=== PATIENT | female | born 1955 | race Caucasian/White ===

== ENCOUNTER → 2018-10-27 22:06 | Outpatient (CLI) | payer OTHER, SELFPAY ==
[2018-10-27 16:08] VITALS: BMI 35.1
[2018-10-27 22:20] LABS: Absolute Lymphocyte Count 1.95 X10^3/ul (0.83-4.51); Absolute Neutrophil Count 3.7 X10^3/uL (2.0-7.7); Basophil# 0.02 X10^3/uL; Basophil% 0.3 % (0-1); Eosinophil# 0.08 X10^3/uL; Eosinophils% 1.3 % (0-5); Hematocrit 46.7 % (37-47); Hemoglobin 15.5 g/dl (12.0-15.0); Lymphocyte # 1.95 X10^3/ul (4.0); Lymphocyte % 30.8 % (19-41); Mean Corp Hgb Conc 33.2 g/gl (32-36); Mean Corpuscular Volume 90.5 fL (81-99); Mean Platelet Vol. 10.3 fl (6.2-12.0); Monocyte# 0.59 X10^3/uL; Monocyte% 9.3 % (0-10); Neutrophil # 3.68 X10^3/uL (2.7-7.7); Neutrophil % 58.1 % (47-70); POSITIVE COUNT NO; POSITIVE DIFFERENTIAL NO; POSITIVE MORPHOLOGY NO; Platelet Count 235 K/mm3 (150-450); RBC Distribution Width SD 42.4 fl (35.1-43.9); Red Blood Count 5.16 M/mm3 (4.2-5.4); White Blood Count 6.3 K/mm3 (4.4-11.0)
[2018-10-27 22:55] LABS: ALB/GLOB Ratio 1.2 RATIO (0.9-2.4); AST(SGOT) 24 U/L (15-37); Alanine Aminotransfer ALT/SGPT 43 U/L (13-56); Albumin, Serum 3.9 g/dL (3.2-5.0); Alkaline Phosphatase 84 U/L (45-117); Anion Gap 8 (5-15); BUN 17 mg/dL (7-18); BUN/Creat Ratio 24.1 RATIO (10-20); Calcium,Total 8.6 mg/dL (8.5-10.1); Chloride 104 mmol/L (98-107); Cholesterol 179 mg/dL (200); EST Glomerular Filtration Rate 89 mL/min (>60); Est Glom Filt Rate - Afr Amer 108 mL/min (>60); Globulin 3.2 g/dL (2.2-4.2); Glucose 121 mg/dL (74-106); High Density Lipoprotein 39 mg/dL; Potassium 3.2 mmol/L (3.5-5.1); Protein, Total 7.1 g/dL (6.4-8.2); Sodium Level 139 mmol/L (136-145); Triglycerides 443 mg/dL
== END ==
PROVIDERS: Referring Provider Nurse Practitioner; Visit Provider Nurse Practitioner
DX: I10 Essential (primary) hypertension (principal); E78.5 Hyperlipidemia, unspecified; K21.9 Gastro-esophageal reflux disease without esophagitis
CPT/HCPCS: 80053; 80061; 85025

== ENCOUNTER → 2020-02-01 | Outpatient (CLI) | payer OTHER, SELFPAY ==
[2020-02-01 16:25] VITALS: BMI 35.9
[2020-02-01 22:11] LABS: Absolute Lymphocyte Count 2.23 X10^3/uL (0.83-4.51); Absolute Neutrophil Count 3.9 X10^3/uL (2.0-7.7); Basophil# 0.03 X10^3/uL; Basophil% 0.4 % (0-1); Eosinophil# 0.14 X10^3/uL; Hematocrit 44.8 % (37-47); Hemoglobin 14.7 g/dL (12.0-15.0); Lymphocyte # 2.23 X10^3/ul (4.0); Lymphocyte % 31.6 % (19-41); Mean Corp Hgb Conc 32.8 g/dL (32-36); Mean Corpuscular Hgb 29.8 pg (27.0-32.0); Mean Corpuscular Volume 90.7 fL (81-99); Mean Platelet Vol. 10.1 fl (6.2-12.0); Monocyte# 0.71 X10^3/uL; Monocyte% 10.1 % (0-10); NRBC Flagged by Analyzer 0 % (0-5); Neutrophil # 3.93 X10^3/uL (2.7-7.7); Neutrophil % 55.8 % (47-70); Platelet Count 270 K/mm3 (150-450); RBC Distribution Width CV 12.6 % (11.6-14.6); RBC Distribution Width SD 41.4 fl (35.1-43.9); Red Blood Count 4.94 M/mm3 (4.2-5.4); White Blood Count 7.1 K/mm3 (4.4-11.0)
[2020-02-01 22:26] LABS: ALB/GLOB Ratio 1.3 RATIO (0.9-2.4); AST(SGOT) 23 U/L (15-37); Alanine Aminotransfer ALT/SGPT 41 U/L (13-56); Albumin, Serum 4.1 g/dL (3.2-5.0); Alkaline Phosphatase 79 U/L (45-117); Anion Gap 7 (5-15); BUN 17 mg/dL (7-18); BUN/Creat Ratio 26.8 RATIO (10-20); Calcium,Total 9.1 mg/dL (8.5-10.1); Chloride 103 mmol/L (98-107); Cholesterol 186 mg/dL (200); Creatinine, Serum 0.64 mg/dL (0.55-1.02); EST Glomerular Filtration Rate 100 mL/min (>60); Est Glom Filt Rate - Afr Amer 121 mL/min (>60); Globulin 3.2 g/dL (2.2-4.2); Glucose 94 mg/dL (74-106); High Density Lipoprotein 37 mg/dL; Potassium 3.8 mmol/L (3.5-5.1); Protein, Total 7.3 g/dL (6.4-8.2); Sodium Level 139 mmol/L (136-145); Triglycerides 319 mg/dL; Very Low Density Lipoprotein 64 mg/dL (5-40)
== END | disposition home or self-care (01) ==
PROVIDERS: Referring Provider Nurse Practitioner; Visit Provider Nurse Practitioner
DX: I10 Essential (primary) hypertension (principal); E78.5 Hyperlipidemia, unspecified
CPT/HCPCS: 80053; 80061; 85025

== ENCOUNTER → 2020-12-19 | Outpatient (CLI) | payer OTHER, SELFPAY ==
[2020-12-19 18:33] VITALS: BMI 37.0
== END | disposition home or self-care (01) ==
PROVIDERS: Referring Provider Nurse Practitioner; Visit Provider Nurse Practitioner
DX: N30.90 Cystitis, unspecified without hematuria (principal)
CPT/HCPCS: 87077; 87086; 87088; 87186

== ENCOUNTER → 2021-01-29 | Outpatient (CLI) | payer OTHER, SELFPAY ==
[2021-01-29 18:01] VITALS: BMI 35.9
[2021-01-29 21:37] LABS: Absolute Lymphocyte Count 1.99 X10^3/uL (0.83-4.51); Absolute Neutrophil Count 4.5 X10^3/uL (2.0-7.7); Basophil# 0.03 X10^3/uL; Basophil% 0.4 % (0-1); Eosinophil# 0.15 X10^3/uL; Eosinophils% 2.1 % (0-5); Hematocrit 42.9 % (37-47); Hemoglobin 14.2 g/dL (12.0-15.0); Lymphocyte # 1.99 X10^3/ul (0.83-4.51); Lymphocyte % 27.3 % (19-41); Mean Corp Hgb Conc 33.1 g/dL (32-36); Mean Corpuscular Hgb 30.1 pg (27.0-32.0); Mean Corpuscular Volume 91.1 fL (81-99); Mean Platelet Vol. 10.6 fl (6.2-12.0); Monocyte# 0.65 X10^3/uL; Monocyte% 8.9 % (0-10); NRBC Flagged by Analyzer 0 % (0-5); Neutrophil # 4.46 X10^3/uL (2.7-7.7); Platelet Count 249 K/mm3 (150-450); RBC Distribution Width CV 12.5 % (11.6-14.6); RBC Distribution Width SD 41.4 fl (35.1-43.9); Red Blood Count 4.71 M/mm3 (4.2-5.4); White Blood Count 7.3 K/mm3 (4.4-11.0)
[2021-01-29 21:49] LABS: ALB/GLOB Ratio 1.2 RATIO (0.9-2.4); AST(SGOT) 19 U/L (15-37); Alanine Aminotransfer ALT/SGPT 41 U/L (13-56); Albumin, Serum 3.6 g/dL (3.2-5.0); Alkaline Phosphatase 86 U/L (45-117); Anion Gap 9 (5-15); BUN 17 mg/dL (7-18); BUN/Creat Ratio 27.1 RATIO (10-20); Calcium,Total 8.8 mg/dL (8.5-10.1); Chloride 103 mmol/L (98-107); Cholesterol 184 mg/dL (200); Creatinine, Serum 0.63 mg/dL (0.55-1.02); EST Glomerular Filtration Rate 101 mL/min (>60); Est Glom Filt Rate - Afr Amer 122 mL/min (>60); Globulin 3.1 g/dL (2.2-4.2); Glucose 139 mg/dL (74-106); High Density Lipoprotein 36 mg/dL; Potassium 3.3 mmol/L (3.5-5.1); Protein, Total 6.7 g/dL (6.4-8.2); Sodium Level 141 mmol/L (136-145); Triglycerides 410 mg/dL
== END | disposition home or self-care (01) ==
PROVIDERS: Visit Provider Nurse Practitioner
DX: I10 Essential (primary) hypertension (principal); E78.5 Hyperlipidemia, unspecified
CPT/HCPCS: 80053; 80061; 85025

== ENCOUNTER 2021-09-10 22:08 | Outpatient (CLI) | payer OTHER, SELFPAY ==
[2021-09-10 22:28] LABS: Absolute Lymphocyte Count 2.08 X10^3/uL (0.83-4.51); Absolute Neutrophil Count 4.4 X10^3/uL (2.0-7.7); Basophil# 0.03 X10^3/uL; Basophil% 0.4 % (0-1); Eosinophil# 0.17 X10^3/uL; Eosinophils% 2.3 % (0-5); Hematocrit 45.9 % (37-47); Hemoglobin 15.5 g/dL (12.0-15.0); Lymphocyte # 2.08 X10^3/ul (0.83-4.51); Lymphocyte % 28.3 % (19-41); Mean Corp Hgb Conc 33.8 g/dL (32-36); Mean Corpuscular Volume 88.8 fL (81-99); Mean Platelet Vol. 10.4 fl (6.2-12.0); Monocyte# 0.62 X10^3/uL; Monocyte% 8.4 % (0-10); NRBC Flagged by Analyzer 0 % (0-5); Neutrophil # 4.42 X10^3/uL (2.7-7.7); Neutrophil % 60.3 % (47-70); Platelet Count 274 K/mm3 (150-450); RBC Distribution Width CV 12.7 % (11.6-14.6); RBC Distribution Width SD 41.5 fl (35.1-43.9); Red Blood Count 5.17 M/mm3 (4.2-5.4); White Blood Count 7.3 K/mm3 (4.4-11.0)
[2021-09-10 22:42] LABS: ALB/GLOB Ratio 1.2 RATIO (0.9-2.4); AST(SGOT) 20 U/L (15-37); Alanine Aminotransfer ALT/SGPT 37 U/L (13-56); Albumin, Serum 3.8 g/dL (3.2-5.0); Alkaline Phosphatase 86 U/L (45-117); Anion Gap 7 (5-15); BUN 15 mg/dL (7-18); BUN/Creat Ratio 23.9 RATIO (10-20); Calcium,Total 8.9 mg/dL (8.5-10.1); Chloride 103 mmol/L (98-107); Cholesterol 172 mg/dL (200); Creatinine, Serum 0.63 mg/dL (0.55-1.02); EST Glomerular Filtration Rate 101 mL/min (>60); Est Glom Filt Rate - Afr Amer 122 mL/min (>60); Globulin 3.3 g/dL (2.2-4.2); Glucose 174 mg/dL (74-106); High Density Lipoprotein 38 mg/dL; Potassium 3.4 mmol/L (3.5-5.1); Protein, Total 7.1 g/dL (6.4-8.2); Sodium Level 138 mmol/L (136-145); Triglycerides 331 mg/dL; Very Low Density Lipoprotein 66 mg/dL (5-40)
== END 2021-09-10 23:59 | disposition short-term general hospital (02) ==
PROVIDERS: Visit Provider Nurse Practitioner
DX: M25.462 Effusion, left knee (principal); E78.1 Pure hyperglyceridemia
CPT/HCPCS: 80053; 80061; 85025

== ENCOUNTER 2021-10-25 22:24 | Outpatient (CLI) | payer OTHER, SELFPAY | END 2021-10-25 23:59 | disposition home or self-care (01) | PROVIDERS: Visit Provider Nurse Practitioner | DX: R30.0 Dysuria (principal) | CPT/HCPCS: 87077; 87086; 87088; 87186 ==

== ENCOUNTER → 2022-02-05 | Outpatient (CLI) | payer OTHER, SELFPAY ==
--- NOTE | 2022-02-05 08:12 | VDLE_ITS ---
Reason For Study: edema RIGHT LEFT CFV is compressible, spontaneous, phasic, CFV is compressible, spontaneous, phasic, competent and demonstrates normal competent, and demonstrates normal augmentation. augmentation. FV is compressible, spontaneous, phasic, FV is compressible, spontaneous, phasic, competent and demonstrates normal competent and demonstrates normal augmentation. augmentation. POP V is compressible, spontaneous, phasic, POP V is compressible, spontaneous, phasic, competent and demonstrates normal competent and demonstrates normal augmentation. augmentation. T/P Trunk is compressible. T/P Trunk is compressible. PTV is compressible. PTV is compressible. RT PerV is compressible. LT PerV is compressible. SFJ is competent and measures .56 cm. SFJ is competent and measures .67 cm. GSV proximal thigh measures .29 x .3 cm. GSV proximal thigh measures .84 x .9 cm. GSV at knee measures .17 x .21 cm. GSV at knee measures .52 x .52 cm. GSV is competent throughout. GSV INCOMPETENT throughout for greater than SSV proximal calf is competent and 0.5 seconds. measures .22 x .23 cm. SSV proximal calf is INCOMPETENT for greater ASV at knee is INCOMPETENT for greater than than 0.5 seconds and measures .45 x .54 cm. 0.5 seconds and measures .19 x .19 cm. 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 flow and spectral Doppler. Exam performed in department. The exam was diagnostic. A preliminary report was called and/or faxed to Cynthia Garcia. VL/Venous Duplex US - Harman Extrem Interpretation Summary Deep veins of the lower extremities are bilaterally patent and compressible seg mentally. There is no evidence of deep vein thrombosis on either side. Valvular competence appears in tact within the proximal deep venous systems bilaterally. The great saphenous veins appear bila terally patent and compressible segmentally. Sapheno-femoral junctions are bilaterally competent . The right great saphenous vein appears segmentally competent. The left great saphenous vein queenie ears segmentally incompetent. The right small saphenous vein is patent and competent. The left s mall saphenous vein is patent and incompetent. The accesory sphenous vein at the right knee is inco mpetent. An incompetent preboarder vein is noted in the left distal thigh. Ordering Physician: Cynthia Garcia Performed By: Oskar Coppola RVT
== END | disposition home or self-care (01) ==
PROVIDERS: PCP Nurse Practitioner; Referring Provider Nurse Practitioner; Visit Provider Nurse Practitioner
DX: R60.0 Localized edema (principal)
CPT/HCPCS: 93970

== ENCOUNTER → 2023-02-03 | Outpatient (CLI) | payer MEDICARE, OTHER, SELFPAY | END | disposition home or self-care (01) | PROVIDERS: PCP Nurse Practitioner; Visit Provider Nurse Practitioner | DX: R10.32 Left lower quadrant pain (principal); K57.92 Diverticulitis of intestine, part unspecified, without perforation or abscess without bleeding | CPT/HCPCS: 87077; 87086; 87088; 87186 ==

== ENCOUNTER → 2023-03-04 | Outpatient (CLI) | payer MEDICARE, OTHER, SELFPAY | END | disposition home or self-care (01) | PROVIDERS: PCP Nurse Practitioner; Visit Provider Nurse Practitioner | DX: N30.90 Cystitis, unspecified without hematuria (principal) | CPT/HCPCS: 87077; 87086; 87088; 87186 ==

== ENCOUNTER → 2023-04-30 | Outpatient (CLI) | payer MEDICARE, OTHER, SELFPAY ==
[2023-04-30 21:56] LABS: Absolute Lymphocyte Count 1.73 X10^3/uL (0.83-4.51); Absolute Neutrophil Count 5.2 X10^3/uL (2.0-7.7); Basophil# 0.03 X10^3/uL; Basophil% 0.4 % (0-1); Eosinophil# 0.14 X10^3/uL; Eosinophils% 1.8 % (0-5); Hematocrit 46.7 % (37-47); Hemoglobin 14.8 g/dL (12.0-15.0); Lymphocyte # 1.73 X10^3/ul (0.83-4.51); Lymphocyte % 22.2 % (19-41); Mean Corp Hgb Conc 31.7 g/dL (32-36); Mean Corpuscular Hgb 29.2 pg (27.0-32.0); Mean Corpuscular Volume 92.3 fL (81-99); Mean Platelet Vol. 10.6 fl (6.2-12.0); Monocyte# 0.67 X10^3/uL; Monocyte% 8.6 % (0-10); NRBC Flagged by Analyzer 0 % (0-5); Neutrophil # 5.23 X10^3/uL (2.7-7.7); Neutrophil % 66.9 % (47-70); Platelet Count 262 K/mm3 (150-450); RBC Distribution Width CV 12.8 % (11.6-14.6); Red Blood Count 5.06 M/mm3 (4.2-5.4); White Blood Count 7.8 K/mm3 (4.4-11.0)
[2023-04-30 22:09] LABS: ALB/GLOB Ratio 1.4 RATIO (0.9-2.4); AST(SGOT) 22 U/L (15-37); Alanine Aminotransfer ALT/SGPT 37 U/L (13-56); Alkaline Phosphatase 96 U/L (45-117); Anion Gap 4 (5-15); BUN 14 mg/dL (7-18); BUN/Creat Ratio 21.1 RATIO (10-20); Chloride 105 mmol/L (98-107); Cholesterol 188 mg/dL (200); Creatinine, Serum 0.66 mg/dL (0.55-1.02); EST Glomerular Filtration Rate 94 mL/min (>60); Est Glom Filt Rate - Afr Amer 114 mL/min (>60); Globulin 2.9 g/dL (2.2-4.2); Glucose 127 mg/dL (74-106); High Density Lipoprotein 42 mg/dL; Protein, Total 6.9 g/dL (6.4-8.2); Sodium Level 139 mmol/L (136-145); Triglycerides 265 mg/dL; Very Low Density Lipoprotein 53 mg/dL (5-40)
== END | disposition home or self-care (01) ==
PROVIDERS: PCP Nurse Practitioner; Visit Provider Nurse Practitioner
DX: I10 Essential (primary) hypertension (principal); K21.9 Gastro-esophageal reflux disease without esophagitis; E78.5 Hyperlipidemia, unspecified
CPT/HCPCS: 80053; 80061; 85025

== ENCOUNTER → 2023-06-11 | Outpatient (CLI) | payer MEDICARE, OTHER, SELFPAY | END | disposition home or self-care (01) | PROVIDERS: PCP Nurse Practitioner; Visit Provider Nurse Practitioner | DX: N30.90 Cystitis, unspecified without hematuria (principal) | CPT/HCPCS: 87077; 87086; 87088; 87186 ==

== ENCOUNTER → 2023-08-27 | Outpatient (CLI) | payer MEDICARE, OTHER, SELFPAY ==
--- OUTSIDE RECORDS SUMMARY | 2023-08-27 22:16 | XMS RPT_ITS | CCD ---
Author Name Unknown Address [address] [place] [address] Organization [facility] Care Team Providers Care Superintendent Of Generation Name Role Phone Kameron Eli Unavailable Unavailable Family Physician Unavailable Unavailable Nelsy vailable Family Physician Unavailable Unavailable Nelsy vailable Orasanu, Scout Unavailable Unavailable PROVIDER, UNKNOWN Unavailable Unavailable No, PCP Unavailable Unavailable Orasanu, Scout Unavailable Unavailable PROVIDER, UNKNOWN Unavailable Unavailable No, PCP Unavailable Unavailable No, PCP Unavailable Unavailable Orasanu, Scout Unavailable Unavailable PROVIDER, UNKNOWN Unavailable Unavailable No, PCP Unavailable Unavailable Orasanu, Scout Unavailable Unavailable PROVIDER, UNKNOWN Unavailable Unavailable Unknown, Referring Provider Unavailable Unav ailable Etta Trevino Unavailable Unavailable Nabil LIGHTING DIRECTOR-Ginger ROBBINS Unavailable Jose LIGHTING DIRECTOR.WASTE REMOVALIST, Brooklynn L Primary Care Provide r OLIVE ROCHA MD Attending Unavail able KLINE, BROOKLYNN Primary Care Unavailable OLIVE ROCHA MD Attending Unavail able KLINE, BROOKLYNN Primary Care Unavailable OLIVE ROCHA MD Attending Unavail able KLINE, BROOKLYNN Primary Care Unavailable Jose LIGHTING DIRECTOR.WASTE REMOVALIST, Brooklynn L Primary Care Provide r Phani Klinea L Unavailable [phone] Un[address] Kameron Eli Attending Harshad Kline, Ms. Brooklynn L Primary Care Unavailab sylvia Kline, Ms. Brooklynn L Primary Care Unavailab Dr. Kameron Jones Attending Dr. Kameron Hogan Attending Harshad Kline, Ms. Brooklynn L Referring Unavailab le UNKNOWN, PCP Primary Care Unavailable Sreedhar, Dr. Kameron Echevarria Attending Nelsyoliver warnersylvia Kline, Ms. Brooklynn L Referring Unavailab le Kline, Ms. Brooklynn L Primary Care Unavailab le Sreedhar, Dr. Kameron Echevarria Referring Harshad Eli, Dr. Kameron Echevarria Attending Harshad Delgadoson, Ms. Brooklynn L Primary Care Unavailab le KLINE, BROOKLYNN L Primary Care Unavailable MADDI, LAURA M Referring Unavailable KLINE, BROOKLYNN L Primary Care Unavailable MADDI, LAURA M Referring Unavailable KLINE, BROOKLYNN L Primary Care Unavailable MADDI, LAURA M Referring Unavailable KLINE, BROOKLYNN L Primary Care Unavailable MADDI, LAURA M Referring Unavailable KLINE, BROOKLYNN L Primary Care Unavailable MADDI, LAURA M Referring Unavailable KLINE, RBOOKLYNN L Primary Care Unavailable MADDI, LAURA M Referring Unavailable KLINE, BROOKLYNN L Primary Care Unavailable MADDI, LAURA M Referring Unavailable KLINE, BROOKLYNN L Primary Care Unavailable MADDI, LAURA Quispe Referring Unavailable Allergies Allergy Classification Reported Allergen(s) Allergy Type Date of Onset Reaction(s) Facility (10 sources) Povidone-Iodine; Translations: [Iodine Solution SOLN] Drug Allergy [facility] [id number] Work Phone: (10 sources) Adhesive Tape TAPE; Translations: [Adhesive Tape TAPE] Allergy to drug (finding) [facility] [id number] Work Phone: (17 sources) Iodine; Translations: [IODINE] Drug Allergy 02-04-[address] [facility] Work Phone: (1 source) BAND AIDS drug allergy 02-05-2013 [facility] Work Phone: (16 sources) Latex; Translations: [LATEX] Drug Allergy 02-04-2013 [facility] Medications Completed/Discontinued Medications Medication Drug Class(es) Dates Sig (Normalized) Sig (Original) aspirin 81 mg delayed release oral tablet (8 sources) Platelet Aggregation Inhibitor, Nonsteroidal Anti-inflammatory Drug Start: 09-19-2022 take 1 tablet by mouth once daily aspirin, enteric coated (ADULT LOW DOSE ASPIRIN) 81 mg EC tablet Take 1 tablet by mouth once daily. 30 tablet 0 09/19/2022 Active Problems Active Problems Problem Classification Problem Date Documented Da te Episodic/Chronic Abdominal hernia (1 source) Diaphragmatic hernia without obstruction or gangrene; Translations: [Diaphragmatic hernia without obstruction or gangrene] Onset: 03-13-2023 Episodic Calculus of urinary tract (1 source) Calculus of kidney; Translations: [Calculus of kidney] Onset: 03-10-2023 Episodic Esophageal disorders (2 sources) Gastro-esophageal reflux disease without esophagitis; Translations: [Gastro-esophageal reflux disease without esophagitis] Onset: 03-27-2017 Chronic Essential hypertension (20 sources) Essential (primary) hypertension; Translations: [Benign essential hypertension] Onset: 03-27-2017 09-19-2022 Chronic Genitourinary symptoms and ill-defined conditions (10 sources) Female stress incontinence; Translations: [Stress incontinence, female] Chronic Genitourinary symptoms and ill-defined conditions (4 sources) Retention of urine, unspecified; Translations: [Scalding pain on urination ] Onset: 03-20-2017 Episodic Osteoarthritis (17 sources) Osteoarthritis of right knee joint; Translations: [Unilateral primary osteoarthritis, right knee] Onset: 11-06-2021 Chronic Other aftercare (20 sources) Patient encounter status; Translations: [Aftercare following joint replacement surgery] Onset: 11-06-2021 Chronic Other congenital anomalies (10 sources) Herniated urinary bladder; Translations: [Bladder prolapse] Chronic Other connective tissue disease (16 sources) History of total knee arthroplasty; Translations: [Presence of left artificial knee joint] Onset: 01-30-2023 Chronic Other connective tissue disease (1 source) Presence of left artificial knee joint; Translations: [S/P total knee arthroplasty, left] Onset: 01-30-2023 Chronic Other diseases of kidney and ureters (7 sources) Renal mass; Translations: [Unspecified disorder of kidney and ureter] Chronic Other diseases of kidney and ureters (3 sources) Other specified disorders of kidney and ureter; Translations: [Other specified disorders of kidney and ureter] Onset: 03-13-2023 Chronic Other diseases of kidney and ureters (1 source) Cyst of kidney, acquired; Translations: [Cyst of kidney, acquired] Onset: 03-13-2023 Episodic Other diseases of kidney and ureters (2 sources) Simple renal cyst; Translations: [Cyst of kidney, acquired] Episodic Other female genital disorders (10 sources) Cyst of vagina; Translations: [Other specified noninflammatory disorders of vagina] Episodic Other female genital disorders (4 sources) Other specified noninflammatory disorders of vagina; Translations: [Other specified noninflammatory disorders of vagina] Onset: 03-10-2023 Episodic Other gastrointestinal disorders (9 sources) Irritable bowel syndrome; Translations: [Irritable bowel syndrome] Chronic Other nervous system disorders (20 sources) Difficulty walking; Translations: [Difficulty in walking, not elsewhere classified] Onset: 11-06-2021 Chronic Other nervous system disorders (1 source) Difficulty in walking, not elsewhere classified; Translations: [Difficulty walking] Onset: 11-06-2021 Chronic Other nervous system disorders (5 sources) Abnormal gait; Translations: [Unspecified abnormalities of gait and mobility] Episodic Other non-traumatic joint disorders (16 sources) Stiffness of left knee; Translations: [Stiffness of left knee, not elsewhere classified] Onset: 01-30-2023 Episodic Other nutritional; endocrine; and metabolic disorders (15 sources) Obese class I; Translations: [Obesity, unspecified] Onset: 06-25-2018 06-25-2018 Chronic Prolapse of female genital organs (2 sources) Uterovaginal prolapse, unspecified; Translations: [Uterovaginal prolapse, unspecified] Onset: 03-27-2017 Chronic Unclassified (1 source) Unknown / UNK(Unknown) Onset: 08-01-2017 Unclassified (2 sources) History of uterine scar from previous surgery; Translations: [History of uterine scar from previous surgery] Onset: 03-27-2017 Unclassified (2 sources) Pure hypercholesterolemia, unspecified; Translations: [Pure hypercholesterolemia, unspecified] Onset: 03-27-2017 Unclassified (1 source) PT Eval Onset: 01-30-2023 Urinary tract infections (20 sources) Urinary tract infectious disease; Translations: [Recurrent urinary tract infection] Onset: 03-10-2023 Episodic Past or Other Problems Problem Classification Problem Date Documented Date Episodic/Chronic Abdominal pain (2 sources) Epigastric pain; Translations: [Epigastric pain] Onset: 03-20-2017 Episodic Allergic reactions (4 sources) Latex allergy status; Translations: [Allergy status to other drugs, medicaments and biological substances status] Onset: 03-27-2017 Episodic Heart valve disorders (2 sources) Cardiac murmur, unspecified; Translations: [Cardiac murmur, unspecified] Onset: 03-27-2017 Episodic Joint disorders and dislocations; trauma-related (1 source) Other tear of medial meniscus, current injury, left knee, initial encounter; Translations: [Other tear of medial meniscus, current injury, left knee, initial encounter] Onset: 12-22-2018 12-22-2018 Episodic Medical examination/evaluatio n (2 sources) Encounter for other preprocedural examination; Translations: [Encounter for other preprocedural examination] Onset: 03-20-2017 Episodic Nausea and vomiting (15 sources) Nausea, vomiting and diarrhea; Translations: [Nausea with vomiting, unspecified] Onset: 06-25-2018 06-25-2018 Episodic Nonspecific chest pain (8 sources) Chest pain; Translations: [Chest pain, unspecified] Onset: 09-19-2022 09-19-2022 Episodic Other nervous system disorders (1 source) Unspecified abnormalities of gait and mobility; Translations: [Abnormality of gait] Onset: 03-07-2023 Episodic Other non-traumatic joint disorders (20 sources) Stiffness of right knee; Translations: [Stiffness of right knee, not elsewhere classified] Onset: 11-06-2021 Episodic Other non-traumatic joint disorders (1 source) Stiffness of left knee, not elsewhere classified; Translations: [Knee stiffness, left] Onset: 01-30-2023 Episodic Residual codes; unclassified (1 source) History of operative procedure on knee; Translations: [Other specified postprocedural states] Onset: 01-08-2019 01-08-2019 Episodic Unclassified (4 sources) Family history of ischemic heart disease and other diseases of the circulatory system; Translations: [Family history of malignant neoplasm of breast] Onset: 03-27-2017 Episodic Unclassified (1 source) N39.0 Onset: 08-01-2017 Unclassified (1 source) Problem NEGATED: Highlighted row has not occurred!Residual codes; unclassified (2 sources) Disease Episodic Results Test Name Value Interpretation Reference Range Facil ity Vital Signs Date Time Vital Sign Value Performing Clinician Facility 03-13-2023 10:58-0400 Body height 154.94 cm Brooklynn Kline Work Phone: YG-Rinyetk-Ixzmlli e [facility] [address] Work Phone: 03-13-2023 10:58-0400 Body mass index (BMI) [Ratio] 37.03 kg/m2 Brooklynn Kline Work Phone: JW-Yfyyrtk-Dutofke e [facility] [address] Work Phone: 03-13-2023 10:58-0400 Body surface area Derived from formula 1.87 m2 Brooklynn Kline Work Phone: BT-Qcniohv-Espkyey e [facility] [address] Work Phone: 03-13-2023 10:58-0400 Body temperature 98.6 [degF] Brooklynn Kline Work Phone: EL-Amzamqx-Cbmzzuo e [facility] [address] Work Phone: 03-13-2023 10:58-0400 Body weight 88.91 kg Brooklynn Kline Work Phone: WF-Akjepef-Uimufvp e [facility] [address] Work Phone: 03-13-2023 10:58-0400 Diastolic blood pressure 72 mm[Hg] Brooklynn Kline Work Phone: CK-Rvjzfzs-Qazvfcj e [facility] [address] Work Phone: 03-13-2023 10:58-0400 Heart rate 80 /min Brooklynn Kline Work Phone: PZ-Etemxgo-Mibbcet e [facility] [address] Work Phone: 03-13-2023 10:58-0400 Systolic blood pressure 154 mm[Hg] Brooklynnstephanie Kline Work Phone: FS-Mpxnhum-Eucqgxv e [facility] [address] Work Phone: 03-06-2023 11:53-0400 Body height 154.94 cm Brooklynn Kline Work Phone: IL-Gshsazs-Lorpnng e [facility] [address] Work Phone: 03-06-2023 11:53-0400 Body mass index (BMI) [Ratio] 37.08 kg/m2 Brooklynn Kline Work Phone: OJ-Sjgysat-Mwttwjw e [facility] [address] Work Phone: 03-06-2023 11:53-0400 Body surface area Derived from formula 1.87 m2 Brooklynn Kline Work Phone: FZ-Qknshxq-Ioccndb e [facility] [address] Work Phone: 03-06-2023 11:53-0400 Body temperature 98.1 [degF] Brooklynn Kline Work Phone: FT-Zcdfvnq-Vjklycz e [facility] [address] Work Phone: 03-06-2023 11:53-0400 Body weight 89.02 kg Brooklynn Kline Work Phone: ZF-Mzutxit-Etxsdmo e [facility] [address] Work Phone: 03-06-2023 11:53-0400 Diastolic blood pressure 79 mm[Hg] Brooklynn Kline Work Phone: LP-Lcizuhv-Qqjajgt e [facility] [address] Work Phone: 03-06-2023 11:53-0400 Heart rate 101 /min Brooklynn Kline Work Phone: NV-Qvgaaoz-Qibgwxh e [facility] [address] Work Phone: 03-06-2023 11:53-0400 Systolic blood pressure 182 mm[Hg] Brooklynnstephanie Kline Work Phone: AY-Hjsqyir-Insaksh e [facility] [address] Work Phone: NEGATED: Highlighted [id number] 14:45-0400 BMI (Body Mass Index) 35.08 kg/m2 Renetta Grant At [facility] Work Phone: NEGATED: Highlighted [id number] 14:45-0400 Body weight 83.92 kg Renetta Grant At [facility] Work Phone: NEGATED: Highlighted [id number] 14:45-0400 Body weight 84 kg Renetta Grant At [facility] Work Phone: NEGATED: Highlighted [id number] 14:45-0400 BP Diastolic 74 mm[Hg] Renetta Grant At [facility] Work Phone: NEGATED: Highlighted [id number] 14:45-0400 BP Systolic 118 mm[Hg] Renetta Grant At [facility] Work Phone: NEGATED: Highlighted [id number] 14:45-0400 Heart rate 2+ Renetta Grant At [facility] Work Phone: NEGATED: Highlighted [id number] 14:45-0400 Height 154.94 cm Renetta Grant At [facility] Work Phone: NEGATED: Highlighted [id number] 14:45-0400 Height 155 cm Renetta Grant At [facility] Work Phone: NEGATED: Highlighted [id number] 14:45-0400 Pulse (Heart Rate) 76 /min Renetta Grant At [facility] Work Phone: Encounters Encounter Date Encounter Type Care Provider Facility Start: 04-10-2023 Office outpatient vi sit 15 minutes Brooklynn Kline Work Phone: UD-Giyzjzv-Vnlzkdzl [facility] [address] Work Phone: Start: 04-10-2023 Patient encounter procedure Brooklynn Kline Work Phone: TC[facility]Wxeauhb-Funrtfvk [facility] [address] Work Phone: Start: 04-10-[address] Kameron Eli Facility:[id number] Start: 03-23-2023 Chart Update Brooklynn bacon Work Phone: XV-Uvkqicc-Cgyzsrmp [facility] [address] Work Phone: Start: 03-13-2023 ambulatory Ms. Brooklynn Kline F acility:[id number] Start: 03-13-2023 Patient encounter procedure Brooklynn Kline Work Phone: AH-Urempvw-Xpkebwqh [facility] [address] Work Phone: Start: 03-13-[address] Kameron Eli Facility:[id number] Start: 03-10-[address] Kameron Eli Facility:[id number] Start: 03-07-2023 End: 03-07-2023 ambulatory BROOKLYNN L KLINE Facility:[facility] Start: 03-06-2023 End: 03-06-2023 ambulatory Yara Cazares PT Work Phone: [facility] Procedures Date Procedure Procedure Detail Performing Clinician Start: 03-13-2022 JUSTIN SCREENING W LAURA Sterling MD Work Phone: Start: 03-13-2022 Mammography Screen[facility] Work Phone: Start: 01-08-2019 End: 01-08-2019 Blood pressure within normal parameters - no follow-up required Ginger Ferrer LIGHTING DIRECTOR-WASTE REMOVALIST Work Phone: Start: 01-08-2019 End: 01-08-2019 BMI documented as above normal parameters - follow-up documented Ginger Ferrer LIGHTING DIRECTOR-WASTE REMOVALIST Work Phone: Start: 01-08-2019 End: 01-08-2019 Documentation of current medications Ginger Ferrer LIGHTING DIRECTOR-WASTE REMOVALIST Work Phone: Start: 01-08-2019 End: 01-08-2019 Pain assessment documented as positive - follow-up documented Ginger Ferrer LIGHTING DIRECTOR-WASTE REMOVALIST Work Phone: Start: 01-08-2019 End: 01-08-2019 Tobacco non-user Ginger Ferrer LIGHTING DIRECTOR-WASTE REMOVALIST Work Phone: Start: 09-14-2018 Mammography Natalie Александр donis PT Work Phone: section Etta lim History of Biopsy Br east Open Etta Trevino History of Knee Surgery Arely Trevino History of Mid-Ureth ral Sling Operation Etta Trevino NEGATED: Highlighted rowStart: 01-08-2019 End: 01-08-2019 Documentation of current medications Renetta Grant At Plan of Treatment Date Care Activity Detail Author Start: 09-19-2027 LIPID SCREEN LIPID SCREEN [facility] Start: 09-18-2025 DIABETES SCREEN DIABETES SCREEN [facility] Start: 09-26-2024 DIABETES SCREEN DIABETES SCREEN [facility] Start: 04-11-2023 Influenza vaccination [facility] Start: 04-10-2023 VIRZACKARY, Provider: Kameron Eli, Status: Pen, Time: 3:00 PM LIZETT, Provider: Kameron Eli, Status: Pen, Time: 3:00 PM BH-Qymusye-Hatepfnu [facility] [address] Work Phone: Start: 03-13-2023 Mammography MAMMOGRAM [facility] Start: 03-13-2023 CYSTOSCOPY, Provider: Kameron Eli, Status: Pen, Time: 11:00 AM CYSTOSCOPY, Provider: Kameron Eli, Status: Pen, Time: 11:00 AM WY-Lwjlllb-Idqlknrf [facility] [address] Work Phone: Start: 08-11-2022 ADVANCE DIRECTIVE DISCUSSION ADVANCE DIRECTIVE DISCUSSION [facility] Start: 08-11-2022 DEPRESSION ASSESSMENT DEPRESSION ASSESSMENT [facility] Start: 04-11-2022 Influenza vaccination [facility] Start: 08-11-2021 ADVANCE DIRECTIVE DISCUSSION ADVANCE DIRECTIVE DISCUSSION [facility] Start: 04-11-2021 Influenza vaccination INFLUENZA (#1) [facility] Start: 11-01-2020 LIPID SCREEN LIPID SCREEN [facility] Start: 2020 BONE DENSITY BONE DENSITY [facility] Start: 2020 PNEUMOCOCCAL: 65+ (1 - PCV) PNEUMOCOCCAL: 65+ (1 - PCV) [facility] Start: 2020 PNEUMOVAX AGE 65 AND OVER WITH 5YR LOOKBACK (#1) PNEUMOVAX AGE 65 AND OVER WITH 5YR LOOKBACK (#1) [facility] Start: 09-14-2019 Mammography MAMMOGRAM [facility] Start: 01-08-2019 End: 01-08-2019 Appointment Appointment [facility] Work Phone: Start: 2005 SHINGRIX VACCINE (1 of 2) SHINGRIX VACCINE (1 of 2) [facility] Start: 2000 COLOGUARD (FIT-DNA) COLOGUARD (FIT-DNA) [facility] Start: 2000 Colonoscopy COLONOSCOPY [facility] Start: 2000 COLORECTAL CANCER SCREENING COLORECTAL CANCER SCREENING [facility] Start: [address] COLONOGRAPHY [facility] Start: 2000 FECAL OCCULT BLOOD FECAL OCCULT BLOOD [facility] Start: 2000 SIGMOIDOSCOPY SIGMOIDOSCOPY [facility] Start: 1974 Urine microalbumin profile DTAP,TDAP,TD (1 - Tdap) [facility] Start: 1973 ANNUAL PCP TEAM CHRONIC DISEASE VISIT ANNUAL PCP TEAM CHRONIC DISEASE VISIT [facility] Start: 1973 BP CONTROLLED (<130/80) BP CONTROLLED (<130/80) [facility] Start: 1973 HEPATITIS C SCREENING HEPATITIS C SCREENING [facility] Start: 1967 Adult depression screening assessment DEPRESSION SCREENING [facility] Start: 1960 COVID-19 VACCINE (1) COVID-19 VACCINE (1) [facility] Start: 02-24-1956 COVID-19 VACCINE (#1) COVID-19 VACCINE (#1) [facility] Immunizations Immunization Date Immunization Notes Care Provider Blair gonzalez 01-06-2001 TD(adult) unspecifie d formulation Brooklynn Kline Work Phone: KG-Zkjathn-Zrendmf e [facility] [address] Work Phone: Payers Date Payer Category Payer Unknown [id number] 2020 Medicare [id number] 2019 Unknown 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 MMO [employer] [id number] 2019-Present [phone] [address] [place] [address] PPO [id number] 2008 Medicare 2008 Private Health Insurance 2008 Unknown 1955 Unknown [id number] 59 1955 Unknown [id number] 59 1955 Unknown [id number] 59 1955 Unknown [id number] 1955 Unknown [id number] 1955 Unknown [id number] 56 1955 Unknown [id number] 56 1955 Unknown [id number] 56 Unknown [id number] Social History Date Type Detail Facility Assertion Tobacco smoking consumption unknown (finding) EV-Pmxzktd-Oumfxhaz [facility] [address] Work Phone: Start: 01-08-2019 End: 01-08-2019 Assertion Unknown if ever smoked 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 consultant of alcohol (finding) [facility] Start: 1955 Sex Assigned At Not on file [facility] Start: 10-27-2021 End: 03-13-2022 Exposure to SARS-CoV-2 (event) Not sure [facility] Start: 10-20-2021 End: 01-30-2023 History of Social function [facility] Start: 10-20-2021 End: 01-30-2023 Tobacco use panel [facility] National Score (1-100), lower number is lower risk 52 [facility] Functional Status Date Assessment Result Facility NEGATED: Highlighted row Functional performance Functional status health issues are not documented Disease VX-Ayygzkg-Ctqjjsvg [facility] [address] Work Phone: Mental Status Date Assessment Result Facility NEGATED: Highlighted row Cognitive function [Interpretation] Cognitive status health issues are not documented Disease IG-Rzkhpbv-Oedrneuo [facility] [address] Work Phone: Clinical Notes 12-17-2017 to 07-14-2023 Yara Cazares, PT - 03/06/2023 5:47 PM Yara Larkin, PT - 02/27/2023 12:04 PM Yara Larkin PT - 02/20/2023 11:52 AM Yara Larkin PT - 02/18/2023 11:59 AM EDT Note Date & Type Note Facility 07-14-2023 Note HNO ID: [id number] Author: Yara Cazares PT Service: ? Author Type: Physical Therapist Type: Progress Notes Filed: 07/14/2023 2:02 PM Note Text: 07/14/2023 [facility] PHYSICAL THERAPY DISCONTINUANCE OF CARE Plan of Care Period: Start of Care Date: 01/30/23 Last Visit Date: 03/06/2023 Therapy Program: The following is a summary of the interventions provided for this episode of care; Therapeutic exercise, Manual therapy, Gait training, and Patient/Family/Caregiver Education Assessment: The following is the goal status: Goals for Episode of Care: created on 01/30/23 through 03/31/23 [place] in home exercise program. Patient will increase active ROM of L knee to 0-120 degrees to allow pt to to improve postural alignment, to improve performance of ADLs, and to improve gait mechanics / gait pattern . Patient will demonstrate increase in L LE strength to 5/5 during manual muscle testing in order to improve function for home management tasks, leisure / recreation skills, prior functional tasks, and work tasks. Patient will Improve Timed Up and Go to 8 seconds to demonstrate decreased risk of falling. Patient will improve 5 time sit to stand to demonstrate improvement in functional lower extremity strength. Normal gait. Reciprocal stair negotiation. Patient Goals: get better AND go back to work Based on the most recent progress report, patient was progressing as expected toward functional goals based on home exercise program compliance, documented subjective information on progress, and documented objective information regarding ADL's, balance, gait, joint mobility, overall function, range of motion, and strength. Although pt was limited by a setback with increased knee pain at the last few sessions. Thus she was returning to ortho for f/u. Reason for Discontinuation of Care: Patient has not returned to therapy or scheduled additional follow-up appointments. Yara Cazares, PT [facility] 03-06-2023 Note HNO ID: [id number] Author: Yara Cazares PT Service: ? Author Type: Physical Therapist Type: Progress Notes Filed: 03/06/2023 6:00 PM Note Text: Episode Visit Count: 8 Therapist That Will Accept/Oversee The Plan Of Care: Italo Cazares Start of Care Date: 01/30/23 Onset Date: 11/09/22 Plan of Care Certification Date: 01/30/23 Next Certification Due Date: 03/31/23 REHABILITATION AND SPORTS THERAPY PHYSICAL THERAPY TREATMENT NOTE ASSESSMENT: Mckenna Bush tolerated the session with decreased activity tolerance due to L knee pain continues to present with increased symptoms. She demonstrated difficulty with increased L knee pain of unknown etiology which is contributing to impaired gait, mobility and activity tolerance. The patient will continue to benefit from ongoing skilled physical therapy to progress toward set goals. PLAN FOR NEXT VISIT: continue to progress L knee ROM, gait AND mobility as tolerated. pt to f/u with surgeon SUBJECTIVE: Patient Reason for Visit: reports continued increased knee pain since ~ 2 weeks ago. says the sharp poking pain on outside of knee is better but now she's having more pain in the front of the knee. Pt reports issues with recurrent UTIs. She was on Cipro for a UTI at the end of January (shortly after surgery), recently saw PCP and tested positive for another UTI. PCP prescribed oral steroid for knee pain AND swelling (which she started 2 days ago) and referred her to urology whom pt saw today and was prescribed Bactrim. She's scheduled for additional testing on Friday (bladder scans etc). Pt currently has next f/u with surgeon scheduled for 03/28 and is supposed to RTW 03/31 (concerned that she won't be able to d/t recent increased knee pain). Pain: Pain Pain Level: 3 Pain Location: Knee - Left Description: Aching, Stiffness, Sharp Frequency: Intermittent Worst Pain Level: 8 OBJECTIVE MEASURES WITH LEVEL OF FUNCTION: Knee Observations L Incision: closed AND healed L Knee Presents with Comments: small light pink area at lateral knee but no s/s of infection L Knee Palpation Tenderness: Patellar inferior pole, Patellar tendon, Lateral joint line LE AROM L Knee Extension: 0 Degrees L Knee Flexion: 110 Degrees (115AA) LE Strength L Hip ABduction: 3+/5 (limited by knee pain) L Knee Extension (L3): 4+/5 Gait Gait Device: None Gait Deviations Left Lower Extremity: Stance time decreased, Step length decreased (decreased knee flexion in swing) General Deviations/Observations: Antalgic gait, Mary Ellen decreased, Non-functional gait speed Gait Observation: moderate antalgia d/t L knee pain AND stiffness TREATMENT: Therapeutic Exercise: 1: Nu-step L4x15' seat 4- 2: supine heel slides AROM 5x (limited by knee pain, worse with initiation from ext to flexion) 3: supine heel slides AAROM with sheet 10x (much less pain than AROM. initially minimal to no pain but then increased pain at end-range with more reps) 4: s/l hip Abd 10xL (limited by increased knee pain) 5: QS 10x 6: seated knee flexion 5x (minimal to no pain) 7: advised pt to call surgeon's office to notify them about UTI, AB AND steroid as well as recent increased knee pain 8: recommended ice massage to ant/inf knee AND patellar tendon Skilled Intervention: Patient was educated in proper exercise technique and purpose for exercises. Skilled judgment was provided in selection of appropriate interventions. Correct performance of therapeutic exercises was facilitated with verbal and visual cuing. Education in use of ice and parameters for each. Educated patient on rationale for performing exercises in regards to increase ease of ADL and ROM and function . Patient education as noted. PT in constant attendance during use of Nu-step to review current status, monitor effort throughout activity and adjust set up as needed for maximum therapeutic benefit. Gait Trainin: gait activities without AD with VCs 2: gait with SPC on R: no change in knee pain but improved gait noted with less limp/antalgia, advised use of SPC for improved gait (pt seems resistant to using cane) Skilled Intervention: Patient was provided supervision, independence during pre-gait/gait training to prevent falls and insure safety. Facilitated proper gait cycle with the use of verbal and visual cues for correction of gait deviations identified in the objective section above. Skilled judgment used to assess selection, proper sizing, and proper use of assistive device. Billing Therapeutic Exercise Treatment Minutes: 30 Gait Training Treatment Minutes: 10 Total Treatment Time Minutes (timed/untimed): 40 Session Start Time : 1630 Session Stop Time : 1720 Yara Cazares, PT [facility] 03-06-2023 History of Present illness Narrative Episode Visit Count: 8 Therapist That Will Accept/Oversee The Plan Of Care: Italo Cazares Start of Care Date: 01/30/23 Onset Date: 11/09/22 Plan of Care Certification Date: 01/30/23 Next Certification Due Date: 03/31/23 REHABILITATION AND SPORTS THERAPY PHYSICAL THERAPY TREATMENT NOTE ASSESSMENT: Mckenna Bush tolerated the session with decreased activity tolerance due to L knee pain continues to present with increased symptoms. She demonstrated difficulty with increased L knee pain of unknown etiology which is contributing to impaired gait, mobility and activity tolerance. The patient will continue to benefit from ongoing skilled physical therapy to progress toward set goals. PLAN FOR NEXT VISIT: continue to progress L knee ROM, gait & mobility as tolerated. pt to f/u with surgeon SUBJECTIVE: Patient Reason for Visit: reports continued increased knee pain since ~ 2 weeks ago. says the sharp poking pain on outside of knee is better but now she's having more pain in the front of the knee. Pt reports issues with recurrent UTIs. She was on Cipro for a UTI at the end of January (shortly after surgery), recently saw PCP and tested positive for another UTI. PCP prescribed oral steroid for knee pain & swelling (which she started 2 days ago) and referred her to urology whom pt saw today and was prescribed Bactrim. She's scheduled for additional testing on Friday (bladder scans etc). Pt currently has next f/u with surgeon scheduled for 03/28 and is supposed to RTW 03/31 (concerned that she won't be able to d/t recent increased knee pain). Pain: Pain Pain Level: 3 Pain Location: Knee - Left Description: Aching, Stiffness, Sharp Frequency: Intermittent Worst Pain Level: 8 OBJECTIVE MEASURES WITH LEVEL OF FUNCTION: Knee Observations L Incision: closed & healed L Knee Presents with Comments: small light pink area at lateral knee but no s/s of infection L Knee Palpation Tenderness: Patellar inferior pole, Patellar tendon, Lateral joint line LE AROM L Knee Extension: 0 Degrees L Knee Flexion: 110 Degrees (115AA) LE Strength L Hip ABduction: 3+/5 (limited by knee pain) L Knee Extension (L3): 4+/5 Gait Gait Device: None Gait Deviations Left Lower Extremity: Stance time decreased, Step length decreased (decreased knee flexion in swing) General Deviations/Observations: Antalgic gait, Mary Ellen decreased, Non-functional gait speed Gait Observation: moderate antalgia d/t L knee pain & stiffness TREATMENT: Therapeutic Exercise: 1: Nu-step L4x15' seat 4- 2: supine heel slides AROM 5x (limited by knee pain, worse with initiation from ext to flexion) 3: supine heel slides AAROM with sheet 10x (much less pain than AROM. initially minimal to no pain but then increased pain at end-range with more reps) 4: s/l hip Abd 10xL (limited by increased knee pain) 5: QS 10x 6: seated knee flexion 5x (minimal to no pain) 7: advised pt to call surgeon's office to notify them about UTI, AB & steroid as well as recent increased knee pain 8: recommended ice massage to ant/inf knee & patellar tendon Skilled Intervention: Patient was educated in proper exercise technique and purpose for exercises. Skilled judgment was provided in selection of appropriate interventions. Correct performance of therapeutic exercises was facilitated with verbal and visual cuing. Education in use of ice and parameters for each. Educated patient on rationale for performing exercises in regards to increase ease of ADL and ROM and function . Patient education as noted. PT in constant attendance during use of Nu-step to review current status, monitor effort throughout activity and adjust set up as needed for maximum therapeutic benefit. Gait Trainin: gait activities without AD with VCs 2: gait with SPC on R: no change in knee pain but improved gait noted with less limp/antalgia, advised use of SPC for improved gait (pt seems resistant to using cane) Skilled Intervention: Patient was provided supervision, independence during pre-gait/gait training to prevent falls and insure safety. Facilitated proper gait cycle with the use of verbal and visual cues for correction of gait deviations identified in the objective section above. Skilled judgment used to assess selection, proper sizing, and proper use of assistive device. Billing Therapeutic Exercise Treatment Minutes: 30 Gait Training Treatment Minutes: 10 Total Treatment Time Minutes (timed/untimed): 40 Session Start Time : 1630 Session Stop Time : 1720 Yara Cazares PT documented in this encounter [facility] 02-27-2023 Note HNO ID: [id number] Author: Yara Cazares PT Service: ? Author Type: Physical Therapist Type: Progress Notes Filed: 02/27/2023 12:47 PM Note Text: Episode Visit Count: 7 Therapist That Will Accept/Oversee The Plan Of Care: Italo Cazares Start of Care Date: 01/30/23 Onset Date: 11/09/22 Plan of Care Certification Date: 01/30/23 Next Certification Due Date: 03/31/23 Rehab Precautions: TKR Current Surgical Procedure : L TKA Current Surgical Procedure Date: 01/27/23 Mechanism of Injury: Disease Process REHABILITATION AND SPORTS THERAPY PHYSICAL THERAPY PROGRESS REPORT PLAN OF CARE UPDATE: Assessment: Mckenna Bush demonstrates improvements in walking, stair negotiation, physical activities, and driving. She has progressed toward goals. Patient continues to present with impairments in edema management, gait, independence in exercise, joint mobility, overall function, range of motion, strength, and symptom management that interfere with rising from a chair, walking, stair negotiation, lifting, physical activities, recreational activities, kneeling, running, squatting, working, sleeping . Current prognosis is Good due to: current objective clinical presentation, positive past response to therapy, good support system/ coping skills . Pt presents 4 weeks s/p L TKA doing rather well; she had been doing very well up until this week when she started to experience increased pain of unknown etiology which appears to be from a possible quad strain. She will benefit from continued skilled therapy services to meet the updated goals for this plan of care as noted below. Goals for Episode of Care: created on 01/30/23 through 03/31/23 [place] in home exercise program. Patient will increase active ROM of L knee to 0-120 degrees to allow pt to to improve postural alignment, to improve performance of ADLs, and to improve gait mechanics / gait pattern . Patient will demonstrate increase in L LE strength to 5/5 during manual muscle testing in order to improve function for home management tasks, leisure / recreation skills, prior functional tasks, and work tasks. Patient will Improve Timed Up and Go to 8 seconds to demonstrate decreased risk of falling. Patient will improve 5 time sit to stand to demonstrate improvement in functional lower extremity strength. Normal gait. Reciprocal stair negotiation. Patient Goals: get better AND go back to work Planned Interventions, Frequency, and Duration: 2x/week (1-2x/wk), Patient to be seen for Therapeutic exercise (58746), Neuromuscular re-education (91464), Manual therapy (01300), Therapeutic activities (59888), Gait Training (61211), Functional training, Body Mechanics Training, Patient/Family/Caregiver Education PLAN FOR NEXT VISIT: monitor recent increase in knee pain, progress L knee ROM, strength AND gait as tolerated SUBJECTIVE: Patient Reason for Visit: reports increased knee pain since last session with knee AND lower leg pain. pt had called 's office and they sent her for US which was negative. says pain is mostly when trying to bend the knee but it's also affecting her walking. she denies any buckling, instability or shifting but does c/o some clicking/clunking sometimes (which was felt/heard when pt did sit to stand AND LAQ). Next f/u with surgeon is 03/28. Functional Limitations: rising from a chair, walking, stair negotiation, lifting, physical activities, recreational activities, kneeling, running, squatting, working, sleeping Pain: Pain Pain Level: 3 Pain Location: Knee - Left Description: Stiffness Frequency: Intermittent Detailed Pain Score: Yes Worst Pain Level: 8 PROMIS Scales Higher is Better 02/27/2023 01/30/2023 Phys Func - Score 52 (within normal limits) 40 (mild dysfunction) Phys Func - Percentile 58 % 16 % Self-Eff Symptom - Score 69 (High) 61 (High) Self-Eff Symptom - Percentile 97 % 86 % T-scores: mean of general population = 50. 5 points is clinically meaningfully difference Percentiles provide an indication of how the patient's score ranks in relation to the general population. Higher percentile rankings indicate better function/quality of life. 50th percentile is the average of the general population and indicates half of respondents had a worse score. OBJECTIVE MEASURES WITH LEVEL OF FUNCTION: Knee Observations L Knee Presents with: Swelling, Comments L Swelling: L lower leg to foot L Incision: closed AND healed, no s/s of infection L Knee Presents with Comments: prominent/varicose veins evident L vs R LE L Knee Palpation Tenderness: Quadriceps, Quadriceps tendon, Patellar tendon LE AROM L Knee Flexion: 112 Degrees LE Strength L Hip ABduction: 4/5 L Knee Extension (L3): 4+/5 Gait Gait Device: None Gait Observation: increased antalgia today d/t L knee pain AND stiffness Functional Performance Test Results Assistive Device: None 5 Times Sit to Stand Test (more content not included)... [facility] 02-27-2023 History of Present illness Narrative Episode Visit Count: 7 Therapist That Will Accept/Oversee The Plan Of Care: Italo Cazares Start of Care Date: 01/30/23 Onset Date: 11/09/22 Plan of Care Certification Date: 01/30/23 Next Certification Due Date: 03/31/23 Rehab Precautions: TKR Current Surgical Procedure : L TKA Current Surgical Procedure Date: 01/27/23 Mechanism of Injury: Disease Process REHABILITATION AND SPORTS THERAPY PHYSICAL THERAPY PROGRESS REPORT PLAN OF CARE UPDATE: Assessment: Mckenna Bush demonstrates improvements in walking, stair negotiation, physical activities, and driving. She has progressed toward goals. Patient continues to present with impairments in edema management, gait, independence in exercise, joint mobility, overall function, range of motion, strength, and symptom management that interfere with rising from a chair, walking, stair negotiation, lifting, physical activities, recreational activities, kneeling, running, squatting, working, sleeping . Current prognosis is Good due to: current objective clinical presentation, positive past response to therapy, good support system/ coping skills . Pt presents 4 weeks s/p L TKA doing rather well; she had been doing very well up until this week when she started to experience increased pain of unknown etiology which appears to be from a possible quad strain. She will benefit from continued skilled therapy services to meet the updated goals for this plan of care as noted below. Goals for Episode of Care: created on 01/30/23 through 03/31/23 [place] in home exercise program. Patient will increase active ROM of L knee to 0-120 degrees to allow pt to to improve postural alignment, to improve performance of ADLs, and to improve gait mechanics / gait pattern . Patient will demonstrate increase in L LE strength to 5/5 during manual muscle testing in order to improve function for home management tasks, leisure / recreation skills, prior functional tasks, and work tasks. Patient will Improve Timed Up and Go to 8 seconds to demonstrate decreased risk of falling. Patient will improve 5 time sit to stand to demonstrate improvement in functional lower extremity strength. Normal gait. Reciprocal stair negotiation. Patient Goals: get better & go back to work Planned Interventions, Frequency, and Duration: 2x/week (1-2x/wk), Patient to be seen for Therapeutic exercise (56490), Neuromuscular re-education (18418), Manual therapy (69624), Therapeutic activities (11643), Gait Training (17546), Functional training, Body Mechanics Training, Patient/Family/Caregiver Education PLAN FOR NEXT VISIT: monitor recent increase in knee pain, progress L knee ROM, strength & gait as tolerated SUBJECTIVE: Patient Reason for Visit: reports increased knee pain since last session with knee & lower leg pain. pt had called 's office and they sent her for US which was negative. says pain is mostly when trying to bend the knee but it's also affecting her walking. she denies any buckling, instability or shifting but does c/o some clicking/clunking sometimes (which was felt/heard when pt did sit to stand & LAQ). Next f/u with surgeon is 03/28. Functional Limitations: rising from a chair, walking, stair negotiation, lifting, physical activities, recreational activities, kneeling, running, squatting, working, sleeping Pain: Pain Pain Level: 3 Pain Location: Knee - Left Description: Stiffness Frequency: Intermittent Detailed Pain Score: Yes Worst Pain Level: 8 PROMIS Scales Higher is Better 02/27/2023 01/30/2023 Phys Func - Score 52 (within normal limits) 40 (mild dysfunction) Phys Func - Percentile 58 % 16 % Self-Eff Symptom - Score 69 (High) 61 (High) Self-Eff Symptom - Percentile 97 % 86 % T-scores: mean of general population = 50. 5 points is clinically meaningfully difference Percentiles provide an indication of how the patient's score ranks in relation to the general population. Higher percentile rankings indicate better function/quality of life. 50th percentile is the average of the general population and indicates half of respondents had a worse score. OBJECTIVE MEASURES WITH LEVEL OF FUNCTION: Knee Observations L Knee Presents with: Swelling, Comments L Swelling: L lower leg to foot L Incision: closed & healed, no s/s of infection L Knee Presents with Comments: prominent/varicose veins evident L vs R LE L Knee Palpation Tenderness: Quadriceps, Quadriceps tendon, Patellar tendon LE AROM L Knee Flexion: 112 Degrees LE Strength L Hip ABduction: 4/5 L Knee Extension (L3): 4+/5 Gait Gait Device: None Gait Observation: increased antalgia today d/t L knee pain & stiffness Functional Performance Test Results Assistive Device: None 5 Times Sit to Stand Test : 16 sec (from 17 chair without UE spt, with increased L knee pain) Timed Up and Go (sec): 10 sec TREATMENT: Therapeutic Exercise: 1: Nu-step L3x10' seat 5-4 2: standing HS curl 10xL 3: standing heel raises 5x2B, SL 5xL/R 4: B calf stretch on slant board x1' 5: supine heel slides AROM (with end-range pain) 6: QS 5x (with increased knee/distal quad pain) 7: *standing quad stretch as tolerated 8: recheck - see objective section for details, discussed progress & deficits, plans for PT 9: advised pt to hold off on exercises for a few days, other than ROM exercises to prevent stiffness Skilled Intervention: Patient was educated in proper exercise technique and purpose for exercises. Reviewed and educated patient on additions/changes for home exercise program as above (*). Skilled judgment was provided in selection of appropriate interventions. Correct performance of therapeutic exercises was facilitated with verbal and visual cuing. Education in use of heat and ice and parameters for each. Educated patient on rationale for performing exercises in regards to increase ease of ADL and ROM and function. Patient education as noted. PT in constant attendance during use of Nu-step to review current status, monitor effort throughout activity and adjust set up as needed for maximum therapeutic benefit. Manual Therapy: 1: patella mobilization 2: STM to L quad Skilled Intervention: Manual skills to improve joint mobility, ROM, and decrease pain. Utilized anatomy knowledge of the therapist, and assessment of patient's response to intervention. Billing Therapeutic Exercise Treatment Minutes: 45 Manual TherapyTreatment Minutes: 10 Total Treatment Time Minutes (timed/untimed): 55 Session Start Time : 744 Session Stop Time : 839 Yara Cazares PT documented in this encounter [facility] 02-20-2023 Note HNO ID: [id number] Author: Yara Cazares PT Service: ? Author Type: Physical Therapist Type: Progress Notes Filed: 02/20/2023 11:54 AM Note Text: Episode Visit Count: 6 Therapist That Will Accept/Oversee The Plan Of Care: Italo Cazares Start of Care Date: 01/30/23 Onset Date: 11/09/22 Plan of Care Certification Date: 01/30/23 Next Certification Due Date: 03/31/23 REHABILITATION AND SPORTS THERAPY PHYSICAL THERAPY TREATMENT NOTE ASSESSMENT: Mckenna Bush tolerated the session with no issues. She demonstrated improvements in knee ROM, gait pattern and activity tolerance. The patient will continue to benefit from ongoing skilled physical therapy to progress toward set goals. PLAN FOR NEXT VISIT: continue to progress L knee ROM AND strength, L glut strength, normalize gait. try kneeling when scar is healed. recheck AND likely decrease to 1x/wk SUBJECTIVE: Patient Reason for Visit: doing pretty good today. reports minimal to no knee pain, more just stiffness. takes tylenol ES prn. walking without AD, trying to concentrate on picking her foot up. she c/o intermittent L hip pain which she also had prior to knee surgery Pain: Pain Pain Level: 0 Pain Location: Knee - Left Description: Stiffness Frequency: Intermittent OBJECTIVE MEASURES WITH LEVEL OF FUNCTION: LE AROM L Knee Extension: 0 Degrees L Knee Flexion: 123 Degrees LE Strength L Hip ABduction: 4-/5 (vs 4+ to 5/5R) Gait Gait Device: None Gait Observation: intermittent/minimal antalgia - pt appears to be overcompensating for L heel strike TREATMENT: Therapeutic Exercise: 1: Nu- L4x10' seat 6- 2: shuttle leg press [id number]', SL [id number], 3bandsL 10x 3: shuttle heel raises [id number] 4: B calf stretch on slant board x1' 5: standing hip ABd AND ext with orange TB [id number]/R with light UE spt 6: *s/l hip Abd 2.5# 20xeaR/L (increased difficulty L vs R) 7: *s/l hip ABd with orange TB 10xL 8: standing 6 step-taps 5xR/L 9: 6 step-ups 5xR/L with/without UE spt 10: supine HS stretch L Skilled Intervention: Patient was educated in proper exercise technique and purpose for exercises. Skilled judgment was provided in selection of appropriate interventions. Correct performance of therapeutic exercises was facilitated with verbal, visual, and tactile cuing. Educated patient on rationale for performing exercises in regards to including balance, increase ease of ADL, and ROM and function . Patient education as noted. Manual Therapy: 1: patella mobilization Skilled Intervention: Manual skills to improve joint mobility, ROM, and decrease pain. Utilized anatomy knowledge of the therapist, and assessment of patient's response to intervention. Gait Trainin: gait activities with VCs for increased step length vs heel strike (to prevent overcompensation) Skilled Intervention: Patient was provided supervision, independence during pre-gait/gait training to prevent falls and insure safety. Facilitated proper gait cycle with the use of verbal and visual cues for correction of gait deviations identified in the objective section above. Billing Therapeutic Exercise Treatment Minutes: 50 Gait Training Treatment Minutes: 5 Total Treatment Time Minutes (timed/untimed): 55 Yara Cazares PT [facility] 02-20-2023 History of Present illness Narrative Episode Visit Count: 6 Therapist That Will Accept/Oversee The Plan Of Care: Italo Cazares Start of Care Date: 01/30/23 Onset Date: 11/09/22 Plan of Care Certification Date: 01/30/23 Next Certification Due Date: 03/31/23 REHABILITATION AND SPORTS THERAPY PHYSICAL THERAPY TREATMENT NOTE ASSESSMENT: Mckenna Bush tolerated the session with no issues. She demonstrated improvements in knee ROM, gait pattern and activity tolerance. The patient will continue to benefit from ongoing skilled physical therapy to progress toward set goals. PLAN FOR NEXT VISIT: continue to progress L knee ROM & strength, L glut strength, normalize gait. try kneeling when scar is healed. recheck & likely decrease to 1x/wk SUBJECTIVE: Patient Reason for Visit: doing pretty good today. reports minimal to no knee pain, more just stiffness. takes tylenol ES prn. walking without AD, trying to concentrate on picking her foot up. she c/o intermittent L hip pain which she also had prior to knee surgery Pain: Pain Pain Level: 0 Pain Location: Knee - Left Description: Stiffness Frequency: Intermittent OBJECTIVE MEASURES WITH LEVEL OF FUNCTION: LE AROM L Knee Extension: 0 Degrees L Knee Flexion: 123 Degrees LE Strength L Hip ABduction: 4-/5 (vs 4+ to 5/5R) Gait Gait Device: None Gait Observation: intermittent/minimal antalgia - pt appears to be overcompensating for L heel strike TREATMENT: Therapeutic Exercise: 1: Nu- L4x10' seat 6- 2: shuttle leg press [id number]', SL [id number], 3bandsL 10x 3: shuttle heel raises [id number] 4: B calf stretch on slant board x1' 5: standing hip ABd & ext with orange TB 10-15xeaL/R with light UE spt 6: *s/l hip Abd 2.5# 20xeaR/L (increased difficulty L vs R) 7: *s/l hip ABd with orange TB 10xL 8: standing 6 step-taps 5xR/L 9: 6 step-ups 5xR/L with/without UE spt 10: supine HS stretch L Skilled Intervention: Patient was educated in proper exercise technique and purpose for exercises. Skilled judgment was provided in selection of appropriate interventions. Correct performance of therapeutic exercises was facilitated with verbal, visual, and tactile cuing. Educated patient on rationale for performing exercises in regards to including balance, increase ease of ADL, and ROM and function . Patient education as noted. Manual Therapy: 1: patella mobilization Skilled Intervention: Manual skills to improve joint mobility, ROM, and decrease pain. Utilized anatomy knowledge of the therapist, and assessment of patient's response to intervention. Gait Trainin: gait activities with VCs for increased step length vs heel strike (to prevent overcompensation) Skilled Intervention: Patient was provided supervision, independence during pre-gait/gait training to prevent falls and insure safety. Facilitated proper gait cycle with the use of verbal and visual cues for correction of gait deviations identified in the objective section above. Billing Therapeutic Exercise Treatment Minutes: 50 Gait Training Treatment Minutes: 5 Total Treatment Time Minutes (timed/untimed): 55 Yara Cazares PT documented in this encounter [facility] 02-18-2023 Note HNO ID: [id number] Author: Yara Cazares PT Service: ? Author Type: Physical Therapist Type: Progress Notes Filed: 02/20/2023 12:00 PM Note Text: Episode Visit Count: 5 Therapist That Will Accept/Oversee The Plan Of Care: Italo Cazares Start of Care Date: 01/30/23 Onset Date: 11/09/22 Plan of Care Certification Date: 01/30/23 Next Certification Due Date: 03/31/23 REHABILITATION AND SPORTS THERAPY PHYSICAL THERAPY TREATMENT NOTE ASSESSMENT: Mckenna Bush tolerated the session with increased knee stiffness which improved during/after PT. She demonstrated difficulty with post-op knee stiffness and gait antalgia but slight improvements in ROM. The patient will continue to benefit from ongoing skilled physical therapy to progress toward set goals. PLAN FOR NEXT VISIT: continue to progress L knee ROM, gait AND stair mobility SUBJECTIVE: Patient Reason for Visit: reports more knee stiffness today. had f/u with ortho [facility] yesterday, she was pleased with her progress. will f/u in 6 weeks Pain: Pain Pain Level: 2 Pain Location: Knee - Left Description: Stiffness Frequency: Intermittent OBJECTIVE MEASURES WITH LEVEL OF FUNCTION: Knee Observations L Knee Presents with: Swelling, Warmth LE AROM R Knee Extension: 0 Degrees R Knee Flexion: 125 Degrees L Knee Extension: 0 Degrees L Knee Flexion: 115 Degrees (120AA) LE Strength L Hip Flexion (L2): 4+/5 L Knee Extension (L3): 4+/5 (good QS, no ext lag with SLR) L Ankle Dorsiflexion (L4): 5/5 Gait Gait: Independent Gait Device: None Gait Deviations Left Lower Extremity: Heel strike during initial stance decreased, Step length decreased (decreased knee flexion in swing) Gait Observation: antalgic gait d/t L knee stiffness TREATMENT: Therapeutic Exercise: 1: Nu-step L4x12' seat 7-4 (bike attempted but not tolerated well d/t pt height/comfort) 2: shuttle leg press [id number]', [id number]', SL 6bandsR, 3bandsL/Rx1' 3: seated/supine ankle DF 4: B calf stretch on slant board x1' 5: 6 step-taps 5xL 6: supine heel slides AROM AND AAROM 7: SLR 10xL Skilled Intervention: Patient was educated in proper exercise technique and purpose for exercises. Skilled judgment was provided in selection of appropriate interventions. Correct performance of therapeutic exercises was facilitated with verbal and visual cuing. Educated patient on rationale for performing exercises in regards to increase ease of ADL and ROM and function . Patient education as noted. PT in constant attendance during use of Nu-step to review current status, monitor effort throughout activity and adjust set up as needed for maximum therapeutic benefit. Manual Therapy: 1: patella mobilization 2: retrograde massage L LE with elevation Skilled Intervention: Manual skills to improve joint mobility, ROM, and decrease pain. Utilized anatomy knowledge of the therapist, and assessment of patient's response to intervention. Gait Trainin: gait activities with VCs for step length AND heel strike 2: stepping over 4 balls 4xR, 4x3L 3: advised use of cane prn to imrove gait AND reduce knee stiffness - pt doesn't think cane makes a difference Skilled Intervention: Patient was provided supervision during pre-gait/gait training to prevent falls and insure safety. Facilitated proper gait cycle with the use of verbal and visual cues for correction of gait deviations identified in the objective section above. Skilled judgment used to assess selection and proper use of assistive device. Billing Therapeutic Exercise Treatment Minutes: 25 Manual TherapyTreatment Minutes: 5 Gait Training Treatment Minutes: 10 Total Treatment Time Minutes (timed/untimed): 40 Yara Cazares, PT [facility] 02-18-2023 History of Present illness Narrative Episode Visit Count: 5 Therapist That Will Accept/Oversee The Plan Of Care: [place], C Start of Care Date: 01/30/23 Onset Date: 11/09/22 Plan of Care Certification Date: 01/30/23 Next Certification Due Date: 03/31/23 REHABILITATION AND SPORTS THERAPY PHYSICAL THERAPY TREATMENT NOTE ASSESSMENT: Mckenna Bush tolerated the session with increased knee stiffness which improved during/after PT. She demonstrated difficulty with post-op knee stiffness and gait antalgia but slight improvements in ROM. The patient will continue to benefit from ongoing skilled physical therapy to progress toward set goals. PLAN FOR NEXT VISIT: continue to progress L knee ROM, gait & stair mobility SUBJECTIVE: Patient Reason for Visit: reports more knee stiffness today. had f/u with ortho [facility] yesterday, she was pleased with her progress. will f/u in 6 weeks Pain: Pain Pain Level: 2 Pain Location: Knee - Left Description: Stiffness Frequency: Intermittent OBJECTIVE MEASURES WITH LEVEL OF FUNCTION: Knee Observations L Knee Presents with: Swelling, Warmth LE AROM R Knee Extension: 0 Degrees R Knee Flexion: 125 Degrees L Hip External Rotation: 0 Degrees L Knee Extension: 115 Degrees (120AA) LE Strength L Hip Flexion (L2): 4+/5 L Knee Extension (L3): 4+/5 (good QS, no ext lag with SLR) L Ankle Dorsiflexion (L4): 5/5 Gait Gait: Independent Gait Device: None Gait Deviations Left Lower Extremity: Heel strike during initial stance decreased, Step length decreased (decreased knee flexion in swing) Gait Observation: antalgic gait d/t L knee stiffness TREATMENT: Therapeutic Exercise: 1: Nu-step L4x12' seat 7-4 (bike attempted but not tolerated well d/t pt height/comfort) 2: shuttle leg press [id number]', [id number]', SL 6bandsR, 3bandsL/Rx1' 3: seated/supine ankle DF 4: B calf stretch on slant board x1' 5: 6 step-taps 5xL 6: supine heel slides AROM & AAROM 7: SLR 10xL Skilled Intervention: Patient was educated in proper exercise technique and purpose for exercises. Skilled judgment was provided in selection of appropriate interventions. Correct performance of therapeutic exercises was facilitated with verbal and visual cuing. Educated patient on rationale for performing exercises in regards to increase ease of ADL and ROM and function . Patient education as noted. PT in constant attendance during use of Nu-step to review current status, monitor effort throughout activity and adjust set up as needed for maximum therapeutic benefit. Manual Therapy: 1: patella mobilization 2: retrograde massage L LE with elevation Skilled Intervention: Manual skills to improve joint mobility, ROM, and decrease pain. Utilized anatomy knowledge of the therapist, and assessment of patient's response to intervention. Gait Trainin: gait activities with VCs for step length & heel strike 2: stepping over 4 balls 4xR, 4x3L 3: advised use of cane prn to imrove gait & reduce knee stiffness - pt doesn't think cane makes a difference Skilled Intervention: Patient was provided supervision during pre-gait/gait training to prevent falls and insure safety. Facilitated proper gait cycle with the use of verbal and visual cues for correction of gait deviations identified in the objective section above. Skilled judgment used to assess selection and proper use of assistive device. Billing Therapeutic Exercise Treatment Minutes: 25 Manual TherapyTreatment Minutes: 5 Gait Training Treatment Minutes: 10 Total Treatment Time Minutes (timed/untimed): 40 Yara Cazares PT documented in this encounter [facility] 02-13-2023 Note HNO ID: [id number] Author: Yara Cazares PT Service: ? Author Type: Physical Therapist Type: Progress Notes Filed: 02/20/2023 11:58 AM Note Text: Episode Visit Count: 4 Therapist That Will Accept/Oversee The Plan Of Care: Italo Cazares Start of Care Date: 01/30/23 Onset Date: 11/09/22 Plan of Care Certification Date: 01/30/23 Next Certification Due Date: 03/31/23 REHABILITATION AND SPORTS THERAPY PHYSICAL THERAPY TREATMENT NOTE ASSESSMENT: Mckenna Bush tolerated the session with increased symptoms. She demonstrated difficulty with post-op swelling (likely related to increased/excess activity) and improvements in stair mobility. The patient will continue to benefit from ongoing skilled physical therapy to progress toward set goals. PLAN FOR NEXT VISIT: continue to progress L knee ROM AND strength, improve gait. monitor swelling SUBJECTIVE: Patient Reason for Visit: reports a little more numbness AND stiffness today, says she had a very busy weekend. doesn't have much pain other than occasional quick jabbing pains. uses cane sometimes at night otherwise walking without AD. takes tylenol prn AND taking baby Aspirin since surgery for a few more weeks. has f/u with surgeon on Friday Pain: Pain Pain Level: 1 Pain Location: Knee - Left Description: Stiffness, Numbness (numbness on medial knee joing) Detailed Pain Score: Yes Worst Pain Level: 5 OBJECTIVE MEASURES WITH LEVEL OF FUNCTION: Knee Observations L Swelling: significant/moderate bruising knee AND lower leg L Ecchymosis : slowly resolving L Incision: closed AND healing well LE AROM L Knee Flexion: 113 Degrees (115AA) LE Joint Mobility L Patellar Mobility: Hypomobile LE Strength L Knee Extension (L3): 4+/5 L Ankle Dorsiflexion (L4): 5/5 Gait Gait: Independent Gait Device: None Gait Observation: intermittent antalgia d/t L knee stiffness Stairs: 10 steps with 1-2HR: reciprocal ascent, non-reciprocal descent TREATMENT: Therapeutic Exercise: 1: Nu-step L3x12' seat 7-4 2: shuttle leg press [id number]', [id number]', SL 6bandsR, [id number] 3: shuttle heel raises [id number] 4: B calf stretch on slant board x1' 5: 6 step-taps 5xL 6: lunge stretch on 2nd step 5xL 7: supine heel slides AROM/AAROM 8: QS 5xB 9: SLR 10xL 10: sit to stands without UE spt 5x 11: advised pt to rest, elevate AND ice over the next few days for edema control. discussed post-op swelling vs s/s of blood clot Skilled Intervention: Patient was educated in proper exercise technique and purpose for exercises. Skilled judgment was provided in selection of appropriate interventions. Correct performance of therapeutic exercises was facilitated with verbal, visual, and tactile cuing. Education in use of ice and parameters for each. Educated patient on rationale for performing exercises in regards to increase ease of ADL, increase lymphatic fluid dynamics, and ROM and function . Patient education as noted. PT in constant attendance during use of Nu-step to review current status, monitor effort throughout activity and adjust set up as needed for maximum therapeutic benefit. Manual Therapy: 1: patella mobilization 2: retrograde massage L LE with elevation Skilled Intervention: Manual skills to improve joint mobility, ROM, and decrease pain. Utilized anatomy knowledge of the therapist, and assessment of patient's response to intervention. Gait Training: Stair Trainin steps with 2HR, VCs for reciprocal stair mobility as able 1: gait activities with VCs for step length AND heel strike Skilled Intervention: Facilitated proper gait cycle with the use of verbal and visual cues for correction of gait deviations identified in the objective section above. Skilled judgment used to assess selection of assistive device. Education provided to patient regarding the proper sequence for stair negotiation. Billing Therapeutic Exercise Treatment Minutes: 45 Manual TherapyTreatment Minutes: 5 Gait Training Treatment Minutes: 5 Total Treatment Time Minutes (timed/untimed): 55 Yara Cazares, PT [facility] 02-13-2023 History of Present illness Narrative Episode Visit Count: 4 Therapist That Will Accept/Oversee The Plan Of Care: Italo Cazares Start of Care Date: 01/30/23 Onset Date: 11/09/22 Plan of Care Certification Date: 01/30/23 Next Certification Due Date: 03/31/23 REHABILITATION AND SPORTS THERAPY PHYSICAL THERAPY TREATMENT NOTE ASSESSMENT: Mckenna Bush tolerated the session with increased symptoms. She demonstrated difficulty with post-op swelling (likely related to increased/excess activity) and improvements in stair mobility. The patient will continue to benefit from ongoing skilled physical therapy to progress toward set goals. PLAN FOR NEXT VISIT: continue to progress L knee ROM & strength, improve gait. monitor swelling SUBJECTIVE: Patient Reason for Visit: reports a little more numbness & stiffness today, says she had a very busy weekend. doesn't have much pain other than occasional quick jabbing pains. uses cane sometimes at night otherwise walking without AD. takes tylenol prn & taking baby Aspirin since surgery for a few more weeks. has f/u with surgeon on Friday Pain: Pain Pain Level: 1 Pain Location: Knee - Left Description: Stiffness, Numbness (numbness on medial knee joing) Detailed Pain Score: Yes Worst Pain Level: 5 OBJECTIVE MEASURES WITH LEVEL OF FUNCTION: Knee Observations L Swelling: significant/moderate bruising knee & lower leg L Ecchymosis : slowly resolving L Incision: closed & healing well LE AROM L Knee Extension: 113 Degrees (115AA) LE Joint Mobility L Patellar Mobility: Hypomobile LE Strength L Knee Extension (L3): 4+/5 L Ankle Dorsiflexion (L4): 5/5 Gait Gait: Independent Gait Device: None Gait Observation: intermittent antalgia d/t L knee stiffness Stairs: 10 steps with 1-2HR: reciprocal ascent, non-reciprocal descent TREATMENT: Therapeutic Exercise: 1: Nu-step L3x12' seat 7-4 2: shuttle leg press [id number]', [id number]', SL 6bandsR, [id number] 3: shuttle heel raises [id number] 4: B calf stretch on slant board x1' 5: 6 step-taps 5xL 6: lunge stretch on 2nd step 5xL 7: supine heel slides AROM/AAROM 8: QS 5xB 9: SLR 10xL 10: sit to stands without UE spt 5x 11: advised pt to rest, elevate & ice over the next few days for edema control. discussed post-op swelling vs s/s of blood clot Skilled Intervention: Patient was educated in proper exercise technique and purpose for exercises. Skilled judgment was provided in selection of appropriate interventions. Correct performance of therapeutic exercises was facilitated with verbal, visual, and tactile cuing. Education in use of ice and parameters for each. Educated patient on rationale for performing exercises in regards to increase ease of ADL, increase lymphatic fluid dynamics, and ROM and function . Patient education as noted. PT in constant attendance during use of Nu-step to review current status, monitor effort throughout activity and adjust set up as needed for maximum therapeutic benefit. Manual Therapy: 1: patella mobilization 2: retrograde massage L LE with elevation Skilled Intervention: Manual skills to improve joint mobility, ROM, and decrease pain. Utilized anatomy knowledge of the therapist, and assessment of patient's response to intervention. Gait Training: Stair Trainin steps with 2HR, VCs for reciprocal stair mobility as able 1: gait activities with VCs for step length & heel strike Skilled Intervention: Facilitated proper gait cycle with the use of verbal and visual cues for correction of gait deviations identified in the objective section above. Skilled judgment used to assess selection of assistive device. Education provided to patient regarding the proper sequence for stair negotiation. Billing Therapeutic Exercise Treatment Minutes: 45 Manual TherapyTreatment Minutes: 5 Gait Training Treatment Minutes: 5 Total Treatment Time Minutes (timed/untimed): 55 Yara Cazares PT documented in this encounter [facility] 02-06-2023 Note HNO ID: [id number] Author: Yara Cazares, PT Service: ? Author Type: Physical Therapist Type: Progress Notes Filed: 02/20/2023 11:57 AM Note Text: Episode Visit Count: 3 Therapist That Will Accept/Oversee The Plan Of Care: Italo Cazares Start of Care Date: 01/30/23 Onset Date: 11/09/22 Plan of Care Certification Date: 01/30/23 Next Certification Due Date: 03/31/23 REHABILITATION AND SPORTS THERAPY PHYSICAL THERAPY TREATMENT NOTE ASSESSMENT: Mckenna Bush tolerated the session with expected muscle soreness. She demonstrated improvements in ROM, gait and activity tolerance. She is doing very well 10 days s/p L TKA. The patient will continue to benefit from ongoing skilled physical therapy to progress toward set goals. PLAN FOR NEXT VISIT: progress L knee ROM AND strength, improve gait AND stairs. promote rest AND edema control prn SUBJECTIVE: Patient Reason for Visit: doing ok but a little sore from increased activity today. says she's been busy doing stuff at home and also doing exercises. Pt admits to probably overdoing it because she has a lot to do and doesn't like to sit around. She's been walking mostly without any AD but keeps her cane around. Pain: Pain Pain Level: 0 Pain Location: Knee - Left Description: Aching, Sore Detailed Pain Score: Yes Worst Pain Level: 5 OBJECTIVE MEASURES WITH LEVEL OF FUNCTION: Knee Observations L Swelling: knee AND lower leg with signifiant swelling L Ecchymosis : upper medial AND posterior thigh L Incision: [employer] AND healing well LE AROM L Knee Extension: -1 Degrees L Knee Flexion: 115 Degrees Gait Gait Device: None, Cane Gait Observation: intermittent antalgia d/t L knee stiffness Stairs: 4 steps with 1 HR mostly non-reciprocal TREATMENT: Therapeutic Exercise: 1: Nu-step L4x10' seat 6-4 2: standing HS curl 20xL 3: standing heel raises wt-shifted to L 10x 4: B calf stretch on slant board x2' 5: reviewed standing calf stretch 6: shuttle leg press [id number], SL 3bandsL 10x 7: supine heel slides AROM 8: supine HS stretch, with APs 10x 9: 6 step-tap 5xL 10: 6 step-up 4xL Skilled Intervention: Patient was educated in proper exercise technique and purpose for exercises. Skilled judgment was provided in selection of appropriate interventions. Correct performance of therapeutic exercises was facilitated with verbal and visual cuing. Education in use of ice and parameters for each. Educated patient on rationale for performing exercises in regards to increase ease of ADL and ROM and function . Patient education as noted. PT in constant attendance during use of Nu-step to review current status, monitor effort throughout activity and adjust set up as needed for maximum therapeutic benefit. Gait Training: Stair Trainin steps with 1 HR non-reciprocal (able to ascend with R or L LE) 1: gait activities with AND without SPC. encouraged use of SPC prn if limping to prevent antalgia Skilled Intervention: Patient was provided supervision, independence during pre-gait/gait training to prevent falls and insure safety. Facilitated proper gait cycle with the use of verbal and visual cues for correction of gait deviations identified in the objective section above. Skilled judgment used to assess proper use of assistive device. Education provided to patient regarding the proper sequence for stair negotiation. Billing Therapeutic Exercise Treatment Minutes: 40 Gait Training Treatment Minutes: 5 Total Treatment Time Minutes (timed/untimed): 45 Yara Cazares, PT [facility] 02-06-2023 History of Present illness Narrative Episode Visit Count: 3 Therapist That Will Accept/Oversee The Plan Of Care: Italo Cazares Start of Care Date: 01/30/23 Onset Date: 11/09/22 Plan of Care Certification Date: 01/30/23 Next Certification Due Date: 03/31/23 REHABILITATION AND SPORTS THERAPY PHYSICAL THERAPY TREATMENT NOTE ASSESSMENT: Mckenna Bush tolerated the session with expected muscle soreness. She demonstrated improvements in ROM, gait and activity tolerance. She is doing very well 10 days s/p L TKA. The patient will continue to benefit from ongoing skilled physical therapy to progress toward set goals. PLAN FOR NEXT VISIT: progress L knee ROM & strength, improve gait & stairs. promote rest & edema control prn SUBJECTIVE: Patient Reason for Visit: doing ok but a little sore from increased activity today. says she's been busy doing stuff at home and also doing exercises. Pt admits to probably overdoing it because she has a lot to do and doesn't like to sit around. She's been walking mostly without any AD but keeps her cane around. Pain: Pain Pain Level: 0 Pain Location: Knee - Left Description: Aching, Sore Detailed Pain Score: Yes Worst Pain Level: 5 OBJECTIVE MEASURES WITH LEVEL OF FUNCTION: Knee Observations L Swelling: knee & lower leg with signifiant swelling L Ecchymosis : upper medial & posterior thigh L Incision: NICOLETTE & healing well LE AROM L Hip External Rotation: -1 Degrees L Knee Extension: 115 Degrees Gait Gait Device: None, Cane Gait Observation: intermittent antalgia d/t L knee stiffness Stairs: 4 steps with 1 HR mostly non-reciprocal TREATMENT: Therapeutic Exercise: 1: Nu-step L4x10' seat 6-4 2: standing HS curl 20xL 3: standing heel raises wt-shifted to L 10x 4: B calf stretch on slant board x2' 5: reviewed standing calf stretch 6: shuttle leg press [id number], SL 3bandsL 10x 7: supine heel slides AROM 8: supine HS stretch, with APs 10x 9: 6 step-tap 5xL 10: 6 step-up 4xL Skilled Intervention: Patient was educated in proper exercise technique and purpose for exercises. Skilled judgment was provided in selection of appropriate interventions. Correct performance of therapeutic exercises was facilitated with verbal and visual cuing. Education in use of ice and parameters for each. Educated patient on rationale for performing exercises in regards to increase ease of ADL and ROM and function . Patient education as noted. PT in constant attendance during use of Nu-step to review current status, monitor effort throughout activity and adjust set up as needed for maximum therapeutic benefit. Gait Training: Stair Trainin steps with 1 HR non-reciprocal (able to ascend with R or L LE) 1: gait activities with & without SPC. encouraged use of SPC prn if limping to prevent antalgia Skilled Intervention: Patient was provided supervision, independence during pre-gait/gait training to prevent falls and insure safety. Facilitated proper gait cycle with the use of verbal and visual cues for correction of gait deviations identified in the objective section above. Skilled judgment used to assess proper use of assistive device. Education provided to patient regarding the proper sequence for stair negotiation. Billing Therapeutic Exercise Treatment Minutes: 40 Gait Training Treatment Minutes: 5 Total Treatment Time Minutes (timed/untimed): 45 Yara Cazares PT documented in this encounter [facility] 02-03-2023 Note HNO ID: [id number] Author: Yara Cazares PT Service: ? Author Type: Physical Therapist Type: Progress Notes Filed: 02/20/2023 11:56 AM Note Text: Episode Visit Count: 2 Therapist That Will Accept/Oversee The Plan Of Care: Italo Cazares Start of Care Date: 01/30/23 Onset Date: 11/09/22 Plan of Care Certification Date: 01/30/23 Next Certification Due Date: 03/31/23 REHABILITATION AND SPORTS THERAPY PHYSICAL THERAPY TREATMENT NOTE ASSESSMENT: Mckenna Bush tolerated the session with no issues. She demonstrated improvements in knee ROM and gait progression. The patient will continue to benefit from ongoing skilled physical therapy to progress toward set goals. PLAN FOR NEXT VISIT: progress L knee ROM, gait AND stair mobility - try stairs with 2 HRs SUBJECTIVE: Patient Reason for Visit: reports minimal to no knee pain. taking tylenol prn. using ice ~ 3x/day Has f/u with surgeon on 02/17 Pain: Pain Pain Level: 0 Pain Location: Knee - Left Description: Aching, Sore OBJECTIVE MEASURES WITH LEVEL OF FUNCTION: Knee Observations L Ecchymosis : post knee, increased from last session LE AROM L Knee Flexion: 110 Degrees (115AA) Gait Gait Device: Cane, None Gait Deviations Left Lower Extremity: Heel strike during initial stance decreased, Stance time decreased (decreased knee flexion in swing) Gait Observation: steady gait without AD but increased antalgia d/t increased L knee stiffness TREATMENT: Therapeutic Exercise: 1: Nu-step L4x10' seat 7-5 2: shuttle leg press [id number]', SL [id number], [id number]/[id number] 3: supine heel slides AROM 5x, AAROM with sheet 5x 4: SLR 10xL 5: supine HS stretch L/R 6: s/l hip Abd 10xL 7: *HS stretch long-sit R/L (advised R HS stretch d/t R HS cramping with active HS contractions) 8: prone HS curl 10xL 9: removed surgical dsg at pt request (per Dr orders to remove today), advised to keep clean AND dry Skilled Intervention: Patient was educated in proper exercise technique and purpose for exercises. Skilled judgment was provided in selection of appropriate interventions. Correct performance of therapeutic exercises was facilitated with verbal, visual, and tactile cuing. Education in use of ice and parameters for each. Educated patient on rationale for performing exercises in regards to increase lymphatic fluid dynamics and ROM and function. Patient education as noted. PT in constant attendance during use of Nu-step to review current status, monitor effort throughout activity and adjust set up as needed for maximum therapeutic benefit. Gait Trainin: gait activities with SPC AND no AD Skilled Intervention: Patient was provided supervision during pre-gait/gait training to prevent falls and insure safety. Facilitated proper gait cycle with the use of verbal and visual cues for correction of gait deviations identified in the objective section above. Skilled judgment used to assess selection and proper use of assistive device. Billing Therapeutic Exercise Treatment Minutes: 40 Gait Training Treatment Minutes: 5 Total Treatment Time Minutes (timed/untimed): 45 Yara Cazares, PT [facility] 02-03-2023 History of Present illness Narrative Episode Visit Count: 2 Therapist That Will Accept/Oversee The Plan Of Care: Italo Cazares Start of Care Date: 01/30/23 Onset Date: 11/09/22 Plan of Care Certification Date: 01/30/23 Next Certification Due Date: 03/31/23 REHABILITATION AND SPORTS THERAPY PHYSICAL THERAPY TREATMENT NOTE ASSESSMENT: Mckenna Bush tolerated the session with no issues. She demonstrated improvements in knee ROM and gait progression. The patient will continue to benefit from ongoing skilled physical therapy to progress toward set goals. PLAN FOR NEXT VISIT: progress L knee ROM, gait & stair mobility - try stairs with 2 HRs SUBJECTIVE: Patient Reason for Visit: reports minimal to no knee pain. taking tylenol prn. using ice ~ 3x/day Has f/u with surgeon on 02/17 Pain: Pain Pain Level: 0 Pain Location: Knee - Left Description: Aching, Sore OBJECTIVE MEASURES WITH LEVEL OF FUNCTION: Knee Observations L Ecchymosis : post knee, increased from last session LE AROM L Knee Extension: 110 Degrees (115AA) Gait Gait Device: Cane, None Gait Deviations Left Lower Extremity: Heel strike during initial stance decreased, Stance time decreased (decreased knee flexion in swing) Gait Observation: steady gait without AD but increased antalgia d/t increased L knee stiffness TREATMENT: Therapeutic Exercise: 1: Nu-step L4x10' seat 7-5 2: shuttle leg press [id number]', SL [id number], [id number]/[id number] 3: supine heel slides AROM 5x, AAROM with sheet 5x 4: SLR 10xL 5: supine HS stretch L/R 6: s/l hip Abd 10xL 7: *HS stretch long-sit R/L (advised R HS stretch d/t R HS cramping with active HS contractions) 8: prone HS curl 10xL 9: removed surgical dsg at pt request (per Dr orders to remove today), advised to keep clean & dry Skilled Intervention: Patient was educated in proper exercise technique and purpose for exercises. Skilled judgment was provided in selection of appropriate interventions. Correct performance of therapeutic exercises was facilitated with verbal, visual, and tactile cuing. Education in use of ice and parameters for each. Educated patient on rationale for performing exercises in regards to increase lymphatic fluid dynamics and ROM and function. Patient education as noted. PT in constant attendance during use of Nu-step to review current status, monitor effort throughout activity and adjust set up as needed for maximum therapeutic benefit. Gait Trainin: gait activities with SPC & no AD Skilled Intervention: Patient was provided supervision during pre-gait/gait training to prevent falls and insure safety. Facilitated proper gait cycle with the use of verbal and visual cues for correction of gait deviations identified in the objective section above. Skilled judgment used to assess selection and proper use of assistive device. Billing Therapeutic Exercise Treatment Minutes: 40 Gait Training Treatment Minutes: 5 Total Treatment Time Minutes (timed/untimed): 45 Yara Cazares PT documented in this encounter [facility] 01-30-2023 Note HNO ID: [id number] Author: Yara Cazares PT Service: ? Author Type: Physical Therapist Type: Progress Notes Filed: 02/20/2023 11:55 AM Note Text: Episode Visit Count: 1 Therapist That Will Accept/Oversee The Plan Of Care: Italo Cazares Start of Care Date: 01/30/23 Onset Date: 11/09/22 Plan of Care Certification Date: 01/30/23 Next Certification Due Date: 03/31/23 Patient Identified by Name and Date of : Yes Rehab Precautions: TKR Current Surgical Procedure : L TKA Current Surgical Procedure Date: 01/27/23 Mechanism of Injury: Disease Process REHABILITATION AND SPORTS THERAPY PHYSICAL THERAPY EVALUATION PLAN OF CARE: Assessment: Mckenna Bush presents with diagnosis of L TKA with post-op deficits of pain AND stiffness that interferes with rising from a chair, walking, stair negotiation, lifting, physical activities, recreational activities, kneeling, running, squatting, working, sleeping, driving . She presents with impairments in ADL's, edema management, flexibility, gait, independence in exercise, joint mobility, overall function, range of motion, soft tissue healing, and strength. PROMIS? (Patient-Reported Outcomes Measurement Information System) scores were reviewed and physical function domain identified as a rehabilitation concern. Prognosis for therapy is Excellent due to: current objective clinical presentation, good overall health status, acuteness of condition, positive past response to therapy, good support system/ coping skills . Pt presents 3 days s/p LTKA doing very well with minimal pain, good ROM and overall mobility as well as good motivation. She will benefit from skilled therapy services to meet the goals established for this plan of care as noted below. Goals for Episode of Care: created on 01/30/23 through 03/31/23 [place] in home exercise program. Patient will increase active ROM of L knee to 0-120 degrees to allow pt to to improve postural alignment, to improve performance of ADLs, and to improve gait mechanics / gait pattern . Patient will demonstrate increase in L LE strength to 5/5 during manual muscle testing in order to improve function for home management tasks, leisure / recreation skills, prior functional tasks, and work tasks. Patient will Improve Timed Up and Go to 8 seconds to demonstrate decreased risk of falling. Patient will improve 5 time sit to stand to demonstrate improvement in functional lower extremity strength. Normal gait. Reciprocal stair negotiation. Patient Goals: get better AND go back to work Planned Interventions, Frequency, and Duration: Current Frequency: 2x/week (1-2x/wk) Duration: 8 weeks Total Number of Visits Planned: 12 Planned Treatment Interventions: Therapeutic exercise (16942), Neuromuscular re-education (56247), Manual therapy (88096), Therapeutic activities (72134), Gait Training (28581), Functional training, Body Mechanics Training, Patient/Family/Caregiver Education PLAN FOR NEXT VISIT: progress L knee ROM, gait AND stair mobility - try stairs with 2 HRs (remove dsg at pt request per Dr) Patient demonstrates good understanding of plan of care and treatment. The above goals and plan of care were discussed and agreed upon by patient/family. SUBJECTIVE: Mckenna Bush is a 67 year old female seen today for PT eval for post-op rehab following TKA. pt reports minimal pain. taking tylenol AND Ibuprofen prn. had previous CSI prior to surgery with no relief. 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 Pt says they told her to remove the dressing on Friday, pt asks if we can remove it in PT as she doesn't want to. 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 5 points is clinically meaningfully difference Percentiles provide an indication of how the patient's score ranks in relation to the general population. Higher percentile rankings indicate better fu (more content not included)... [facility] 01-30-2023 History of Present illness Narrative Episode Visit Count: 1 Therapist That Will Accept/Oversee The Plan Of Care: Italo Cazares Start of Care Date: 01/30/23 Onset Date: 11/09/22 Plan of Care Certification Date: 01/30/23 Next Certification Due Date: 03/31/23 Patient Identified by Name and Date of : Yes Rehab Precautions: TKR Current Surgical Procedure : L TKA Current Surgical Procedure Date: 01/27/23 Mechanism of Injury: Disease Process REHABILITATION AND SPORTS THERAPY PHYSICAL THERAPY EVALUATION PLAN OF CARE: Assessment: Mckenna Bush presents with diagnosis of L TKA with post-op deficits of pain & stiffness that interferes with rising from a chair, walking, stair negotiation, lifting, physical activities, recreational activities, kneeling, running, squatting, working, sleeping, driving . She presents with impairments in ADL's, edema management, flexibility, gait, independence in exercise, joint mobility, overall function, range of motion, soft tissue healing, and strength. PROMIS (Patient-Reported Outcomes Measurement Information System) scores were reviewed and physical function domain identified as a rehabilitation concern. Prognosis for therapy is Excellent due to: current objective clinical presentation, good overall health status, acuteness of condition, positive past response to therapy, good support system/ coping skills . Pt presents 3 days s/p LTKA doing very well with minimal pain, good ROM and overall mobility as well as good motivation. She will benefit from skilled therapy services to meet the goals established for this plan of care as noted below. Goals for Episode of Care: created on 01/30/23 through 03/31/23 [place] in home exercise program. Patient will increase active ROM of L knee to 0-120 degrees to allow pt to to improve postural alignment, to improve performance of ADLs, and to improve gait mechanics / gait pattern . Patient will demonstrate increase in L LE strength to 5/5 during manual muscle testing in order to improve function for home management tasks, leisure / recreation skills, prior functional tasks, and work tasks. Patient will Improve Timed Up and Go to 8 seconds to demonstrate decreased risk of falling. Patient will improve 5 time sit to stand to demonstrate improvement in functional lower extremity strength. Normal gait. Reciprocal stair negotiation. Patient Goals: get better & go back to work Planned Interventions, Frequency, and Duration: Current Frequency: 2x/week (1-2x/wk) Duration: 8 weeks Total Number of Visits Planned: 12 Planned Treatment Interventions: Therapeutic exercise (66036), Neuromuscular re-education (65328), Manual therapy (71093), Therapeutic activities (84433), Gait Training (53093), Functional training, Body Mechanics Training, Patient/Family/Caregiver Education PLAN FOR NEXT VISIT: progress L knee ROM, gait & stair mobility - try stairs with 2 HRs (remove dsg at pt request per ) Patient demonstrates good understanding of plan of care and treatment. The above goals and plan of care were discussed and agreed upon by patient/family. SUBJECTIVE: Mckenna Bush is a 67 year old female seen today for PT eval for post-op rehab following TKA. pt reports minimal pain. taking tylenol & Ibuprofen prn. had previous CSI prior to surgery with no relief. 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 Pt says they told her to remove the dressing on Friday, pt asks if we can remove it in PT as she doesn't want to. 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 5 points is clinically meaningfully difference Percentiles provide an indication of how the patient's score ranks in relation to the general population. Higher percentile rankings indicate better function/quality of life. 50th percentile is the average of the general population and indicates half of respondents had a worse score. OBJECTIVE MEASURES WITH LEVEL OF FUNCTION: Knee Observations L Knee Presents with: Swelling, Ecchymosis, Incision L Incision: silver dressing in place Sensation - Lower Extremity LE Light Touch Sensation: Grossly Intact LE AROM R Knee Extension: 0 Degrees R Knee Flexion: 125 Degrees L Hip External Rotation: -1 Degrees L Knee Extension: 90 Degrees (105AA) LE Strength R LE Strength: grossly 5/5 L LE Strength: grossly 4+ to 5/5 Gait Gait: Modified Independent Gait Device: Standard Walker, Wheeled Walker, Cane Gait Deviations: Left Lower Extremity, General Deviations Gait Deviations Left Lower Extremity: Heel strike during initial stance decreased, Stance time decreased (decreased knee flexion in swing) General Deviations/Observations: Antalgic gait, [place] decreased Gait Observation: improved gait with WW vs SW, steady gait with SPC but had difficulty with coordination/technique, able to walk some without AD but increased L knee stiffness noted Stairs: Supervision Stairs: 4 steps with HR non-reciprocal or tendency to go sideways (ascends with R, descends with L) Functional Performance Test Results Assistive Device: Wheeled Walker 5 Times Sit to Stand Test : 13 sec (from 17 chair without UE assist) Timed Up and Go (sec): 16 sec Education: Education Learning/educational needs: Procedure / Surgery, Home exercise program, Plan of Care, Gait Training, Body Mechanics Education Provided: Yes, see treatment interventions for education provided Education Provided To: Patient Education Mode/Type: Demonstration, Explanation/Discussion, Performance Response to Education/Teach Back: States/Identifies, Return Demonstration, Requires Review/Additional Education TREATMENT: PT Treatment Interventions: Therapeutic Exercise, Gait Training Evaluation Therapeutic Exercise: 1: reviewed current HEP 2: *supine heel slides with sheet 10x 3: QS 10x 4: standing heel raises 5xB, SL 10xR/L 5: B calf stretch on slant board x1', standing L calf stretch 6: *standing step-taps L LE Skilled Intervention: Patient was educated in proper exercise technique and purpose for exercises. Reviewed and educated patient on additions/changes for home exercise program as above (*). Skilled judgment was provided in selection of appropriate interventions. Correct performance of therapeutic exercises was facilitated with verbal and visual cuing. Educated patient on rationale for performing exercises in regards to increase ease of ADL and ROM and function . Patient education as noted. Gait Training: Stair Trainin steps with 1 HR, mostly non-reciprocal. pt was able to ascend 2 steps with L LE with difficulty 1: gait with WW vs SW, applied pt's wheels & recommended WW 2: gait training with SPC on R, also tried gait without AD Skilled Intervention: Patient was provided supervision, independence during pre-gait/gait training to prevent falls and insure safety. Facilitated proper gait cycle with the use of verbal and visual cues for correction of gait deviations identified in the objective section above. Skilled judgment used to assess selection, proper sizing, and proper use of assistive device. Education provided to patient regarding the proper sequence for stair negotiation. Billing * Evaluation Low Complexity: 1 Unit Therapeutic Exercise Treatment Minutes: 15 Gait Training Treatment Minutes: 15 Total Treatment Time Minutes (timed/untimed): 50 Yara Cazares PT documented in this encounter [facility] 03-13-2022 Note HNO ID: [id number] Author: JOE Gutierrez Service: Radiology Author Type: Technologist Type: Progress Notes Filed: 03/13/2022 8:51 AM Note Text: Radiology Service Progress Note PATIENT NAME: Mckenna Bush DATE OF SERVICE: March 13, 2022 TIME: 8:50 AM PATIENT IDENTITY VERIFICATION COMPLETED USING TWO (2) IDENTIFIERS: Name and Date of confirmed by patient verbally. FALL SCREENING: Has the patient had 2 falls in the last year or 1 fall with injury or currently using an Ambulatory Assistive Device (Walker, Cane, Wheelchair, Crutches, etc.)? No PATIENT GENDER DATA: Female. status: : No status: NO. PATIENT RELEVANT IMPLANT DATA REVIEWED: Not Applicable RADIOLOGY DEPARTMENT: Mammography PERIPHERAL IV DATA: Not applicable SIGNED BY: Cathy BORJA March 13, 2022 8:50 AM [facility] 03-13-2022 History of Present illness Narrative Radiology Service Progress Note PATIENT NAME: Mckenna Bush DATE OF SERVICE: March 13, 2022 TIME: 8:50 AM PATIENT IDENTITY VERIFICATION COMPLETED USING TWO (2) IDENTIFIERS: Name and Date of confirmed by patient verbally. FALL SCREENING: Has the patient had 2 falls in the last year or 1 fall with injury or currently using an Ambulatory Assistive Device (Walker, Cane, Wheelchair, Crutches, etc.)? No PATIENT GENDER DATA: Female. status: : No status: NO. PATIENT RELEVANT IMPLANT DATA REVIEWED: Not Applicable RADIOLOGY DEPARTMENT: Mammography PERIPHERAL IV DATA: Not applicable SIGNED BY: Cathy BORJA March 13, 2022 8:50 AM documented in this encounter [facility] 01-28-2022 Note HNO ID: [id number] Author: Yara Cazares PT Service: ? Author Type: Physical Therapist Type: Progress Notes Filed: 01/28/2022 12:29 PM Note Text: 01/28/2022 [facility] REHABILITATION AND SPORTS THERAPY PHYSICAL THERAPY DISCONTINUANCE OF CARE Plan of Care Period: Start of Care Date: 11/06/21 Last Visit Date: 11/22/2021 Therapy Program: The following is a summary of the interventions provided for this episode of care; Therapeutic exercise, Manual therapy, Gait training and Patient/Family/Caregiver Education Assessment: Based on most recent visit, patient was progressing as expected toward functional goals based on home exercise program compliance, pain levels, documented subjective information on progress and documented objective information regarding ADL's, balance, gait, independence in exercise, joint mobility, overall function, range of motion, soft tissue healing and strength. Unable to formally assess goal achievement, as patient has not returned to therapy or scheduled additional follow-up appointments. Reason for Discontinuation of Care: Patient has not returned to therapy or scheduled additional follow-up appointments. Yara Cazares, PT [facility] 11-22-2021 Note HNO ID: [id number] Author: Yara Cazares PT Service: ? Author Type: Physical Therapist Type: Progress Notes Filed: 11/22/2021 4:50 PM Note Text: Episode Visit Count: 6 Therapist That Will Oversee The Plan Of Care: Italo Agarwal Start of Care Date: 11/06/21 Onset Date: 06/12/21 REHABILITATION AND SPORTS THERAPY PHYSICAL THERAPY TREATMENT NOTE ASSESSMENT: Mckenna Bush tolerated the session with no issues. She demonstrated improvements in ROM, strength, stair mobility and activity tolerance. She presents 6 weeks s/p R TKA doing well. The patient will continue to benefit from ongoing skilled physical therapy to progress toward set goals. PLAN FOR NEXT VISIT: continue 1x/wk x 1-2weeks to progress mobility AND ensure pt doing ok with RTW SUBJECTIVE: Patient Reason for Visit: doing well. denies R knee pain other than some thigh soreness. does have some L knee pain (had previous surgery for torn meniscus a few years ago) Pain: Pain Pain Level: 0 Pain Location: Knee - Right;Thigh - Right Description: Sore Additional Pain Information : Location 2 Pain Level 2: 5 Pain Location 2: Knee - Left OBJECTIVE MEASURES WITH LEVEL OF FUNCTION: LE AROM R Knee Extension: -1 Degrees R Knee Flexion: 120 Degrees L Knee Extension: 0 Degrees L Knee Flexion: 125 Degrees LE Strength R LE Strength: grossly 4+ to 5/5 L LE Strength: grossly 5/5 Gait General Deviations/Observations: Step length decreased Gait Observation: normal gait other than tendency for decreased step length B LE (which pt says she's always done) Stairs Device: Rail Number of Stairs: 10 Stairs: reciprocal (slight difficulty with descent) TREATMENT: Therapeutic Exercise: 1: Nu-step L3x10' seat 5-4 (with towel behind low back) 2: standing calf raises 10xB, SL 10xL/R 3: standing calf stretch L/R 4: lunge stretch on 2nd step 5xL/R 5: standing HS stretch with foot on 2nd step L/R 6: prone quad stretch L/R Skilled Intervention: Patient was educated in proper exercise technique and purpose for exercises. Skilled judgment was provided in selection of appropriate interventions. Correct performance of therapeutic exercises was facilitated with verbal and visual cuing. Educated patient on rationale for performing exercises in regards to increase ease of ADL and ROM and function . Patient education as noted. Manual Therapy: 1: patella mobilization attempted 2: scar tissue massage Skilled Intervention: Manual skills to improve joint mobility, ROM, and decrease pain. Utilized anatomy knowledge of the therapist, and assessment of patient's response to intervention. Gait Training: Stair Trainin steps with HR reciprocal (minimal difficulty with reciprocal descent) 1: gait activities with VCs for increased heel strike AND step length Skilled Intervention: Facilitated proper gait cycle with the use of verbal and visual cues for correction of gait deviations identified in the objective section above. Education provided to patient regarding the proper sequence for stair negotiation. Billing Therapeutic Exercise Treatment Minutes: 30 Manual TherapyTreatment Minutes: 5 Gait Training Treatment Minutes: 10 Total Treatment Time Minutes (timed/untimed): 45 Yara Cazares, PT [facility] 11-22-2021 History of Present illness Narrative Episode Visit Count: 6 Therapist That Will Oversee The Plan Of Care: Italo Agarwal Start of Care Date: 11/06/21 Onset Date: 06/12/21 REHABILITATION AND SPORTS THERAPY PHYSICAL THERAPY TREATMENT NOTE ASSESSMENT: Mckenna Bush tolerated the session with no issues. She demonstrated improvements in ROM, strength, stair mobility and activity tolerance. She presents 6 weeks s/p R TKA doing well. The patient will continue to benefit from ongoing skilled physical therapy to progress toward set goals. PLAN FOR NEXT VISIT: continue 1x/wk x 1-2weeks to progress mobility & ensure pt doing ok with RTW SUBJECTIVE: Patient Reason for Visit: doing well. denies R knee pain other than some thigh soreness. does have some L knee pain (had previous surgery for torn meniscus a few years ago) Pain: Pain Pain Level: 0 Pain Location: Knee - Right;Thigh - Right Description: Sore Additional Pain Information : Location 2 Pain Level 2: 5 Pain Location 2: Knee - Left OBJECTIVE MEASURES WITH LEVEL OF FUNCTION: LE AROM R Knee Extension: -1 Degrees R Knee Flexion: 120 Degrees L Knee Extension: 0 Degrees L Knee Flexion: 125 Degrees LE Strength R LE Strength: grossly 4+ to 5/5 L LE Strength: grossly 5/5 Gait General Deviations/Observations: Step length decreased Gait Observation: normal gait other than tendency for decreased step length B LE (which pt says she's always done) Stairs Device: Rail Number of Stairs: 10 Stairs: reciprocal (slight difficulty with descent) TREATMENT: Therapeutic Exercise: 1: Nu-step L3x10' seat 5-4 (with towel behind low back) 2: standing calf raises 10xB, SL 10xL/R 3: standing calf stretch L/R 4: lunge stretch on 2nd step 5xL/R 5: standing HS stretch with foot on 2nd step L/R 6: prone quad stretch L/R Skilled Intervention: Patient was educated in proper exercise technique and purpose for exercises. Skilled judgment was provided in selection of appropriate interventions. Correct performance of therapeutic exercises was facilitated with verbal and visual cuing. Educated patient on rationale for performing exercises in regards to increase ease of ADL and ROM and function . Patient education as noted. Manual Therapy: 1: patella mobilization attempted 2: scar tissue massage Skilled Intervention: Manual skills to improve joint mobility, ROM, and decrease pain. Utilized anatomy knowledge of the therapist, and assessment of patient's response to intervention. Gait Training: Stair Trainin steps with HR reciprocal (minimal difficulty with reciprocal descent) 1: gait activities with VCs for increased heel strike & step length Skilled Intervention: Facilitated proper gait cycle with the use of verbal and visual cues for correction of gait deviations identified in the objective section above. Education provided to patient regarding the proper sequence for stair negotiation. Billing Therapeutic Exercise Treatment Minutes: 30 Manual TherapyTreatment Minutes: 5 Gait Training Treatment Minutes: 10 Total Treatment Time Minutes (timed/untimed): 45 Yara Cazares PT documented in this encounter [facility] 11-20-2021 Note HNO ID: [id number] Author: Yara Cazares PT Service: ? Author Type: Physical Therapist Type: Progress Notes Filed: 11/20/2021 4:36 PM Note Text: Episode Visit Count: 5 Therapist That Will Oversee The Plan Of Care: Italo Agarwal Start of Care Date: 11/06/21 Onset Date: 06/12/21 REHABILITATION AND SPORTS THERAPY PHYSICAL THERAPY TREATMENT NOTE ASSESSMENT: Mckenna Bush tolerated the session with no issues. She demonstrated improvements in stair mobility AND activity tolerance including ability to RTW this week without significant pain or difficulty. The patient will continue to benefit from ongoing skilled physical therapy to progress toward set goals. PLAN FOR NEXT VISIT: continue 1-2x/wk to progress strength, gait AND stair mobility SUBJECTIVE: Patient Reason for Visit: doing well, reports minimal to no knee pain. went back to work yesterday AND doing well. thinks she maybe should've gone back to work sooner. Pt doesn't think she needs much more PT. Pain: Pain Pain Level: 0 Pain Location: Knee - Right OBJECTIVE MEASURES WITH LEVEL OF FUNCTION: LE AROM R Knee Extension: -1 Degrees R Knee Flexion: 120 Degrees LE Joint Mobility R Patellar Mobility: Hypomobile (hypersensitive AND guarding) Gait General Deviations/Observations: Step length decreased Gait Observation: minimal to no gait deviation Stairs Device: Rail Number of Stairs: 10 Stairs: reciprocal (minimal difficulty with descent) TREATMENT: Therapeutic Exercise: 1: Nu-step L3x10' seat 5-4 3: slant board x1' 4: supine heel prop on bolster x 2' 5: heel slides 5x Skilled Intervention: Patient was educated in proper exercise technique and purpose for exercises. Skilled judgment was provided in selection of appropriate interventions. Correct performance of therapeutic exercises was facilitated with verbal and visual cuing. Education in use of ice and parameters for each. Educated patient on rationale for performing exercises in regards to increase ease of ADL, increase lymphatic fluid dynamics and ROM and function . Patient education as noted. Manual Therapy: 1: patella mobilization attempted (pt is sensitive AND resistant to this as she does not like it on either knee) 2: scar tissue massage 3: STM to distal quad, retrograde massage to knee Skilled Intervention: Manual skills to improve joint mobility, ROM, and decrease pain. Utilized anatomy knowledge of the therapist, and assessment of patient's response to intervention. Gait Training: Stair Trainin steps with HR reciprocal 1: gait activities with VCs for increased heel strike AND step length Skilled Intervention: Facilitated proper gait cycle with the use of verbal and visual cues for correction of gait deviations identified in the objective section above. Education provided to patient regarding the proper sequence for stair negotiation. Billing Therapeutic Exercise Treatment Minutes: 20 Manual TherapyTreatment Minutes: 10 Gait Training Treatment Minutes: 10 Total Treatment Time Minutes (timed/untimed): 40 Yara Cazares, PT [facility] 11-20-2021 History of Present illness Narrative Episode Visit Count: 5 Therapist That Will Oversee The Plan Of Care: Italo Agarwal Start of Care Date: 11/06/21 Onset Date: 06/12/21 REHABILITATION AND SPORTS THERAPY PHYSICAL THERAPY TREATMENT NOTE ASSESSMENT: Mckenna Bush tolerated the session with no issues. She demonstrated improvements in stair mobility & activity tolerance including ability to RTW this week without significant pain or difficulty. The patient will continue to benefit from ongoing skilled physical therapy to progress toward set goals. PLAN FOR NEXT VISIT: continue 1-2x/wk to progress strength, gait & stair mobility SUBJECTIVE: Patient Reason for Visit: doing well, reports minimal to no knee pain. went back to work yesterday & doing well. thinks she maybe should've gone back to work sooner. Pt doesn't think she needs much more PT. Pain: Pain Pain Level: 0 Pain Location: Knee - Right OBJECTIVE MEASURES WITH LEVEL OF FUNCTION: LE AROM R Knee Extension: -1 Degrees R Knee Flexion: 120 Degrees LE Joint Mobility R Patellar Mobility: Hypomobile (hypersensitive & guarding) Gait General Deviations/Observations: Step length decreased Gait Observation: minimal to no gait deviation Stairs Device: Rail Number of Stairs: 10 Stairs: reciprocal (minimal difficulty with descent) TREATMENT: Therapeutic Exercise: 1: Nu-step L3x10' seat 5-4 3: slant board x1' 4: supine heel prop on bolster x 2' 5: heel slides 5x Skilled Intervention: Patient was educated in proper exercise technique and purpose for exercises. Skilled judgment was provided in selection of appropriate interventions. Correct performance of therapeutic exercises was facilitated with verbal and visual cuing. Education in use of ice and parameters for each. Educated patient on rationale for performing exercises in regards to increase ease of ADL, increase lymphatic fluid dynamics and ROM and function . Patient education as noted. Manual Therapy: 1: patella mobilization attempted (pt is sensitive & resistant to this as she does not like it on either knee) 2: scar tissue massage 3: STM to distal quad, retrograde massage to knee Skilled Intervention: Manual skills to improve joint mobility, ROM, and decrease pain. Utilized anatomy knowledge of the therapist, and assessment of patient's response to intervention. Gait Training: Stair Trainin steps with HR reciprocal 1: gait activities with VCs for increased heel strike & step length Skilled Intervention: Facilitated proper gait cycle with the use of verbal and visual cues for correction of gait deviations identified in the objective section above. Education provided to patient regarding the proper sequence for stair negotiation. Billing Therapeutic Exercise Treatment Minutes: 20 Manual TherapyTreatment Minutes: 10 Gait Training Treatment Minutes: 10 Total Treatment Time Minutes (timed/untimed): 40 Yara Cazares PT documented in this encounter [facility] 11-15-2021 Note HNO ID: [id number] Author: Yara Cazares PT Service: ? Author Type: Physical Therapist Type: Progress Notes Filed: 11/15/2021 4:59 PM Note Text: Episode Visit Count: 4 Therapist That Will Oversee The Plan Of Care: Italo Agarwal Start of Care Date: 11/06/21 Onset Date: 06/12/21 REHABILITATION AND SPORTS THERAPY PHYSICAL THERAPY TREATMENT NOTE ASSESSMENT: Mckenna Bush tolerated the session with increased pain. She demonstrated difficulty with reciprocal stair descent and increased knee pain AND stiffness but otherwise is doing well. The patient will continue to benefit from ongoing skilled physical therapy to progress toward set goals. PLAN FOR NEXT VISIT: continue to progress R knee ROM AND strength, gait AND stair mobility SUBJECTIVE: Patient Reason for Visit: reports increased knee pain AND soreness since last session which concerns her AND she's worried something is wrong. Pt was advised that post-op pain AND stiffness is normal and expected for several months after surgery. Pain: Pain Pain Level: 2 Pain Location: Knee - Right OBJECTIVE MEASURES WITH LEVEL OF FUNCTION: Knee Observations R Incision: closed AND healing well, no s/s of infection R Knee Palpation Tenderness: Lateral joint line;Iliotibial band;Lateral gastroc head Gait Gait Device: None Gait Deviations: Right Lower Extremity;Left Lower Extremity Gait Deviations Right Lower Extremity: Heel strike during initial stance decreased Gait Deviations Left Lower Extremity: Heel strike during initial stance decreased General Deviations/Observations: Step length decreased Stairs Device: Rail Number of Stairs: 10 Stairs: reciprocal (pain AND difficulty with reciprocal descent) TREATMENT: Therapeutic Exercise: 1: Nu-step L3x10' seat 6-4 2: standing calf raises 10xB, SL 10xL/R 3: slant board x1' 6: standing lunge stretch on 1st step AND 2nd step 3xea 7: step-taps on 6 step 5xL/R Skilled Intervention: Patient was educated in proper exercise technique and purpose for exercises. Skilled judgment was provided in selection of appropriate interventions. Correct performance of therapeutic exercises was facilitated with verbal and visual cuing. Education in use of ice and parameters for each. Educated patient on rationale for performing exercises in regards to increase ease of ADL, increase lymphatic fluid dynamics and ROM and function . Patient education as noted. Manual Therapy: 1: STM/retrograde massage with R LE elevation 2: STM/DTM to HS AND calf in prone Skilled Intervention: Manual skills to improve joint mobility, ROM, and decrease pain. Utilized anatomy knowledge of the therapist, and assessment of patient's response to intervention. Gait Training: Stair Trainin steps x2 with HR reciprocal (minimal difficulty with reciprocal ascent) 1: gait activities with VCs for heel strike Skilled Intervention: Patient was provided supervision, independence during pre-gait/gait training to prevent falls and insure safety. Facilitated proper gait cycle with the use of verbal and visual cues for correction of gait deviations identified in the objective section above. Education provided to patient regarding the proper sequence for stair negotiation. Billing Therapeutic Exercise Treatment Minutes: 20 Manual TherapyTreatment Minutes: 10 Gait Training Treatment Minutes: 10 Total Treatment Time Minutes (timed and untimed codes) : 40 Yara Cazares, PT [facility] 11-15-2021 History of Present illness Narrative Episode Visit Count: 4 Therapist That Will Oversee The Plan Of Care: Italo Agarwal Start of Care Date: 11/06/21 Onset Date: 06/12/21 REHABILITATION AND SPORTS THERAPY PHYSICAL THERAPY TREATMENT NOTE ASSESSMENT: Mckenna Bush tolerated the session with increased pain. She demonstrated difficulty with reciprocal stair descent and increased knee pain & stiffness but otherwise is doing well. The patient will continue to benefit from ongoing skilled physical therapy to progress toward set goals. PLAN FOR NEXT VISIT: continue to progress R knee ROM & strength, gait & stair mobility SUBJECTIVE: Patient Reason for Visit: reports increased knee pain & soreness since last session which concerns her & she's worried something is wrong. Pt was advised that post-op pain & stiffness is normal and expected for several months after surgery. Pain: Pain Pain Level: 2 Pain Location: Knee - Right OBJECTIVE MEASURES WITH LEVEL OF FUNCTION: Knee Observations R Incision: closed & healing well, no s/s of infection R Knee Palpation Tenderness: Lateral joint line;Iliotibial band;Lateral gastroc head Gait Gait Device: None Gait Deviations: Right Lower Extremity;Left Lower Extremity Gait Deviations Right Lower Extremity: Heel strike during initial stance decreased Gait Deviations Left Lower Extremity: Heel strike during initial stance decreased General Deviations/Observations: Step length decreased Stairs Device: Rail Number of Stairs: 10 Stairs: reciprocal (pain & difficulty with reciprocal descent) TREATMENT: Therapeutic Exercise: 1: Nu-step L3x10' seat 6-4 2: standing calf raises 10xB, SL 10xL/R 3: slant board x1' 6: standing lunge stretch on 1st step & 2nd step 3xea 7: step-taps on 6 step 5xL/R Skilled Intervention: Patient was educated in proper exercise technique and purpose for exercises. Skilled judgment was provided in selection of appropriate interventions. Correct performance of therapeutic exercises was facilitated with verbal and visual cuing. Education in use of ice and parameters for each. Educated patient on rationale for performing exercises in regards to increase ease of ADL, increase lymphatic fluid dynamics and ROM and function . Patient education as noted. Manual Therapy: 1: STM/retrograde massage with R LE elevation 2: STM/DTM to HS & calf in prone Skilled Intervention: Manual skills to improve joint mobility, ROM, and decrease pain. Utilized anatomy knowledge of the therapist, and assessment of patient's response to intervention. Gait Training: Stair Trainin steps x2 with HR reciprocal (minimal difficulty with reciprocal ascent) 1: gait activities with VCs for heel strike Skilled Intervention: Patient was provided supervision, independence during pre-gait/gait training to prevent falls and insure safety. Facilitated proper gait cycle with the use of verbal and visual cues for correction of gait deviations identified in the objective section above. Education provided to patient regarding the proper sequence for stair negotiation. Billing Therapeutic Exercise Treatment Minutes: 20 Manual TherapyTreatment Minutes: 10 Gait Training Treatment Minutes: 10 Total Treatment Time Minutes (timed and untimed codes) : 40 Yara Cazares PT documented in this encounter [facility] 11-13-2021 Note HNO ID: [id number] Author: Yara Cazares PT Service: ? Author Type: Physical Therapist Type: Progress Notes Filed: 11/13/2021 3:41 PM Note Text: Episode Visit Count: 3 Therapist That Will Oversee The Plan Of Care: Italo Agarwal Start of Care Date: 11/06/21 Onset Date: 06/12/21 Patient Identified by Name and Date of : Yes REHABILITATION AND SPORTS THERAPY PHYSICAL THERAPY TREATMENT NOTE ASSESSMENT: Mckenna Bush tolerated the session with no issues. She demonstrated improvements in gait AND stair mobility and is doing well 5 weeks s/p R TKA. The patient will continue to benefit from ongoing skilled physical therapy to progress toward set goals. PLAN FOR NEXT VISIT: continue to progress R knee ROM AND strength, gait AND stair mobility SUBJECTIVE: Patient Reason for Visit: reports increased stiffness this morning. c/o stiffness more so than pain. reports knee was locking prior to surgery. Pt has also noticed some L knee pain since having her R knee done (reports previous meniscus injuries to B knees). Currently not taking any pain medication. She plans to RTW next week which will be 4 days/wk for 3 hours then will be off the next week for spring (works in [employer] at [employer]). Pain: Pain Pain Level: 0 Pain Location: Knee - Right Description: Stiffness OBJECTIVE MEASURES WITH LEVEL OF FUNCTION: Knee Observations R Knee Presents with: Swelling;Warmth;Incision R Incision: closed AND healing well. suture end at superior incision, small scab at inferior incision LE AROM R Knee Extension: -3 Degrees R Knee Flexion: 121 Degrees LE Strength R Knee Extension (L3): 4+/5 R Ankle Plantar Flexion: 4/5 Gait Gait Deviations Right Lower Extremity: Lacks full knee extension during terminal swing (decreased knee flexion in swing) Gait Observation: minimal antalgia with tendency for stiff R knee Stairs Device: Rail Number of Stairs: 10 Stairs: reciprocal (minimal difficulty) TREATMENT: Therapeutic Exercise: 1: Nu-step L3x10' seat 6- 2: standing calf raises 10xB, SL 10xL/R 3: slant board x1' 4: standing TKE with blue TB 20xR 5: shuttle leg press [id number]', SL 6bandsL/R 10ea (slight difficulty R vs L) 6: standing lunge stretch on 1st step AND 2nd step 3xea 7: step-taps on 6 step 5xL/R Skilled Intervention: Patient was educated in proper exercise technique and purpose for exercises. Skilled judgment was provided in selection of appropriate interventions. Correct performance of therapeutic exercises was facilitated with verbal, visual and tactile cuing. Educated patient on rationale for performing exercises in regards to increase ease of ADL and ROM and function . Patient education as noted. Manual Therapy: 1: patella mobilization, scar tissue massage 2: STM/DTM to HS AND calf in prone Skilled Intervention: Manual skills to improve joint mobility, ROM, and decrease pain. Utilized anatomy knowledge of the therapist, and assessment of patient's response to intervention. Gait Training: Stair Trainin steps x2 with HR: reciprocal with minimal difficulty 1: gait activities with VCs Skilled Intervention: Patient was provided supervision, independence during pre-gait/gait training to prevent falls and insure safety. Facilitated proper gait cycle with the use of verbal and visual cues for correction of gait deviations identified in the objective section above. Education provided to patient regarding the proper sequence for stair negotiation. Billing Therapeutic Exercise Treatment Minutes: 35 Manual TherapyTreatment Minutes: 10 Gait Training Treatment Minutes: 10 Total Treatment Time Minutes (timed and untimed codes) : 55 Yara Cazares, PT [facility] 11-13-2021 History of Present illness Narrative Episode Visit Count: 3 Therapist That Will Oversee The Plan Of Care: Italo Agarwal Start of Care Date: 11/06/21 Onset Date: 06/12/21 Patient Identified by Name and Date of : Yes REHABILITATION AND SPORTS THERAPY PHYSICAL THERAPY TREATMENT NOTE ASSESSMENT: Mckenna Bush tolerated the session with no issues. She demonstrated improvements in gait & stair mobility and is doing well 5 weeks s/p R TKA. The patient will continue to benefit from ongoing skilled physical therapy to progress toward set goals. PLAN FOR NEXT VISIT: continue to progress R knee ROM & strength, gait & stair mobility SUBJECTIVE: Patient Reason for Visit: reports increased stiffness this morning. c/o stiffness more so than pain. reports knee was locking prior to surgery. Pt has also noticed some L knee pain since having her R knee done (reports previous meniscus injuries to B knees). Currently not taking any pain medication. She plans to RTW next week which will be 4 days/wk for 3 hours then will be off the next week for spring break (works in [employer] at [employer]). Pain: Pain Pain Level: 0 Pain Location: Knee - Right Description: Stiffness OBJECTIVE MEASURES WITH LEVEL OF FUNCTION: Knee Observations R Knee Presents with: Swelling;Warmth;Incision R Incision: closed & healing well. suture end at superior incision, small scab at inferior incision LE AROM R Knee Extension: -3 Degrees R Knee Flexion: 121 Degrees LE Strength R Knee Extension (L3): 4+/5 R Ankle Plantar Flexion: 4/5 Gait Gait Deviations Right Lower Extremity: Lacks full knee extension during terminal swing (decreased knee flexion in swing) Gait Observation: minimal antalgia with tendency for stiff R knee Stairs Device: Rail Number of Stairs: 10 Stairs: reciprocal (minimal difficulty) TREATMENT: Therapeutic Exercise: 1: Nu-step L3x10' seat 6- 2: standing calf raises 10xB, SL 10xL/R 3: slant board x1' 4: standing TKE with blue TB 20xR 5: shuttle leg press [id number]', SL 6bandsL/R 10ea (slight difficulty R vs L) 6: standing lunge stretch on 1st step & 2nd step 3xea 7: step-taps on 6 step 5xL/R Skilled Intervention: Patient was educated in proper exercise technique and purpose for exercises. Skilled judgment was provided in selection of appropriate interventions. Correct performance of therapeutic exercises was facilitated with verbal, visual and tactile cuing. Educated patient on rationale for performing exercises in regards to increase ease of ADL and ROM and function . Patient education as noted. Manual Therapy: 1: patella mobilization, scar tissue massage 2: STM/DTM to HS & calf in prone Skilled Intervention: Manual skills to improve joint mobility, ROM, and decrease pain. Utilized anatomy knowledge of the therapist, and assessment of patient's response to intervention. Gait Training: Stair Trainin steps x2 with HR: reciprocal with minimal difficulty 1: gait activities with VCs Skilled Intervention: Patient was provided supervision, independence during pre-gait/gait training to prevent falls and insure safety. Facilitated proper gait cycle with the use of verbal and visual cues for correction of gait deviations identified in the objective section above. Education provided to patient regarding the proper sequence for stair negotiation. Billing Therapeutic Exercise Treatment Minutes: 35 Manual TherapyTreatment Minutes: 10 Gait Training Treatment Minutes: 10 Total Treatment Time Minutes (timed and untimed codes) : 55 Yara Cazares PT documented in this encounter [facility] 11-08-2021 Note HNO ID: [id number] Author: Natalie Agarwal PT Service: ? Author Type: Physical Therapist Type: Progress Notes Filed: 11/08/2021 9:25 AM Note Text: Episode Visit Count: 2 Therapist That Will Oversee The Plan Of Care: Italo Agarwal Start of Care Date: 11/06/21 Onset Date: 06/12/21 Patient Identified by Name and Date of : Yes REHABILITATION AND SPORTS THERAPY PHYSICAL THERAPY TREATMENT NOTE ASSESSMENT: Mckenna Bush tolerated the session with no issues. She demonstrated difficulty with tenderness to medial right knee joint. The patient will continue to benefit from ongoing skilled physical therapy to progress toward set goals. PLAN FOR NEXT VISIT: progress eccentric quad strengthening, address gait deviations SUBJECTIVE: Patient Reason for Visit: reports no significant pain today. Had a long day yesterday with medical appointments etc with spouse yesterday. Leg got very tired. Overall doing well. No issues with home exercise program. Pain: Pain Pain Level: 0 Post Treatment Pain Post Treatment Pain Level: No Change OBJECTIVE MEASURES WITH LEVEL OF FUNCTION: Knee Observations R Knee Palpation Tenderness: Medial joint line;Medial Hamstring LE AROM R Knee Extension: -4 Degrees LE Flexibility R Gastrocnemius Flexibility: tight LE Joint Mobility R Patellar Mobility: Hypomobile Gait Ramp: Modified Independent with slight hestitancy with descent TREATMENT: Therapeutic Exercise: 1: standing mini squats 10x 2: seated R SLR 10x 4: standing side and fwd lady bug taps 10x ea 2 sets 5: NuStep L5 seat 4 UE/LE 7 min 6: slant board 1 min 7: step up 4 step 10x 2 8: *step down 4 10x 2 with rail and BETTING AGENCY COUNTER CLERK Skilled Intervention: Patient was educated in proper exercise technique and purpose for exercises. Reviewed and educated patient on additions/changes for home exercise program as above (*). Skilled judgment was provided in selection of appropriate interventions. Correct performance of therapeutic exercises was facilitated with verbal, visual and tactile cuing. Gait Trainin: bkw walking VC to increase step length 2: fwd bwd walking on ramp with BETTING AGENCY COUNTER CLERK, VC for knee flexion 3: fwd gait, VC for increased knee flex in swing phase Skilled Intervention: Facilitated proper gait cycle with the use of verbal cues for correction of gait deviations identified in the objective section above. Natalie Agarwal, PT [facility] 11-08-2021 History of Present illness Narrative Episode Visit Count: 2 Therapist That Will Oversee The Plan Of Care: Italo Agarwal Start of Care Date: 11/06/21 Onset Date: 06/12/21 Patient Identified by Name and Date of : Yes REHABILITATION AND SPORTS THERAPY PHYSICAL THERAPY TREATMENT NOTE ASSESSMENT: Mckenna Bush tolerated the session with no issues. She demonstrated difficulty with tenderness to medial right knee joint. The patient will continue to benefit from ongoing skilled physical therapy to progress toward set goals. PLAN FOR NEXT VISIT: progress eccentric quad strengthening, address gait deviations SUBJECTIVE: Patient Reason for Visit: reports no significant pain today. Had a long day yesterday with medical appointments etc with spouse yesterday. Leg got very tired. Overall doing well. No issues with home exercise program. Pain: Pain Pain Level: 0 Post Treatment Pain Post Treatment Pain Level: No Change OBJECTIVE MEASURES WITH LEVEL OF FUNCTION: Knee Observations R Knee Palpation Tenderness: Medial joint line;Medial Hamstring LE AROM R Knee Extension: -4 Degrees LE Flexibility R Gastrocnemius Flexibility: tight LE Joint Mobility R Patellar Mobility: Hypomobile Gait Ramp: Modified Independent with slight hestitancy with descent TREATMENT: Therapeutic Exercise: 1: standing mini squats 10x 2: seated R SLR 10x 4: standing side and fwd lady bug taps 10x ea 2 sets 5: NuStep L5 seat 4 UE/LE 7 min 6: slant board 1 min 7: step up 4 step 10x 2 8: *step down 4 10x 2 with rail and BETTING AGENCY COUNTER CLERK Skilled Intervention: Patient was educated in proper exercise technique and purpose for exercises. Reviewed and educated patient on additions/changes for home exercise program as above (*). Skilled judgment was provided in selection of appropriate interventions. Correct performance of therapeutic exercises was facilitated with verbal, visual and tactile cuing. Gait Trainin: bkw walking VC to increase step length 2: fwd bwd walking on ramp with BETTING AGENCY COUNTER CLERK, VC for knee flexion 3: fwd gait, VC for increased knee flex in swing phase Skilled Intervention: Facilitated proper gait cycle with the use of verbal cues for correction of gait deviations identified in the objective section above. Natalie Agarwal PT documented in this encounter [facility] 11-06-2021 Note HNO ID: [id number] Author: Natalie Agarwal PT Service: ? Author Type: Physical Therapist Type: Progress Notes Filed: 11/06/2021 11:47 AM Note Text: Summary: PT jenny Episode Visit Count: 1 Therapist That Will Oversee The Plan Of Care: Italo Agarwal Start of Care Date: 11/06/21 Onset Date: 06/12/21 Patient Identified by Name and Date of : Yes Rehab Precautions: TKR Current Surgical Procedure : R TKR Current Surgical Procedure Date: 10/08/21 Mechanism of Injury: Insidious Onset REHABILITATION AND SPORTS THERAPY PHYSICAL THERAPY EVALUATION PLAN OF CARE: Assessment: Mckenna Bush presents with diagnosis of s/p right TKR that interferes with stair negotiation (descent) . She presents with impairments in flexibility, gait, independence in exercise, joint mobility, overall function, range of motion and strength . . Prognosis for therapy is Good due to: current objective clinical presentation . Patient demonstrates good strength for 4 weeks post op. Is limited with extension ROM and difficulty with stair negotiation. She will benefit from skilled therapy services to meet the goals established for this plan of care as noted below. Goals for Episode of Care: created on 11/06/21 through 01/05/22 [place] in home exercise program. Patient will increase active ROM of right knee to 0-125 to allow pt to to improve gait mechanics / gait pattern . Patient will demonstrate increase in right lower extremity strength to 5/5 during manual muscle testing in order to improve function for prior functional tasks, work tasks including static standing for 3-4 hours. Patient will increase flexibility of hamstring and gastroc on right to equal unaffected extremity/side to improve ability to maintain proper posture and improve mechanics. Patient will Improve Timed Up and Go to < 8 seconds to demonstrate decreased risk of falling. Patient will improve 10MWT to 1.2m/s with no assistive device to demonstrate improvement in functional community ambulation. Patient will improve 5 time sit to stand to demonstrate improvement in functional lower extremity strength. Normal gait. Reciprocal stair negotiation. Patient Goals: Get back to work. (RTW 11/19/21) Planned Interventions, Frequency, and Duration: Current Frequency: 2x/week Duration: 4 weeks (1x/wk x4 weeks) Total Number of Visits Planned: 12 Planned Treatment Interventions: Therapeutic exercise (96563);Neuromuscular re-education (41867);Manual therapy (20456);Therapeutic activities (99859);Self-long term management (43158);Gait Training (08247);Patient/Family/Caregiver Education;Body Mechanics Training PLAN FOR NEXT VISIT: eccentric quad strengthening, address gait deviations Patient demonstrates good understanding of plan of care and treatment. The above goals and plan of care were discussed and agreed upon by patient/family. SUBJECTIVE: Mckenna Bush is a 66 year old female seen today for post R TKR rehab. Had 6 visits for [facility], last appointment 10/30/21 Patient Goals: Get back to work. 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 Falls Interview: No positive findings with falls interview Pain: Pain Pain Level: 0 Post Treatment Pain Post Treatment Pain Level: No Change PROMIS Scales T-scores: mean of general population = 50. 5 points is clinically meaningfully difference Percentiles provide an indication of how the patient's score ranks in relation to the general population. Higher percentile rankings indicate better function/quality of life. 50th percentile is the average of the general population and indicates half of respondents had a worse score. T-scores: mean of general population = 50. 5 points is clinically meaningfully difference Percentiles provide an indication of how the patient's score ranks in relation to the general population. Higher percentile rankings indicate better function/quality of life. 50th percentile is the average of the general population and indicates half of respondents had a worse score. OBJECTIVE MEASURES WITH LEVEL OF FUNCTION: Posture / Alignment Posture: Good Knee Observations R Knee Palpation Tenderness: Medial joint line Sensation - Lower Extremity LE Light Touch Sensation: Grossly Intact LE AROM R Knee Extension: -5 Degrees R Knee Flexion: 107 Degree (more content not included)... [facility] 11-06-2021 History of Present illness Narrative Summary: PT eval Episode Visit Count: 1 Therapist That Will Oversee The Plan Of Care: Italo Agarwal Start of Care Date: 11/06/21 Onset Date: 06/12/21 Patient Identified by Name and Date of : Yes Rehab Precautions: TKR Current Surgical Procedure : R TKR Current Surgical Procedure Date: 10/08/21 Mechanism of Injury: Insidious Onset REHABILITATION AND SPORTS THERAPY PHYSICAL THERAPY EVALUATION PLAN OF CARE: Assessment: Mckenna Bush presents with diagnosis of s/p right TKR that interferes with stair negotiation (descent) . She presents with impairments in flexibility, gait, independence in exercise, joint mobility, overall function, range of motion and strength . . Prognosis for therapy is Good due to: current objective clinical presentation . Patient demonstrates good strength for 4 weeks post op. Is limited with extension ROM and difficulty with stair negotiation. She will benefit from skilled therapy services to meet the goals established for this plan of care as noted below. Goals for Episode of Care: created on 11/06/21 through 01/05/22 [place] in home exercise program. Patient will increase active ROM of right knee to 0-125 to allow pt to to improve gait mechanics / gait pattern . Patient will demonstrate increase in right lower extremity strength to 5/5 during manual muscle testing in order to improve function for prior functional tasks, work tasks including static standing for 3-4 hours. Patient will increase flexibility of hamstring and gastroc on right to equal unaffected extremity/side to improve ability to maintain proper posture and improve mechanics. Patient will Improve Timed Up and Go to < 8 seconds to demonstrate decreased risk of falling. Patient will improve 10MWT to 1.2m/s with no assistive device to demonstrate improvement in functional community ambulation. Patient will improve 5 time sit to stand to demonstrate improvement in functional lower extremity strength. Normal gait. Reciprocal stair negotiation. Patient Goals: Get back to work. (RTW 11/19/21) Planned Interventions, Frequency, and Duration: Current Frequency: 2x/week Duration: 4 weeks (1x/wk x4 weeks) Total Number of Visits Planned: 12 Planned Treatment Interventions: Therapeutic exercise (49864);Neuromuscular re-education (98280);Manual therapy (18189);Therapeutic activities (52101);Self-long term management (24329);Gait Training (95791);Patient/Family/Caregiver Education;Body Mechanics Training PLAN FOR NEXT VISIT: eccentric quad strengthening, address gait deviations Patient demonstrates good understanding of plan of care and treatment. The above goals and plan of care were discussed and agreed upon by patient/family. SUBJECTIVE: Mckenna Bush is a 66 year old female seen today for post R TKR rehab. Had 6 visits for [facility], last appointment 10/30/21 Patient Goals: Get back to work. 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 5 points is clinically meaningfully difference Percentiles provide an indication of how the patient's score ranks in relation to the general population. Higher percentile rankings indicate better function/quality of life. 50th percentile is the average of the general population and indicates half of respondents had a worse score. T-scores: mean of general population = 50. 5 points is clinically meaningfully difference Percentiles provide an indication of how the patient's score ranks in relation to the general population. Higher percentile rankings indicate better function/quality of life. 50th percentile is the average of the general population and indicates half of respondents had a worse score. OBJECTIVE MEASURES WITH LEVEL OF FUNCTION: Posture / Alignment Posture: Good Knee Observations R Knee Palpation Tenderness: Medial joint line Sensation - Lower Extremity LE Light Touch Sensation: Grossly Intact LE AROM R Knee Extension: -5 Degrees R Knee Flexion: 107 Degrees (supine) L Knee Extension: -2 Degrees LE PROM R Knee Flexion: 118 Degrees (seated) L Knee Flexion: 122 Degrees (seated) LE Flexibility Flexibility: Gastrocnemius Flexibility;Hamstring Flexibility R Hamstring Flexibility: tight R Gastrocnemius Flexibility: tight LE Joint Mobility R Patellar Mobility: Hypomobile LE Strength L LE Strength: 5/5 R Hip Extension: 4+/5 R Hip Flexion (L2): 4+/5 R Hip ABduction: 4+/5 R Knee Extension (L3): 4+/5 R Knee Flexion: 4+/5 R Ankle Dorsiflexion (L4): 5/5 R Ankle Plantarflexion Functional Strength (S1): 3/5 Functional Strength R Single Leg Heel Raise: 2x with moderate UE support L Single Leg Heel Raise: 2x with moderate UE support Gait Gait: Independent Gait Device: None Gait Deviations: Right Lower Extremity;General Deviations Gait Deviations Right Lower Extremity: Knee flexion during stance increased;Lacks full knee extension during terminal swing;Push off during terminal stance decreased;Stance time decreased ( stiff knee ) General Deviations/Observations: Lateral sway increased Stairs: Modified Independent Stairs Device: Rail Number of Stairs: 10 Stairs: minimal difficulty with recopircal ascent, major difficulty with reciprocal descent Curb Step: Modified Independent Device: (turns sideways, poor eccentric control/confidence in R knee) Balance Static Standing Balance: Single Leg Stance Single Leg Stance: 2 sec R/L Functional Performance Test Results 10 Meter Walk Test Trial 1 (seconds): 6.48 10 Meter Walk Test Trial 2 (seconds): 6.52 10 Meter Walk Test Average (m/sec): 0.92 5 Times Sit to Stand Test : 5.58 sec Timed Up and Go (sec): 11.05 sec Education: Education Learning Preferences: Performance;Demonstration;Printed Materials Barriers: None Learning/educational needs: Home exercise program Education Provided: Yes, see treatment interventions for education provided Education Provided To: Patient Education Mode/Type: Demonstration;Explanation/Discuss ion;Literature/Printed Materials;Performance Response to Education/Teach Back: Requires Review/Additional Education TREATMENT: PT Treatment Interventions: Therapeutic Exercise Evaluation Therapeutic Exercise: 1: standing mini squats 10x 2: *seated R SLR 10x 3: *seated R knee ext stretch 2 min 3x 4: *standing lady bug taps 10x Skilled Intervention: Patient was educated in proper exercise technique and purpose for exercises. Reviewed and educated patient on additions/changes for home exercise program as above (*). Skilled judgment was provided in selection of appropriate interventions. Provided written instruction for home exercise program to facilitate proper performance and compliance. Correct performance of therapeutic exercises was facilitated with verbal, visual and tactile cuing. Billing * Evaluation Low Complexity: 1 Unit Therapeutic Exercise Treatment Minutes: 15 Total Treatment Time Minutes (timed and untimed codes) : 50 Natalie Agarwal PT documented in this encounter [facility] 10-20-2021 Note HNO ID: [id number] Author: Gypsy Hairston RDMS, RVT Service: ? Author Type: [employer] Administrator Type: Progress Notes Filed: 10/20/2021 5:58 PM Note Text: Radiology Service Progress Note PATIENT NAME: Mckenna Bush DATE OF SERVICE: October 20, 2021 TIME: 5:58 PM PATIENT IDENTITY VERIFICATION COMPLETED USING TWO (2) IDENTIFIERS: Name and Date of confirmed by patient verbally. FALL SCREENING: Has the patient had 2 falls in the last year or 1 fall with injury or currently using an Ambulatory Assistive Device (Walker, Cane, Wheelchair, Crutches, etc.)? No PATIENT GENDER DATA: Female. status: : No status: N/A PATIENT RELEVANT IMPLANT DATA REVIEWED: Not Applicable RADIOLOGY DEPARTMENT: Ultrasound PERIPHERAL IV DATA: Not applicable SIGNED BY: Gypsy Hairston RDMS, RVT October 20, 2021 5:58 PM [facility] 12-17-2017 History of Present illness Narrative 1. Nella. s/p robotic-assisted abdominal uteropexy with upsylon mesh, anterior repair, lynx sling, perineoplasty, and cystoscopy on 12/17/17.2. Bartholin gland cysta. cyst has been drained by outside NETWORK OPERATIONS MANAGER in the past3. Hx UTI4. HTN- on s Visit:Last seen by myself 05/01/18. 67 y/o female presents for evaluation of frequent UTIs.Last UTI was 03/04 (Klebsiella pnemoniae, ampicillin R). Also had UTIs 02/03 (encterobacter cloacae). 10/25/21 (citrobacter). 12/2020 (citrobacter). Symptoms include back ache, pressure. Denies dysuria, hematuria. Does not have any incontinence, prolapse, bowel symptoms. [id number] [id number] Work Phone: 12-17-2017 History of Present illness Narrative Testing results: PVR 30, PVR results available and reviewed and UA results available and reviewed.1. Nella. s/p robotic-assisted abdominal uteropexy with upsylon mesh, anterior repair, lynx sling, perineoplasty, and cystoscopy on 12/17/17.2. Bartholin gland cysta. cyst has been drained by outside NETWORK OPERATIONS MANAGER in the past3. Hx UTI4. HTN- on To s Visit:Last seen by myself 05/01/18. 67 y/o female presents for evaluation of frequent UTIs.Last UTI was 03/04 (Klebsiella pnemoniae, ampicillin R). Also had UTIs 02/03 (encterobacter cloacae). 10/25/21 (citrobacter). 12/2020 (citrobacter). Symptoms include back ache, pressure. Denies dysuria, hematuria. Does not have any incontinence, prolapse, bowel symptoms. [facility] [id number] Work Phone: 12-17-2017 History of Present illness Narrative Testing results: UA results available and reviewed, but PVR results not available.1. Nella. s/p robotic-assisted abdominal uteropexy with upsylon mesh, anterior repair, lynx sling, perineoplasty, and cystoscopy on 12/17/17.b. POP-Q 03/06/23: patient was sitting. Aa: 0. Ba: 0 C: -6 Gh: 3.5. Pb: 3.5 TVL: 7 Ap: -2. Bp: -2.2. Bartholin gland cysta. cyst has been drained by outside NETWORK OPERATIONS MANAGER in the past3. frequent UTIs4. HTN- on To s Visit:Last seen by myself 03/06/23. 67 y/o female presents for cystoscopy for frequent UTIs. She has not started estrogen cream, cost-prohibitive and she is concerned with CA risk. Patient has an allergy or adverse reaction to adhesive tape TAPE and iodine solution SOLN. Patient is a non-smoker. [facility] [id number] Work Phone: 12-17-2017 History of Present illness Narrative Testing results: UA results available and reviewed, but PVR results not available.1. Nella. s/p robotic-assisted abdominal uteropexy with upsylon mesh, anterior repair, lynx sling, perineoplasty, and cystoscopy on 12/17/17.b. POP-Q 03/06/23: patient was sitting. Aa: 0. Ba: 0 C: -6 Gh: 3.5. Pb: 3.5 TVL: 7 Ap: -2. Bp: -2.2. Bartholin gland cysta. cyst has been drained by outside NETWORK OPERATIONS MANAGER in the past3. frequent UTIs3a. declines estrogen thmvr2p. prophylactic D Mannose prescribed . HTN- on Visit:Last seen by myself 03/06/23. 67 y/o female presents for cystoscopy for frequent UTIs. She has not started estrogen cream, cost-prohibitive and she is concerned with CA risk. Patient has an allergy or adverse reaction to adhesive tape TAPE and iodine solution SOLN. Patient is a non-smoker. [facility] [id number] Work Phone: 12-17-2017 History of Present illness Narrative 1. Nella. s/p robotic-assisted abdominal uteropexy with upsylon mesh, anterior repair, lynx sling, perineoplasty, and cystoscopy on 12/17/17.b. POP-Q 03/06/23: patient was sitting. Aa: 0. Ba: 0 C: -6 Gh: 3.5. Pb: 3.5 TVL: 7 Ap: -2. Bp: -2.2. Bartholin gland cysta. cyst has been drained by outside NETWORK OPERATIONS MANAGER in the past3. recurrent UTIs3a. declines estrogen gtfxm2e. prophylactic D Mannose prescribed . HTN- on losartan Visit:She has burning on urination today. she is planning to see PCP Lucia discussed that MRI revealed no evidence of tumor in kidney. results consistent with simple cyst.we discussed that we could put a urine order in for her but she is comfortable doing this with Jose [facility] [id number] Work Phone: 12-17-2017 History of Present illness Narrative Testing results: PVR results not available and UA results not available.1. Nella. s/p robotic-assisted abdominal uteropexy with upsylon mesh, anterior repair, lynx sling, perineoplasty, and cystoscopy on 12/17/17.b. POP-Q 03/06/23: patient was sitting. Aa: 0. Ba: 0 C: -6 Gh: 3.5. Pb: 3.5 TVL: 7 Ap: -2. Bp: -2.2. Bartholin gland cysta. cyst has been drained by outside NETWORK OPERATIONS MANAGER in the past3. recurrent UTIs3a. declines estrogen fdcvz2f. prophylactic D Mannose prescribed . HTN- on losartanTo s Visit:Last seen by myself 03/13/23. 67 y/o female presents for review of MRI kidney w/wo contrast 03/13/23 and burning with urination. She plans to see PCP Brooklynn Kline CNP about this issue. Patient has an allergy or adverse reaction to adhesive tape and iodine solution. Patient is a non-smoker. [facility] [id number] Work Phone: 12-17-2017 History of Present illness Narrative Testing results: PVR results not available and UA results not available.1. Nella. s/p robotic-assisted abdominal uteropexy with upsylon mesh, anterior repair, lynx sling, perineoplasty, and cystoscopy on 12/17/17.b. POP-Q 03/06/23: patient was sitting. Aa: 0. Ba: 0 C: -6 Gh: 3.5. Pb: 3.5 TVL: 7 Ap: -2. Bp: -2.2. Bartholin gland cysta. cyst has been drained by outside NETWORK OPERATIONS MANAGER in the past3. recurrent UTIs3a. declines estrogen pyhfx3a. prophylactic D Mannose prescribed . HTN- on losartanTo s Visit:Last seen by myself 03/13/23. 67 y/o female presents for review of MRI kidney w/wo contrast 03/13/23 and burning with urination. She plans to see PCP Brooklynn Kline CNP about this issue. Patient has an allergy or adverse reaction to adhesive tape and iodine solution. Patient is a non-smoker. [facility] [id number] Work Phone: [facility] Diagnosis Primary osteoarthritis of right knee Primary localized osteoarthrosis, lower leg Aftercare following right knee joint replacement surgery Difficulty walking Difficulty in walking Joint stiffness of knee, right [facility] Aftercare following right knee joint replacement surgery- Primary Joint stiffness of knee, right Difficulty walking Difficulty in walking [facility] Diagnosis Aftercare following right knee joint replacement surgery- Primary Joint stiffness of knee, right Difficulty walking Difficulty in walking [facility] Diagnosis Aftercare following right knee joint replacement surgery- Primary Joint stiffness of knee, right [facility] Diagnosis Aftercare following right knee joint replacement surgery- Primary Joint stiffness of knee, right [facility] Diagnosis S/P total knee arthroplasty, left- Primary Difficulty walking Difficulty in walking Knee stiffness, left Knee stiffness, right [facility] Diagnosis S/P total knee arthroplasty, left- Primary Knee stiffness, left [facility] Diagnosis S/P total knee arthroplasty, left- Primary Knee stiffness, left Difficulty walking Difficulty in walking Abnormality of gait [facility] Diagnosis S/P total knee arthroplasty, left- Primary Knee stiffness, left Abnormality of gait [facility] Diagnosis S/P total knee arthroplasty, left- Primary Knee stiffness, left Abnormality of gait [facility] Diagnosis S/P total knee arthroplasty, left- Primary Knee stiffness, left Difficulty walking Difficulty in walking documented in this encounter [facility] Summary Purpose Family History No Family History Records Found Father Name Dates Details Family history of cardiac di sorder(V17.49, Z82.49) Status:Active Unknown Family Member Name Dates Details Family history of cardiac di sorder: Father(V17.49, Z82.49) Status:Active Unknown Family Member Name Dates Details Family history of cardiac di sorder: Father(V17.49, Z82.49) Status:Active Unknown Family Member Name Dates Details Family history of cardiac di sorder: Father(V17.49, Z82.49) Status:Active Unknown Family Member Name Dates Details Family history of cardiac di sorder: Father(V17.49, Z82.49) Status:Active Unknown Family Member Name Dates Details Family history of cardiac di sorder: Father(V17.49, Z82.49) Status:Active Unknown Family Member Name Dates Details Family history of cardiac di sorder: Father(V17.49, Z82.49) Status:Active Unknown Family Member Name Dates Details Family history of cardiac di sorder: Father(V17.49, Z82.49) Status:Active Unknown Family Member Name Dates Details Family history of cardiac di sorder: Father(V17.49, Z82.49) Status:Active Advance Directives No Advanced Directives Records FoundDocuments on File Type Date 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 on 01/01/2019 Preliminary chief co mplaint data, not yet signed by the author as of Instructions Instruction Description Start Date Patient advised to follow-up with Primary Care Physician for BMI management. Assessments There may be information available, but it has not been provided by the sender. Review of System There may be information available, but it has not been provided by the sender. History of Present Illness There may be information available, but it has not been provided by the sender. Additional Source Comments INFORMATION SOURCE (unrecogn ized section and content) DATE CREATED AUTHOR AUTHOR'S ORGANIZ ATION 02/03/2018 [facility] DATE CREATED AUTHOR AUTHOR'S ORGANIZ ATION 03/14/2022 [facility] DATE CREATED AUTHOR AUTHOR'S ORGANIZ ATION 03/16/2022 [facility] DATE CREATED AUTHOR AUTHOR'S ORGANIZ ATION 09/26/2022 [facility] DATE CREATED AUTHOR AUTHOR'S ORGANIZ ATION 03/16/2023 [facility] DATE CREATED AUTHOR AUTHOR'S ORGANIZ ATION 04/11/2023 [facility] DATE CREATED AUTHOR AUTHOR'S ORGANIZ ATION 04/13/2023 [facility] DATE CREATED AUTHOR AUTHOR'S ORGANIZ ATION 07/16/2023 [facility] Reason for Visit (unrecogniz ed section and content) Specialty Diagnoses / Procedures Referred By Justin t Referred To Contact Physical Therapy / PHYSICAL THERAPY Diagnoses Knee replacement Procedures NEW RS PT ORTH Laura Canela MD [address] [place] [address] Yara Cazares, PT [address] [place] [address] Referral ID Status Reason Start Date Expiration Date V isits Requested Visits Authorized [id number] Authorized 01/30/2023 08/10/2023 1 99 Reason Comments Physical Therapy Specialty Diagnoses / Procedures Referred By Contac t Referred To Contact Physical Therapy / PHYSICAL THERAPY Diagnoses rt knee [id number] Procedures NEW RS PT ORTH Laura Canela MD [address] [place] [address] Natalie Agarwal, PT [address] [place] [address] Referral ID Status Reason Start Date Expiration Date V isits Requested Visits Authorized [id number] Authorized 11/06/2021 08/10/2022 39 39 Reason For Visit Description Start Date Postop - 1st visit Preliminary reason f or visit data, not yet signed by the author as of left knee post Arthroscopic partial medial meniscectomy partial lateral meniscectomy chondroplasty of patellofemoral joint left knee. on 01/01/2019 Reason Comments PT Eval Source Comments (unrecognize d section and content) In the event this informatio n is protected by the Federal Confidentiality of Alcohol and Drug Abuse Patient Records regulations: The Federal rules restrict any use of the information to criminally investigate or prosecute any alcohol or drug abuse patient.[facility] the event this information is protected by the Federal Confidentiality of Alcohol and Drug Abuse Patient Records regulations: The Federal rules restrict any use of the information to criminally investigate or prosecute any alcohol or drug abuse patient.[facility] the event this information is protected by the Federal Confidentiality of Alcohol and Drug Abuse Patient Records regulations: The Federal rules restrict any use of the information to criminally investigate or prosecute any alcohol or drug abuse patient.[facility] the event this information is protected by the Federal Confidentiality of Alcohol and Drug Abuse Patient Records regulations: The Federal rules restrict any use of the information to criminally investigate or prosecute any alcohol or drug abuse patient.[facility] the event this information is protected by the Federal Confidentiality of Alcohol and Drug Abuse Patient Records regulations: The Federal rules restrict any use of the information to criminally investigate or prosecute any alcohol or drug abuse patient.[facility] the event this information is protected by the Federal Confidentiality of Alcohol and Drug Abuse Patient Records regulations: The Federal rules restrict any use of the information to criminally investigate or prosecute any alcohol or drug abuse patient.[facility] the event this information is protected by the Federal Confidentiality of Alcohol and Drug Abuse Patient Records regulations: The Federal rules restrict any use of the information to criminally investigate or prosecute any alcohol or drug abuse patient.[facility] the event this information is protected by the Federal Confidentiality of Alcohol and Drug Abuse Patient Records regulations: The Federal rules restrict any use of the information to criminally investigate or prosecute any alcohol or drug abuse patient.[facility] the event this information is protected by the Federal Confidentiality of Alcohol and Drug Abuse Patient Records regulations: The Federal rules restrict any use of the information to criminally investigate or prosecute any alcohol or drug abuse patient.[facility] the event this information is protected by the Federal Confidentiality of Alcohol and Drug Abuse Patient Records regulations: The Federal rules restrict any use of the information to criminally investigate or prosecute any alcohol or drug abuse patient.[facility] the event this information is protected by the Federal Confidentiality of Alcohol and Drug Abuse Patient Records regulations: The Federal rules restrict any use of the information to criminally investigate or prosecute any alcohol or drug abuse patient.[facility] the event this information is protected by the Federal Confidentiality of Alcohol and Drug Abuse Patient Records regulations: The Federal rules restrict any use of the information to criminally investigate or prosecute any alcohol or drug abuse patient.[facility] the event this information is protected by the Federal Confidentiality of Alcohol and Drug Abuse Patient Records regulations: The Federal rules restrict any use of the information to criminally investigate or prosecute any alcohol or drug abuse patient.[facility] the event this information is protected by the Federal Confidentiality of Alcohol and Drug Abuse Patient Records regulations: The Federal rules restrict any use of the information to criminally investigate or prosecute any alcohol or drug abuse patient.[facility] the event this information is protected by the Federal Confidentiality of Alcohol and Drug Abuse Patient Records regulations: The Federal rules restrict any use of the information to criminally investigate or prosecute any alcohol or drug abuse patient.[facility] Care Teams (unrecognized sec tion and content) Superintendent Of Generation Relationship Specialty Start Date End Date Brooklynn Kline, LIGHTING DIRECTOR.WASTE REMOVALIST [address] [place], [place] [phone] PCP - General Family Practice 09/26/21 Superintendent Of Generation Relationship Specialty Start Date End Date Brooklynn Kline APRN.WASTE REMOVALIST [address] [place], [place] [phone] PCP - General Family Practice 09/26/21 Superintendent Of Generation Relationship Specialty Start Date End Date Brooklynn Kline, LIGHTING DIRECTOR.WASTE REMOVALIST [address] [place] [address] PCP - General Family Practice 09/26/21 Superintendent Of Generation Relationship Specialty Start Date End Date Brooklynn Kline, LIGHTING DIRECTOR.WASTE REMOVALIST [address] [place] [address] PCP - General Family Practice 09/26/21 Superintendent Of Generation Relationship Specialty Start Date End Date Brooklynn Kline, LIGHTING DIRECTOR.WASTE REMOVALIST [address] [facility] [place] [phone] PCP - General Family Practice 09/26/21 Superintendent Of Generation Relationship Specialty Start Date End Date Brooklynn Kline, LIGHTING DIRECTOR.WASTE REMOVALIST [address] [place], [place] [phone] PCP - General Family Practice 09/26/21 Superintendent Of Generation Relationship Specialty Start Date End Date Brooklynn Kline, LIGHTING DIRECTOR.WASTE REMOVALIST [address] [place], [place] [phone] PCP - General Family Medicine 09/26/21 Superintendent Of Generation Relationship Specialty Start Date End Date Brooklynn Kline, LIGHTING DIRECTOR.WASTE REMOVALIST [address] [place], [place] [phone] PCP - General Family Medicine 09/26/21 Superintendent Of Generation Relationship Specialty Start Date End Date Brooklynn Kline, LIGHTING DIRECTOR.WASTE REMOVALIST [address] [place], [place] [phone] PCP - General Family Medicine 09/26/21 Superintendent Of Generation Relationship Specialty Start Date End Date Brooklynn Kline, LIGHTING DIRECTOR.WASTE REMOVALIST [address] [facility] [place] [phone] PCP - General Family Medicine 09/26/21 Superintendent Of Generation Relationship Specialty Start Date End Date Brooklynn Kline, LIGHTING DIRECTOR.WASTE REMOVALIST [address] [place], [place] [phone] PCP - General Family Medicine 09/26/21 FOR RECORDS PERTAINING TO PATIENTS WHO ARE OR HAVE BEEN ENROLLED IN A CHEMICAL DEPENDENCY/SUBSTANCEABUSE PROGRAM, SOME INFORMATION MAY BE OMITTED. This clinical summary was aggregated from multiple sources. Caution should be exercised in using it in the provision of clinical care. This summary normalizes information from multiple sources, and as a consequence, information in this document may materially change the coding, format and clinical context of patient data. In addition, data may be omitted in some cases. CLINICAL DECISIONS SHOULD BE BASED ON THE PRIMARY CLINICAL RECORDS. [facility]. provides no warranty or guarantee of the accuracy or completeness of information in this document.
== END | disposition home or self-care (01) ==
PROVIDERS: PCP Nurse Practitioner; Visit Provider Nurse Practitioner
DX: N30.90 Cystitis, unspecified without hematuria (principal)
CPT/HCPCS: 87077; 87086; 87088; 87186

== ENCOUNTER → 2024-07-27 | Outpatient (CLI) | payer MEDICARE, OTHER, SELFPAY ==
[2024-07-27 21:21] LABS: Absolute Lymphocyte Count 2.16 X10^3/uL (0.83-4.51); Absolute Neutrophil Count 5.1 X10^3/uL (2.0-7.7); Basophil# 0.02 X10^3/uL; Basophil% 0.2 % (0-1); Eosinophil# 0.17 X10^3/uL; Hematocrit 45.4 % (37-47); Hemoglobin 15.1 g/dL (12.0-15.0); Lymphocyte # 2.16 X10^3/ul (0.83-4.51); Mean Corp Hgb Conc 33.3 g/dL (32-36); Mean Corpuscular Hgb 29.9 pg (27.0-32.0); Mean Corpuscular Volume 89.9 fL (81-99); Mean Platelet Vol. 10.4 fl (6.2-12.0); Monocyte# 0.86 X10^3/uL; Monocyte% 10.3 % (0-10); NRBC Flagged by Analyzer 0 % (0-5); Neutrophil # 5.09 X10^3/uL (2.7-7.7); Neutrophil % 61.4 % (47-70); Platelet Count 278 K/mm3 (150-450); RBC Distribution Width CV 12.6 % (11.6-14.6); RBC Distribution Width SD 41.4 fl (35.1-43.9); Red Blood Count 5.05 M/mm3 (4.2-5.4); White Blood Count 8.3 K/mm3 (4.4-11.0)
[2024-07-27 21:41] LABS: ALB/GLOB Ratio 1.2 RATIO (0.9-2.4); AST(SGOT) 22 U/L (15-37); Alanine Aminotransfer ALT/SGPT 38 U/L (13-56); Albumin, Serum 3.7 g/dL (3.2-5.0); Alkaline Phosphatase 94 U/L (45-117); Anion Gap 5 (5-15); BUN 20 mg/dL (7-18); BUN/Creat Ratio 29.4 RATIO (10-20); Calcium,Total 8.8 mg/dL (8.5-10.1); Chloride 105 mmol/L (98-107); Cholesterol 191 mg/dL (200); Creatinine, Serum 0.68 mg/dL (0.55-1.02); EST Glomerular Filtration Rate 91 mL/min (>60); Est Glom Filt Rate - Afr Amer 110 mL/min (>60); Glucose 125 mg/dL (74-106); High Density Lipoprotein 38 mg/dL; Potassium 3.2 mmol/L (3.5-5.1); Protein, Total 6.7 g/dL (6.4-8.2); Sodium Level 139 mmol/L (136-145); Triglycerides 489 mg/dL
== END | disposition home or self-care (01) ==
PROVIDERS: PCP Nurse Practitioner; Referring Provider Nurse Practitioner; Visit Provider Nurse Practitioner
DX: I10 Essential (primary) hypertension (principal); E78.5 Hyperlipidemia, unspecified; K21.00 Gastro-esophageal reflux disease with esophagitis, without bleeding
CPT/HCPCS: 80053; 80061; 85025

== ENCOUNTER → 2024-10-20 | Outpatient (CLI) | payer MEDICARE, OTHER, SELFPAY | END | disposition home or self-care (01) | PROVIDERS: PCP Nurse Practitioner; Referring Provider Nurse Practitioner; Visit Provider Nurse Practitioner | DX: N30.90 Cystitis, unspecified without hematuria (principal) | CPT/HCPCS: 87077; 87086; 87088; 87186 ==

== ENCOUNTER → 2025-02-07 | Outpatient (CLI) | payer MEDICARE, OTHER, SELFPAY | END | disposition home or self-care (01) | PROVIDERS: PCP Nurse Practitioner; Referring Provider Nurse Practitioner; Visit Provider Nurse Practitioner | DX: N30.90 Cystitis, unspecified without hematuria (principal); M54.50 Low back pain, unspecified | CPT/HCPCS: 87086; 87088; 87186 ==

== ENCOUNTER → 2025-05-06 | Outpatient (CLI) | payer MEDICARE, OTHER, SELFPAY ==
--- OUTSIDE RECORDS SUMMARY | 2025-02-28 09:58 | XMS RPT_ITS ---
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 Name Role Phone BROOKLYNN KLINE Primary Care Unavailable BROOKLYNN KLINE Primary Care Unavailable BROOKLYNN KLINE Primary Care Unavailable BROOKLYNN KLINE Primary Care Unavailable BROOKLYNN KLINE Primary Care Unavailable PROBLEMS DATE TYPE CONDITION / CODE ATTENDING STATUS [facility] 06/22/2024 Active Calculus of kidney / N20.0(ICD-10) NA [facility] 06/22/2024 Active Unspecified abdo noel pain / R10.9(ICD-10) [facility] PROCEDURES No Procedure Records Found RESULTS PROVIDER LETTER - AMBULATORY Observed: 02/28/2025 3:09 PM Status: F Source: [facility] BROOKLYNN KLINE, [address] [place] [address] RE: MCKENNA BUSH - 1955 Dear BROOKLYNN KLINE This document is confidential and intended solely for the use of the individual or entity to which they are addressed. If you are not the named addressee, please disregard and do not disseminate, distribute or copy this information. If you are not the intended recipient you are notified that any disclosure of this information and its contents are strictly prohibited. If you have any questions about this document, please contact the office. Sincerely, DALLAS DOCKERY CNP [facility] The following document(s) were included in the letter: February 28, 2025 15:07:09 EDT - (02/28/2025) Cardiology Follow Up Note AMB CARD PHYSICIAN PROGRESS NOTE Observed: 02/28/2025 3:09 PM Status: F Source: [facility] MCKENNA BUSH :1955 Registration Date:02/28/2025 Assessment/Plan Patient is a 69-year-old female with a history of hypertension and hyperlipidemia presenting for follow-up of supraventricular tachycardia. This Visit Diagnosis 1. HTN (hypertension) I10 - BP well controlled on current regimen as below. Ordered: AMB Office/Outpt Est Pt Mod MDM / 30 min [id number], 02/28/2025 14:47:00 EDT, HTN (hypertension) / HLD (hyperlipidemia) / SVT (supraventricular tachycardia) 2. HLD (hyperlipidemia) E78.5 - TOlerating atorvastatin 20 mg. Lipids per PCP. Ordered: AMB Office/Outpt Est Pt Mod MDM / 30 min [id number], 02/28/2025 14:47:00 EDT, HTN (hypertension) / HLD (hyperlipidemia) / SVT (supraventricular tachycardia) 3. SVT (supraventricular tachycardia) I47.10 - Intermittent, brief episodes of SVT documented on Zio patch; patient minimally symptomatic and not experiencing frequent or prolonged episodes. - No current indication for antiarrhythmic medication; advised monitoring symptoms and to notify clinic if episodes become more frequent, prolonged, or associated with presyncope/syncope. - Echocardiogram shows mild aortic valve narrowing (1.8 cm); no intervention indicated at this time; plan to repeat echocardiogram in 2-3 years to monitor progression. Continue current meds. FUV in 6 months. Copy to PCP. Ordered: AMB Office/Outpt Est Pt Mod MDM / 30 min [id number], 02/28/2025 14:47:00 EDT, HTN (hypertension) / HLD (hyperlipidemia) / SVT (supraventricular tachycardia) Chief Complaint HTN, HLD History of Present Illness Disclaimer: The content of this note was generated by an artificial intelligence (AI) language model version 25.Q3.0.0 The patient is a 69-year-old female with HTN, HLD, palpitations here for FUV for review results of a Zio patch monitor. Palpitations and Supraventricular Tachycardia (SVT) The patient reports experiencing palpitations or 'funny heartbeats' on one or two days during the week she wore the Zio patch monitor. She was unable to complete the full monitoring period due to skin irritation from the device. She does not experience symptoms daily, noting episodes only once every couple of weeks, and denies any episodes of syncope or feeling as though she might pass out. Zio patch monitor shows 14 episodes of SVT. Reviewed with pt and she reports only 2 episodes of symptoms. Denies any chest pain, jaw pain, shoulder pain, dizziness, lightheadedness. No shortness of breath. No swelling in ankles. The patient is not currently taking any medications for SVT and has not reported any significant impact on daily activities. HTN well controlled on HCTZ/Losartan 12.5/50 mg. BP today 138/82. Advised to watch salt intake but suspect slight increase in BP related to anxiety with OV. Medication Reconciliation What How Much When Instructions Unchanged aspirin Contact prescribing physician if questions or concerns Unchanged atorvastatin (atorvastatin 20 mg oral tablet) 1 Tabs Oral DAILY Contact prescribing physician if questions or concerns Unchanged esomeprazole (NexIUM 20 mg oral delayed release capsule) 1 Capsules Oral DAILY Contact prescribing physician if questions or concerns Unchanged hydrochlorothiazide-losartan (hydrochlorothiazide-losartan 12.5 mg-50 mg oral tablet) 1 Tabs Oral DAILY Contact prescribing physician if questions or concerns Unchanged multivitamin with minerals (Citracal Plus Bone Density Builder) Oral DAILY Contact prescribing physician if questions or concerns Unchanged vitamin E Oral DAILY Contact prescribing physician if questions or concerns Cardiac History No qualifying data available. Physical Exam NECK: JVP is not elevated. Good carotid pulses and no bruit. CVS: Normal heart sounds. No murmur and no gallop. No rub. LUNGS: No rhonchi and no wheeze. Clear breath sounds. ABDOMEN: Benign. EXTREMITIES: Good distal pulses. No edema of legs. Vitals & Measurements Temperature Temporal (F): 98.6 degF (02/28/25 09:43:00) Apical Heart Rate: 108 bpm High (02/28/25 09:43:00) Height/Length Measured: 155 cm (02/28/25 09:43:00) Weight Measured: 95 kg (02/28/25 09:43:00) Body Mass Index Measured: 39.54 kg/m2 (02/28/25 09:43:00) Weight Measured - lbs2: 209 lb (02/28/25 09:43:00) Height/Length Measured - in2: 61 in (02/28/25 09:43:00) Body Mass Index Measured English2: 39.49 kg/m2 (02/28/25 09:43:00) BSA: 2.02 m2 (02/28/25 09:43:00) Ht/Wt Measurement Refused by Patient?2: No (02/28/25 09:43:00) Social History Alcohol - Denies Alcohol Use Other Name:caffiene Substance Abuse - Denies Substance Abuse Tobacco - Denies Tobacco Use Family History Heart attack....: Father and Brother. High blood pressure....: Father. Health Status Family Member(s) . Initial Depression Screen Score: 0 (02/28/25 09:43:00) Is the patient ambulatory (mobile): Yes (02/28/25 09:43:00) Have you had a fall within the past: No (02/28/25 09:43:00) Have you had 2 or more falls in the past: No (02/28/25 09:43:00) AMB CARD PHYSICIAN PROGRESS NOTE Observed: 01/20/2025 10:18 AM Status: F Source: [facility] MCKENNA BUSH :1955 Registration Date:01/17/2025 Assessment/Plan This Visit Diagnosis 1. Hypertension I10 2. Hyperlipidemia E78.5 3. Chronic GERD K21.9 4.Palpitations 5. Will plan for an echocardiogram and Zio patch and I will see her again in 1 month time. Will not be starting the beta-gerry while she is having the Zio patch. I did advise her to watch her caffeine intake. Chief Complaint HLD, HTN History of Present Illness Disclaimer: The content of this note was generated by an artificial intelligence (AI) language model version 25.03.1.0 Mrs. Bush is back in the office today almost after 2 years and she has hypertension hyperlipidemia and GERD and she now presents with palpitations and dizziness. Her EKG shows sinus tachycardia right bundle branch block and apparently she was told that she has atrial fibrillation but I do not have any documentation of that. She felt her heart has been racing level and then it last for few minutes Palpitations The patient reports episodes of rapid and slow heart rate. She had an EKG earlier by the primary care physician and there is no evidence of atrial fibrillation. Patient has been having these episodes on and off lasts only for few minutes and in fact she had an episode this morning on her way to our office. She does not take too much caffeine chocolates coffee alcohol no energy drinks. She she does not claim that she is under a lot of stress. She denies chest pain jaw pain shoulder pain no exertional dyspnea dizziness lightheadedness. No history of any COPD thyroid problems. No prior history of any cardiac arrhythmias and she does not have any history of heart failure. She is not anemic. She weighs 207 pounds her blood pressure is 126/82. I discussed with the patient about getting an echocardiogram to assess her LV function and to make sure to rule out any structural abnormalities and also to get a Zio patch to document any cardiac arrhythmias. Medication Reconciliation What How Much When Instructions Unchanged aspirin Unchanged atorvastatin (atorvastatin 20 mg oral tablet) 1 Tabs Oral DAILY Unchanged esomeprazole (NexIUM 20 mg oral delayed release capsule) 1 Capsules Oral DAILY Unchanged hydrochlorothiazide-losartan (hydrochlorothiazide-losartan 12.5 mg-50 mg oral tablet) 1 Tabs Oral DAILY Unchanged multivitamin with minerals (Citracal Plus Bone Density Builder) Oral DAILY Unchanged vitamin E Oral DAILY Cardiac History No qualifying data available. Physical Exam NECK: JVP is not elevated: Good carotid pulses and no bruit CVS; Normal heart sounds. No murmur and no gallop. No rub LUNGS: No rhonchi and no wheeze: Clear breath sounds ADOMEN: Benign EXTREMITIES: Good distal pulses. No edema of legs Vitals & Measurements Temperature Temporal (F): 98.7 degF (01/17/25 08:53:00) Apical Heart Rate: 121 bpm Critical (01/17/25 08:53:00) Height/Length Measured: 155 cm (01/17/25 08:53:00) Weight Measured: 94 kg (01/17/25 08:53:00) Body Mass Index Measured: 39.13 kg/m2 (01/17/25 08:53:00) Weight Measured - lbs2: 207 lb (01/17/25 08:53:00) Height/Length Measured - in2: 61 in (01/17/25 08:53:00) Body Mass Index Measured English2: 39.11 kg/m2 (01/17/25 08:53:00) BSA: 2.01 m2 (01/17/25 08:53:00) Ht/Wt Measurement Refused by Patient?2: No (01/17/25 08:53:00) Social History Alcohol - Denies Alcohol Use Other Name:caffiene Substance Abuse - Denies Substance Abuse Tobacco - Denies Tobacco Use Family History Heart attack....: Father and Brother. High blood pressure....: Father. Health Status Family Member(s) . Initial Depression Screen Score: 0 (01/17/25 08:53:00) Is the patient ambulatory (mobile): Yes (01/17/25 08:53:00) Have you had a fall within the past: No (01/17/25 08:53:00) Have you had 2 or more falls in the past: No (01/17/25 08:53:00) XR ABDOMEN 1V SUPINE Observed: 4 1:17 PM Status: F Source: [facility] * * *Final Report* * * DATE OF EXAM: Jun 22 2024 1:17PM MDX 5289 - XR ABDOMEN 1V SUPINE / PROCEDURE REASON: N20.0 LT SIDE KIDNEY STONE * * * * Physician Interpretation * * * * EXAM(s): XR ABDOMEN 1V SUPINE, XR LUMBAR 2V AP/LAT HISTORY: Indication: N20.0 LT SIDE KIDNEY STONE concern for left sided kidney stone concern for left sided kidney stone TECHNIQUE: Views obtained: XR ABDOMEN 1V SUPINE, XR LUMBAR 2V AP/LAT Comparison: NONE. RESULT: Findings: No abnormal calcifications are seen. Moderate fecal debris. The bowel gas pattern is nonspecific and unremarkable.. No bony abnormalities are seen Lumbar spine: HISTORY: Indication: N20.0 LT SIDE KIDNEY STONE concern for left sided kidney stone concern for left sided kidney stone TECHNIQUE: Images: XR ABDOMEN 1V SUPINE, XR LUMBAR 2V AP/LAT Comparison: None. RESULT: Findings: Marked disc space narrowing L5-S1 level. Moderate degenerative changes in the posterior elements throughout the lumbar spine. Appears to be some narrowing of sacroiliac joints. The vertebra are in good alignment . No fractures or dislocations are seen. IMPRESSION: 1. Moderate fecal debris 2. Degenerative changes in the lumbar spine. No acute pathology identified Biology Teacher: PSCB Transcribe Date/Time: Jun 22 2024 1:35P Dictated by : TUAN DEVI DO This examination was interpreted and the report reviewed and electronically signed by: TUAN DEVI DO on Jun 22 2024 1:37PM EST [id number] XR LUMBAR 2V AP/LAT Observed: 06/22/2024 1:17 PM Status: F Source: [facility] * * *Final Report* * * DATE OF EXAM: Jun 22 2024 1:17PM MDX 5229 - XR LUMBAR 2V AP/LAT / PROCEDURE REASON: N20.0 LT SIDE KIDNEY STONE R10.9 LT LUMBAR PAIN * * * * Physician Interpretation * * * * EXAM(s): XR ABDOMEN 1V SUPINE, XR LUMBAR 2V AP/LAT HISTORY: Indication: N20.0 LT SIDE KIDNEY STONE concern for left sided kidney stone concern for left sided kidney stone TECHNIQUE: Views obtained: XR ABDOMEN 1V SUPINE, XR LUMBAR 2V AP/LAT Comparison: NONE. RESULT: Findings: No abnormal calcifications are seen. Moderate fecal debris. The bowel gas pattern is nonspecific and unremarkable.. No bony abnormalities are seen Lumbar spine: HISTORY: Indication: N20.0 LT SIDE KIDNEY STONE concern for left sided kidney stone concern for left sided kidney stone TECHNIQUE: Images: XR ABDOMEN 1V SUPINE, XR LUMBAR 2V AP/LAT Comparison: None. RESULT: Findings: Marked disc space narrowing L5-S1 level. Moderate degenerative changes in the posterior elements throughout the lumbar spine. Appears to be some narrowing of sacroiliac joints. The vertebra are in good alignment . No fractures or dislocations are seen. IMPRESSION: 1. Moderate fecal debris 2. Degenerative changes in the lumbar spine. No acute pathology identified Biology Teacher: PSCB Transcribe Date/Time: Jun 22 2024 1:35P Dictated by : TUAN DEVI DO This examination was interpreted and the report reviewed and electronically signed by: TUAN DEVI DO on Jun 22 2024 1:37PM EST [id number] PROGRESS Observed: 06/22/2024 12:45 PM Status: COMPLETED [id number] Author: ADOLPH JOHN RT(R) Service: Radiology Author Type: Technologist Type: Progress Notes Filed: 06/22/2024 13:45 Note Text: Radiology Service Progress Note PATIENT NAME: Mckenna Bush DATE OF SERVICE: June 22, 2024 TIME: 1:44 PM PATIENT IDENTITY VERIFICATION COMPLETED USING TWO (2) IDENTIFIERS: Name and Date of confirmed by patient verbally. FALL SCREENING: Has the patient had 2 falls in the last year or 1 fall with injury or currently using an Ambulatory Assistive Device (Walker, Cane, Wheelchair, Crutches, etc.)? No PATIENT GENDER DATA: Female. status: : No status: NO. PATIENT RELEVANT IMPLANT DATA REVIEWED: Not Applicable PATIENT PRESENTS WITH AN IMPLANTABLE OR ATTACHED WARHEAD MAINTENANCE SPECIALIST: No RADIOLOGY DEPARTMENT: General X-ray: Exam(s) Completed: Abdomen X-Ray: Abdomen Spine X-Ray(s): Lumbar AP / LAT / L5-S1 PERIPHERAL IV DATA: Not applicable SIGNED BY: RT Anu(R) June 22, 2024 1:44 PM ALLERGIES DATE TYPE / CODE NAME / CODE REACTION SEVERITY SOURCE 02/04/2013 DRUG INGREDI/[id number](SNOMED CT) IODINE RASH [facility] 02/04/2013 DRUG INGREDI/[id number](SNOMED CT) LATEX RASH [facility] ENCOUNTERS ADMIT/DISCHARGE ACCOUNT NUMBER ADMITTING ENCOUNTER CLASS LOC ATION SOURCE 02/28/2025 [id number] Ambulatory [facility] ing:AMBCARM [facility] 02/28/2025/ 5 [id number] Ambulatory [facility] ing:AMBCARMR oom: EX01 [facility] 01/18/2025/ 5 [id number] Ambulatory [facility] ing:AMBCARM [facility] 01/17/2025/ 5 [id number] Ambulatory [facility] ing:AMBCARMR oom: EX01 [facility] 06/22/2024 [id number] [facility] PAYERS ENCOUNTER GUARANTOR PAYER SUBSCRIBER SOURCE 02/28/2025 MCKENNA BUSHRIMMA: [place], [place] [address]Gxu: [phone] (HP) Primary Insurance:MEDICAREPolicy Number: Effective Date:Plan Name:FLORENCIO PAT: [id number] [place], [place] [address]Mir: ~[phone] [phone] (HP) (WP) [facility] 02/28/2025 Secondary Insurance:UNITED HEALTHCAREPolicy Number: Effective Date:Plan Name:[address], [place] [id number]: MCKENNA CHURCHSUKHB: [id number] [place]SS[place], [place] [address]Voo: ~[phone] [phone] (HP) (WP) [facility] 02/28/2025 MCKENNA CHURCHELIZABETH: [place]SS[place], [place] [address]Eta: [phone] (HP) Primary Insurance:MEDICAREPolicy Number: Effective Date:Plan Name:FLORENCIO SHIELDSB: [id number] [place], [place] [address]Zyo: ~[phone] [phone] (HP) (WP) [facility] 02/28/2025 Secondary Insurance:UNITED HEALTHCAREPolicy Number: Effective Date:Plan Name:CP[address], [place] [id number]: MCKENNA SHIELDSB: [id number] [facility] [place], [place] [address]Ong: ~[phone] [phone] (HP) (WP) [facility] 01/18/2025 MCKENNA PAT: [facility] [place], [place] [address]Hgy: [phone] (HP) Primary Insurance:MEDICAREPolicy Number: Effective Date:Plan Name:FLORENCIO PAT: [id number] MELYSSA [facility] [place], [place] [address]Qpl: ~[phone] [phone] (HP) (WP) [facility] 01/18/2025 Secondary Insurance:[employer]WELLEN HEALTHCAREPolicy Number: Effective Date:Plan Name:NICO TAYLOR [id number], [place] [id number]: MCKENNA SHIELDSB: [id number] [facility] [place], [place] [address]Mym: ~[phone] 0 (HP) (WP) [facility] 01/17/2025 MCKENNA SHIELDSB: [facility] [place] [address]Vpg: [phone] (HP) Primary Insurance:MEDICAREPolicy Number: Effective Date:Plan Name:FLORENCOI PAT: [id number] MELYSSA [facility] [place], [place] [address]Xtt: ~(33 0 (HP) (WP) [facility] 01/17/2025 Secondary Insurance:UNITED HEALTHCAREPolicy Number: Effective Date:Plan Name:NICO TAYLOR [id number] [place] [id number]: MCKENNA SHIELDSB: [id number] [facility] [place], [place] [address]Vjg: ~[phone] 0 (HP) (WP) [facility] 06/22/2024 Primary Insurance:MEDICARE A AND BPolicy Number: [id number] Date:[id number] Name:Harjit PAT: [id number] [address] [place], [place] [id number] [place] [address] 06/22/2024 Secondary Insura nce:[facility] AAR SUPPLEMENTPolicy Number: [id number] Date:[id number] Name:Dieter PAT: [id number] [address] [place], [place] [id number] [place] [address]
== END | disposition home or self-care (01) ==
PROVIDERS: PCP Nurse Practitioner; Referring Provider Nurse Practitioner; Visit Provider Nurse Practitioner
DX: N30.90 Cystitis, unspecified without hematuria (principal); D72.829 Elevated white blood cell count, unspecified
CPT/HCPCS: 87086; 87088

== ENCOUNTER → 2025-05-26 | Outpatient (CLI) | payer MEDICARE, OTHER, SELFPAY ==
--- OUTSIDE RECORDS SUMMARY | 2025-05-26 21:36 | XMS RPT_ITS | CCD ---
Author Organization [facility] Care Team Providers Care Machine Spreader Name Role Phone Kameron Mcknight Unavailable Unavailable Family Physician Unavailable Unavailable Nelsy [...] Unav ailable Etta Trevino Unavailable Unavailable Nabil NETWORK SUPPORT MANAGER-TRUCK SPOTTERGinger Unavailable [phone] Jose NETWORK SUPPORT MANAGER.Brooklynn ROBBINS L Primary Care Provide r Jose NETWORK SUPPORT MANAGER.TRUCK SPOTTER, Brooklynn L Primary Care Provide r Brooklynn Kline Unavailable [phone] Kameron Mcknight Attending Harshad Kline, MsMary Brooklynn L Primary Care Unavailab le Jose, MsMary Jeronimoa L Primary Care Unavailab le Sreedhar, Dr. Kameron Echevarria Attending Harshda Mcknight, Dr. Kameron Echevarria Attending Harshad Kline, MsMary Brooklynn L Referring Unavailab le UNKNOWN, PCP Primary Care Unavailable Dr. Kameron Mcknight Attending Harshad Kline, MsMary Brooklynn L Referring Unavailab le Kline, Ms. Brooklynn L Primary Care Unavailab le Sreedhar, Dr. Kameron Echevarria Referring Nelsyoliver warnersylvia Sreedhar, Dr. Kameron Echevarria Attending Harshad Delgadoson, Ms. [...] Care Unavailable MADDI, LAURA M Referring Unavailable Kline NETWORK SUPPORT MANAGER.TRUCK SPOTTER, Brooklynn L Primary Care Provide r KLINE, BROOKLYNN L Primary Care Unavailable Kline ANALYTICAL RESEARCH CHEMIST-C, Brooklynn Primary Care Provider Kline ANALYTICAL RESEARCH CHEMIST-C, Brooklynn Attending Provider Kline ANALYTICAL RESEARCH CHEMIST-C, Brooklynn Referring Provider Kline ANALYTICAL RESEARCH CHEMIST-C, Brooklynn Primary Care Provider Kline ANALYTICAL RESEARCH CHEMIST-C, Brooklynn Attending Provider Kline ANALYTICAL RESEARCH CHEMIST-C, Brooklynn Referring Provider KILNE, BROOKLYNN Primary Care Unavailable KLINE, BROOKLYNN Primary Care Unavailable KLINE, BROOKLYNN Primary Care Unavailable KLINE, BROOKLYNN Primary Care Unavailable ELBADAWY, EMAD H Attending Unavailable ELBADAWY, EMAD H Admitting Unavailable KLINE, BROOKLYNN L Primary Care Unavailable MAROO, KERRY Consulting Unavailable Kline ANALYTICAL RESEARCH CHEMIST-C, Brooklynn Primary Care Physician Kline ANALYTICAL RESEARCH CHEMIST-C, Brooklynn Attending Physician Kline ANALYTICAL RESEARCH CHEMIST-C, Brooklynn Referring Provider Kline ANALYTICAL RESEARCH CHEMIST, Brooklynn Referring Unavailable Kline ANALYTICAL RESEARCH CHEMIST, Brooklynn Primary Care Unavailable Kline ANALYTICAL RESEARCH CHEMIST, Brooklynn Attending Unavailable Kline ANALYTICAL RESEARCH CHEMIST, Brooklynn Referring Unavailable Kline ANALYTICAL RESEARCH CHEMIST, Brooklynn Primary Care Unavailable Kline ANALYTICAL RESEARCH CHEMIST, Brooklynn Attending Unavailable Jose ANALYTICAL RESEARCH CHEMIST, Brooklynn Primary Care Unavailable Jose ANALYTICAL RESEARCH CHEMIST, Brooklynn Attending Unavailable Jose ANALYTICAL RESEARCH CHEMIST, Brooklynn Referring Unavailable Jose ANALYTICAL RESEARCH CHEMIST, Brooklynn Referring Unavailable Jose ANALYTICAL RESEARCH CHEMIST, Brooklynn Primary Care Unavailable Jose ANALYTICAL RESEARCH CHEMIST, Brooklynn Attending Unavailable Allergies Allergy Classification Reported Allergen(s) Allergy Type Date of Onset Reaction(s) Facility (10 sources) Povidone-Iodine; Translations: [Iodine Solution SOLN] Drug Allergy [facility] [employer] [id number] Work Phone: (10 sources) Adhesive Tape TAPE; Translations: [Adhesive Tape TAPE] Allergy to drug (finding) [facility] [id number] Work Phone: (20 sources) Iodine; Translations: [IODINE] Drug Allergy 02-05-20 13 [facility] Work Phone: (1 source) BAND AIDS drug allergy 02-06-[address] [facility] Work Phone: (10 sources) candesartan Drug Allergy 12-22-19 19 hands swollen and irradic BP and heart rate [facility] (10 sources) hydroCHLOROthiazide Drug Allergy 12-22-19 19 hands swollen and irradic BP and heart rate [facility] (19 sources) Latex; Translations: [LATEX] Drug Allergy 02-05-20 13 [facility] (1 source) candesartan Drug Allergy 12-22-19 19 [facility] (1 source) hydroCHLOROthiazide Drug Allergy 12-22-19 19 [facility] Medications Current Medications Medication Drug Class(es) Dates Sig (Normalized) Sig (Original) [id number] 200 actuat albuterol 0.09 mg/actuat metered dose inhaler (2 sources) beta2-Adrenergic Agonist Start: 11-09-2024 amoxicillin 875 mg / clavulanate 125 mg oral tablet (14 sources) Penicillin-class Antibacterial Start: 05-06-2025 Start: 10-09-2023 End: 02-06-2024 Amoxicillin-Pot Clavulanate 875-125 mg tablet Discontinued 1 {tbl} PO TWICE A DAY 20 0 October 09, 2023 1:00am February 06, 2024 5:42pm Start: 12-19-2020 End: 01-29-2021 Amoxicillin-Pot Clavulanate 875-125 mg tablet Discontinued 1 {tbl} PO TWICE A DAY December 19, 2020 12:00am January 29, 2021 6:04pm Start: 12-19-2020 End: 01-29-2021 take 1 tablet by mouth twice daily Amoxicillin-Pot Clavulanate Discontinued 1 TABLET PO TWICE A DAY December 18, 2020 11:00pm January 29, 2021 5:04pm aspirin 81 mg delayed release oral tablet (9 sources) Platelet Aggregation Inhibitor, Nonsteroidal Anti-inflammatory Drug Start: 09-19-2022 take 1 tablet by mouth once daily aspirin, enteric coated (ADULT LOW DOSE ASPIRIN) 81 mg EC tablet Take 1 tablet by mouth once daily. 30 tablet 09/19/2022 Active Comment on above: Take 1 tablet by mouth once daily. Calcium Phosphate-Vitam in D3 250 mg calcium- 250 unit tablet,chewable (3 sources) Start: 10-27-2018 Start: 10-27-2018 Calcium Phosph ate-Vitamin D3 250 mg calcium- 250 unit tablet,chewable Active {tbl} PO DAILY 0 October 27, 2018 12:00am Start: 10-27-2018 Calcium Phosph ate-Vitamin D3 250 mg calcium- 250 unit tablet,chewable Active {tbl} PO DAILY October 27, 2018 12:00am calcium phosphate-vitamin D3 250 mg calcium-250 unit chewable tablet (7 sources) Start: 10-27-2018 take 1 tablet by mouth once daily calcium phosphate-vitamin D3 250 mg calcium-250 unit chewable tablet Active TABLET PO DAILY October 27, 2018 4:04pm Start: 10-27-2018 take 1 tablet by silva th once daily calcium phosphate-vitamin D3 250 mg calcium-250 unit chewable tablet Active TABLET PO DAILY October 26, 2018 11:00pm Start: 10-27-2018 take 1 tablet by silva th once daily calcium phosphate-vitamin D3 250 mg calcium-250 unit chewable tablet Active TABLET PO DAILY October 27, 2018 12:00am cyclobenzaprine hydrochlorid e 5 mg oral tablet (13 sources) Muscle Relaxant Start: 02-23-2024 take 1 tablet by mouth three times daily as needed for muscle spasms Start: 12-13-2019 End: 01-29-2021 take 1 tablet by mouth three times daily as needed for muscle spasms Cyclobenzaprine 5 mg tablet Discontinued 5 mg PO THREE TIMES A DAY as needed for muscle spasm December 13, 2019 12:00am January 29, 2021 6:05pm d-manoose (3 sources) Start: 08-27-2024 Start: 08-27-2024 d-manoose Acti ve PO August 27, 2024 1:00am esomeprazole 20 mg delayed release oral capsule (20 sources) Proton Pump Inhibitor Start: 11-01-2022 take 1 capsule by mouth twice daily Start: 10-27-2018 End: 11-01-2022 take 1 capsule by mouth once daily Esomeprazole Magnesium (Nexium) 20 mg capsule,delayed release(DR/EC) Discontinued 20 mg PO DAILY 90 November 08, 2019 4:00pm November 01, 2022 11:29am take [address] [facility] once daily, then take 6 capsules by mouth in the morning esomeprazole (NEXIUM) 40 mg capsule Take 40 mg by mouth DAILY (6 AM). Active Comment on above: Take 40 mg by mouth DAILY (6 AM). ibuprofen 800 mg oral tablet (11 sources) Nonsteroidal Anti-inflammatory Drug Start: 11-27-2022 End: 02-11-2024 take 1 tablet by mouth three times daily as needed for pain 24 hr metoprolol succinate 50 mg extended release oral tablet (2 sources) beta-Adrenergic Gerry Start: 01-05-2025 take 1 tablet by mouth once daily predniSONE 20 mg oral tablet (20 sources) Start: 05-06-2025 take 2 tablets by mouth once daily Start: 06-22-2024 End: 07-27-2024 take 2 tablets by mouth once daily Prednisone 20 mg tablet Discontinued 40 mg PO DAILY June 22, 2024 1:00am July 27, 2024 7:36pm Start: 02-23-2024 End: 05-26-2024 take 2 tablets by mouth once daily Prednisone 20 mg tablet Discontinued 40 mg PO DAILY February 23, 2024 3:26pm May 26, 2024 3:48pm Start: 10-09-2023 End: 02-06-2024 take 2 tablets by mouth once daily Prednisone 20 mg tablet Discontinued 40 mg PO DAILY 14 0 October 31, 2023 11:36am February 06, 2024 5:43pm Start: 03-06-2023 take 1 tablet by silva th twice daily predniSONE 20 MG Oral Tablet Take 1 tablet twice daily Quantity: 0 Refills: 0 Ordered: 06-Mar-2023 DO Start : 06-Mar-2023 Active Start: 03-04-2023 End: 04-30-2023 take 2 tablets by mouth once daily Prednisone 20 mg tablet Discontinued 40 mg PO DAILY 20 March 04, 2023 12:00am April 30, 2023 4:19pm Start: 03-04-2023 End: 04-30-2023 take 40 mg by mouth once daily Prednisone Discontinued 40 MG PO DAILY March 03, 2023 11:00pm April 30, 2023 3:19pm vitamin e 180 mg oral capsul e (20 sources) Start: 10-27-2018 RA Vitamin E 400 UNIT CAPS TAKE 1 CAPSULE Daily Quantity: 0 Refills: 0 Ordered: 06-Mar-2023 DO Active RA Vitamin E 400 UNIT Oral Capsule Refills: 0 Active Completed/Discontinued Medications Medication Drug Class(es) Dates Sig (Normalized) Sig (Original) atorvastatin 20 mg oral tablet (20 sources) HMG-CoA Reductase Inhibitor Start: 10-27-2018 End: 01-05-2025 take 1 tablet by mouth once daily Atorvastatin 20 mg tablet Discontinued 20 mg PO DAILY 90 0 October 08, 2022 5:45pm February 03, 2023 3:54pm azithromycin 250 mg oral tablet (3 sources) Macrolide Antimicrobial Start: 06-22-2024 End: 06-27-2024 take 2 tablets by mouth once daily, then take 1 tablet by mouth once daily at mealtime Azithromycin 250 mg tablet Discontinued 250 mg PO daily 6 5 0 June 22, 2024 1:00am June 26, 2024 1:00am June 27, 2024 1:08am 2 po qd for 1 day then 1 po qd for 4 days with food or after eating benzonatate 200 mg oral capsule (3 sources) Non-narcotic Antitussive Start: 10-09-2023 End: 02-06-2024 take 1 capsule by mouth three times daily as needed for cough Benzonatate 200 mg capsule Discontinued 200 mg PO THREE TIMES A DAY as needed for cough 45 0 October 09, 2023 1:00am February 06, 2024 5:43pm Calcium Citrate (9 sources) Citracal + D TAB S Take 1 tablet daily Quantity: 0 Refills: 0 Ordered: 06-Mar-2023 DO Active Citracal + D TABS (1 source) Citracal + D TAB S Refills: 0 Active CALCIUM CITRATE-VITAMIN D TABS (1 source) Start: 02-15-2013 CALCIUM CITRATE + D TABS 1 daily CALCIUM CITRATE-VITAMIN D TABS [id number] Laura James MD candesartan cilexetil 32 mg / hydroCHLOROthiazide 12.5 mg oral tablet (10 sources) Thiazide Diuretic, Angiotensin 2 Receptor Gerry Start: 12-03-2018 End: 04-14-2019 Candesartan-[place] chlorothiazid (Atacand Hct) 32-12.5 mg tablet Discontinued 1 {tbl} PO DAILY 90 December 03, 2018 12:00am April 14, 2019 7:01pm cephalexin 500 mg oral capsule (10 sources) Cephalosporin Antibacterial Start: 12-21-2020 End: 12-31-2020 take 1 capsule by mouth twice daily Cephalexin 500 mg capsule Discontinued 500 mg PO TWICE A DAY 20 December 21, 2020 12:00am December 30, 2020 12:00am December 31, 2020 12:01am ciprofloxacin 500 mg oral tablet (20 sources) Quinolone Antimicrobial Start: 02-07-2025 End: 05-06-2025 take 1 tablet by mouth twice daily Ciprofloxacin Hcl (Cipro) 500 mg tablet Discontinued 500 mg PO TWICE A DAY 14 February 07, 2025 6:17pm May 06, 2025 5:48pm Start: 10-25-2024 End: 01-06-2025 take 1 tablet by mouth twice daily Ciprofloxacin Hcl (Cipro) 500 mg tablet Discontinued 500 mg PO TWICE A DAY 14 October 25, 2024 12:00am January 06, 2025 1:08pm Start: 08-27-2024 End: 10-21-2024 take 1 tablet by mouth twice daily Ciprofloxacin Hcl (Cipro) 500 mg tablet Discontinued 500 mg PO TWICE A DAY 20 August 27, 2024 1:00am October 21, 2024 12:41pm Start: 05-26-2024 End: 06-22-2024 take 1 tablet by mouth twice daily Ciprofloxacin Hcl (Cipro) 500 mg tablet Discontinued 500 mg PO TWICE A DAY 14 May 26, 2024 12:00am June 22, 2024 8:42pm Start: 02-06-2024 End: 02-26-2024 take 1 tablet by mouth twice daily Ciprofloxacin Hcl (Cipro) 500 mg tablet Discontinued 500 mg PO TWICE A DAY 14 February 06, 2024 12:00am February 26, 2024 4:19pm Start: 06-11-2023 End: 10-20-2023 take 1 tablet by mouth twice daily Ciprofloxacin Hcl (Cipro) 500 mg tablet Discontinued 500 mg PO TWICE A DAY 14 August 27, 2023 4:19pm October 20, 2023 4:03pm Start: 01-17-2023 End: 03-04-2023 take 1 tablet by mouth twice daily Ciprofloxacin Hcl (Cipro) 500 mg tablet Discontinued 500 mg PO TWICE A DAY 14 February 03, 2023 3:47pm March 04, 2023 5:17pm Start: 10-25-2021 End: 11-27-2022 take 1 tablet by mouth twice daily Ciprofloxacin Hcl (Cipro) 500 mg tablet Discontinued 500 mg PO TWICE A DAY 14 October 14, 2022 6:52pm November 27, 2022 3:51pm Start: 09-10-2021 End: 10-02-2021 take 1 tablet by mouth twice daily Ciprofloxacin Hcl (Cipro) 500 mg tablet Discontinued 500 mg PO TWICE A DAY 14 September 10, 2021 4:35pm October 02, 2021 8:45pm Start: 11-07-2020 End: 12-19-2020 take 1 tablet by mouth twice daily Ciprofloxacin Hcl (Cipro) 500 mg tablet Discontinued 500 mg PO TWICE A DAY 14 November 07, 2020 12:00am December 19, 2020 6:39pm Start: 04-14-2019 End: 12-13-2019 take 1 tablet by mouth twice daily Ciprofloxacin Hcl (Cipro) 500 mg tablet Discontinued 500 mg PO TWICE A DAY 14 April 14, 2019 12:00am December 13, 2019 6:06pm D-Mannose (5 sources) Start: 06-11-2023 End: 05-26-2024 take 1 capsule by mouth once D-Mannose 500 mg capsule Discontinued mg PO June 11, 2023 12:00am May 26, 2024 7:42pm Start: 06-11-2023 take 1 mg by mouth once D-Sweeney ose Active MG PO June 10, 2023 11:00pm ergocalciferol 17019 unt ora l capsule (1 source) Provitamin D2 Compound Vitamin D 17659 UNIT CAPS Refills: 0 Active estradiol 0.1 mg/ml vaginal cream (9 sources) Estrogen Start: 03-06-2023 Estradiol 0.1 MG/GM Vaginal Cream USE DIRECTED. Quantity: 1 Refills: 11 Ordered: 06-Mar-2023 Sreedhar JEFFERS, Kameron Start : 06-Mar-2023 Active Apply 1gm intravaginally at bedtime daily Fish Oil OIL (1 source) Fish Oil OIL Ref ills: 0 Active fluconazole 150 mg oral tablet (10 sources) Azole Antifungal Start: 09-10-2021 End: 04-02-2022 Fluconazole 150 mg tablet Discontinued 150 mg PO Every 3 Days 2 2 September 10, 2021 1:00am April 02, 2022 11:24am december repeat second dose 72 hrs after first dose if symptoms persist hydroCHLOROthiazide 25 mg / losartan potassium 100 mg oral tablet (20 sources) Thiazide Diuretic, Angiotensin 2 Receptor Gerry Start: 10-06-2021 losartan-hydroCHLOROthi azide (HYZAAR) 100-25 mg per tablet 10/06/2021 Active Start: 01-29-2021 End: 07-27-2024 Losartan-Hydrochlorothiazide 100-25 mg tablet Discontinued 1 {tbl} PO DAILY 90 0 October 08, 2022 5:44pm February 03, 2023 3:54pm Start: 01-29-2021 End: 04-30-2023 take 1 tablet by mouth once daily Losartan-Hydrochlorothiazide Discontinue d 1 TABLET PO DAILY 90 October 08, 2022 4:44pm February 03, 2023 2:54pm Start: 12-22-2018 LOSARTAN POTAS SIUM-HCTZ 50-12.5 MG TABS two tablets in the morning LOSARTAN POTASSIUM-HCTZ [id number] Laura James MD Start: 10-27-2018 End: 01-29-2021 Losartan-Hydrochlorothiazide 50-12.5 mg tablet Discontinued 2 {tbl} PO DAILY 180 0 November 04, 2019 2:41pm February 01, 2020 4:27pm Start: 10-27-2018 End: 01-29-2021 take 2 tablets by mouth once daily Losartan-Hydrochlorothiazide Discontinue d 2 TABLET PO DAILY 180 November 04, 2019 1:41pm February 01, 2020 3:27pm metroNIDAZOLE 250 mg oral tablet (11 sources) Nitroimidazole Antimicrobial Start: 02-26-2024 End: 03-07-2024 take 1 tablet by mouth three times daily Metronidazole 250 mg tablet Discontinued 250 mg PO THREE TIMES A DAY 30 10 0 February 26, 2024 4:20pm March 06, 2024 12:00am March 07, 2024 12:04am Start: 02-03-2023 End: 02-13-2023 take 1 tablet by mouth three times daily Metronidazole 250 mg tablet Discontinued 250 mg PO THREE TIMES A DAY 30 10 February 03, 2023 12:00am February 12, 2023 12:00am February 13, 2023 12:03am naproxen 500 mg oral tablet (10 sources) Nonsteroidal Anti-inflammatory Drug Start: 12-13-2019 End: 11-07-2020 take 1 tablet by mouth twice daily Naproxen 500 mg tablet Discontinued 500 mg PO TWICE A DAY 60 December 13, 2019 12:00am November 07, 2020 5:20pm phenazopyridine hydrochloride 200 mg oral tablet (20 sources) Start: 10-25-2021 End: 05-26-2024 take 1 tablet by mouth three times daily as needed for pain Phenazopyridine (Pyridium) 200 mg tablet Discontinued 200 mg PO THREE TIMES A DAY as needed for pain 9 August 27, 2023 4:18pm May 26, 2024 3:50pm Start: 12-19-2020 End: 10-02-2021 take 1 tablet by mouth three times daily Phenazopyridine 200 mg tablet Discontinued 200 mg PO THREE TIMES A DAY 9 September 10, 2021 4:35pm October 02, 2021 8:46pm sulfamethoxazole 800 mg / trimethoprim 160 mg oral tablet (2 sources) Dihydrofolate Reductase Inhibitor Antibacterial, Sulfonamide Antimicrobial Start: 03-06-2023 take 1 tablet by mouth twice daily Sulfamethoxazole-Trimethoprim 800-160 MG Oral Tablet Take 1 tablet twice daily Quantity: 10 Refills: 0 Ordered: 06-Mar-2023 Sreedhar JEFFERS, Kameron Start : 06-Mar-2023 Active traMADol hydrochloride 50 mg oral tablet (3 sources) Opioid Agonist Start: 06-22-2024 End: 07-27-2024 take 1 tablet by mouth at bedtime Tramadol 50 mg tablet Discontinued 50 mg PO AT BEDTIME 30 5 June 22, 2024 1:00am July 27, 2024 7:36pm VITAMIN E CAPS (1 source) Start: 02-05-2013 E400 CAPS daily VITAMIN E CAPS [id number] Laura James MD Problems Active Problems Problem Classification Problem Date Documented Da te Episodic/Chronic Abdominal hernia (1 source) Diaphragmatic hernia without obstruction or gangrene; Translations: [Diaphragmatic hernia without obstruction or gangrene] Onset: 03-13-2023 Episodic Abdominal pain (20 sources) Epigastric pain; Translations: [Left flank pain] Onset: 03-20-2017 02-03-2023 Episodic Calculus of urinary tract (12 sources) Kidney stone; Translations: [Calculus of kidney] Onset: 03-10-2023 12-14-2019 Episodic Cardiac dysrhythmias (2 sources) Fluttering heart; Translations: [Other specified cardiac arrhythmias] 01-05-2025 Chronic Chronic obstructive pulmonary disease and bronchiectasis (3 sources) Bronchitis; Translations: [Bronchitis, not specified as acute or chronic] 10-09-2023 Episodic Diseases of white blood cells (1 source) Leukocytosis; Translations: [Elevated white blood cell count, unspecified] 05-06-2025 Chronic Disorders of lipid metabolism (20 sources) Hypertriglyceridemia; Translations: [Pure hyperglyceridemia] 09-10-2021 Chronic Diverticulosis and diverticulitis (18 sources) Diverticulitis of large intestine; Translations: [Diverticulitis of large intestine without perforation or abscess without bleeding] 02-03-2023 Chronic Esophageal disorders (20 sources) Gastro-esophageal reflux disease without esophagitis; Translations: [Gastroesophageal reflux disease] Onset: 03-27-2017 10-27-2018 Chronic Essential hypertension (20 sources) Essential (primary) hypertension; Translations: [Benign essential hypertension] Onset: 03-27-2017 09-19-2022 Chronic Genitourinary symptoms and ill-defined conditions (10 sources) Female stress incontinence; Translations: [Stress incontinence, female] Chronic Genitourinary symptoms and ill-defined conditions (14 sources) Retention of urine, unspecified; Translations: [Dysuria] Onset: 03-20-2017 04-14-2019 Episodic Nausea and vomiting (20 sources) Nausea; Translations: [Nausea] Onset: 06-25-2018 06-25-2018 Episodic Osteoarthritis (18 sources) Osteoarthritis of right knee joint; Translations: [Unilateral primary osteoarthritis, right knee] Onset: 11-06-2021 Chronic Other aftercare (20 sources) Patient encounter status; Translations: [Aftercare following joint replacement surgery] Onset: 11-06-2021 Chronic Other congenital anomalies (10 sources) Herniated urinary bladder; Translations: [Bladder prolapse] Chronic Other connective tissue disease (17 sources) History of total knee arthroplasty; Translations: [Presence of left artificial knee joint] Onset: 01-30-2023 Chronic Other connective tissue disease (1 source) Presence of left artificial knee joint; Translations: [S/P total knee arthroplasty, left] Onset: 01-30-2023 Chronic Other connective tissue disease (10 sources) Swelling of right foot; Translations: [Other specified soft tissue disorders] 01-31-2020 Episodic Other connective tissue disease (9 sources) Swelling of left lower limb; Translations: [Other specified soft tissue disorders] 01-10-2022 Episodic Other connective tissue disease (3 sources) Pain in lower limb; Translations: [Pain in unspecified lower leg] 05-26-2024 Episodic Other diseases of kidney and ureters (7 [...] syndrome; Translations: [Irritable bowel syndrome] Chronic Other lower respiratory disease (3 sources) Dyspnea; Translations: [Shortness of breath] 06-23-2024 Episodic Other lower respiratory disease (3 sources) Cough; Translations: [Cough] 06-23-2024 Episodic Other nervous system disorders (20 sources) Difficulty walking; Translations: [Difficulty in walking, not elsewhere classified] Onset: 11-06-2021 Chronic Other nervous system disorders (1 source) Difficulty in walking, not elsewhere classified; Translations: [Difficulty walking] Onset: 11-06-2021 Chronic Other nervous system disorders (5 sources) Abnormal gait; Translations: [Unspecified abnormalities of gait and mobility] Episodic Other non-traumatic joint disorders (10 sources) Swelling of knee joint; Translations: [Effusion, left knee] 12-18-2018 Episodic Other non-traumatic joint disorders (19 sources) Pain in left knee; Translations: [Left knee pain] 12-18-2018 Episodic Other non-traumatic joint disorders (1 source) Pain in right knee; Translations: [Right knee pain] 09-11-2021 Episodic Other nutritional; endocrine; and metabolic disorders (16 sources) Obese class I; Translations: [Obesity, unspecified] Onset: 06-25-2018 06-25-2018 Chronic Other skin disorders (10 sources) Localized swelling of right foot; Translations: [Localized swelling, mass and lump, right lower limb] 01-31-2020 Episodic Other upper respiratory infections (3 sources) Acute maxillary sinusitis; Translations: [Acute maxillary sinusitis, unspecified] 10-20-2023 Episodic Otitis media and related conditions (3 sources) Otitis media of left ear; Translations: [Otitis media, unspecified, left ear] 10-20-2023 Episodic Prolapse of female genital organs (2 sources) Uterovaginal prolapse, unspecified; Translations: [Uterovaginal prolapse, unspecified] Onset: 03-27-2017 Chronic Spondylosis; intervertebral disc disorders; other back problems (11 sources) Low back pain; Translations: [Low back pain] 10-14-2022 Episodic Unclassified (1 source) Unknown / UNK(Unknown) Onset: 08-01-2017 Unclassified (2 sources) History of uterine scar from previous surgery; Translations: [History of uterine scar from previous surgery] Onset: 03-27-2017 Unclassified (2 sources) Pure hypercholesterolemia, unspecified; Translations: [Pure hypercholesterolemia, unspecified] Onset: 03-27-2017 Unclassified (1 source) PT Eval Onset: 01-30-2023 Urinary tract infections (20 sources) Urinary tract infectious disease; Translations: [Cystitis] Onset: 03-10-2023 10-14-2022 Episodic Varicose veins of lower extremity (9 sources) Varicose veins of lower extremity; Translations: [Asymptomatic varicose veins of unspecified lower extremity] 01-10-2022 Episodic Viral infection (3 sources) Verruca vulgaris; Translations: [Viral wart, unspecified] 02-11-2024 Episodic Past or Other Problems Problem Classification Problem Date Documented Date Episodic/Chronic Allergic reactions (4 sources) Latex allergy status; [...] for other preprocedural examination] Onset: 03-20-2017 Episodic Nonspecific chest pain (10 sources) Chest pain; Translations: [Chest pain, unspecified] Onset: 09-19-2022 09-19-2022 Episodic Other nervous system disorders (1 source) Unspecified abnormalities of gait and mobility; Translations: [Abnormality of gait] Onset: 03-07-2023 Episodic Other non-traumatic joint disorders (20 sources) Stiffness of right knee; Translations: [Stiffness of right knee, not elsewhere classified] Onset: 11-06-2021 Episodic Other non-traumatic joint disorders (17 sources) Stiffness of left knee; Translations: [Stiffness of left knee, not elsewhere classified] Onset: 01-30-2023 Episodic Other non-traumatic joint disorders (1 source) Stiffness of left knee, not elsewhere classified; Translations: [Knee stiffness, left] Onset: 01-30-2023 Episodic Residual codes; unclassified (1 source) History of operative procedure on knee; Translations: [Other specified postprocedural states] Onset: 01-08-2019 01-08-2019 Episodic Residual codes; unclassified (1 source) Other specified health status; Translations: [Non-smoker] Onset: 09-18-2022 Episodic Unclassified (5 sources) Family history of ischemic heart disease and other diseases of the circulatory system; Translations: [Family history of malignant neoplasm of breast] Onset: 03-27-2017 Episodic Unclassified (1 source) N39.0 Onset: 08-01-2017 Unclassified (1 source) Problem Unclassified (8 sources) BIOPSY L BREST 03-11-2022 Unclassified (8 sources) PLATE AND SCREW IN R KNEE 03-11-2022 Unclassified (8 sources) STRESS TEST ECHO CARDIAGRAM 2014 03-11-2022 Unclassified (8 sources) TUMOR R ARM BENIGN 03-11-2022 NEGATED: Highlighted row has not occurred!Residual codes; unclassified (2 sources) Disease Episodic Results Test Name Value Interpretation Reference Range Facility Urine Cultureon 05-08-2025 [facility] Mixed Gram Positive Organisms [place] Count 11,000-25,000 [facility] Mixed contaminants. Submit a new specimen if indicated. Normal [facility] Comment on above: Performed By: #### M 100.0929 #### [facility] [place], [address] Laboratory - Chemistry and C hemistry - challengeOrdered By: Brooklynn Kline on 05-06-2025 Bilirubin Ql (U) Negative [facility] Glucose Ql (U) Negative [facility] Ketones Ql (U) Negative [facility] pH (U) 6.0 [pH] [facility] Specific gravity (U) [Rel density] 1.025 [facility] Laboratory - Hematology and Cell countsOrdered By: Brooklynn Kline on 05-06-2025 Hemoglobin Ql (U) Negative [facility] Laboratory - Specimen inform ationOrdered By: Brooklynn Kline on 05-06-2025 Clarity (U) Clear [facility] Color (U) YELLOW [facility] - UrinalysisOrder ed By: Brooklynn Kline on 05-06-2025 Nitrite Ql (U) Negative [facility] Protein Ql (U) Negative [facility] No Panel InformationOrdered By: Brooklynn Kline on 05-06-2025 Urine Leukocytes Negatve [facility] Urine Non-Hemolyzed Blood Negative [facility] Urine cultureOrdered By: Phani stephanie DelgadoKline on 05-06-2025 Bacteria identified Cx Nom (U) Positive Abnormal [facility] AMB CARD Physician Progress Noteon 02-28-2025 AMB CARD Physician Progress Note JERED BUSH :1955 [facility]:[phone] Registration Date:02/28/2025 Assessment/Plan Patient is a 69-year-old female with a history of hypertension and hyperlipidemia presenting for follow-up of supraventricular tachycardia. This Visit Diagnosis 1. HTN (hypertension) I10 - BP well controlled on current regimen as below. Ordered: AMB Office/Outpt Est Pt Mod MDM / 30 min 61761, 02/28/2025 14:47:00 EDT, HTN (hypertension) / HLD (hyperlipidemia) / SVT (supraventricular tachycardia) 2. HLD (hyperlipidemia) E78.5 - TOlerating atorvastatin 20 mg. Lipids per PCP. Ordered: AMB Office/Outpt Est Pt Mod MDM / 30 min [id number], 02/28/2025 14:47:00 EDT, HTN (hypertension) / HLD [...] Est Pt Mod MDM / 30 min [id number], 02/28/2025 14:47:00 EDT, HTN (hypertension) / HLD [...] prescribing physician if questions or concerns Unchanged hydrochlorothiazide-losar amos (hydrochlorothiazide-losa rtan 12.5 mg-50 mg oral tablet) 1 Tabs [...] 09:43:00) Height/Length Measured - in2: 61 in (02/28/25:43:00) Body Mass Index Measured English2: 39.49 kg/m2 [...] a fall within the past: No (02/28/25 09:43:00 (more content not included)... [facility] Provider Letter - Ambulatory on 02-28-2025 Provider Letter - Ambulatory BROOKLYNN KLINE, [address] [facility] [address] [place] [address] RE: JERED BUSH - 1955 Dear BROOKLYNN KLINE This [...] contact the office. Sincerely, DALLAS DOCKERY CNP [facility] The following document(s) were included in the letter: February 28, 2025 15:07:09 EDT - (02/28/2025) Cardiology Follow Up Note [facility] Urine Cultureon 02-10-2025 [facility] Urine Culture Urine Culture Presumptive E. coli [place] Count 80,000-100,000 Presumptive E. coli: REACTION Ampicillin Islt ELODIA 4 Ampicillin+Sulbac Islt ELODIA <=2 S Cefepime Islt ELODIA <=0.12 S cefTRIAXone Islt ELODIA <=0.25 S Ciprofloxacin Islt ELODIA <=0.06 S B-Lactamase Extended Susc Islt NEG Gentamicin Islt ELODIA <=1 S levoFLOXacin Islt ELODIA <=0.12 S Meropenem Islt ELODIA <=0.25 S Nitrofurantoin Islt ELODIA <=16 S Pip+Tazo Islt ELODIA <=4 S TMP SMX Islt ELODIA <=20 S Normal [facility] Comment on above: Performed By: #### M 100.2200 #### [facility] [address] [place] [address], [address] Laboratory - Chemistry and C hemistry - challengeOrdered By: Brooklynn Kline on 02-07-2025 Bilirubin Ql (U) Negative [facility] Glucose Ql (U) Negative [facility] Ketones Ql (U) Negative [facility] pH (U) 5.5 [pH] [facility] Specific gravity (U) [Rel density] 1.025 [facility] Urobilinogen (U) [Mass/Vol] 0.4043765 mg/dL [facility] Laboratory - Hematology and Cell countsOrdered By: Brooklynn Kline on 02-07-2025 Hemoglobin Ql (U) Negative [facility] - Specimen inform ationOrdered By: Brooklynn Kline on 02-07-2025 Clarity (U) Clear [facility] Color (U) YELLOW [facility] Laboratory - UrinalysisOrder ed By: Brooklynn Kline on 02-07-2025 Nitrite Ql (U) Negative [facility] Protein Ql (U) Negative [facility] No Panel InformationOrdered By: Brooklynn Kline on 02-07-2025 Urine Leukocytes Negatve [facility] Urine Non-Hemolyzed Blood [facility] Urine cultureOrdered By: Phani Kline on 02-07-2025 Bacteria identified Cx Nom (U) Presumptive E. coli Abnormal [facility] AMB CARD Physician Progress Noteon 01-20-2025 AMB CARD Physician Progress Note JERED BUSH :1955 Registration Date:01/17/2025 Assessment/Plan This Visit [...] release capsule) 1 Capsules Oral DAILY Unchanged hydrochlorothiazide-losar amos (hydrochlorothiazide-losa rtan 12.5 mg-50 mg oral tablet) 1 Tabs [...] falls in the past: No (01/17/25 08:53:00) [facility] - Chemistry and C hemistry - challengeOrdered By: Brooklynn Kline on 01-05-2025 Bilirubin Ql (U) Negative [facility] Glucose Ql (U) Negative [facility] Ketones Ql (U) Negative [facility] pH (U) 5.5 [pH] [facility] Specific gravity (U) [Rel density] 1.020 [facility] Urobilinogen (U) [Mass/Vol] 0.2542895 mg/dL [facility] Laboratory - Hematology and Cell countsOrdered By: Brooklynn Kline on 01-05-2025 Hemoglobin Ql (U) Negative [facility] - Specimen inform ationOrdered By: Brooklynn Kline on 01-05-2025 Clarity (U) Clear [facility] Color (U) YELLOW [facility] Laboratory - UrinalysisOrder ed By: Brooklynn Kline on 01-05-2025 Nitrite Ql (U) Negative [facility] Protein Ql (U) Negative [facility] No Panel InformationOrdered By: Brooklynn Kline on 01-05-2025 Urine Leukocytes Negatve [facility] Urine Non-Hemolyzed Blood [facility] Urine Cultureon 10-22-2024 [facility] Klebsiella pneumonia e sp pneum [place] Count >100,000 Klebsiella pneumoniae sp pneum: REACTION Ampicillin Islt ELODIA Ampicillin+Sulbac Islt ELODIA <=2 S Cefepime Islt ELODIA <=0.12 S cefTRIAXone Islt ELODIA <=0.25 S Ciprofloxacin Islt ELODIA <=0.06 S B-Lactamase Extended Susc Islt NEG Gentamicin Islt ELODIA <=1 S levoFLOXacin Islt ELODIA <=0.12 S Meropenem Islt ELODIA <=0.25 S Nitrofurantoin Islt ELODIA 64 I Pip+Tazo Islt ELODIA <=4 S TMP SMX Islt ELODIA <=20 S Normal [facility] Comment on above: Performed By: #### M 100.2200 #### [facility] [place], [address] Laboratory - Chemistry and C hemistry - challengeOrdered By: Brooklynn Kline on 10-20-2024 Bilirubin Ql (U) Negative [facility] Glucose Ql (U) Negative [facility] Ketones Ql (U) Negative [facility] pH (U) 6.0 [pH] [facility] Specific gravity (U) [Rel density] 1.025 [facility] Urobilinogen (U) [Mass/Vol] 0.7714118 mg/dL [facility] Laboratory - Hematology and Cell countsOrdered By: Brooklynn Kline on 10-20-2024 Hemoglobin Ql (U) Negative [facility] - Specimen inform ationOrdered By: Brooklynn Kline on 10-20-2024 Clarity (U) Clear [facility] Color (U) YELLOW [facility] - UrinalysisOrder ed By: Brooklynn Kline on 10-20-2024 Nitrite Ql (U) Positive [facility] Protein Ql (U) Negative [facility] No Panel InformationOrdered By: Brooklynn Kline on 10-20-2024 Urine Leukocytes Negatve [facility] Urine Non-Hemolyzed Blood [facility] Urine cultureOrdered By: Phani Kline on 10-20-2024 Bacteria identified Cx Nom (U) Klebsiella pneumoniae sp pneum Abnormal [facility] Laboratory - Chemistry and C hemistry - challengeon 08-27-2024 Bilirubin Ql (U) Negative [facility] Glucose Ql (U) Negative [facility] Ketones Ql (U) Negative [facility] pH (U) 5.5 [pH] [facility] Specific gravity (U) [Rel density] 1.030 [facility] Urobilinogen (U) [Mass/Vol] 0.6364071 mg/dL [facility] Laboratory - Hematology and Cell countson 08-27-2024 Hemoglobin Ql (U) Trace [facility] - Specimen inform ationon 08-27-2024 Clarity (U) Cloudy [facility] Color (U) YELLOW [facility] Laboratory - Urinalysison Nitrite Ql (U) Positive [facility] Protein Ql (U) Trace [facility] No Panel Informationon 08-27 Urine Leukocytes Positive [facility] Urine Non-Hemolyzed Blood [facility] Absolute neutrophil countOrd ered By: Brooklynnstephanie DelgadoKline on 07-27-2024 Neutrophils (Bld) [#/Vol] 5.1 10*3/uL 2.0-7.7 [facility] Albumin to globulin ratioOrd ered By: Brooklynn Kline on 07-27-2024 Albumin/Globulin [Mass ratio] 1.2 {ratio} 0.9-2.4 [facility] Basophil percentageOrdered B y: Brooklynn Kline on 07-27-2024 Basophils/100 WBC (Bld) 0.2 % 0-1 [facility] Bilirubin, totalOrdered By: Brooklynn Kline on 07-27-2024 Bilirubin [Mass/Vol] 0.40 mg/dL 0.20-1.00 [facility] Comment on above: For patients on eltr ombopag therapy, use of Dimension [place] TBIL is not recommended. Blood urea nitrogen (BUN)/cr eatinine ratioOrdered By: Brooklynn Kline on 07-27-2024 Urea nitrogen/Creatinine [Mass ratio] 29.4 mg/mg High 10-20 [facility] CBC W/Diff, Automatedon 07-11 Absolute Lymph 2.16 X10 3/uL Normal 0.83-4.51 [facility] Comment on above: Performed By: #### L 500.4050, L100.0100, L500.4100 #### [facility] [address] [place], [address] Absolute Neut 5.1 X10 3/uL Normal 2.0-7.7 [facility] Comment on above: Performed By: #### L 500.4050, L100.0100, L500.4100 #### [facility] [address] [place], [address] Basophils/100 WBC (Bld) 0.2 % Normal 0-1 [facility] Comment on above: Performed By: #### L 500.4050, L100.0100, L500.4100 #### [facility] [address] [place], [address] Eosinophils/100 WBC (Bld) 2.0 % Normal 0-5 [facility] Comment on above: Performed By: #### L 500.4050, L100.0100, L500.4100 #### [facility] [address] [place], [address] Erythrocyte distribution width (RBC) [Ratio] 12.6 % Normal 11.6-14.6 [facility] Comment on above: Performed By: #### L 500.4050, L100.0100, L500.4100 #### [facility] [address] [place], [address] Hematocrit (Bld) [Volume fraction] 45.4 % Normal 37-47 [facility] Comment on above: Performed By: #### L 500.4050, L100.0100, L500.4100 #### [facility] [address] [place], [address] Hemoglobin (Bld) [Mass/Vol] 15.1 g/dL High 12.0-15.0 [facility] Comment on above: Performed By: #### L 500.4050, L100.0100, L500.4100 #### [facility] [address] [place], [address] IG% 0.100 Normal 0.0-0.9 [facility] Comment on above: Result Comment: IG% - Immature Granulocytes (promyelocytes, myelocytes and metamyelocytes) > 1% indicates that a LEFT SHIFT is Present. Performed By: #### L 500.4050, L100.0100, L500.4100 #### [facility] [address] [place], [address] Lymphocytes/100 WBC (Bld) 26.0 % Normal 19-41 [facility] Comment on above: Performed By: #### L 500.4050, L100.0100, L500.4100 #### [facility] [address] [place], [address] MCH (RBC) [Entitic mass] 29.9 pg Normal 27.0-32.0 [facility] Comment on above: Performed By: #### L 500.4050, L100.0100, L500.4100 #### [facility] [address] [place], [address] MCHC (RBC) [Mass/Vol] 33.3 g/dL Normal 32-36 [facility] Comment on above: Performed By: #### L 500.4050, L100.0100, L500.4100 #### [facility] [address] [place], [address] MCV (RBC) [Entitic vol] 89.9 fL Normal 81-99 [facility] Comment on above: Performed By: #### L 500.4050, L100.0100, L500.4100 #### [facility] [address] [place], [address] Monocytes/100 WBC (Bld) 10.3 % High 0-10 [facility] Comment on above: Performed By: #### L 500.4050, L100.0100, L500.4100 #### [facility] [address] [place], [address] Neutrophils/100 WBC (Bld) 61.4 % Normal 47-70 [facility] Comment on above: Performed By: #### L 500.4050, L100.0100, L500.4100 #### [facility] [address] [place], [address] Nucleated RBC (Bld) [#/Vol] 0 10*3/uL Normal 0-5 [facility] Comment on above: Performed By: #### L 500.4050, L100.0100, L500.4100 #### [facility] [address] [place], [address] Platelet mean volume (Bld) [Entitic vol] 10.4 fL Normal 6.2-12.0 [facility] Comment on above: Performed By: #### L 500.4050, L100.0100, L500.4100 #### [facility] [address] [place], [address] Platelets (Bld) [#/Vol] 278 10*3/uL Normal 150-450 [facility] Comment on above: Performed By: #### L 500.4050, L100.0100, L500.4100 #### [facility] [address] [place], [address] RBC (Bld) [#/Vol] 5.05 10*6/uL Normal 4.2-5.4 [facility] Comment on above: Performed By: #### L 500.4050, L100.0100, L500.4100 #### [facility] [address] [place], [address] RDW SD 41.4 fl Normal 35.1-43.9 [facility] Comment on above: Performed By: #### L 500.4050, L100.0100, L500.4100 #### [facility] [address] [place], [address] WBC (Bld) [#/Vol] 8.3 10*3/uL Normal 4.4-11.0 [facility] Comment on above: Performed By: #### L 500.4050, L100.0100, L500.4100 #### [facility] [address] [place], [address] Carbon dioxide measurementOr dered By: Brooklynn Kline on 07-27-2024 CO2 [Moles/Vol] 29.0 mmol/L 21.0-32.0 [facility] Chloride measurementOrdered By: Brooklynn Kline on 07-27-2024 Chloride [Moles/Vol] 105 mmol/L 98-107 [facility] Comprehensive Metabolic Prof ilon 07-27-2024 Albumin [Mass/Vol] 3.7 g/dL Normal 3.2-5.0 [facility] Comment on above: Performed By: #### L 500.4050, L100.0100, L500.4100 #### [facility] [address] [place], [address] Albumin/Globulin [Mass ratio] 1.2 {ratio} Normal 0.9-2.4 [facility] Comment on above: Performed By: #### L 500.4050, L100.0100, L500.4100 #### [facility] [address] [place], [address] ALK P 94 U/L Normal 45-117 [facility] Comment on above: Performed By: #### L 500.4050, L100.0100, L500.4100 #### [facility] [address] [place], [address] ALT [Catalytic activity/Vol] 38 U/L Normal 13-56 [facility] Comment on above: Performed By: #### L 500.4050, L100.0100, L500.4100 #### [facility] [address] [place], [address] AST [Catalytic activity/Vol] 22 U/L Normal 15-37 [facility] Comment on above: Performed By: #### L 500.4050, L100.0100, L500.4100 #### [facility] [address] [place], [address] Bilirubin [Mass/Vol] 0.40 mg/dL Normal 0.20-1.00 [facility] Comment on above: Result Comment: For patients on eltrombopag therapy, use of Dimension [place] TBIL is not recommended. Performed By: #### L 500.4050, L100.0100, L500.4100 #### [facility] [address] [place], [address] BUN/CRE 29.4 RATIO High 10-20 [facility] Comment on above: Performed By: #### L 500.4050, L100.0100, L500.4100 #### [facility] [address] [place], [address] CA,Total 8.8 mg/dL Normal 8.5-10.1 [facility] Comment on above: Performed By: #### L 500.4050, L100.0100, L500.4100 #### [facility] [address] [place], [address] Chloride [Moles/Vol] 105 mmol/L Normal 98-107 [facility] Comment on above: Performed By: #### L 500.4050, L100.0100, L500.4100 #### [facility] [address] [place], [address] CO2 [Moles/Vol] 29.0 mmol/L Normal 21.0-32.0 [facility] Comment on above: Performed By: #### L 500.4050, L100.0100, L500.4100 #### [facility] [address] [place], [address] Creatinine [Mass/Vol] 0.68 mg/dL Normal 0.55-1.02 [facility] Comment on above: Result Comment: The validity of the calculated GFR GFRAA in patients over 70 years has not been determined. Clinical correlation is essential. Performed By: #### L 500.4050, L100.0100, L500.4100 #### [facility] [address] [place], [address] EST GFR - AA 110 mL/min Normal >60 [facility] Comment on above: Result Comment: Afri can Moroccan GFR Calc Performed By: #### L 500.4050, L100.0100, L500.4100 #### [facility] [address] [place], [address] GAP 5 Normal 5-15 [facility] Comment on above: Performed By: #### L 500.4050, L100.0100, L500.4100 #### [facility] [address] [place], [address] GFR/1.73 sq M.predicted among non-blacks MDRD (S/P/Bld) [Vol rate/Area] 91 mL/min/{1.73_m2} Normal >60 [facility] Comment on above: Result Comment: Non- GFR Calc Performed By: #### L 500.4050, L100.0100, L500.4100 #### [facility] [address] [place], [address] Globulin (S) [Mass/Vol] 3.0 g/dL Normal 2.2-4.2 [facility] Comment on above: Performed By: #### L 500.4050, L100.0100, L500.4100 #### [facility] [address] [place], [address] Glucose [Mass/Vol] 125 mg/dL High 74-106 [facility] Comment on above: Result Comment: Fast ing Glucose result from 100 to 125 mg/dL suggests IMPAIRED HOMEOSTASIS per A.D.A. criteria. Performed By: #### L 500.4050, L100.0100, L500.4100 #### [facility] [address] [place], [address] Potassium [Moles/Vol] 3.2 mmol/L Low 3.5-5.1 [facility] Comment on above: Performed By: #### L 500.4050, L100.0100, L500.4100 #### [facility] [address] [place], [address] Sodium [Moles/Vol] 139 mmol/L Normal 136-145 [facility] Comment on above: Performed By: #### L 500.4050, L100.0100, L500.4100 #### [facility] [address] [place], [address] T PROT 6.7 g/dL Normal 6.4-8.2 [facility] Comment on above: Performed By: #### L 500.4050, L100.0100, L500.4100 #### [facility] [address] [place], [address] Urea nitrogen [Mass/Vol] 20 mg/dL High 7-18 [facility] Comment on above: Performed By: #### L 500.4050, L100.0100, L500.4100 #### [facility] [address] [place], [address] Eosinophil percentageOrdered By: Brooklynn Kline on 07-27-2024 Eosinophils/100 WBC (Bld) 2.0 % 0-5 [facility] Erythrocyte distribution wid th ratioOrdered By: Brooklynn Kline on 07-27-2024 Erythrocyte distribution width (RBC) [Ratio] 12.6 % 11.6-14.6 [facility] Erythrocyte distribution wid th standard deviationOrdered By: Brooklynn Kline on 07-27-2024 Erythrocyte distribution width (RBC) [Entitic vol] 41.4 fL 35.1-43.9 [facility] Estimated glomerular filtrat ion rate (GFR) AmericanOrdered By: Brooklynn Kline on 07-27-2024 Estimated GFR (MDRD) Amer 110 mL/min >60 [facility] Comment on above: GFR Calc Glomerular filtration rate ( GFR) estimationOrdered By: Brooklynn Kline on 07-27-2024 Estimated GFR (MDRD) Non-Af Amer 91 mL/min >60 [facility] Comment on above: Non- GFR Calc Glucose measurementOrdered B y: Brooklynn Kline on 07-27-2024 Glucose [Mass/Vol] 125 mg/dL High 74-106 [facility] Comment on above: Fasting Glucose resu lt from 100 to 125 mg/dL suggests IMPAIRED HOMEOSTASIS per A.D.A. criteria. Hematocrit Auto (Bld) [Volum e fraction]Ordered By: Brooklynn Kline on 07-27-2024 Hematocrit (Bld) [Volume fraction] 45.4 % 37-47 [facility] Hemoglobin measurementOrdere d By: Brooklynn Kline on 07-27-2024 Hemoglobin (Bld) [Mass/Vol] 15.1 g/dL High 12.0-15.0 [facility] High density lipoprotein (HD L) measurementOrdered By: Brooklynn Kline on 07-27-2024 Cholesterol in HDL [Mass/Vol] 38 mg/dL Low >40 [facility] Comment on above: The drugs N-Acetylcy steine and Metamizole may falsely depress this assay. Reference Range HDL <40 mg/dL Low HDL Cholesterol HDL >or= 60 mg/dL High HDL Cholesterol Immature granulocytes/100 WB C Auto (Bld)Ordered By: Brooklynn Kline on 07-27-2024 Immature granulocytes/100 WBC (Bld) 0.100 % 0.0-0.9 [facility] Comment on above: IG% - Immature Granu locytes (promyelocytes, myelocytes and metamyelocytes) > 1% indicates that a LEFT SHIFT is Present. Laboratory - Chemistry and C hemistry - challengeOrdered By: Brooklynn Kline on 07-27-2024 AST [Catalytic activity/Vol] 22 U/L 15-37 [facility] Lipid Profileon 07-27-2024 Cholesterol [Mass/Vol] 191 mg/dL Normal 200 [facility] Comment on above: Result Comment: <200 mg/dL Desirable 200-240 mg/dL Borderline >240 mg/dL High Risk Performed By: #### L 500.4050, L100.0100, L500.4100 #### [facility] [address] [place], [address] Cholesterol in HDL [Mass/Vol] 38 mg/dL Low [facility] Comment on above: Result Comment: The drugs N-Acetylcysteine and Metamizole may falsely depress this assay. Reference Range HDL <40 mg/dL Low HDL Cholesterol HDL >or= 60 mg/dL High HDL Cholesterol Performed By: #### L 500.4050, L100.0100, L500.4100 #### [facility] [address] [place], [address] LDL TNP Normal 0-130 [facility] Comment on above: Performed By: #### L 500.4050, L100.0100, L500.4100 #### [facility] [address] [place], [address] Triglyceride [Mass/Vol] 489 mg/dL High [facility] Comment on above: Result Comment: The drugs N-Acetylcysteine and Metamizole may falsely depress this assay. TRIGLYCERIDE IS GREATER THAN 400 mg/dL. LDL RESULT IS INVALID AND WILL NOT BE REPORTED. Serum Triglycerides Reference Interval Normal <150 mg/dL Borderline high 150 - 199 mg/dL High 200 - 499 mg/dL Very High > or = 500 mg/dL Performed By: #### L 500.4050, L100.0100, L500.4100 #### [facility] [address] [place], [address] VLDL TNP Normal 5-40 [facility] Comment on above: Performed By: #### L 500.4050, L100.0100, L500.4100 #### [facility] [address] [place], [address] Low density lipoprotein (LDL ) cholesterol measurementOrdered By: Brooklynn Kline on 07-27-2024 LDL Cholesterol TNP [facility] Comment on above: Test not performed Lymphocytes Auto (Unsp spec) [#/Vol]Ordered By: Brooklynn Kline on 07-27-2024 Lymphocytes (Bld) [#/Vol] 2.16 10*3/uL 0.83-4.51 [facility] Lymphocytes/100 WBC Auto (Un sp spec)Ordered By: Brooklynn Kline on 07-27-2024 Lymphocytes/100 WBC (Bld) 26.0 % 19-41 [facility] MCV (mean corpuscular volume ) determinationOrdered By: Brooklynn Kline on 07-27-2024 MCV (RBC) [Entitic vol] 89.9 fL 81-99 [facility] Mean corpuscular hemoglobin (MCH) determinationOrdered By: Brooklynn Kline on 07-27-2024 MCH (RBC) [Entitic mass] 29.9 pg 27.0-32.0 [facility] Mean corpuscular hemoglobin concentration (MCHC) determinationOrdered By: Brooklynn Kline on 07-27-2024 MCHC (RBC) [Mass/Vol] 33.3 g/dL 32-36 [facility] Mean platelet volume determi nationOrdered By: Brooklynn Kline on 07-27-2024 Platelet mean volume (Bld) [Entitic vol] 10.4 fL 6.2-12.0 [facility] Monocyte percentageOrdered B y: Brooklynn Kline on 07-27-2024 Monocytes/100 WBC (Bld) 10.3 % High 0-10 [facility] Neutrophil percentageOrdered By: Brooklynn Kline on 07-27-2024 Neutrophils/100 WBC (Bld) 61.4 % 47-70 [facility] Nucleated red blood cell per centageOrdered By: Brooklynn Kline on 07-27-2024 Nucleated RBC/100 WBC (Bld) [Ratio] 0 % 0-5 [facility] Platelet countOrdered By: Do ra Kline on 07-27-2024 Platelets (Bld) [#/Vol] 278 10*3/uL 150-450 [facility] Potassium measurementOrdered By: Brooklynn Kline on 07-27-2024 Potassium [Moles/Vol] 3.2 mmol/L Low 3.5-5.1 [facility] RBC Auto (Bld) [#/Vol]Ordere d By: Brooklynn Kline on 07-27-2024 RBC (Bld) [#/Vol] 5.05 10*6/uL 4.2-5.4 [facility] Serum anion gap measurementO rdered By: Brooklynn Kline on 07-27-2024 Anion gap [Moles/Vol] 5 mmol/L 5-15 [facility] Serum globulin measurementOr dered By: Brooklynn Kline on 07-27-2024 Globulin (S) [Mass/Vol] 3.0 g/dL 2.2-4.2 [facility] Serum or plasma alanine lobo otransferase (ALT) measurementOrdered By: Brooklynn Kline on 07-27-2024 ALT [Catalytic activity/Vol] 38 U/L 13-56 [facility] Serum or plasma albumin janie urement (mass/volume)Ordered By: Brooklynn Kline on 07-27-2024 Albumin [Mass/Vol] 3.7 g/dL 3.2-5.0 [facility] Serum or plasma alkaline trevor sphatase measurementOrdered By: Brooklynn Kline on 07-27-2024 ALP [Catalytic activity/Vol] 94 U/L 45-117 [facility] Serum or plasma calcium janie urement (mass/volume)Ordered By: Brooklynn Kline on 07-27-2024 Calcium [Mass/Vol] 8.8 mg/dL 8.5-10.1 [facility] Serum or plasma cholesterol measurement (mass/volume)Ordered By: Brooklynn Kline on 07-27-2024 Cholesterol [Mass/Vol] 191 mg/dL <200 [facility] Comment on above: <200 mg/dL Desirable 200-240 mg/dL Borderline >240 mg/dL High Risk Serum or plasma creatinine m easurement (mass/volume)Ordered By: Brooklynn Kline on 07-27-2024 Creatinine [Mass/Vol] 0.68 mg/dL 0.55-1.02 [facility] Comment on above: The validity of the calculated GFR & GFRAA in patients over 70 years has not been determined. Clinical correlation is essential. Serum or plasma urea nitroge n measurement (mass/volume)Ordered By: Brooklynn Kline on 07-27-2024 Urea nitrogen [Mass/Vol] 20 mg/dL High 7-18 [facility] Sodium levelOrdered By: Brooklynn Kline on 07-27-2024 Sodium [Moles/Vol] 139 mmol/L 136-145 [facility] Total proteinOrdered By: Phani Kline on 07-27-2024 Protein [Mass/Vol] 6.7 g/dL 6.4-8.2 [facility] Triglycerides measurementOrd ered By: Brooklynn Kline on 07-27-2024 Triglyceride [Mass/Vol] 489 mg/dL High <199 [facility] Comment on above: The drugs N-Acetylcy steine and Metamizole may falsely depress this assay. TRIGLYCERIDE IS GREATER THAN 400 mg/dL. LDL RESULT IS INVALID AND WILL NOT BE REPORTED.Serum Triglycerides Reference Interval Normal <150 mg/dL Borderline high 150 - 199 mg/dL High 200 - 499 mg/dL Very High > or = 500 mg/dL Very low density lipoprotein (VLDL) cholesterol measurementOrdered By: Brooklynn Kline on 07-27-2024 VLDL Cholesterol TNP [facility] Comment on above: Test not performed White blood cell (WBC) count Ordered By: Brooklynn Kline on 07-27-2024 WBC (Bld) [#/Vol] 8.3 10*3/uL 4.4-11.0 [facility] No Panel Informationon 06-22 IMPRESSION: 1. Moderate fecal debris 2. Degenerative changes in the lumbar spine. No acute pathology identified 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: LEI Transcribe Date/Time: Jun 22 2024 1:35P Dictated by : TUAN DEVI DO This examination was interpreted and the report reviewed and electronically signed by: TUAN DEVI DO on Jun 22 2024 1:37PM [facility] Radiology Study observation (narrative) [facility] No Panel InformationOrdered By: [facility] Provider on 06-22-2024 [facility] XR ABDOMEN 1V SUPINEon 06-22 XR ABDOMEN 1V SUPINE * * *Final Report* * * DATE [...] the lumbar spine. No acute pathology identified 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: LEI Transcribe Date/Time: Jun 22 2024 1:35P Dictated by : TUAN DEVI DO This examination was interpreted and the report reviewed and electronically signed by: TUAN DEVI DO on Jun 22 2024 1:37PM EST [id number] Normal [facility] XR Abdomen Supine and Uprigh ton 06-22-2024 * * *Final Report* * * DATE [...] . No fractures or dislocations are seen. [facility] Provider, Casey Lopez [facility] - 06/22/2024 * * *Final Report* * * DATE [...] . No fractures or dislocations are seen. IMPRESSION IMPRESSION: 1. Moderate fecal debris 2. Degenerative changes in the lumbar spine. No acute pathology identified 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: [facility] Transcribe Date/Time: Jun 22 2024 1:35P Dictated by : TUAN DEVI DO This examination was interpreted and the report reviewed and electronically signed by: TUAN DEVI DO on Jun 22 2024 1:37PM [facility] XR LUMBAR 2V AP/LATon 2023 XR LUMBAR 2V AP/LAT * * *Final Report* * * DATE OF EXAM: Jun 22 2024 1:17PM [facility] [id number] - XR LUMBAR 2V AP/LAT / [...] the lumbar spine. No acute pathology identified 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: PSCKelsey Transcribe Date/Time: Jun 22 2024 1:35P Dictated by : TUAN DEVI DO This examination was interpreted and the report reviewed and electronically signed by: TUAN DEVI DO on Jun 22 2024 1:37PM EST [id number] Normal [facility] XR Lumbar spine AP and Later tremayne 06-22-2024 * * *Final Report* * * DATE [...] . No fractures or dislocations are seen. [facility] Provider, Casey Cronin - 06/22/2024 * * *Final Report* * * DATE [...] . No fractures or dislocations are seen. IMPRESSION IMPRESSION: 1. Moderate fecal debris 2. Degenerative changes in the lumbar spine. No acute pathology identified 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: PSCB Transcribe Date/Time: Jun 22 2024 1:35P Dictated by : TUAN DEVI DO This examination was interpreted and the report reviewed and electronically signed by: TUAN DEVI DO on Jun 22 2024 1:37PM [facility] Culture, urineOrdered By: Do ra Kline on 08-27-2023 Bacteria identified Cx Nom (U) Escherichia coli [facility] - Chemistry and C hemistry - challengeon 08-27-2023 Bilirubin Ql (U) Negative [facility] Glucose Ql (U) Negative [facility] Ketones Ql (U) Negative [facility] pH (U) 5.5 [pH] [facility] Specific gravity (U) [Rel density] 1.025 [facility] Urobilinogen (U) [Mass/Vol] 1 mg/dL [facility] - Specimen inform ationon 08-27-2023 Clarity (U) Clear [facility] Color (U) ORANGE [facility] - Urinalysison Nitrite Ql (U) Positive [facility] Protein Ql (U) Negative [facility] No Panel Informationon 08-27 Urine Leukocytes Negatve [facility] Urine Non-Hemolyzed Blood [facility] - Chemistry and C hemistry - challengeon 07-28-2023 Bilirubin Ql (U) Negative [facility] Glucose Ql (U) Negative [facility] Ketones Ql (U) Negative [facility] pH (U) 5.5 [pH] [facility] Specific gravity (U) [Rel density] 1.030 [facility] Urobilinogen (U) [Mass/Vol] 0.5937060 mg/dL [facility] - Hematology and Cell countson 07-28-2023 Hemoglobin Ql (U) Negative [facility] - Specimen inform ationon 07-28-2023 Clarity (U) Cloudy [facility] Color (U) STRAW [facility] - Urinalysison Nitrite Ql (U) Negative [facility] Protein Ql (U) Negative [facility] No Panel Informationon 07-28 Urine Leukocytes Negatve [facility] Urine Non-Hemolyzed Blood [facility] Culture, urineOrdered By: Do ra Kline on 06-11-2023 Bacteria identified Cx Nom (U) Klebsiella pneumoniae sp pneum [facility] - Chemistry and C hemistry - challengeon 06-11-2023 Bilirubin Ql (U) Negative [facility] Glucose Ql (U) Negative [facility] Ketones Ql (U) Negative [facility] pH (U) 5.5 [pH] [facility] Specific gravity (U) [Rel density] 1.020 [facility] Urobilinogen (U) [Mass/Vol] 0.5559773 mg/dL [facility] - Hematology and Cell countson 06-11-2023 Hemoglobin Ql (U) Negative [facility] - Specimen inform ationon 06-11-2023 Clarity (U) Clear [facility] Color (U) YELLOW [facility] - Urinalysison Nitrite Ql (U) Positive [facility] Protein Ql (U) Negative [facility] No Panel Informationon 06-11 Urine Leukocytes Negatve [facility] Urine Non-Hemolyzed Blood [facility] Absolute lymphocyte countOrd ered By: Brooklynn Kline on 04-30-2023 Lymphocytes Auto (Unsp spec) [#/Vol] 1.73 10*3/uL 0.83-4.51 [facility] Basophil percentageOrdered B y: Brooklynn Kline on 04-30-2023 Basophils/100 WBC (Bld) 0.4 % 0-1 [facility] Bilirubin [Mass/Vol] 0.40 mg/dL 0.20-1.00 [facility] Comment on above: For patients on eltr ombopag therapy, use of Dimension [place] TBIL is not recommended. Chloride [Moles/Vol] 105 mmol/L 98-107 [facility] Cholesterol [Mass/Vol] 188 mg/dL <200 [facility] Comment on above: <200 mg/dL Desirable 200-240 mg/dL Borderline >240 mg/dL High Risk Eosinophils/100 WBC (Bld) 1.8 % 0-5 [facility] Glucose [Mass/Vol] 127 mg/dL 74-106 [facility] Comment on above: Fasting Glucose resu lt greater than or equal to 126 mg/dL suggests DIABETES MELLITUS per A.D.A. criteria. Neutrophils (Bld) [#/Vol] 5.2 10*3/uL 2.0-7.7 [facility] Neutrophils/100 WBC (Bld) 66.9 % 47-70 [facility] Potassium [Moles/Vol] 4.0 mmol/L 3.5-5.1 [facility] Protein [Mass/Vol] 6.9 g/dL 6.4-8.2 [facility] Sodium [Moles/Vol] 139 mmol/L 136-145 [facility] Triglyceride [Mass/Vol] 265 mg/dL <199 [facility] Comment on above: The drugs N-Acetylcy steine and Metamizole may falsely depress this assay.Serum Triglycerides Reference Interval Normal <150 mg/dL Borderline high 150 - 199 mg/dL High 200 - 499 mg/dL Very High > or = 500 mg/dL WBC (Bld) [#/Vol] 7.8 10*3/uL 4.4-11.0 [facility] Blood erythrocytes count (nu mber/volume)Ordered By: Brooklynn Kline on 04-30-2023 RBC (Bld) [#/Vol] 5.06 10*6/uL 4.2-5.4 [facility] Blood hemoglobin measurement (mass/volume)Ordered By: Brooklynn Kline on 04-30-2023 Hemoglobin (Bld) [Mass/Vol] 14.8 g/dL 12.0-15.0 [facility] Blood lymphocytes/100 leukoc ytesOrdered By: Brooklynn Kline on 04-30-2023 Lymphocytes/100 WBC (Bld) 22.2 % 19-41 [facility] Blood monocytes/100 leukocyt esOrdered By: Brooklynn Kline on 04-30-2023 Monocytes/100 WBC (Bld) 8.6 % 0-10 [facility] Blood platelet mean volumeOr dered By: Brooklynn Kline on 04-30-2023 Platelet mean volume (Bld) [Entitic vol] 10.6 fL 6.2-12.0 [facility] Determination of erythrocyte mean corpuscular volume (MCV)Ordered By: Brooklynn Kline on 04-30-2023 MCV (RBC) [Entitic vol] 92.3 fL 81-99 [facility] Hematocrit Auto (Bld) [Volum e fraction]Ordered By: Brooklynn Kline on 04-30-2023 Hematocrit (Bld) [Volume fraction] 46.7 % 37-47 [facility] - Chemistry and C hemistry - challengeOrdered By: Brooklynn Kline on 04-30-2023 ALP [Catalytic activity/Vol] 96 U/L 45-117 [facility] ALT [Catalytic activity/Vol] 37 U/L 13-56 [facility] CO2 [Moles/Vol] 30.0 mmol/L 21.0-32.0 [facility] Globulin (S) [Mass/Vol] 2.9 g/dL 2.2-4.2 [facility] Urea nitrogen/Creatinine [Mass ratio] 21.1 mg/mg 10-20 [facility] - Hematology and Cell countsOrdered By: Brooklynn Kline on 04-30-2023 Erythrocyte distribution width (RBC) [Entitic vol] 43.0 fL 35.1-43.9 [facility] Erythrocyte distribution width (RBC) [Ratio] 12.8 % 11.6-14.6 [facility] Immature granulocytes/100 WBC (Bld) 0.100 % 0.0-0.9 [facility] Comment on above: IG% - Immature Granu locytes (promyelocytes, myelocytes and metamyelocytes) > 1% indicates that a LEFT SHIFT is Present. MCH (RBC) [Entitic mass] 29.2 pg 27.0-32.0 [facility] Nucleated RBC/100 WBC (Bld) [Ratio] 0 % 0-5 [facility] MCHC Auto (RBC) [Mass/Vol]Or dered By: Brooklynn Kline on 04-30-2023 MCHC (RBC) [Mass/Vol] 31.7 g/dL 32-36 [facility] No Panel InformationOrdered By: Brooklynn Kline on 04-30-2023 Estimated GFR (MDRD) Amer 114 mL/min >60 [facility] Comment on above: GFR Calc Estimated GFR (MDRD) Non-Af Amer 94 mL/min >60 [facility] Comment on above: Non- GFR Calc Platelets bldOrdered By: Phani Kline on 04-30-2023 Platelets (Bld) [#/Vol] 262 10*3/uL 150-450 [facility] Serum or plasma albumin janie urement (mass/volume)Ordered By: Brooklynn Kline on 04-30-2023 Albumin [Mass/Vol] 4.0 g/dL 3.2-5.0 [facility] Serum or plasma albumin/glob ulin mass ratioOrdered By: Brooklynn Kline on 04-30-2023 Albumin/Globulin [Mass ratio] 1.4 {ratio} 0.9-2.4 [facility] Serum or plasma calcium janie urement (mass/volume)Ordered By: Brooklynn Kline on 04-30-2023 Calcium [Mass/Vol] 9.0 mg/dL 8.5-10.1 [facility] Serum or plasma cholesterol in HDL measurement (mass/volume)Ordered By: Brooklynn Kline on 04-30-2023 Cholesterol in HDL [Mass/Vol] 42 mg/dL >40 [facility] Comment on above: The drugs N-Acetylcy steine and Metamizole may falsely depress this assay. Reference Range HDL <40 mg/dL Low HDL Cholesterol HDL >or= 60 mg/dL High HDL Cholesterol Serum or plasma cholesterol in VLDL measurement (mass/volume)Ordered By: Brooklynn Kline on 04-30-2023 Cholesterol in VLDL [Mass/Vol] 53 mg/dL 5-40 [facility] Serum or plasma creatinine m easurement (mass/volume)Ordered By: Brooklynn Kline on 04-30-2023 Creatinine [Mass/Vol] 0.66 mg/dL 0.55-1.02 [facility] Comment on above: The validity of the calculated GFR & GFRAA in patients over 70 years has not been determined. Clinical correlation is essential. Serum or plasma low density lipoprotein (LDL) cholesterol measurement (mass/volume)Ordered By: Brooklynn Kline on 04-30-2023 Cholesterol in LDL [Mass/Vol] 93 mg/dL 0-130 [facility] Serum or plasma urea nitroge n measurement (mass/volume)Ordered By: Brooklynn Kline on 04-30-2023 Urea nitrogen [Mass/Vol] 14 mg/dL 7-18 [facility] Thin prep Papanicolaou smear with manual screeningOrdered By: Brooklynn Kline on 04-30-2023 Thin prep Papanicolaou smear with manual screening 22 U/L 15-37 [facility] Thin prep Papanicolaou smear with manual screening 4 5-15 [facility] Office Visit (UROGYN-[facility])o n 04-10-2023 Follow-up visit Diagnoses/Problems Assessed Simple renal cyst (593.2) (N28.1) Burning with urination (788.1) (R30.0) Provider Impressions 1. POP a. s/p robotic-assisted abdominal uteropexy with upsylon mesh, anterior repair, lynx sling, perineoplasty, and cystoscopy on 12/17/17. b. POP-Q 03/06/23: patient was sitting. Aa: 0. Ba: 0 C: -6 Gh: 3.5. Pb: 3.5 TVL: 7 Ap: -2. Bp: -2. 2. Bartholin gland cyst a. cyst has been drained by outside PAD MACHINE OFFBEARER in the past 3. recurrent UTIs 3a. declines estrogen cream 3b. prophylactic D Mannose prescribed 03/13/23 4. HTN- on losartan Today?s Visit: Last seen by myself 03/13/23. 67 y/o female presents for review of MRI kidney w/wo contrast 03/13/23 and burning with urination. She plans to see PCP Brooklynn Kline CNP about this issue. Patient has an allergy or adverse reaction to adhesive tape and iodine solution. Patient is a non-smoker. Plan: We discussed that MRI kidney w/wo contrast 03/13/23 revealed no evidence of tumor in kidney, results consistent with right-sided simple cyst. We discussed that we could put a urine order in for her burning with urination, but she would like to complete work-up for this symptom with PCP Brooklynn Kline CNP. All questions and concerns were addressed. Patient verbalizes understanding and has no other questions at this time. Yue Lauren, am scribing for and in the presence of Dr. Mcknight. IKameron, agree that all documentation by the scribe, Yue Vale, was under my direction and is an accurate representation of the discussion, physical exam, assessment and plan. Chief Complaint A telephone visit (audio only) between the patient (at the originating site) and the provider (at the distant site) was utilized to provide this telehealth service. Verbal consent was requested and obtained from JERED BUSH on this date, 04/10/2023 03:00 PM , for a telehealth visit. History of Present Illness Testing results: PVR results not available and UA results not available. 1. POP a. s/p robotic-assisted abdominal uteropexy with upsylon mesh, anterior repair, lynx sling, perineoplasty, and cystoscopy on 12/17/17. b. POP-Q 03/06/23: patient was sitting. Aa: 0. Ba: 0 C: -6 Gh: 3.5. Pb: 3.5 TVL: 7 Ap: -2. Bp: -2. 2. Bartholin gland cyst a. cyst has been drained by outside PAD MACHINE OFFBEARER in the past 3. recurrent UTIs 3a. declines estrogen cream 3b. prophylactic D Mannose prescribed 03/13/23 4. HTN- on losartan Today?s Visit: Last seen by myself 03/13/23. 67 y/o female presents for review of MRI kidney w/wo contrast 03/13/23 and burning with urination. She plans to see PCP Brooklynn Kline CNP about this issue. Patient has an allergy or adverse reaction to adhesive tape and iodine solution. Patient is a non-smoker. Review of Systems Please refer to intake forms, which have been scanned into the chart. Active Problems Problems Bladder prolapse Cyst of vagina (623.8) (N89.8) Female genuine stress incontinence (625.6) (N39.3) IBS (irritable bowel syndrome) (564.1) (K58.9) Recurrent UTI (599.0) (N39.0) Renal mass (593.9) (N28.89) Urinary tract infection (599.0) (N39.0) Medical History Problems History of Benign essential hypertension (401.1) (I10) Surgical History Problems History of Biopsy Breast Open History of Section History of Knee Surgery History of Mid-Urethral Sling Operation Family History Father Family history of cardiac disorder (V17.49) (Z82.49) Social History Problems No alcohol use Non-smoker (V49.89) (Z78.9) Allergies Medication Adhesive Tape TAPE Recorded By: Camryn Boudreaux; 08/01/2017 11:09:18 AM Iodine Solution SOLN Recorded By: Camryn Boudreaux; 08/01/2017 11:09:18 AM Current Meds Medication NameInstruction Atorvastatin Calcium 20 MG Oral TabletTAKE 1 TABLET DAILY. Citracal + D TABSTake 1 tablet daily Estradiol 0.1 MG/GM Vaginal CreamUSE DIRECTED. NexIUM 20 MG Oral Capsule Delayed ReleaseTAKE 1 CAPSULE Daily RA Vitamin E 400 UNIT CAPSTAKE 1 CAPSULE Daily Results/Data MRI Kidney w/wo [id number] 05:01PMKameron Mcknight Test NameResultFlagReference MRI Kidney w/wo Contrast(Report) FINAL REPORT Interpreted by: ALISSON FALLON ANTHONY, MD 03/13/23 17:35 Patient Name: JERED BUSH STUDY: MRI KIDNEY W/O-W CONTRAST; 03/13/2023 5:01 pm INDICATION: renal mass protocl N28.89: Renal mass COMPARISON: March 10, 2023 renal ultrasound ACCESSION NUMBER(S): [id number] ORDERING CLINICIAN: KAMERON MCKNIGHT TECHNIQUE: MRI OF THE KIDNEYS: Multiplanar magnetic resonance images of the abdomen were obtained including the following sequences: T2-weighted SSFSE, T1-weighted GRE in/opposed phase, DWI, fat saturated 3D-T1w GRE pre and dynamically post contrast. 17 ml of Gadolinium contrast agent Dotarem were administered intravenously without immediate complication. FINDINGS: KIDNEYS AND URETERS: The kidneys demonstrate normal size and morphology. There is a simple, Bosniak type 1 cortical cyst right kidney (more content not included)... Normal [employer] IO UA (automated w/o microsc opy)on 03-13-2023 Protein (U) [Mass/Vol] Negative [facility] -Urology-[facility] [id number] Work Phone: IO UA (automated w/o microscopy) Negative BL-N[facility]uzw[facility] [id number] Work Phone: IO UA (automated w/o microscopy) Normal (0.2-1.0 mg/dl) [facility]-Urolog y[facility] [employer] [id number] Work Phone: IO UA (automated w/o microscopy) 7.0 1 ZA-Xurrdce[facility] [employer] [id number] Work Phone: IO UA (automated w/o microscopy) 1.015 1 AF-Ahxggxd-N [employer] [employer] [id number] Work Phone: IO UA (automated w/o microscopy) Clear PG-Dijasgm-[facility] [employer] [id number] Work Phone: IO UA (automated w/o microscopy) Yellow VO-Rygjrtq-S [employer] [employer] [id number] Work Phone: MRI KIDNEY W/O-W CONTRASTon 03-13-2023 MRI KIDNEY W/O-W CONTRAST Patient Name: JERED BUSH STUDY: MRI KIDNEY W/O-W CONTRAST; 03/13/2023 5:01 pm INDICATION: renal mass protocl N28.89: Renal mass COMPARISON: March 10, 2023 renal ultrasound ACCESSION NUMBER(S): [id number] ORDERING CLINICIAN: KAMERON MCKNIGHT TECHNIQUE: MRI OF THE KIDNEYS: Multiplanar magnetic resonance images of the abdomen were obtained including the following sequences: T2-weighted SSFSE, T1-weighted GRE in/opposed phase, DWI, fat saturated 3D-T1w GRE pre and dynamically post contrast. 17 ml of Gadolinium contrast agent Dotarem were administered intravenously without immediate complication. FINDINGS: KIDNEYS AND URETERS: The kidneys demonstrate normal size and morphology. There is a simple, Bosniak type 1 cortical cyst right kidney measuring 2 cm AP diameter series 9, image 35 corresponding to cyst noted on prior ultrasound. No suspicious mass, or hydronephrosis. Nephrolithiasis not reliably evaluated by MRI. LIVER: Normal morphology. No suspicious mass. BILE DUCTS: No intrahepatic or extrahepatic bile duct dilatation is demonstrated. GALLBLADDER: Within normal limits. PANCREAS: Normal signal intensity. Normal enhancement. No masses. The pancreatic duct is normal. SPLEEN: Within normal limits. ADRENAL GLANDS: Within normal limits. LYMPH NODES: No lymphadenopathy. ABDOMINAL VESSELS: Unremarkable BOWEL: Normal caliber without detected inflammatory change. Tiny hiatal hernia. Scattered colonic diverticulosis. PERITONEUM/RETROPERITONEU M/LYMPH NODES: No ascites. BONES AND LOWER THORAX: No abnormally enhancing focal bony lesions are identified. Multilevel discogenic degenerative disease is noted in several levels of the thoraco- lumbar spine. Nonenhancing T2 hyperintensity L1 vertebral body compatible with hemangioma which are most typically incidental. Visualized portion the chest is unremarkable. IMPRESSION: 1. 2 cm simple cyst right kidney. 2. No suspicious kidney lesions are identified. Given lack of MRI abnormality the sonographic findings are most likely related to transient process or volume averaging of normal structures. 3. Tiny hiatal hernia. MACRO: None Electronically signed by: ALISSON FALLON MD Normal [facility] [place] Kidney w/wo Contraston 0 03-13-2023 MR Kidney WO and W contrast IV Normal KB-Xdlprqf-U javier [place] [id number] Work Phone: Office Visit (UROGYN-MRS)o n 03-13-2023 Follow-up visit Diagnoses/Problems Assessed Renal mass (593.9) (N28.89) Urinary tract infection (599.0) (N39.0) Orders Renal mass MRI Kidney w/wo Contrast; Status:Resulted - Requires Verification,Retrospectiv e By Protocol Authorization; Done: [id number] 05:01PM Radiologist to Determine Optimal Study : Y Does the patient have a Cochlear Implant, Pacemaker, Defibrilator, Pacing Wire, Brain Aneurysm Clip, Implanted Nerve or Bone Graft Simulator, Implanted Breast Tissue Network Designer, Glucose Monitor, or Neulasta Device? : No Is the patient or breast feeding? : No What are the patient's signs and symptoms? : renal mass protocl Provider Impressions 1. POP a. s/p robotic-assisted abdominal uteropexy with upsylon mesh, anterior repair, lynx sling, perineoplasty, and cystoscopy on 12/17/17. b. POP-Q 03/06/23: patient was sitting. Aa: 0. Ba: 0 C: -6 Gh: 3.5. Pb: 3.5 TVL: 7 Ap: -2. Bp: -2. 2. Bartholin gland cyst a. cyst has been drained by outside PAD MACHINE OFFBEARER in the past 3. recurrent UTIs 3a. declines estrogen cream 3b. prophylactic D Mannose prescribed 03/13/23 4. HTN- on losartan Today?s Visit: Last seen by myself 03/06/23. 67 y/o female presents for cystoscopy for frequent UTIs. She has not started estrogen cream, cost-prohibitive and she is concerned with CA risk. Patient has an allergy or adverse reaction to adhesive tape TAPE and iodine solution SOLN. Patient is a non-smoker. Plan: UA was clear. I reviewed the results of patient's bilateral kidney US and recent UAs with the patient. Ultrasound kidney bilateral 03/10/23 Impression: Complex cyst of the left kidney measuring up to 2 cm. Renal mass protocol MRI advised for further assessment. Nonobstructing bilateral nephrolithiasis. Also noted: Right upper pole cyst 2.4 cm. Cystoscopy was completed today without complication and she tolerated the procedure well. The introitus and urethra are normal. Careful inspection of the bladder revealed there to be no evidence of tumor, stones, foreign bodies or diverticula. There is clear efflux from each orifice. Small cystocele visualized. We discussed CA risks of estrogen taken orally vs vaginally. We discussed the evidence for vaginal estrogen cream use in the context of her UTI symptoms. Since patient would not like to proceed with estrogen cream, so we will start prophylactic D-Mannose to manage her symptoms. We will proceed with MRI of kidney to evaluate complex renal cyst. All questions and concerns were addressed. Patient verbalizes understanding and has no other questions at this time. IYue, am scribing for and in the presence of Dr. Mcknight. I, Kameron Mcknight, agree that all documentation by the scribe, Yue Vale, was under my direction and is an accurate representation of the discussion, physical exam, assessment and plan. Chief Complaint Pt presents for cystoscopy for recurrent UTI's. History of Present Illness Testing results: UA results available and reviewed, but PVR results not available. 1. POP a. s/p robotic-assisted abdominal uteropexy with upsylon mesh, anterior repair, lynx sling, perineoplasty, and cystoscopy on 12/17/17. b. POP-Q 03/06/23: patient was sitting. Aa: 0. Ba: 0 C: -6 Gh: 3.5. Pb: 3.5 TVL: 7 Ap: -2. Bp: -2. 2. Bartholin gland cyst a. cyst has been drained by outside PAD MACHINE OFFBEARER in the past 3. frequent UTIs 3a. declines estrogen cream 3b. prophylactic D Mannose prescribed 03/13/23 4. HTN- on losartan Today?s Visit: Last seen by myself 03/06/23. 67 y/o female presents for cystoscopy for frequent UTIs. She has not started estrogen cream, cost-prohibitive and she is concerned with CA risk. Patient has an allergy or adverse reaction to adhesive tape TAPE and iodine solution SOLN. Patient is a non-smoker. Review of Systems Please refer to intake forms, which have been scanned into the chart. Active Problems Problems Bladder prolapse Cyst of vagina (623.8) (N89.8) Female genuine stress incontinence (625.6) (N39.3) IBS (irritable bowel syndrome) (564.1) (K58.9) Recurrent UTI (599.0) (N39.0) Urinary tract infection (599.0) (N39.0) Medical History Problems History of Benign essential hypertension (401.1) (I10) Surgical History Problems History of Biopsy Breast Open History of Section History of Knee Surgery History of Mid-Urethral Sling Operation Family History Father Family history of cardiac disorder (V17.49) (Z82.49) Social History Problems No alcohol use Non-smoker (V49.89) (Z78.9) Allergies Medication Adhesive Tape TAPE Recorded By: Camryn Boudreaux; 08/01/2017 11:09:18 AM Iodine Solution SOLN Recorded By: Camryn Boudreaux; 08/01/2017 11:09:18 AM Current Meds Medication NameInstruction Atorvastatin Calcium 20 MG Oral TabletTAKE 1 TABLET DAILY. Citracal + D TABSTake 1 tablet daily Estradiol 0.1 MG/GM Vaginal CreamUSE DIRECTED. NexIUM 20 MG Oral Capsule Delayed ReleaseTAKE 1 CAPSULE Daily RA Vitamin E 400 UNIT CAPSTAKE 1 (more content not included)... Normal [employer] Tobacco Screening.on 023 Adult depression screening assessment No MG-Urology- W [facility] [address] Work Phone: Fall risk assessment a) No falls within the last year HG-Apvlobh-U [facility] [address] Work Phone: Tobacco use status CPHS b) No KA-Clpdfgu-Z [facility] [address] Work Phone: Radiologyon 03-10-2023 US Kidney - bilateral Normal MG- Urology-W [facility] [address] Work Phone: RENAL BILATon 03-10-2023 RENAL BILAT Patient Name: JERED BUSH STUDY: US RENAL BILAT; 03/10/2023 11:00 am INDICATION: pain N89.8: Cyst of vagina N39.0: Recurrent UTI. COMPARISON: None ACCESSION NUMBER(S): [id number] ORDERING CLINICIAN: KAMERON MCKNIGHT TECHNIQUE: Multiple images of the kidneys were obtained . FINDINGS: RIGHT KIDNEY: The right kidney measures 12.7 cm in length. The renal cortical echogenicity is within normal limits. No hydronephrosis is present. Nonobstructing nephrolithiasis measuring up to 1 cm. Upper pole cyst measuring up to 2.4 cm . LEFT KIDNEY: The left kidney measures 12.3 cm in length. The renal cortical echogenicity is within normal limits. No hydronephrosis is present. Nonobstructing nephrolithiasis measuring up to 4 mm.Complex cyst of the mid to upper pole measuring up to 2 cm.. BLADDER: Unremarkable in appearance. IMPRESSION: Complex cyst of the left kidney measuring up to 2 cm. Renal mass protocol MRI advised for further assessment. Nonobstructing bilateral nephrolithiasis. Electronically signed by: ROSE RIVERA MD [facility] [place] 03-06-2023 CNTHERAPY OT/PT/Speech Visit ( LDPT) ----- JERED BUSH ([id number]) 1955 F Date Time Provider Department 03/06/23 4:30 PM JERMAN FLORES LDNAUN Date Time Provider Department Center 03/06/2023 4:30 PM [id number], CARLA LDPT [facility] Reason for Visit: Physical Therapy [503] PT Discharge [752] Primary Visit Diagnosis:S/P total knee arthroplasty, left [Z96.652] Other Visit Diagnoses:Knee stiffness, left [M25.662] Difficulty walking [R26.2] Abnormality of gait [R26.9] Allergies As of Date: 03/06/2023 Noted Allergy Reaction IODINE 02/04/2013 2 - Rash LATEX 02/04/2013 2 - Rash Comments: bandaids Date Reviewed: 09/19/2022 Reviewed by: Allan Wise, RN - Fully Assessed Prescriptions as of 07/14/2023 - aspirin, enteric coated (ADULT LOW DOSE ASPIRIN) 81 mg EC tablet Take 1 tablet by mouth once daily. - atorvastatin (LIPITOR) 20 mg tablet - losartan-hydroCHLOROthiaz stephenie (HYZAAR) 100-25 mg per tablet - esomeprazole (NEXIUM) 40 mg capsule Take 40 mg by mouth DAILY (6 AM). ----- Normal [facility] IO UA (automated w/o microsc opy)on 03-06-2023 Protein (U) [Mass/Vol] Negative [facility] [address] Work Phone: IO UA (automated w/o microscopy) Negative YF-[place]wamcj-[place] [id number] Work Phone: IO UA (automated w/o microscopy) Normal (0.2-1.0 mg/dl) [facility] [address] Work Phone: IO UA (automated w/o microscopy) 6.0 1 FC-Fawkerw-I [facility] [address] Work Phone: IO UA (automated w/o microscopy) 1.020 1 DL[facility]Sulyanx[facility] [address] Work Phone: IO UA (automated w/o microscopy) Clear RB-Nqutuzl-U [facility] [address] Work Phone: IO UA (automated w/o microscopy) Yellow [place]-Eoovsrk-P [facility] [address] Work Phone: IO Ultrasound, measurement p ost-void resid urine and/or bl cap; no imagon 03-06-2023 IO Ultrasound, measurement post-void resid urine and/or bl cap; no imag 30 mL AO[facility]Ljxazdm[facility]D [facility] [address] Work Phone: Office Visit (UROGYN-FPMRS)o n 03-06-2023 Follow-up visit Diagnoses/Problems Assessed Bladder prolapse Cyst of vagina (623.8) (N89.8) Recurrent UTI (599.0) (N39.0) Urinary tract infection (599.0) (N39.0) Orders Bladder prolapse, Cyst of vagina, Recurrent UTI Start: Estradiol 0.1 MG/GM Vaginal Cream (Estrace); USE DIRECTED Ultrasound Kidney Bilateral; Status:Active; Requested for:[id number]; Radiologist to Determine Optimal Study : Y What are the patient's signs and symptoms? : pain Recurrent UTI, Urinary tract infection Start: Sulfamethoxazole-Trimetho prim 800-160 MG Oral Tablet (Bactrim DS); Take 1 tablet twice daily Provider Impressions 1. POP a. s/p robotic-assisted abdominal uteropexy with upsylon mesh, anterior repair, lynx sling, perineoplasty, and cystoscopy on 12/17/17. 2. Bartholin gland cyst a. cyst has been drained by outside PAD MACHINE OFFBEARER in the past 3. Hx UTI 4. HTN- on losartan Today?s Visit: Last seen by myself 05/01/18. 67 y/o female presents for evaluation of frequent UTIs. Last UTI was 03/04 (Klebsiella pnemoniae, ampicillin R). Also had UTIs 02/03 (encterobacter cloacae). 10/25/21 (citrobacter). 12/2020 (citrobacter). Symptoms include back ache, pressure. Denies dysuria, hematuria. Does not have any incontinence, prolapse, bowel symptoms. Plan: PVR 30 cc. UA was clear. - Discussed that patient has had several recent UTIs, but does not meet criteria yet for recurrent UTI. - Reviewed culture and sensitivity results, most recent from 03/04 treated with 1g CTX x1. Rx'd bactrim DS BID x5days. - Recommend starting vaginal estrogen cream for prevention of UTI. Rx'd today. Advised to use daily for 2 wks, then can use 2x/week. - No bothersome prolapse symptoms. Mild anterior prolapse seen on exam today. No intervention indicated at this time. - Will schedule cystoscopy to evaluate for structural causes contributing to frequent UTIs. Pt seen and d/w Dr. Sreedhar Nielsen MD, PGY-2 Chief Complaint Pt presents for UTI. Pt last seen in 2017. History of Present Illness Testing results: PVR 30, PVR results available and reviewed and UA results available and reviewed. 1. POP a. s/p robotic-assisted abdominal uteropexy with upsylon mesh, anterior repair, lynx sling, perineoplasty, and cystoscopy on 12/17/17. 2. Bartholin gland cyst a. cyst has been drained by outside PAD MACHINE OFFBEARER in the past 3. Hx UTI 4. HTN- on losartan Today?s Visit: Last seen by myself 05/01/18. 67 y/o female presents for evaluation of frequent UTIs. Last UTI was 03/04 (Klebsiella pnemoniae, ampicillin R). Also had UTIs 02/03 (encterobacter cloacae). 10/25/21 (citrobacter). 12/2020 (citrobacter). Symptoms include back ache, pressure. Denies dysuria, hematuria. Does not have any incontinence, prolapse, bowel symptoms. Review of Systems Constitutional: No fever, No chills and No fatigue. Eyes: No vision problems and No dryness of the eyes. ENT: No dry mouth, No hearing loss and No nosebleeds. Cardiovascular: No chest pain, No palpitations and No orthopnea. Respiratory: No shortness of breath, No cough and No wheezing. Gastrointestinal: constipation and diarrhea, but No abdominal pain, No nausea, No vomiting and No melena. Genitourinary: As noted in HPI. Urinary: dysuria. Musculoskeletal: No back pain, No myalgias, No muscle weakness, No joint swelling and No leg edema. Integumentary: No rashes, No skin lesion and No itching. Neurological: No headache, No numbness and No dizziness. Psychiatric: No sleep disturbances, No anxiety and No depression. Endocrine: No hot flashes, No loss of hair and No hirsutism. Hematologic/Lymphatic: No swollen glands, No tendency for easy bleeding and No tendency for easy bruising. All other systems have been reviewed and are negative for complaint. Please refer to intake forms, which have been scanned into the chart. Active Problems Problems Bladder prolapse Cyst of vagina (623.8) (N89.8) Female genuine stress incontinence (625.6) (N39.3) Urinary tract infection (599.0) (N39.0) Medical History Problems History of Benign essential hypertension (401.1) (I10) Surgical History Problems History of Biopsy Breast Open History of Section History of Knee Surgery History of Mid-Urethral Sling Operation Family History Father Family history of cardiac disorder (V17.49) (Z82.49) Social History Problems No alcohol use Non-smoker (V49.89) (Z78.9) Allergies Medication Adhesive Tape TAPE Recorded By: Camrny Boudreaux; 08/01/2017 11:09:18 AM Iodine Solution SOLN Recorded By: Camryn Boudreaux; 08/01/2017 11:09:18 AM Current Meds Medication NameInstruction Atorvastatin Calcium 20 MG Oral TabletTAKE 1 TABLET DAILY. Citracal + D TABSTake 1 tablet daily NexIUM 20 MG Oral Capsule Delayed ReleaseTAKE 1 CAPSULE Daily predniSONE 20 MG Oral TabletTake 1 tablet twice daily RA Vitamin E 400 UNIT CAPSTAKE 1 CAPSULE Daily Vitals Vital Signs Recorded: [id number] 11:53AM Mifbbavbpiu92.1 F Heart [id number] (more content not included)... Normal [employer] Tobacco Screening.on 023 Adult depression screening assessment No -Urology- [facility] Work Phone: Fall risk assessment a) No falls within the last year SA-Oyuahpv-U [facility] [address] Work Phone: Tobacco use status CPHS b) No TN-Uoalwjj-M [facility] Work Phone: Culture, urineOrdered By: Do ra Kline on 03-04-2023 Bacteria identified Cx Nom (U) Klebsiella pneumoniae sp pneum [facility] Bacteria identified Cx Nom (U) Klebsiella pneumoniae sp pneum [facility] - Chemistry and C hemistry - challengeon 03-04-2023 Bilirubin Ql (U) Negative [facility] Glucose Ql (U) Negative [facility] Ketones Ql (U) Negative [facility] pH (U) 5.5 [pH] [facility] Specific gravity (U) [Rel density] 1.030 [facility] Urobilinogen (U) [Mass/Vol] 0.3125832 mg/dL [facility] - Hematology and Cell countson 03-04-2023 Hemoglobin Ql (U) Hemolyzed [facility] - Specimen inform ationon 03-04-2023 Clarity (U) Clear [facility] Color (U) Yellow [facility] - Urinalysison Nitrite Ql (U) Negative [facility] Protein Ql (U) Negative [facility] No Panel Informationon 03-04 Urine Leukocytes Negatve [facility] Urine Non-Hemolyzed Blood Trace [facility] CNTHERAPYon 02-27-2023 CNTHERAPY OT/PT/Speech Visit ( LDPT) ----- JERED BUSH ([id number]) 1955 F Date Time Provider Department 02/27/23 7:45 AM JERMAN FLORES Date Time Provider Department Center 02/27/2023 7:45 AM [id number] FLORES [facility] Reason for Visit: PT Progress Note [1596] Primary Visit Diagnosis:S/P total knee arthroplasty, left [Z96.652] Other Visit Diagnoses:Knee stiffness, left [M25.662] Difficulty walking [R26.2] Allergies As of Date: 02/27/2023 Noted Allergy Reaction IODINE 02/04/2013 2 - Rash LATEX 02/04/2013 2 - Rash Comments: bandaids Date Reviewed: 09/19/2022 Reviewed by: Allan Wise, RN - Fully Assessed Prescriptions as of 02/27/2023 - aspirin, enteric coated (ADULT LOW DOSE ASPIRIN) 81 mg EC tablet Take 1 tablet by mouth once daily. - atorvastatin (LIPITOR) 20 mg tablet - losartan-hydroCHLOROthiaz stephenie (HYZAAR) 100-25 mg per tablet - esomeprazole (NEXIUM) 40 mg capsule Take 40 mg by mouth DAILY (6 AM). ----- Normal [facility] CNTHERAPYon 02-20-2023 CNTHERAPY OT/PT/Speech Visit ( LDPT) ----- JERED BUSH ([id number]) 1955 F Date Time Provider Department 02/20/23 10:00 AM JERMAN FLORES Date Time Provider Department Center 02/20/2023 10:00 AM [id number] FLORES [facility] Reason for Visit: Physical Therapy [503] Primary Visit Diagnosis:S/P total knee arthroplasty, left [Z96.652] Other Visit Diagnoses:Knee stiffness, left [M25.662] Abnormality of gait [R26.9] Allergies As of Date: 02/20/2023 Noted Allergy Reaction IODINE 02/04/2013 2 - Rash LATEX 02/04/2013 2 - Rash Comments: bandaids Date Reviewed: 09/19/2022 Reviewed by: Allan Wise, CLIFFORD - Fully Assessed Prescriptions as of 02/20/2023 - aspirin, enteric coated (ADULT LOW DOSE ASPIRIN) 81 mg EC tablet Take 1 tablet by mouth once daily. - atorvastatin (LIPITOR) 20 mg tablet - losartan-hydroCHLOROthiaz stephenie (HYZAAR) 100-25 mg per tablet - esomeprazole (NEXIUM) 40 mg capsule Take 40 mg by mouth DAILY (6 AM). ----- Normal [facility] CNTHERAPYon 02-18-2023 CNTHERAPY OT/PT/Speech Visit ( LDPT) ----- JERED BUSH ([id number]) 1955 F Date Time Provider Department 02/18/23 10:45 AM JERMAN FLORES Date Time Provider Department Center 02/18/2023 10:45 AM [id number] FLORES [facility] Reason for Visit: Physical Therapy [503] Primary Visit Diagnosis:S/P total knee arthroplasty, left [Z96.652] Other Visit Diagnoses:Knee stiffness, left [M25.662] Abnormality of gait [R26.9] Allergies As of Date: 02/18/2023 Noted Allergy Reaction IODINE 02/04/2013 2 - Rash LATEX 02/04/2013 2 - Rash Comments: bandaids Date Reviewed: 09/19/2022 Reviewed by: Allan Wise RN - Fully Assessed Prescriptions as of 02/20/2023 - aspirin, enteric coated (ADULT LOW DOSE ASPIRIN) 81 mg EC tablet Take 1 tablet by mouth once daily. - atorvastatin (LIPITOR) 20 mg tablet - losartan-hydroCHLOROthiaz stephenie (HYZAAR) 100-25 mg per tablet - esomeprazole (NEXIUM) 40 mg capsule Take 40 mg by mouth DAILY (6 AM). ----- Normal [facility] CNTHERAPYon 02-13-2023 CNTHERAPY OT/PT/Speech Visit ( LDPT) ----- JERED BUSH ([id number]) 1955 F Date Time Provider Department 02/13/23 8:30 AM JERMAN FLORES LDNAUN Date Time Provider Department Center 02/13/2023 8:30 AM [id number], CARLA LDPT [facility] Reason for Visit: Physical Therapy [503] Primary Visit Diagnosis:S/P total knee arthroplasty, left [Z96.652] Other Visit Diagnoses:Knee stiffness, left [M25.662] Abnormality of gait [R26.9] Allergies As of Date: 02/13/2023 Noted Allergy Reaction IODINE 02/04/2013 2 - Rash LATEX 02/04/2013 2 - Rash Comments: bandaids Date Reviewed: 09/19/2022 Reviewed by: Allan Wise RN - Fully Assessed Prescriptions as of 02/20/2023 - aspirin, enteric coated (ADULT LOW DOSE ASPIRIN) 81 mg EC tablet Take 1 tablet by mouth once daily. - atorvastatin (LIPITOR) 20 mg tablet - losartan-hydroCHLOROthiaz stephenie (HYZAAR) 100-25 mg per tablet - esomeprazole (NEXIUM) 40 mg capsule Take 40 mg by mouth DAILY (6 AM). ----- Normal [facility] CNTHERAPYon 02-06-2023 CNTHERAPY OT/PT/Speech Visit ( LDPT) ----- JERED BUSH ([id number]) 1955 F Date Time Provider Department 02/06/23 4:30 PM JERMAN FLORES LDPT Date Time Provider Department Center 02/06/2023 4:30 PM [id number] BAILEYPT [facility] Reason for Visit: Physical Therapy [503] Primary Visit Diagnosis:S/P total knee arthroplasty, left [Z96.652] Other Visit Diagnoses:Knee stiffness, left [M25.662] Difficulty walking [R26.2] Abnormality of gait [R26.9] Allergies As of Date: 02/06/2023 Noted Allergy Reaction IODINE 02/04/2013 2 - Rash LATEX 02/04/2013 2 - Rash Comments: bandaids Date Reviewed: 09/19/2022 Reviewed by: Allan Wise RN - Fully Assessed Prescriptions as of 02/20/2023 - aspirin, enteric coated (ADULT LOW DOSE ASPIRIN) 81 mg EC tablet Take 1 tablet by mouth once daily. - atorvastatin (LIPITOR) 20 mg tablet - losartan-hydroCHLOROthiaz stephenie (HYZAAR) 100-25 mg per tablet - esomeprazole (NEXIUM) 40 mg capsule Take 40 mg by mouth DAILY (6 AM). ----- Normal [facility] CNTHERAPYon 02-03-2023 CNTHERAPY OT/PT/Speech Visit ( LDPT) ----- JERED BUSH ([id number]) 1955 F Date Time Provider Department 02/03/23 12:45 PM JERMAN FLORES Date Time Provider Department Center 02/03/2023 12:45 PM [id number] BAILEY [facility] Reason for Visit: Physical Therapy [503] Primary Visit Diagnosis:S/P total knee arthroplasty, left [Z96.652] Other Visit Diagnosis:Knee stiffness, left [M25.662] Allergies As of Date: 02/03/2023 Noted Allergy Reaction IODINE 02/04/2013 2 - Rash LATEX 02/04/2013 2 - Rash Comments: bandaids Date Reviewed: 09/19/2022 Reviewed by: Allan Wise RN - Fully Assessed Prescriptions as of 02/20/2023 - aspirin, enteric coated (ADULT LOW DOSE ASPIRIN) 81 mg EC tablet Take 1 tablet by mouth once daily. - atorvastatin (LIPITOR) 20 mg tablet - losartan-hydroCHLOROthiaz stephenie (HYZAAR) 100-25 mg per tablet - esomeprazole (NEXIUM) 40 mg capsule Take 40 mg by mouth DAILY (6 AM). ----- Normal [facility] Culture, urineOrdered By: Do ra Kline on 02-03-2023 Bacteria identified Cx Nom (U) Enterobacter cloacae complex [facility] - Chemistry and C hemistry - challengeon 02-03-2023 Bilirubin Ql (U) Negative [facility] Glucose Ql (U) Negative [facility] Ketones Ql (U) Negative [facility] pH (U) 6.0 [pH] [facility] Specific gravity (U) [Rel density] 1.030 [facility] Urobilinogen (U) [Mass/Vol] 0.8982924 mg/dL [facility] - Hematology and Cell countson 02-03-2023 Hemoglobin Ql (U) Negative [facility] - Specimen inform ationon 02-03-2023 Clarity (U) Clear [facility] Color (U) YELLOW [facility] - Urinalysison Nitrite Ql (U) Negative [facility] Protein Ql (U) Negative [facility] No Panel Informationon 02-03 Urine Leukocytes Negatve [facility] Urine Non-Hemolyzed Blood [facility] CNTHERAPYon 01-30-2023 CNTHERAPY OT/PT/Speech Visit ( LDPT) ----- JERED BUSH ([id number]) 1955 F Date Time Provider Department 01/30/23 10:45 AM JERMAN FLORES LDPT Date Time Provider Department Center 01/30/2023 10:45 AM [id number], CARLA LDPT [facility] Reason for Visit: PT Eval [747] Primary Visit Diagnosis:S/P total knee arthroplasty, left [Z96.652] Other Visit Diagnoses:Difficulty walking [R26.2] Knee stiffness, left [M25.662] Knee stiffness, right [M25.661] Allergies As of Date: 01/30/2023 Noted Allergy Reaction IODINE 02/04/2013 2 - Rash LATEX 02/04/2013 2 - Rash Comments: bandaids Date Reviewed: 09/19/2022 Reviewed by: Allan Wise, RN - Fully Assessed Prescriptions as of 03/10/2023 - aspirin, enteric coated (ADULT LOW DOSE ASPIRIN) 81 mg EC tablet Take 1 tablet by mouth once daily. - atorvastatin (LIPITOR) 20 mg tablet - losartan-hydroCHLOROthiaz stephenie (HYZAAR) 100-25 mg per tablet - esomeprazole (NEXIUM) 40 mg capsule Take 40 mg by mouth DAILY (6 AM). ----- Letter Text Normal [facility] - Chemistry and C hemistry - challengeon 01-17-2023 Bilirubin Ql (U) Negative [facility] Glucose Ql (U) Negative [facility] Ketones Ql (U) Negative [facility] pH (U) 6.0 [pH] [facility] Specific gravity (U) [Rel density] 1.020 [facility] Urobilinogen (U) [Mass/Vol] 0.7480311 mg/dL [facility] Laboratory - Hematology and Cell countson 01-17-2023 Hemoglobin Ql (U) Negative [facility] Laboratory - Specimen inform ationon 01-17-2023 Clarity (U) Cloudy [facility] Color (U) STRAW [facility] Laboratory - Urinalysison Nitrite Ql (U) Positive [facility] Protein Ql (U) Negative [facility] No Panel Informationon 01-17 Urine Leukocytes Positive [facility] Urine Non-Hemolyzed Blood [facility] Laboratory - Chemistry and C hemistry - challengeon 10-14-2022 Bilirubin Ql (U) Negative [facility] Glucose Ql (U) Negative [facility] Ketones Ql (U) Negative [facility] pH (U) 6.0 [pH] [facility] Specific gravity (U) [Rel density] 1.030 [facility] Urobilinogen (U) [Mass/Vol] 0.8493698 mg/dL [facility] Laboratory - Hematology and Cell countson 10-14-2022 Hemoglobin Ql (U) Negative [facility] Laboratory - Specimen inform ationon 10-14-2022 Clarity (U) Clear [facility] Color (U) Yellow [facility] Laboratory - Urinalysison Nitrite Ql (U) Positive [facility] Protein Ql (U) Negative [facility] No Panel Informationon 10-14 Urine Leukocytes Negatve [facility] Urine Non-Hemolyzed Blood [facility] [id number] Author: Mammography Coordinator Service: ? Author Type: Physician Type: Letter Filed: 03/14/2022 11:33 PM Note Text: March 13, 2022 PID: [id number] Jered Bush [address] [place] [id number] Dear Ms. Bush, We are pleased to inform you that the results of your recent breast imaging exam on 03/13/2022 are normal. Early detection of cancer is very important. We also understand recommendations regarding breast cancer screening are controversial. Please discuss with your primary care provider which strategy is best for you and whether a mammogram is right for you. Your imaging studies and report will be kept on file at [facility] as part of your permanent medical record and are available for your continuing care. Thank you for allowing us to help in meeting your health care needs. Sincerely, Dr. Wise Interpreting Radiologist [facility] (Normal over 40) Normal [facility] SCREENING W TOMOon 03-13 [facility] CNTHERAPYon 11-22-2021 CNTHERAPY OT/PT/Speech Visit ( LDPT) ----- JERED BUSH ([id number]) 1955 F Date Time Provider Department 11/22/21 12:45 PM JERMAN FLORES LDPT Date Time Provider Department Center 11/22/2021 12:45 PM [id number], CARLA LDPT [facility] Reason for Visit: Physical Therapy [503] PT Discharge [752] Primary Visit Diagnosis:Aftercare following right knee joint replacement surgery [Z47.1, Z96.651] Other Visit Diagnosis:Joint stiffness of knee, right [M25.661] Allergies As of Date: 11/22/2021 Noted Allergy Reaction IODINE 02/04/2013 2 - Rash LATEX 02/04/2013 2 - Rash Comments: bandaids Date Reviewed: 10/20/2021 Reviewed by: Lois Moon RN - Fully Assessed Prescriptions as of 01/28/2022 - atorvastatin (LIPITOR) 20 mg tablet - losartan-hydroCHLOROthiaz stephenie (HYZAAR) 100-25 mg per tablet - esomeprazole (NEXIUM) 40 mg capsule Take 40 mg by mouth DAILY (6 AM). ----- Normal [facility] CNTHERAPYon 11-20-2021 CNTHERAPY OT/PT/Speech Visit ( LDPT) ----- JERED BUSH ([id number]) 1955 F Date Time Provider Department 11/20/21 1:30 PM JERMAN FLORES Date Time Provider Department Center 11/20/2021 1:30 PM [id number] FLORES [facility] Reason for Visit: Physical Therapy [503] Primary Visit Diagnosis:Aftercare following right knee joint replacement surgery [Z47.1, Z96.651] Other Visit Diagnosis:Joint stiffness of knee, right [M25.661] Allergies As of Date: 11/20/2021 Noted Allergy Reaction IODINE 02/04/2013 2 - Rash LATEX 02/04/2013 2 - Rash Comments: bandaids Date Reviewed: 10/20/2021 Reviewed by: Lois Moon RN - Fully Assessed Prescriptions as of 11/20/2021 - atorvastatin (LIPITOR) 20 mg tablet - losartan-hydroCHLOROthiaz stephenie (HYZAAR) 100-25 mg per tablet - esomeprazole (NEXIUM) 40 mg capsule Take 40 mg by mouth DAILY (6 AM). ----- Normal [facility] CNTHERAPYon 11-15-2021 CNTHERAPY OT/PT/Speech Visit ( LDPT) ----- JERED BUSH ([id number]) 1955 F Date Time Provider Department 11/15/21 1:30 PM JERMAN FLORES Date Time Provider Department Center 11/15/2021 1:30 PM [id number] FLORES [facility] Reason for Visit: Physical Therapy [503] Primary Visit Diagnosis:Aftercare following right knee joint replacement surgery [Z47.1, Z96.651] Other Visit Diagnoses:Joint stiffness of knee, right [M25.661] Difficulty walking [R26.2] Allergies As of Date: 11/15/2021 Noted Allergy Reaction IODINE 02/04/2013 2 - Rash LATEX 02/04/2013 2 - Rash Comments: bandaids Date Reviewed: 10/20/2021 Reviewed by: Lois Moon RN - Fully Assessed Prescriptions as of 11/15/2021 - atorvastatin (LIPITOR) 20 mg tablet - losartan-hydroCHLOROthiaz stephenie (HYZAAR) 100-25 mg per tablet - esomeprazole (NEXIUM) 40 mg capsule Take 40 mg by mouth DAILY (6 AM). ----- Normal [facility] CNTHERAPYon 11-13-2021 CNTHERAPY OT/PT/Speech Visit ( LDPT) ----- JERED BUSH ([id number]) 1955 Date Time Provider Department 11/13/21 7:45 AM JERMAN FLORES Date Time Provider Department [place] 11/13/2021 7:45 AM [id number] FLORES [facility] Reason for Visit: Physical Therapy [503] Primary Visit Diagnosis:Aftercare following right knee joint replacement surgery [Z47.1, Z96.651] Other Visit Diagnoses:Joint stiffness of knee, right [M25.661] Difficulty walking [R26.2] Allergies As of Date: 11/13/2021 Noted Allergy Reaction IODINE 02/04/2013 2 - Rash LATEX 02/04/2013 2 - Rash Comments: bandaids Date Reviewed: 10/20/2021 Reviewed by: Lois Moon RN - Fully Assessed Prescriptions as of 11/13/2021 - atorvastatin (LIPITOR) 20 mg tablet - losartan-hydroCHLOROthiaz stephenie (HYZAAR) 100-25 mg per tablet - esomeprazole (NEXIUM) 40 mg capsule Take 40 mg by mouth DAILY (6 AM). ----- Normal [facility] CNTHERAPYon 11-08-2021 CNTHERAPY OT/PT/Speech Visit ( LDPT) ----- JERED BUSH ([id number]) 1955 Date Time Provider Department 11/08/21 8:30 AM NATALIE GALLAGHER Date Time Provider Department Center 11/08/2021 8:30 AM [id number] DANIEL [facility] Reason for Visit: Physical Therapy [503] Visit Diagnoses:Primary osteoarthritis of right knee [M17.11] Aftercare following right knee joint replacement surgery [Z47.1, Z96.651] Difficulty walking [R26.2] Joint stiffness of knee, right [M25.661] Allergies As of Date: 11/08/2021 Noted Allergy Reaction IODINE 02/04/2013 2 - Rash LATEX 02/04/2013 2 - Rash Comments: bandaids Date Reviewed: 10/20/2021 Reviewed by: Lois Moon RN - Fully Assessed Prescriptions as of 11/08/2021 - atorvastatin (LIPITOR) 20 mg tablet - losartan-hydroCHLOROthiaz stephenie (HYZAAR) 100-25 mg per tablet - esomeprazole (NEXIUM) 40 mg capsule Take 40 mg by mouth DAILY (6 AM). ----- Normal [facility] CNTHERAPYon 11-06-2021 CNTHERAPY OT/PT/Speech Visit ( LDPT) ----- JERED BUSH ([id number]) 1955 F Date Time Provider Department 11/06/21 10:00 AM NATALIE GALLAGHER Date Time Provider Department Center 11/06/2021 10:00 AM [id number] DANIEL [facility] Reason for Visit: PT Eval [747] Primary Visit Diagnosis:Difficulty walking [R26.2] Other Visit Diagnoses:Primary osteoarthritis of right knee [M17.11] Aftercare following right knee joint replacement surgery [Z47.1, Z96.651] Joint stiffness of knee, right [M25.661] Allergies As of Date: 11/06/2021 Noted Allergy Reaction IODINE 02/04/2013 2 - Rash LATEX 02/04/2013 2 - Rash Comments: bandaids Date Reviewed: 10/20/2021 Reviewed by: Lois Moon RN - Fully Assessed Prescriptions as of 11/06/2021 - atorvastatin (LIPITOR) 20 mg tablet - losartan-hydroCHLOROthiaz stephenie (HYZAAR) 100-25 mg per tablet - esomeprazole (NEXIUM) 40 mg capsule Take 40 mg by mouth DAILY (6 AM). ----- Normal [facility] Culture, urineon 10-25-2021 Bacteria identified Cx Nom (U) Citrobacter freundii [facility] Work Phone: Laboratory - Chemistry and C hemistry - challengeon 10-25-2021 Bilirubin Ql (U) Negative [facility] Work Phone: Glucose Ql (U) Negative [facility] Work Phone: Ketones Ql (U) Negative [facility] Work Phone: pH (U) 6.0 [pH] [facility] Work Phone: Specific gravity (U) [Rel density] 1.015 [facility] Work Phone: Urobilinogen (U) [Mass/Vol] 0.3367185 mg/dL [facility] Work Phone: Laboratory - Hematology and Cell countson 10-25-2021 Hemoglobin Ql (U) Negative [facility] Work Phone: Laboratory - Specimen inform ationon 10-25-2021 Clarity (U) Clear [facility] Work Phone: Color (U) YELLOW [facility] Work Phone: Laboratory - Urinalysison Nitrite Ql (U) Negative [facility] Work Phone: Protein Ql (U) Negative [facility] Work Phone: No Panel Informationon 10-25 Urine Bacteria None Seen [facility] Work Phone: Urine Leukocytes Negatve [facility] Work Phone: Urine Microscopic RBC None Seen [facility] Work Phone: Urine Non-Hemolyzed Blood Negative [facility] Work Phone: ED NOTEon 10-20-2021 ED NOTE HNO ID: [id number] Author: Amparo Matthews PA-C Service: Emergency Medicine Author Type: Physician Python Developer Type: ED Notes Filed: 10/21/2021 10:56 AM Note Text: Emergency Services: ED Call Back Questionnaire SERVICE DATE: 10/20/2021 Are you feeling better? Yes Any questions about discharge instructions and follow-up care? No Were you able to make a follow up appointment? Follow up with ortho next week. Do you have any further questions? No Is there anything that we could have done differently to improve your ED visit? No SIGNATURE: Amparo Matthews PA-C PATIENT NAME: Jered Bush DATE: October 21, 2021 TIME: 10:56 AM Normal [facility] ED NOTE HNO ID: [id number] Author: Cori Tarango RN Service: Emergency Medicine Author Type: Registered Nurse Type: ED Notes Filed: 10/20/2021 6:36 PM Note Text: DISCHARGE INSTRUCTIONS: Pt. Verbalizes understanding of d/c instructions. Pt. Verbalizes understanding to call and f/u with MD or orthopedic Normal [facility] ED NOTE HNO ID: [id number] Author: Cori Tarango RN Service: Emergency Medicine Author Type: Registered Nurse Type: ED Notes Filed: 10/20/2021 6:37 PM Note Text: Ultrasound at bedside. Normal [facility] ED NOTE HNO ID: [id number] Author: Cori Tarango RN Service: Emergency Medicine Author Type: Registered Nurse Type: ED Notes Filed: 10/20/2021 4:42 PM Note Text: Agree with triage note. Stable, examined by JEFFREY Christensen PLAN OF CARE: Monitor pt's vital signs for changes in condition. Monitor pt. For changes in pain. Maintain pt. Safety and privacy. Provide comfort measures. Call light in place, side rails up, bed in locked and low position. Normal [facility] ED NOTE HNO ID: [id number] Author: Lois Moon RN Service: Emergency Medicine Author Type: Registered Nurse Type: ED Notes Filed: 10/20/2021 4:30 PM Note Text: Patient presents with pain to the right thigh that started today. States she had a knee replacement on 10/08. Patient states she is concerned for a blood clot. Normal [facility] ED PROV NOTEon 10-20-2021 ED PROV NOTE HNO ID: [id number] Author: Amparo Matthews PA-C Service: Emergency Medicine Author Type: Physician Python Developer Type: ED Provider Notes Filed: 10/20/2021 6:31 PM Note Text: ED Provider Note Patient Name: Jered Bush : 1955 SERVICE DATE: 10/20/21 History Patient presents with: Leg Pain 66-year-old female with PMH of HTN, HLD status post right knee replacement on 10/08/2021 presents for right thigh pain. Patient states that she noticed a tender spot over her right inner thigh today. Reports it is tender to touch, otherwise she does not have any pain. She has been doing well since her knee surgery on 10/08. She is ambulating. Denies any redness or drainage from her surgical site. Denies any new swelling around the knee. Denies any swelling of the thigh or calf. She does have a bruise around her right thigh that was present after surgery from the tourniquet. She is not on any blood thinners, but does take aspirin. She denies any history of DVT or PE. Denies any shortness of breath or chest pain. No fall or injury. No calf pain. No numbness or tingling in the leg. No other complaints. PAST MEDICAL HISTORY Diagnosis Date - Heart murmur - Hypertension PAST SURGICAL HISTORY Procedure Laterality Date - KNEE SURGERY HX - TONSILLECTOMY HX No family history on file. Social History Tobacco Use - Smoking status: Never Smoker - Smokeless tobacco: Not on file Substance and Sexual Activity - Alcohol use: No - Drug use: No - Sexual activity: Not on file ALLERGIES Allergen Reactions - Iodine Rash - Latex Rash bandaids Review of Systems Constitutional: Negative for chills and fever. HENT: Negative for congestion. Eyes: Negative for visual disturbance. Respiratory: Negative for cough and shortness of breath. Cardiovascular: Negative for chest pain. Gastrointestinal: Negative for abdominal pain, diarrhea, nausea and vomiting. Endocrine: Negative for cold intolerance and heat intolerance. Genitourinary: Negative for dysuria, flank pain and hematuria. Musculoskeletal: Positive for arthralgias and myalgias. Skin: Negative for rash. Neurological: Negative for dizziness and headaches. Psychiatric/Behavioral: Negative for confusion. Physical Exam Vitals [10/20/21 1626] BP Pulse Temp Temp src Resp SpO2 Weight Height 149/92 90 36.7 ?C (98.1 ?F) Oral 18 95 % 79.4 kg (175 lb) 1.549 m (5' 1") Physical Exam Vitals and nursing note reviewed. Constitutional: General: She is not in acute distress. Appearance: Normal appearance. She is not toxic-appearing. HENT: Head: Normocephalic and atraumatic. Nose: Nose normal. Mouth/Throat: Mouth: Mucous membranes are moist. Eyes: Conjunctiva/sclera: Conjunctivae normal. Cardiovascular: Rate and Rhythm: Normal rate and regular rhythm. Pulses: Normal pulses. Popliteal pulses are 2+ on the right side. Dorsalis pedis pulses are 2+ on the right side. Posterior tibial pulses are 2+ on the right side. Heart sounds: Normal heart sounds. Comments: Nontender right calf. No swelling or erythema noted to the calf. DP and PT pulses 2+. Pulmonary: Effort: Pulmonary effort is normal. Breath sounds: Normal breath sounds. Abdominal: Palpations: Abdomen is soft. Musculoskeletal: General: Normal range of motion. Cervical back: Normal range of motion. Right upper leg: Tenderness present. No swelling. Right knee: No erythema or bony tenderness. No tenderness. Right lower leg: No edema. Left lower leg: No edema. Legs: Comments: Patient has contusion/ecchymosis noted over right inner thigh. She is tender over this area. She states this is from the tourniquet from her surgery. She has no swelling of the thigh. No calf swelling. Normal pulses RLE. Sensation intact. Normal gait. Surgical scar from recent right total knee arthroplasty healing. Clean, dry, intact. No drainage. No erythema or warmth noted. No effusion or significant swelling. No signs of infection. Nontender knee. Skin: General: Skin is warm and dry. Capillary Refill: Capillary refill takes less than 2 seconds. Neurological: Mental Status: She is alert and oriented to person, place, and time. Psychiatric: Mood and Affect: Mood normal. Behavior: Behavior normal. Diagnostic Testing ED Labs Ordered and Reviewed - No data to display Procedures ED Course / Clinical Impression Clinical Impressions as of 10/20/21 183 Right thigh pain Contusion of right thigh, initial encounter MDM / Disposition / Plan MDM Vitals reviewed. Triage records reviewed. Nursing notes reviewed. 66-year-old female presents for right leg pain. Patient has contusion/ecchymosis noted over right inner thigh. She is tender over this area. She states this is from the tourniquet from her surgery. She has no swelling of the thigh. No calf swelling. Normal pulses RLE. Sensation intact. Normal gait. Surgical scar from recent r (more content not included)... Normal [facility] DVT LOWER RTon 10-20-2021 US DVT LOWER RT * * *Final Report* * * DATE OF EXAM: Oct 20 2021 5:56PM BRU 1007 - US DVT LOWER RT / PROCEDURE REASON: Leg swelling * * * * Physician Interpretation * * * * EXAMINATION: RIGHT LOWER EXTREMITY DEEP VENOUS ULTRASOUND WITH DOPPLER IMAGING CLINICAL HISTORY: Right leg swelling TECHNIQUE: Grayscale with compression maneuvers, color Doppler and spectral Doppler imaging of the right proximal deep veins was performed. Grayscale with compression maneuvers of the peroneal and posterior tibial veins was performed. The right great and small saphenous veins were evaluated at their insertion to the deep system. The contralateral common femoral vein was imaged for comparison. Images were obtained and stored in a permanent archive. MQ: [id number] COMPARISON: None RESULT: RIGHT LOWER EXTREMITY PROXIMAL DEEP VEINS Distal External Iliac, Common Femoral and proximal Profunda Veins: Compression: Normal Doppler: Normal, spontaneous respirophasic flow. Normal response to augmentation. Femoral vein: Compression: Normal Doppler: Normal, spontaneous flow. Normal response to augmentation. Popliteal vein: Compression: Normal Doppler: Normal, spontaneous flow. Normal response to augmentation. CALF DEEP VEINS Peroneal veins: Normal compression. Posterior tibial veins: Normal compression. Gastrocnemius and Soleal veins: Not imaged. SUPERFICIAL VEINS Great saphenous: Patent and compressible at insertion into common femoral vein; not otherwise assessed. Small Saphenous: Patent and compressible in the proximal calf, not otherwise assessed. LEFT LOWER EXTREMITY (FOR COMPARISON) Common Femoral Vein: Compression: Normal Doppler: Normal, spontaneous respirophasic flow. Normal response to augmentation. IMPRESSION: Negative study for proximal DVT in the right lower extremity. Negative study for calf DVT in the right lower extremity. Negative study for superficial thrombophlebitis in the imaged segments of the right lower extremity. 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: [employer] Transcribe Date/Time: Oct 20 2021 6:04P Dictated by : JAH HENNING MD This examination was interpreted and the report reviewed and electronically signed by: JAH HENNING MD on Oct 20 2021 6:06PM EST [id number] Normal [facility] Absolute lymphocyte counton 09-10-2021 Lymphocytes Auto (Unsp spec) [#/Vol] 2.08 10*3/uL 0.83-4.51 [facility] Work Phone: Basophil percentageon 2021 Basophils/100 WBC (Bld) 0.4 % 0-1 [facility] Work Phone: Bilirubin [Mass/Vol] 0.40 mg/dL 0.20-1.00 [facility] Work Phone: Comment on above: For patients on eltr ombopag therapy, use of Dimension [place] TBIL is not recommended. Chloride [Moles/Vol] 103 mmol/L 98-107 [facility] Work Phone: Cholesterol [Mass/Vol] 172 mg/dL <200 [facility] Work Phone: Comment on above: <200 mg/dL Desirable 200-240 mg/dL Borderline >240 mg/dL High Risk Eosinophils/100 WBC (Bld) 2.3 % 0-5 [facility] Work Phone: Glucose [Mass/Vol] 174 mg/dL 74-106 [facility] Work Phone: Comment on above: Fasting Glucose resu lt greater than or equal to 126 mg/dL suggests DIABETES MELLITUS per A.D.A. criteria. Neutrophils (Bld) [#/Vol] 4.4 10*3/uL 2.0-7.7 [facility] Work Phone: [phone] Neutrophils/100 WBC (Bld) 60.3 % 47-70 [facility] Work Phone: [phone] Potassium [Moles/Vol] 3.4 mmol/L 3.5-5.1 [facility] Work Phone: [phone] Protein [Mass/Vol] 7.1 g/dL 6.4-8.2 [facility] Work Phone: [phone] Sodium [Moles/Vol] 138 mmol/L 136-145 [facility] Work Phone: Triglyceride [Mass/Vol] 331 mg/dL [facility] Work Phone: Comment on above: The drugs N-Acetylcy steine and Metamizole may falsely depress this assay.Serum Triglycerides Reference Interval Normal <150 mg/dL Borderline high 150 - 199 mg/dL High 200 - 499 mg/dL Very High > or = 500 mg/dL WBC (Bld) [#/Vol] 7.3 10*3/uL 4.4-11.0 [facility] Work Phone: Blood erythrocytes count (nu mber/volume)on 09-10-2021 RBC (Bld) [#/Vol] 5.17 10*6/uL 4.2-5.4 [facility] Work Phone: Blood hemoglobin measurement (mass/volume)on 09-10-2021 Hemoglobin (Bld) [Mass/Vol] 15.5 g/dL 12.0-15.0 [facility] Work Phone: Blood lymphocytes/100 leukoc yteson 09-10-2021 Lymphocytes/100 WBC (Bld) 28.3 % 19-41 [facility] Work Phone: Blood monocytes/100 leukocyt eson 09-10-2021 Monocytes/100 WBC (Bld) 8.4 % 0-10 [facility] Work Phone: Blood platelet mean volumeon 09-10-2021 Platelet mean volume (Bld) [Entitic vol] 10.4 fL 6.2-12.0 [facility] Work Phone: Determination of erythrocyte mean corpuscular volume (MCV)on 09-10-2021 MCV (RBC) [Entitic vol] 88.8 fL 81-99 [facility] Work Phone: [phone] Hematocrit Auto (Bld) [Volum e fraction]on 09-10-2021 Hematocrit (Bld) [Volume fraction] 45.9 % 37-47 [facility] Work Phone: [phone] Laboratory - Chemistry and C hemistry - challengeon 09-10-2021 Bilirubin Ql (U) Negative [facility] Work Phone: [phone] Glucose Ql (U) Negative [facility] Work Phone: [phone] Ketones Ql (U) Negative [facility] Work Phone: [phone] pH (U) 5.5 [pH] [facility] Work Phone: [phone] Specific gravity (U) [Rel density] 1.030 [facility] Work Phone: [phone] Urobilinogen (U) [Mass/Vol] 0.2913859 mg/dL [facility] Work Phone: ALP [Catalytic activity/Vol] 86 U/L 45-117 [facility] Work Phone: ALT [Catalytic activity/Vol] 37 U/L 13-56 [facility] Work Phone: CO2 [Moles/Vol] 28.0 mmol/L 21.0-32.0 [facility] Work Phone: [phone] Globulin (S) [Mass/Vol] 3.3 g/dL 2.2-4.2 [facility] Work Phone: [phone] Urea nitrogen/Creatinine [Mass ratio] 23.9 mg/mg 10-20 [facility] Work Phone: [phone] Laboratory - Hematology and Cell countson 09-10-2021 Hemoglobin Ql (U) Negative [facility] Work Phone: [phone] Erythrocyte distribution width (RBC) [Entitic vol] 41.5 fL 35.1-43.9 [facility] Work Phone: [phone] Erythrocyte distribution width (RBC) [Ratio] 12.7 % 11.6-14.6 [facility] Work Phone: [phone] Immature granulocytes/100 WBC (Bld) 0.300 % 0.0-0.9 [facility] Work Phone: [phone] Comment on above: IG% - Immature Granu locytes (promyelocytes, myelocytes and metamyelocytes) > 1% indicates that a LEFT SHIFT is Present. MCH (RBC) [Entitic mass] 30.0 pg 27.0-32.0 [facility] Work Phone: [phone] Nucleated RBC/100 WBC (Bld) [Ratio] 0 % 0-5 [facility] Work Phone: [phone] Laboratory - Specimen inform ationon 09-10-2021 Clarity (U) Clear [facility] Work Phone: [phone] Comment on above: Office Urine Clarity previously reported as Clear Color (U) YELLOW [facility] Work Phone: [phone] Comment on above: Office Urine Color p reviously reported as [facility] Laboratory - Urinalysison Nitrite Ql (U) Positive [facility] Work Phone: [phone] Protein Ql (U) Negative [facility] Work Phone: [phone] MCHC Auto (RBC) [Mass/Vol]on 01-31-2022 MCHC (RBC) [Mass/Vol] 33.8 g/dL 32-36 [facility] Work Phone: No Panel Informationon 09-10 Urine Leukocytes Negatve [facility] Work Phone: Urine Non-Hemolyzed Blood Negative [facility] Work Phone: [phone] Estimated GFR (MDRD) Amer 122 mL/min >60 [facility] Work Phone: [phone] Comment on above: GFR Calc Estimated GFR (MDRD) Non-Af Amer 101 mL/min >60 [facility] Work Phone: Comment on above: Non- GFR Calc Platelets bldon 09-10-2021 Platelets (Bld) [#/Vol] 274 10*3/uL 150-450 [facility] Work Phone: [phone] Serum or plasma albumin janie urement (mass/volume)on 09-10-2021 Albumin [Mass/Vol] 3.8 g/dL 3.2-5.0 [facility] Work Phone: Serum or plasma albumin/glob ulin mass ratioon 09-10-2021 Albumin/Globulin [Mass ratio] 1.2 {ratio} 0.9-2.4 [facility] Work Phone: [phone] Serum or plasma calcium janie urement (mass/volume)on 09-10-2021 Calcium [Mass/Vol] 8.9 mg/dL 8.5-10.1 [facility] Work Phone: [phone] Serum or plasma cholesterol in HDL measurement (mass/volume)on 09-10-2021 Cholesterol in HDL [Mass/Vol] 38 mg/dL [facility] Work Phone: [phone] Comment on above: The drugs N-Acetylcy steine and Metamizole may falsely depress this assay. Reference Range HDL <40 mg/dL Low HDL Cholesterol HDL >or= 60 mg/dL High HDL Cholesterol Serum or plasma cholesterol in VLDL measurement (mass/volume)on 09-10-2021 Cholesterol in VLDL [Mass/Vol] 66 mg/dL 5-40 [facility] Work Phone: Serum or plasma creatinine m easurement (mass/volume)on 09-10-2021 Creatinine [Mass/Vol] 0.63 mg/dL 0.55-1.02 [facility] Work Phone: Comment on above: The validity of the calculated GFR & GFRAA in patients over 70 years has not been determined. Clinical correlation is essential. Serum or plasma low density lipoprotein (LDL) cholesterol measurement (mass/volume)on 09-10-2021 Cholesterol in LDL [Mass/Vol] 68 mg/dL 0-130 [facility] Work Phone: Serum or plasma urea nitroge n measurement (mass/volume)on 09-10-2021 Urea nitrogen [Mass/Vol] 15 mg/dL 7-18 [facility] Work Phone: Thin prep Papanicolaou smear with manual screeningon 09-10-2021 Thin prep Papanicolaou smear with manual screening 20 U/L 15-37 [facility] Work Phone: Thin prep Papanicolaou smear with manual screening 7 5-15 [facility] Work Phone: Clinical Summary: HMSPatient IDon 01-08-2019 [facility] Work Phone: CULTURE URINE W CCon 11-23- 018 CULTURE URINE W CC URINE CULTURE SPECIMEN CONTAMINATED WITH NORMAL SKIN JACKIE NO URINARY PATHOGENS ISOLATED SUGGEST REPEAT IF CLINICALLY INDICATED Normal [facility] Comment on above: Performed By: #### M URINE ####[facility] [place] [address] CULTURE URINE W CCon 017 CULTURE URINE W CC Result(s) called to and read back by 08/04/17 at 1005 by [facility] CULTUREORGANISM 1: ESCHERICHIA COLICOLONY COUNT: >100,000ISOLATE COMMENT: MULTI-DRUG RESISTANT ORGANISMESBL: POSITIVE (CONFIRMED) ESBL ORGANISM ESCHERICHIA COLI: REACTION AMIKACIN <=16 S AMPICILLIN >16 R* MEROPENEM <=1 S AMP/SULBACTAM 8/4 S ERTAPENEM <=0.5 S AMOX/K CLAVULANTE <=4/2 S AZTREONAM 16 ESBL CEFAZOLIN >16 R* CEFEPIME >16 R* CEFOTAXIME >32 ESBL CEFTAZIDIME 8 ESBL CEFTRIAXONE >32 ESBL CEFUROXIME >16 R* CIPROFLOXACIN <=1 S GENTAMICIN <=1 S IMIPENEM <=0.5 S NITROFURANTOIN <=32 S PIPERACILLIN >64 R* PIPERACILLIN/TAZOBACTAM <=4 S TETRACYCLINE >8 R TIGECYCLINE <=2 S TOBRAMYCIN 2 S TRIMETH/SULFA >2/38 R LEVOFLOXACIN <=0.25 SS = Susceptible I = IntermediateNS = NonsusceptibleR = ResistantR* = Predicted resistant interpretationEBL? = Suspected ESBLESBL = Confirmed Extended Spectrum Beta-Lactamase N/R = NOT REPORTED ALEE = BETA LACTAMASE POSITIVECOST = COST CODE TFG = THYMIDINE DEPENDENT STRAINMIC = MCG/ML (MG/L) BLANK = DATA NOT AVAILABLE, OR DRUG NOT ADVISABLE/TESTED A) USE MAXIMUM DOSES OF DRUGS WITH AN AMINOGLYCOSIDE FOR P. AERUGINOSA IN PATIENTS WITH GRANULOCYTOPENIA OR SERIOUS INFECTIONS.B) BREAKPOINTS BASED ON PARENTERAL DOSE. FOR CEFUROXIME PO USE <8=S, 8-16=I, >16=RC) FOR STREPTOCOCCI AND NON-BETA LACTAMASE PRODUCING ENTEROCOCCI REFER TO PENICILLIN INTERPRETATIOND) NITROFURANTOIN IS CONTRAINDICATED IN PATIENTS WITH CrCl<60 mL/min.E) IF [facility] CONFIRMED, THIS ISOLATE DEMONSTRATES CARBAPENEMASE PRODUCTION. THE CLINICAL EFFICACY OF THE CARBAPENEMS HAS NOT BEEN ESTABLISHED FOR TREATING INFECTIONS CAUSED BY Enterobacteriaceae THAT TEST CARBAPENEM SUSCEPTIBILITY (eg. ELODIA ertapenem < OR = 2 ug/mL,imipenem < or = 4 ug/mL, AND/OR meropenem < or = 4 ug/mL) BUT DEMONSTRATE CARBAPRENEMASE PRODUCTION in vitro. INTERPRET ATIONS BASED ON APPROXIMATE ADULT ATTAINABLESYSTEMIC/URINE LEVELS. DOSAGES ARE ONLY GUIDELINES; CONSIDERWEIGHT, ACUITY, AND RENAL/HEPATIC FUNCTION WHEN DETERMININGTHERAPEUTIC DOSE. URINE INTERPRETATIONS ARE FOR LOWER UTIONLY. INTERPRETATIONS BASED ON NCCLS [id number] AUGUST 2014 Normal [facility] Comment on above: Performed By: #### M URINE ####[facility] [id number] [place] [address] Hemoglobinon 03-28-2017 Hematocrit (HCT) 37.3 % Normal 35.0-47.0 [facility] Comment on above: Performed By: #### H GHCT ####[address] [place] [address] Hemoglobin mass conc (Bld) 12.7 g/dL Normal 11.7-16.0 [facility] Comment on above: Performed By: #### H GHCT ####[address] [place] [address] Glucose,Bedsideon 03-27-2017 Glucose mass conc 176 mg/dL High 70-100 [facility] Comment on above: Result Comment: Test performed by glucose meter. Results may be 10%-15% lowerthan serum/plasma values. (CLIA ID [id number]) Performed By: #### B GLU ####[address] [place] [address] Basic Metabolic Panelon 03-11 Anion gap 6 mmol/L Normal [facility] Comment on above: Performed By: #### B MP3 ####[address] [address] Creatinine 0.62 mg/dL Normal 0.55-1.40 [facility] Comment on above: Performed By: #### B MP3 ####[address] [place] [address] eGFR (black) mL/min/{1.73_m2} Normal >60 [facility] Comment on above: Performed By: #### B MP3 ####[address] [address] eGFR (non-black) mL/min/{1.73_m2} Normal >60 [facility] Comment on above: Result Comment: Sour ce- MDRD equation with creatinine calibration to IDMS(NKDEP)eGFR not recommended for drug dose adjustment Performed By: #### B MP3 ####[address] [place] [address] CO2 29 mmol/L Normal 21-32 [facility] Comment on above: Performed By: #### B MP3 ####[address] [place] [address] Glucose mass conc 169 mg/dL High 70-100 [facility] Comment on above: Performed By: #### B MP3 ####[address] [place] [address] Urea nitrogen 13 mg/dL Normal 7-25 [facility] Comment on above: Performed By: #### B MP3 ####[address] [place] [address] Calcium 9.1 mg/dL Normal 8.2-10.1 [facility] Comment on above: Performed By: #### B MP3 ####[address] [place] [address] Chloride 102 mmol/L Normal 98-109 [facility] Comment on above: Performed By: #### B MP3 ####[address] [place] [address] Potassium molar conc 3.7 mmol/L Normal 3.5-5.1 [facility] Comment on above: Result Comment: Slig htly hemolysed, interpret with caution. Performed By: #### B MP3 ####[address] [place] [address] Sodium 137 mmol/L Normal 135-145 [facility] Comment on above: Performed By: #### B MP3 ####[address] [place] [address] Culture, urine Bacteria identified Cx Nom (U) Citrobacter freundii [facility] Work Phone: Vital Signs Date Time Vital Sign Value Performing Clinician Facility 05-06-2025 17:46-0400 Body height 154.94 cm Brooklynn Kline NP-C Work Phone: [facility] 05-06-2025 17:46-0400 Body mass index (BMI) [Ratio] 39.6 kg/m2 Brooklynn Kline NP-C Work Phone: [facility] 05-06-2025 17:46-0400 Body temperature 98.2 [degF] Brooklynn Kline ANALYTICAL RESEARCH CHEMIST-C Work Phone: [facility] 05-06-2025 17:46-0400 Body weight 95.25 kg Brooklynn Kline ANALYTICAL RESEARCH CHEMIST-C Work Phone: [facility] 05-06-2025 17:46-0400 Diastolic blood pressure 70 mm[Hg] Brooklynn Kline ANALYTICAL RESEARCH CHEMIST-C Work Phone: [facility] 05-06-2025 17:46-0400 Heart rate 101 /min Brooklynn Kline ANALYTICAL RESEARCH CHEMIST-C Work Phone: [facility] 05-06-2025 17:46-0400 Respiratory rate 18 /min Brooklynnstephanie Kline ANALYTICAL RESEARCH CHEMIST-C Work Phone: [facility] 05-06-2025 17:46-0400 SaO2% (BldA) [Mass fraction] 99 % Brooklynn Kline ANALYTICAL RESEARCH CHEMIST-C Work Phone: [facility] 05-06-2025 17:46-0400 Systolic blood pressure 128 mm[Hg] Brooklynn Kline ANALYTICAL RESEARCH CHEMIST-C Work Phone: [facility] 02-07-2025 18:18-0400 Body height 154.94 cm Brooklynn Kline ANALYTICAL RESEARCH CHEMIST-C Work Phone: [facility] 02-07-2025 18:18-0400 Body mass index (BMI) [Ratio] 39.6 kg/m2 Brooklynn Kline ANALYTICAL RESEARCH CHEMIST-C Work Phone: [facility] 02-07-2025 18:18-0400 Body temperature 98.1 [degF] Brooklynn Kline ANALYTICAL RESEARCH CHEMIST-C Work Phone: [facility] 02-07-2025 18:18-0400 Body weight 95.25 kg Brooklynn Kline ANALYTICAL RESEARCH CHEMIST-C Work Phone: [facility] 02-07-2025 18:18-0400 Diastolic blood pressure 70 mm[Hg] Brooklynn Kline ANALYTICAL RESEARCH CHEMIST-C Work Phone: [facility] 02-07-2025 18:18-0400 Heart rate 61 /min Brooklynn Kline ANALYTICAL RESEARCH CHEMIST-C Work Phone: [facility] 02-07-2025 18:18-0400 Respiratory rate 18 /min Brooklynnstephanie Kline ANALYTICAL RESEARCH CHEMIST-C Work Phone: [facility] 02-07-2025 18:18-0400 SaO2% (BldA) [Mass fraction] 95 % Brooklynnstephanie Kline ANALYTICAL RESEARCH CHEMIST-C Work Phone: [facility] 02-07-2025 18:18-0400 Systolic blood pressure 115 mm[Hg] Brooklynn Kline ANALYTICAL RESEARCH CHEMIST-C Work Phone: [facility] 01-05-2025 15:04-0400 Body mass index (BMI) [Ratio] 39.4 kg/m2 Brooklynn Kline ANALYTICAL RESEARCH CHEMIST-C Work Phone: [facility] 01-05-2025 15:04-0400 Body temperature 98.1 [degF] Brooklynn Kline ANALYTICAL RESEARCH CHEMIST-C Work Phone: [facility] 01-05-2025 15:04-0400 Body weight 94.8 kg Brooklynn Kline ANALYTICAL RESEARCH CHEMIST-C Work Phone: [facility] 01-05-2025 15:04-0400 Diastolic blood pressure 84 mm[Hg] Brooklynn Kline ANALYTICAL RESEARCH CHEMIST-C Work Phone: [facility] 01-05-2025 15:04-0400 Heart rate 67 /min Brooklynn Kline ANALYTICAL RESEARCH CHEMIST-C Work Phone: [facility] 01-05-2025 15:04-0400 Respiratory rate 18 /min Brooklynn Kline ANALYTICAL RESEARCH CHEMIST-C Work Phone: [facility] 01-05-2025 15:04-0400 SaO2% (BldA) [Mass fraction] 95 % Brooklynn Kline ANALYTICAL RESEARCH CHEMIST-C Work Phone: [facility] 01-05-2025 15:04-0400 Systolic blood pressure 164 mm[Hg] Brooklynn Kline ANALYTICAL RESEARCH CHEMIST-C Work Phone: [facility] 10-25-2024 14:25-0400 Body height 154.94 cm Brooklynn Kline ANALYTICAL RESEARCH CHEMIST-C Work Phone: [facility] 10-20-2024 17:25-0400 Body mass index (BMI) [Ratio] 39.4 kg/m2 Brooklynnstephanie Kline ANALYTICAL RESEARCH CHEMIST-C Work Phone: [facility] 10-20-2024 17:25-0400 Body temperature 97.9 [degF] Brooklynn Kline ANALYTICAL RESEARCH CHEMIST-C Work Phone: [facility] 10-20-2024 17:25-0400 Body weight 94.8 kg Brooklynn Kline ANALYTICAL RESEARCH CHEMIST-C Work Phone: [facility] 10-20-2024 17:25-0400 Diastolic blood pressure 70 mm[Hg] Brooklynn Kline ANALYTICAL RESEARCH CHEMIST-C Work Phone: [facility] 10-20-2024 17:25-0400 Heart rate 71 /min Brooklynn Kline ANALYTICAL RESEARCH CHEMIST-C Work Phone: [facility] 10-20-2024 17:25-0400 Respiratory rate 18 /min Brooklynn Kline ANALYTICAL RESEARCH CHEMIST-C Work Phone: [facility] 10-20-2024 17:25-0400 SaO2% (BldA) [Mass fraction] 97 % Brooklynn Kline ANALYTICAL RESEARCH CHEMIST-C Work Phone: [facility] 10-20-2024 17:25-0400 Systolic blood pressure 148 mm[Hg] Brooklynn Kline ANALYTICAL RESEARCH CHEMIST-C Work Phone: [facility] 08-27-2024 16:51-0500 Body mass index (BMI) [Ratio] 38.9 kg/m2 Brooklynn Kline ANALYTICAL RESEARCH CHEMIST-C Work Phone: [facility] 08-27-2024 16:51-0500 Body temperature 98.1 [degF] Brooklynn Kline ANALYTICAL RESEARCH CHEMIST-C Work Phone: [facility] 08-27-2024 16:51-0500 Body weight 93.44 kg Brooklynn Kline ANALYTICAL RESEARCH CHEMIST-C Work Phone: [facility] 08-27-2024 16:51-0500 Diastolic blood pressure 80 mm[Hg] Brooklynn Kline ANALYTICAL RESEARCH CHEMIST-C Work Phone: [facility] 08-27-2024 16:51-0500 Heart rate 73 /min Brooklynnstephanie Kline ANALYTICAL RESEARCH CHEMIST-C Work Phone: [facility] 08-27-2024 16:51-0500 Respiratory rate 18 /min Brooklynn Kline ANALYTICAL RESEARCH CHEMIST-C Work Phone: [facility] 08-27-2024 16:51-0500 SaO2% (BldA) [Mass fraction] 94 % Brooklynn Kline ANALYTICAL RESEARCH CHEMIST-C Work Phone: [facility] 08-27-2024 16:51-0500 Systolic blood pressure 118 mm[Hg] Brooklynn Klnie ANALYTICAL RESEARCH CHEMIST-C Work Phone: [facility] 07-27-2024 18:34-0500 Body mass index (BMI) [Ratio] 39.1 kg/m2 Brooklynn Kline ANALYTICAL RESEARCH CHEMIST-C Work Phone: [facility] 07-27-2024 18:34-0500 Body weight 93.89 kg Brooklynn Kline ANALYTICAL RESEARCH CHEMIST-C Work Phone: [facility] 07-27-2024 18:34-0500 Diastolic blood pressure 80 mm[Hg] Brooklynn Kline ANALYTICAL RESEARCH CHEMIST-C Work Phone: [facility] 07-27-2024 18:34-0500 Systolic blood pressure 130 mm[Hg] Brooklynn Kline ANALYTICAL RESEARCH CHEMIST-C Work Phone: [facility] 08-27-2023 15:16-0500 Body height 154.94 cm [facility] 08-27-2023 15:16-0500 Body mass index (BMI) [Ratio] 38.5 kg/m2 [facility] 08-27-2023 15:16-0500 Body temperature 8.1 [degF] [facility] 08-27-2023 15:16-0500 Body weight 92.53 kg [facility] 08-27-2023 15:16-0500 Diastolic blood pressure 70 mm[Hg] [facility] 08-27-2023 15:16-0500 Heart rate 101 /min [facility] 08-27-2023 15:16-0500 Respiratory rate 18 /min [facility] 08-27-2023 15:16-0500 SaO2% (BldA) [Mass fraction] 92 % [facility] 08-27-2023 15:16-0500 Systolic blood pressure 120 mm[Hg] [facility] 07-28-2023 17:51-0500 Body mass index (BMI) [Ratio] 38.7 kg/m2 [facility] 07-28-2023 17:51-0500 Body temperature 98.1 [degF] [facility] 07-28-2023 17:51-0500 Body weight 92.98 kg [facility] 07-28-2023 17:51-0500 Diastolic blood pressure 60 mm[Hg] [facility] 07-28-2023 17:51-0500 Heart rate 109 /min [facility] 07-28-2023 17:51-0500 Respiratory rate 18 /min [facility] 07-28-2023 17:51-0500 SaO2% (BldA) [Mass fraction] 94 % [facility] 07-28-2023 17:51-0500 Systolic blood pressure 102 mm[Hg] [facility] 06-11-2023 15:02-0400 Body height 154.94 cm [facility] 06-11-2023 15:02-0400 Body mass index (BMI) [Ratio] 39.9 kg/m2 [facility] 06-11-2023 15:02-0400 Body temperature 97.9 [degF] [facility] 06-11-2023 15:02-0400 Body weight 95.7 kg [facility] 06-11-2023 15:02-0400 Diastolic blood pressure 80 mm[Hg] [facility] 06-11-2023 15:02-0400 Heart rate 101 /min [facility] 06-11-2023 15:02-0400 Respiratory rate 18 /min [facility] 06-11-2023 15:02-0400 SaO2% (BldA) [Mass fraction] 93 % [facility] 06-11-2023 15:02-0400 Systolic blood pressure 122 mm[Hg] [facility] 04-29-2023 17:34-0400 Body height 154.94 cm [facility] 04-29-2023 17:34-0400 Body mass index (BMI) [Ratio] 38.1 kg/m2 [facility] 04-29-2023 17:34-0400 Body temperature 98.1 [degF] [facility] 04-29-2023 17:34-0400 Body weight 91.62 kg [facility] 04-29-2023 17:34-0400 Diastolic blood pressure 60 mm[Hg] [facility] 04-29-2023 17:34-0400 Heart rate 94 /min [facility] 04-29-2023 17:34-0400 Respiratory rate 18 /min [facility] 04-29-2023 17:34-0400 SaO2% (BldA) [Mass fraction] 95 % [facility] 04-29-2023 17:34-0400 Systolic blood pressure 128 mm[Hg] [facility] 03-13-2023 10:58-0400 Body height 154.94 cm Brooklynn Kline Work Phone: BI-Jmngbmg-Ddyutzp e [facility] [address] Work Phone: 03-13-2023 10:58-0400 Body mass index (BMI) [Ratio] 37.03 kg/m2 Brooklynn Kline Work Phone: JA-Dhkwizw-Myarpzj e [facility] [id number] Work Phone: 03-13-2023 10:58-0400 Body surface area Derived from formula 1.87 m2 Brooklynn Kline Work Phone: PD-Nuvthge-Jfzomcb e [facility] [id number] Work Phone: 03-13-2023 10:58-0400 Body temperature 98.6 [degF] Brooklynn Kline Work Phone: JB-Djihhfg-Qaceody e [facility] [id number] Work Phone: 03-13-2023 10:58-0400 Body weight 88.91 kg Brooklynn Kline Work Phone: IZ-Riutoti-Otldvzq e [facility] [id number] Work Phone: 03-13-2023 10:58-0400 Diastolic blood pressure 72 mm[Hg] Brooklynn Kline Work Phone: YE-Dswopgx-Elmseuu e [facility] [address] Work Phone: 03-13-2023 10:58-0400 Heart rate 80 /min Brooklynn Kline Work Phone: IO-Qmlhszy-Humxjcx e [facility] [address] Work Phone: 03-13-2023 10:58-0400 Systolic blood pressure 154 mm[Hg] Brooklynn Kline Work Phone: JW-Mvdcsrg-Scmruug e [facility] [address] Work Phone: 03-06-2023 11:53-0400 Body height 154.94 cm Brooklynn Kline Work Phone: EB-Bvmzdmm-Hmrssul e [facility] [address] Work Phone: 03-06-2023 11:53-0400 Body mass index (BMI) [Ratio] 37.08 kg/m2 Brooklynn Kline Work Phone: SV-Lktnxmw-Gkmican e [facility] [address] Work Phone: 03-06-2023 11:53-0400 Body surface area Derived from formula 1.87 m2 Brooklynn Kline Work Phone: ZV-Wdtnwdo-Onkotks e T[facility] [address] Work Phone: 03-06-2023 11:53-0400 Body temperature 98.1 [degF] Brooklynn Kline Work Phone: ZH-Rjayxaf-Hwgmubp e [facility] [address] Work Phone: 03-06-2023 11:53-0400 Body weight 89.02 kg Brooklynn Kline Work Phone: AO-Udwrqlv-Dvqtsgl e [facility] [address] Work Phone: 03-06-2023 11:53-0400 Diastolic blood pressure 79 mm[Hg] Brooklynn Kline Work Phone: ZT-Hajdcqd-Owkkpnp e T[place] [address] Work Phone: 03-06-2023 11:53-0400 Heart rate 101 /min Brooklynn Kline Work Phone: WG-Ukggdwk-Hdkpoah e TivityW [address] Work Phone: 03-06-2023 11:53-0400 Systolic blood pressure 182 mm[Hg] Brooklynn Kline Work Phone: EW-Wkzrxwt-Nxhyayz e TivityW [address] Work Phone: 03-05-2023 13:56-0400 Body height 154.94 cm [facility] 03-05-2023 13:56-0400 Body mass index (BMI) [Ratio] 37.4 kg/m2 [facility] 03-05-2023 13:56-0400 Body temperature 98.1 [degF] [facility] 03-05-2023 13:56-0400 Body weight 89.81 kg [facility] 03-05-2023 13:56-0400 Diastolic blood pressure 70 mm[Hg] [facility] 03-05-2023 13:56-0400 Heart rate 102 /min [facility] 03-05-2023 13:56-0400 Respiratory rate 18 /min [facility] 03-05-2023 13:56-0400 SaO2% (BldA) [Mass fraction] 95 % [facility] 03-05-2023 13:56-0400 Systolic blood pressure 130 mm[Hg] [facility] 02-03-2023 14:25-0400 Body height 154.94 cm [facility] 02-03-2023 14:25-0400 Body mass index (BMI) [Ratio] 36.8 kg/m2 [facility] 02-03-2023 14:25-0400 Body temperature 98.2 [degF] [facility] 02-03-2023 14:25-0400 Body weight 88.45 kg [facility] 02-03-2023 14:25-0400 Diastolic blood pressure 70 mm[Hg] [facility] 02-03-2023 14:25-0400 Heart rate 71 /min [facility] 02-03-2023 14:25-0400 Respiratory rate 18 /min [facility] 02-03-2023 14:25-0400 SaO2% (BldA) [Mass fraction] 95 % [facility] 02-03-2023 14:25-0400 Systolic blood pressure 115 mm[Hg] [facility] 01-17-2023 15:25-0400 Body mass index (BMI) [Ratio] 37 kg/m2 [facility] 01-17-2023 15:25-0400 Body temperature 98.4 [degF] [facility] 01-17-2023 15:25-0400 Body weight 88.9 kg [facility] 01-17-2023 15:25-0400 Diastolic blood pressure 80 mm[Hg] [facility] 01-17-2023 15:25-0400 Heart rate 96 /min [facility] 01-17-2023 15:25-0400 Respiratory rate 18 /min [facility] 01-17-2023 15:25-0400 SaO2% (BldA) [Mass fraction] 94 % [facility] 01-17-2023 15:25-0400 Systolic blood pressure 139 mm[Hg] [facility] 11-27-2022 15:49-0400 Body mass index (BMI) [Ratio] 37 kg/m2 [facility] 11-27-2022 15:49-0400 Body temperature 98.7 [degF] [facility] 11-27-2022 15:49-0400 Body weight 88.9 kg [facility] 11-27-2022 15:49-0400 Diastolic blood pressure 60 mm[Hg] [facility] 11-27-2022 15:49-0400 Heart rate 79 /min [facility] 11-27-2022 15:49-0400 Respiratory rate 18 /min [facility] 11-27-2022 15:49-0400 SaO2% (BldA) [Mass fraction] 95 % [facility] 11-27-2022 15:49-0400 Systolic blood pressure 138 mm[Hg] [facility] 10-14-2022 17:50-0500 Body mass index (BMI) [Ratio] 36.8 kg/m2 [facility] 10-14-2022 17:50-0500 Body temperature 98.1 [degF] [facility] 10-14-2022 17:50-0500 Body weight 88.45 kg [facility] 10-14-2022 17:50-0500 Diastolic blood pressure 80 mm[Hg] [facility] 10-14-2022 17:50-0500 Heart rate 73 /min [facility] 10-14-2022 17:50-0500 Respiratory rate 18 /min [facility] 10-14-2022 17:50-0500 SaO2% (BldA) [Mass fraction] 96 % [facility] 10-14-2022 17:50-0500 Systolic blood pressure 138 mm[Hg] [facility] 01-09-2022 15:36-0400 Body height 154.94 cm [facility] Work Phone: 01-09-2022 15:36-0400 Body mass index (BMI) [Ratio] 35.5 kg/m2 [facility] Work Phone: 01-09-2022 15:36-0400 Body temperature 99.5 [degF] [facility] Work Phone: 01-09-2022 15:36-0400 Body weight 85.27 kg [facility] Work Phone: 01-09-2022 15:36-0400 Diastolic blood pressure 70 mm[Hg] [facility] Work Phone: 01-09-2022 15:36-0400 Heart rate 73 /min [facility] Work Phone: 01-09-2022 15:36-0400 Respiratory rate 18 /min [facility] Work Phone: 01-09-2022 15:36-0400 SaO2% (BldA) [Mass fraction] 95 % [facility] Work Phone: 01-09-2022 15:36-0400 Systolic blood pressure 120 mm[Hg] [facility] Work Phone: 10-25-2021 15:10-0400 Body height 154.94 cm [facility] Work Phone: 10-25-2021 15:10-0400 Body mass index (BMI) [Ratio] 35.3 kg/m2 [facility] Work Phone: 10-25-2021 15:10-0400 Body temperature 99 [degF] [facility] Work Phone: 10-25-2021 15:10-0400 Body weight 84.82 kg [facility] Work Phone: 10-25-2021 15:10-0400 Diastolic blood pressure 84 mm[Hg] [facility] Work Phone: 10-25-2021 15:10-0400 Heart rate 91 /min [facility] Work Phone: 10-25-2021 15:10-0400 Respiratory rate 18 /min [facility] Work Phone: 10-25-2021 15:10-0400 SaO2% (BldA) [Mass fraction] 93 % [facility] Work Phone: 10-25-2021 15:10-0400 Systolic blood pressure 130 mm[Hg] [facility] Work Phone: 10-02-2021 18:44-0500 Body mass index (BMI) [Ratio] 36.4 kg/m2 [facility] Work Phone: 10-02-2021 18:44-0500 Body temperature 98.1 [degF] [facility] Work Phone: 10-02-2021 18:44-0500 Body weight 87.54 kg [facility] Work Phone: 10-02-2021 18:44-0500 Diastolic blood pressure 70 mm[Hg] [facility] Work Phone: 10-02-2021 18:44-0500 Heart rate 84 /min [facility] Work Phone: 10-02-2021 18:44-0500 Respiratory rate 18 /min [facility] Work Phone: 10-02-2021 18:44-0500 SaO2% (BldA) [Mass fraction] 95 % [facility] Work Phone: 10-02-2021 18:44-0500 Systolic blood pressure 122 mm[Hg] [facility] Work Phone: 09-10-2021 14:52-0500 Body mass index (BMI) [Ratio] 36.4 kg/m2 [facility] Work Phone: 09-10-2021 14:52-0500 Body temperature 97.7 [degF] [facility] Work Phone: 09-10-2021 14:52-0500 Body weight 87.54 kg [facility] Work Phone: 09-10-2021 14:52-0500 Diastolic blood pressure 80 mm[Hg] [facility] Work Phone: 09-10-2021 14:52-0500 Heart rate 102 /min [facility] Work Phone: 09-10-2021 14:52-0500 Respiratory rate 18 /min [facility] Work Phone: 09-10-2021 14:52-0500 SaO2% (BldA) [Mass fraction] 94 % [facility] Work Phone: 09-10-2021 14:52-0500 Systolic blood pressure 130 mm[Hg] [facility] Work Phone: NEGATED: Highlighted [id number] 14:45-0400 BMI (Body Mass Index) 35.08 kg/m2 Renetta Grant [facility] Work Phone: NEGATED: Highlighted [id number] 14:45-0400 Body weight 83.92 kg Renetta Grant [facility] Work Phone: NEGATED: Highlighted [id number] 14:45-0400 Body weight 84 kg Renetta Grant [facility] Work Phone: NEGATED: Highlighted [id number] 14:45-0400 BP Diastolic 74 mm[Hg] [facility] Work Phone: NEGATED: Highlighted [id number] 14:45-0400 BP Systolic 118 mm[Hg] [facility] Grant [facility] Work Phone: NEGATED: Highlighted [id number] 14:45-0400 Heart rate 2+ Renetta Grant [facility] Work Phone: NEGATED: Highlighted [id number] 14:45-0400 Height 154.94 cm Renetta Grant [facility] Work Phone: NEGATED: Highlighted [id number] 14:45-0400 Height 155 cm Renetta Burns [facility] Work Phone: NEGATED: Carlyle [id number] 14:45-0400 Pulse (Heart Rate) 76 /min Renetta Burns [facility] Work Phone: Encounters Encounter Date Encounter Type Care Provider Facility Start: 05-06-2025 End: 05-06-2025 ambulatory Brooklynn Kline ANALYTICAL RESEARCH CHEMIST-C Work Phone: -Laboratory Specimen Start: 05-06-2025 End: 05-06-2025 Patient encounter procedure Brooklynn Kline ANALYTICAL RESEARCH CHEMIST-C -Laboratory Specimen Work Phone: Start: 05-06-2025 End: 05-06-2025 ambulatory Brooklynn Kline ANALYTICAL RESEARCH CHEMIST Facility:[facility] Start: 02-28-2025 End: 02-28-2025 ambulatory BROOKLYNN KLINE Facility:[facility] Start: 02-07-2025 End: 02-07-2025 ambulatory Brooklynn Kline ANALYTICAL RESEARCH CHEMIST-C Work Phone: -Laboratory Specimen Start: 02-07-2025 End: 02-07-2025 Patient encounter procedure Brooklynn Kline ANALYTICAL RESEARCH CHEMIST-C -Laboratory Specimen Work Phone: Start: 02-07-2025 End: 02-07-2025 ambulatory Brooklynn Kline ANALYTICAL RESEARCH CHEMIST Facility:[facility] Start: 01-18-2025 End: 01-18-2025 ambulatory BROOKLYNN KLINE Facility:[facility] Start: 01-17-2025 End: 01-17-2025 ambulatory BROOKLYNN KLINE Facility:[facility] Start: 10-20-2024 End: 10-20-2024 ambulatory Brooklynn Kline ANALYTICAL RESEARCH CHEMIST-C Work Phone: [facility] Work Phone: Start: 10-20-2024 End: 10-20-2024 Patient encounter procedure Brooklynn Kline ANALYTICAL RESEARCH CHEMIST-C -Laboratory, Specimen Work Phone: Start: 10-20-2024 End: 10-20-2024 ambulatory Brooklynn Kline ANALYTICAL RESEARCH CHEMIST Facility:[facility] Start: 07-27-2024 End: 07-27-2024 Patient encounter procedure Brooklynn Kline ANALYTICAL RESEARCH CHEMIST-C -Laboratory, Specimen Work Phone: Start: 07-27-2024 End: 07-27-2024 ambulatory Brooklynn Kline ANALYTICAL RESEARCH CHEMIST Facility:[facility] Start: 06-22-2024 ambulatory BROOKLYNN KLINE Facil ity:[facility] Start: 06-22-2024 End: 06-22-2024 Subsequent hospital visit by physician Xr [facility] Radiology Comment on above: Calculus of kidney [ N20.0] Start: 08-27-2023 End: 08-27-2023 ambulatory [facility] Work Phone: Start: 08-27-2023 End: 08-27-2023 Patient encounter procedure [facility], Specimen Work Phone: Start: 06-11-2023 End: 06-11-2023 ambulatory [facility] Work Phone: Start: 06-11-2023 End: 06-11-2023 Patient encounter procedure [facility], Specimen Work Phone: Start: 04-30-2023 End: 04-30-2023 ambulatory [facility] Work Phone: Start: 04-30-2023 End: 04-30-2023 Patient encounter procedure [facility], Specimen Work Phone: Start: 04-10-2023 Office outpatient vi sit 15 minutes Brooklynn Kline Work Phone: HG-Jqbqmte-Zaixzbcm [place] [id number] Work Phone: Start: 04-10-2023 Patient encounter procedure Brooklynn Kline Work Phone: GE-Dswfzwm-[place] [id number] Work Phone: Start: 04-10-[address] Kameron Mcknight Facility:[id number] Start: 03-23-2023 Chart Update Brooklynn bacon Work Phone: NE-Fkjzbhb-Uxzgtbqo [place] [id number] Work Phone: Start: 03-13-2023 ambulatory Ms. Brooklynn Powell acility:[id number] Start: 03-13-2023 Patient encounter procedure Brooklynn L Jose Work Phone: [place] [id number] Work Phone: Start: 03-13-[address] Kameron Mcknight Facility:[id number] Start: 03-10-[address] Kameron Mcknight Facility:[id number] Start: 03-07-2023 End: 03-07-2023 ambulatory BROOKLYNN KLINE Facility:[facility] Start: 03-06-2023 End: 03-06-2023 ambulatory Jerman Flores PT Work Phone: [facility] Comment on above: S/P total knee arthr oplasty, left (Primary Dx); Knee stiffness, left; Difficulty walking; Abnormality of gait Start: 03-06-[address] Kameron Mcknight Facility:[id number] Start: 03-06-2023 Office consultation new/estab patient 60 min Brooklynn Burgess Jose Work Phone: [place] [id number] Work Phone: Start: 03-06-2023 Patient encounter procedure Brooklynn Burgess Kline Work Phone: UK-Arxwjbb-Dfmifjnr [place] [id number] Work Phone: Start: 03-04-2023 End: 03-04-2023 ambulatory [facility] Work Phone: Start: 03-04-2023 End: 03-04-2023 Patient encounter procedure [facility], Specimen Work Phone: Start: 02-27-2023 End: 02-27-2023 ambulatory BROOKLYNN KLINE Facility:[facility] Start: 02-27-2023 End: 02-27-2023 ambulatory Jerman Flores PT Work Phone: [facility] Comment on above: S/P total knee arthr oplasty, left (Primary Dx); Knee stiffness, left; Difficulty walking Start: 02-20-2023 End: 02-20-2023 ambulatory Jerman Flores PT Work Phone: [facility] Comment on above: S/P total knee arthr oplasty, left (Primary Dx); Knee stiffness, left; Abnormality of gait Start: 02-18-2023 End: 02-18-2023 ambulatory BROOKLYNN KLINE Facility:[facility] Start: 02-18-2023 End: 02-18-2023 ambulatory Jerman Flores PT Work Phone: [facility] Comment on above: S/P total knee arthr oplasty, left (Primary Dx); Knee stiffness, left; Abnormality of gait Start: 02-13-2023 End: 02-13-2023 ambulatory BROOKLYNN KLINE Facility:[facility] Start: 02-13-2023 End: 02-13-2023 ambulatory Jerman Flores PT Work Phone: [facility] Comment on above: S/P total knee arthr oplasty, left (Primary Dx); Knee stiffness, left; Abnormality of gait Start: 02-06-2023 End: 02-07-2023 ambulatory BROOKLYNN KLINE Facility:[facility] Start: 02-06-2023 End: 02-06-2023 ambulatory Jerman Flores PT Work Phone: [facility] Comment on above: S/P total knee arthr oplasty, left (Primary Dx); Knee stiffness, left; Difficulty walking; Abnormality of gait Start: 02-03-2023 End: 02-03-2023 ambulatory [facility] Work Phone: Start: 02-03-2023 End: 02-03-2023 Patient encounter procedure [facility], Specimen Work Phone: Start: 02-03-2023 End: 02-03-2023 ambulatory BROOKLYNN KLINE Facility:[facility] Start: 02-03-2023 End: 02-03-2023 ambulatory Jerman Flores PT Work Phone: [facility] Comment on above: S/P total knee arthr oplasty, left (Primary Dx); Knee stiffness, left Start: 01-30-2023 End: 01-30-2023 ambulatory BROOKLYNN KLINE Facility:[facility] Start: 01-30-2023 End: 01-30-2023 ambulatory Jerman Flores PT Work Phone: [facility] Comment on above: S/P total knee arthr oplasty, left (Primary Dx); Difficulty walking; Knee stiffness, left; Knee stiffness, right Start: 09-18-2022 End: 09-19-2022 ambulatory GATITO Omar TAD Facility:[facility] Start: 03-13-2022 End: 03-13-2022 Subsequent hospital visit by physician Screen/Diagnostic Mammo [facility] Work Phone: Mammography Comment on above: Encounter for screen ing mammogram for malignant neoplasm of breast [Z12.31] Start: 02-05-2022 End: 02-05-2022 Patient encounter procedure [facility] Start: 11-22-2021 End: 11-22-2021 Admission to same day surgery center Jerman Flores PT Work Phone: [facility] Comment on above: Aftercare following right knee joint replacement surgery (Primary Dx); Joint stiffness of knee, right Start: 11-22-2021 End: 11-22-2021 ambulatory Jerman Flores PT Work Phone: [facility] Start: 11-20-2021 End: 11-20-2021 Admission to same day surgery center Jerman Flores PT Work Phone: [facility] Comment on above: Aftercare following right knee joint replacement surgery (Primary Dx); Joint stiffness of knee, right Start: 11-20-2021 End: 11-20-2021 ambulatory Jerman Flores PT Work Phone: [facility] Start: 11-15-2021 End: 11-15-2021 Admission to same day surgery center Jerman Flores PT Work Phone: [facility] Comment on above: Aftercare following right knee joint replacement surgery (Primary Dx); Joint stiffness of knee, right; Difficulty walking Start: 11-15-2021 End: 11-15-2021 ambulatory Jerman Flores PT Work Phone: [facility] Start: 11-13-2021 End: 11-13-2021 Admission to same day surgery center Jerman Flores PT Work Phone: [facility] Comment on above: Aftercare following right knee joint replacement surgery (Primary Dx); Joint stiffness of knee, right; Difficulty walking Start: 11-13-2021 End: 11-13-2021 ambulatory Jerman Flores PT Work Phone: [facility] Start: 11-08-2021 End: 11-08-2021 Admission to same day surgery center Natalie Gallagher PT Work Phone: [facility] Comment on above: Primary osteoarthrit is of right knee; Aftercare following right knee joint replacement surgery; Difficulty walking; Joint stiffness of knee, right Start: 11-08-2021 End: 11-08-2021 ambulatory Natalie Gallagher PT Work Phone: [facility] Start: 11-06-2021 End: 11-06-2021 Admission to same day surgery center Natalie Stefano PT Work Phone: [facility] Comment on above: Difficulty walking ( Primary Dx); Primary osteoarthritis of right knee; Aftercare following right knee joint replacement surgery; Joint stiffness of knee, right Start: 11-06-2021 End: 11-06-2021 ambulatory Natalie Banmegank PT Work Phone: [phone] [address] Start: 10-25-2021 End: 10-25-2021 Patient encounter procedure [facility], Specimen Start: 09-10-2021 End: 09-10-2021 Patient encounter procedure [facility] Specimen Start: 01-08-2019 End: 01-08-2019 Patient encounter procedure Ginger Ferrer NETWORK SUPPORT MANAGER-TRUCK SPOTTER Work Phone: [facility] Work Phone: Start: 12-03-2018 Physical examination [facility] Start: 07-31-2018 Patient encounter procedure Etta Trevino OG-Hjgikps-Glbzfnxb [place] [id number] Work Phone: Start: 05-01-2018 Patient encounter procedure Etta PERALTA[facility] [id number] Work Phone: Start: 08-01-2017 Ambulatory Kameron Mcknight Facility :[facility] Start: 07-25-2017 Ambulatory PCP No [facility] Start: 03-27-2017 Ambulatory Scout Orasanu [facility] Start: 03-20-2017 Ambulatory Scout Orasanu [facility] Procedures Date Procedure Procedure Detail Performing Clinician Start: 05-06-2025 Urine culture Brooklynn Rich ardson ANALYTICAL RESEARCH CHEMIST-C Work Phone: Start: 02-07-2025 Urine culture Brooklynn Rich ardson ANALYTICAL RESEARCH CHEMIST-C Work Phone: Start: 10-20-2024 Urine culture Brooklynn Rich ardson ANALYTICAL RESEARCH CHEMIST-C Work Phone: Start: 06-22-2024 Radiologic exam abdo men 1 view Brooklynn Kline NETWORK SUPPORT MANAGER.TRUCK SPOTTER Work Phone: Start: 08-27-2023 Urine culture Start: 06-11-2023 Urine culture Start: 03-04-2023 Urine culture Start: 02-03-2023 Urine culture Start: 09-19-2022 Lipid 1996 panel - S jyoti or Plasma Xr Hosp Start: 03-13-2022 JUSTIN SCREENING W LAURA Sterling MD Work Phone: Start: 03-13-2022 Mammography Screen[facility] Work Phone: Start: 10-25-2021 Urine culture Start: 01-08-2019 End: 01-08-2019 Blood pressure within normal parameters - no follow-up required Ginger Ferrer APRN-TRUCK SPOTTER Work Phone: Start: 01-08-2019 End: 01-08-2019 BMI documented as above normal parameters - follow-up documented Ginger Ferrer NETWORK SUPPORT MANAGER-TRUCK SPOTTER Work Phone: Start: 01-08-2019 End: 01-08-2019 Documentation of current medications Ginger Ferrer NETWORK SUPPORT MANAGER-TRUCK SPOTTER Work Phone: Start: 01-08-2019 End: 01-08-2019 Pain assessment documented as positive - follow-up documented Ginger Solanotley NETWORK SUPPORT MANAGER-TRUCK SPOTTER Work Phone: Start: 01-08-2019 End: 01-08-2019 Tobacco non-user Ginger Ferrer NETWORK SUPPORT MANAGER-TRUCK SPOTTER Work Phone: Start: 09-14-2018 Mammography Natalie donis PT Work Phone: section Etta lim History of Biopsy Br east Open Etta Trevino History of Knee Surgery Arely Trevino History of Mid-Ureth ral Sling Operation Etta Trevino Urine culture NEGATED: Highlighted rowStart: 01-08-2019 End: 01-08-2019 Documentation of current medications Renetta Parker Plan of Treatment Date Care Activity Detail Author Start: 2030 RSV Vaccine (1 - 1-dose 75+ series) RSV Vaccine (1 - 1-dose 75+ series) [facility] Start: 09-19-2027 Lipid panel Lipid Screening [facility] Start: 09-19-2027 LIPID SCREEN LIPID SCREEN [facility] Start: 09-18-2025 DIABETES SCREEN DIABETES SCREEN [facility] Start: 09-18-2025 Diabetes Screening Diabetes Screening [facility] Start: 09-26-2024 DIABETES SCREEN DIABETES SCREEN [facility] Start: 04-11-2024 Covid-19 Vaccine ( season) Covid-19 Vaccine ( season) [facility] Start: 04-11-2024 Influenza vaccination Influenza Vaccine (#1) [facility] Start: 08-11-2023 Advance Directive Discussion Advance Directive Discussion [facility] Start: 04-11-2023 Influenza vaccination [facility] Start: 08-31-2023 VIRFUVHOME, Provider: Kameron Mcknight, Status: Pen, Time: 3:00 PM VIRFUVHOME, Provider: Kameron Mcknight, Status: Pen, Time: 3:00 PM TG-Vcsounc-Hwkfxtft [place] [id number] Work Phone: Start: 03-13-2023 Mammography MAMMOGRAM [facility] Start: 03-13-2023 Screening for malignant neoplasm of breast Mammogram Screening [facility] Start: 03-13-2023 CYSTOSCOPY, Provider: Kameron Mcknight, Status: Pen, Time: 11:00 AM CYSTOSCOPY, Provider: Kameron Mcknight, Status: Pen, Time: 11:00 AM ZS-Hjanuly-Boaetypr [place] [id number] Work Phone: Start: 08-11-2022 ADVANCE DIRECTIVE DISCUSSION ADVANCE DIRECTIVE DISCUSSION [facility] Start: 08-11-2022 DEPRESSION ASSESSMENT DEPRESSION ASSESSMENT [facility] Start: 04-11-2022 Influenza vaccination [facility] Start: 08-11-2021 ADVANCE DIRECTIVE DISCUSSION ADVANCE DIRECTIVE DISCUSSION [facility] Start: 04-11-2021 Influenza vaccination INFLUENZA (#1) [facility] Start: 11-01-2020 LIPID SCREEN LIPID SCREEN [facility] Start: 2020 BONE DENSITY BONE DENSITY [facility] Start: 2020 Pneumococcal Vaccine: 65+ (1 of 1 - PCV) Pneumococcal Vaccine: 65+ (1 of 1 - PCV) [facility] Start: 2020 PNEUMOCOCCAL: 65+ (1 - PCV) PNEUMOCOCCAL: 65+ (1 - PCV) [facility] Start: 2020 PNEUMOVAX AGE 65 AND OVER WITH 5YR LOOKBACK (#1) PNEUMOVAX AGE 65 AND OVER WITH 5YR LOOKBACK (#1) [facility] Start: 2020 Screening for osteoporosis Bone Density Screening [facility] Start: 09-14-2019 Mammography MAMMOGRAM [facility] Start: 01-08-2019 End: 01-08-[address] [facility] Work Phone: Start: 2005 SHINGRIX VACCINE (1 of 2) SHINGRIX VACCINE (1 of 2) [facility] Start: 01-07-2001 Urine microalbumin profile DTaP,Tdap,Td Vaccine (1 - Tdap) [facility] Start: 2000 COLOGUARD (FIT-DNA) COLOGUARD (FIT-DNA) [facility] Start: 2000 Colonoscopy COLONOSCOPY [facility] Start: 2000 COLORECTAL CANCER SCREENING COLORECTAL CANCER SCREENING [facility] Start: [address] COLONOGRAPHY [facility] Start: 2000 FECAL OCCULT BLOOD FECAL OCCULT BLOOD [facility] Start: 2000 Screening for malignant neoplasm of colon [facility] Start: 2000 SIGMOIDOSCOPY SIGMOIDOSCOPY [facility] Start: 1974 Urine microalbumin profile DTAP,TDAP,TD (1 - Tdap) [facility] Start: 1973 ANNUAL PCP TEAM CHRONIC DISEASE VISIT ANNUAL PCP TEAM CHRONIC DISEASE VISIT [facility] Start: 1973 Anxiety Screening Anxiety Screening [facility] Start: 1973 BP CONTROLLED (<130/80) BP CONTROLLED (<130/80) [facility] Start: 1973 Depression Screening Depression Screening [facility] Start: 1973 HEPATITIS C SCREENING HEPATITIS C SCREENING [facility] Start: 1973 Hepatitis C screening Hepatitis C Screening [facility] Start: 1967 Adult depression screening assessment DEPRESSION SCREENING [facility] Start: 1960 COVID-19 VACCINE (1) COVID-19 VACCINE (1) [facility] Start: 02-24-1956 COVID-19 VACCINE (#1) COVID-19 VACCINE (#1) [facility] Ramsay Reyes test [facility] Immunizations Immunization Date Immunization Notes Care Provider Fa cility 01-06-2001 TD(adult) unspecifie d formulation Brooklynn Kline Work Phone: YV-Symkuxr-Gsbrlwi e [place] [id number] Work Phone: Payers Date Payer Category Payer Self-pay [id number] 2022 Private Health Insurance [id number] 2022 Unknown [id number] 2020 Medicare [id number] 2020 Medicare [id number] 2019 Unknown MMO MMO [employer] [id number] 2019-Present [phone] [address] [place] [address] PPO [id number] 1955 Unknown [id number] 069 1955 Unknown [id number] 069 1955 Unknown [id number] 56 1955 Unknown [id number] 56 1955 Unknown [id number] [id number] 56 1955 Unknown [id number] 59 1955 Unknown [id number] [id number] 59 1955 Unknown [id number] [id number] 59 1955 Unknown [id number] [id number] 59 Unknown [id number] Unknown Unknown [id number] 62 Unknown [id number] [id number] 62 Unknown [id number] 62 Unknown [id number] 62 Social History Date Type Detail Facility Assertion Tobacco smoking consumption unknown (finding) [facility] [id number] Work Phone: Start: 12-13-2019 End: 12-13-2019 Assertion Unknown if ever smoked [facility] Work Phone: Start: 1955 Sex Assigned At Female [facility] Start: 07-02-2014 Tobacco smoking stat [facility] Never smoked tobacco [facility] Start: 10-20-2021 Alcohol intake Current non-dr photograph editor of alcohol (finding) [facility] Start: 1955 Sex Assigned At Not on file [facility] Start: 10-27-2021 End: 03-13-2022 Exposure to SARS-CoV-2 (event) Not sure [facility] Start: 10-20-2021 End: 01-30-2023 History of Social function [facility] Start: 10-20-2021 End: 01-30-2023 Tobacco use panel [facility] National Score (1-100), lower number is lower risk 52 [facility] Start: 10-27-2024 Sex Female (finding) [facility] Functional Status Date Assessment Result Facility NEGATED: Highlighted row Functional performance Functional status health issues are not documented Disease [facility] [address] Work Phone: Mental Status Date Assessment Result Facility NEGATED: Highlighted row Cognitive function [Interpretation] Cognitive status health issues are not documented Disease [facility] [address] Work Phone: Clinical Notes 12-17-2017 to 02-07-2025 Note Date & Type Note Facility 02-07-2025 Evaluation note Diagnosis Onset Date Resolution Cystitis acute February 07 6:10pm Lower back pain acute January 6:10pm Bronchitis acute April 6:10pm Leukocytosis acute May 062024 6:10pm Maxillary sinusitis, acute acute May 06, 2025 6:10pm [facility] Work Phone: 1(986) 715-168003-12-2025 Evaluation note* Diagnosis Onset Date Resolution Status Admit Date Cystitis acute October 20 4:16pm UTI (urinary tract infection) acute October 20, 2024 4:16pm UTI (urinary tract infection) acute October 25, 2024 2:22pm Fluttering heart acute December 3:19pm UTI (urinary tract infection) acute January 05, 2025 3:19pm Cystitis acute February 07 6:10pm Lower back pain acute January 6:10pm [facility] Work Phone: 1(274) 775-594812-17-2024 Evaluation note* Diagnosis Onset Date Resolution Status Admit Date GERD (gastroesophageal reflu x disease) acute July 27, 2 024 6:18pm Hyperlipidemia LDL goal <130 acute July 27, 2024 6:18pm Hypertension chronic July 6:18pm Dysuria acute August 27, 2024 4:29pm Lower back pain acute August 112024 4:29pm UTI (urinary tract infection) acute August 27, 2024 4:29pm Cystitis acute October 20 4:16pm UTI (urinary tract infection) acute October 20, 2024 4:16pm UTI (urinary tract infection) acute October 25, 2024 2:22pm [facility] Work Phone: 1(897) 235-904511-12-2024 History of Present illness Narrative* Adolph John V, RT(R) - 06/22/2024 12:45 PM EST Radiology Service Progress Note PATIENT NAME: Jered Bush DATE OF SERVICE: June 22, 2024 TIME: 1:44 PM PATIENT IDENTITY VERIFICATION COMPLETED USING TWO (2) IDENTIFIERS: Name and Date of confirmedby patient verbally. FALL SCREENING: Has the patient had 2 falls in the last year or 1 fall with injury or currently using an Ambulatory Assistive Device (Walker, Cane, Wheelchair, Crutches, etc.)? No PATIENT GENDER DATA: Female. status: : No status: NO. PATIENT RELEVANT IMPLANT DATA REVIEWED: Not Applicable PATIENT PRESENTS WITH AN IMPLANTABLE OR ATTACHED PRINT SHOP HELPER: No RADIOLOGY DEPARTMENT: General X-ray: Exam(s) Completed: Abdomen X-Ray: Abdomen Spine X-Ray(s): Lumbar AP / LAT / L5-S1 PERIPHERAL IV DATA: Not applicable SIGNED BY: RT Anu(Luis Felipe) June 22, 2024 1:44 PM [facility] NoteHNO ID: [id number] Author: ADOLPH JOHN RT(R) Service: Radiology Author Type: Technologist Type: Progress Notes Filed: 06/22/2024 13:45 Note Text: Radiology Service Progress Note PATIENT NAME: Jered Bush DATE OF SERVICE: June 22, 2024 [...] PATIENT PRESENTS WITH AN IMPLANTABLE OR ATTACHED PRINT SHOP HELPER: No RADIOLOGY DEPARTMENT: General X-ray: Exam(s) Completed: Abdomen X-Ray: Abdomen Spine X-Ray(s): Lumbar AP / LAT / L5-S1 PERIPHERAL IV DATA: Not applicable SIGNED BY: RT Anu(R) June 22, 2024 1:44 PMCherrington [id number] NoteHNO ID: [id number] Author: Jerman Flores, PT Service: ? Author Type: Physical Therapist Type: Progress Notes Filed: 07/14/2023 2:02 PM Note Text: 07/14/2023 [facility] REHABILITATION [facility] SPORTS THERAPY PHYSICAL THERAPY [...] of Care: created on 01/30/23 through 03/31/23 [place] [facility] home exercise program. Patient will increase [...] to therapy or scheduled additional follow-up appointments. Jerman Flores [facility]07-27-2023 NoteHNO ID: [id number] Author: Jerman Flores PT Service: ? Author Type: Physical Therapist Type: Progress Notes Filed: 03/06/2023 6:00 PM Note Text: Episode Visit Count: 8 Therapist That Will Accept/Oversee The Plan Of Care: Italo Flores Start of Care Date: 01/30/23 Onset Date: 11/09/22 Plan of Care Certification Date: 01/30/23 Next Certification Due Date: 03/31/23 REHABILITATION AND SPORTS THERAPY PHYSICAL THERAPY TREATMENT NOTE ASSESSMENT: Jered Bush tolerated the session with decreased activity [...] : 1630 Session Stop Time : 1720 Jerman Flores [facility]07-27-2023 History of Present illness Narrative* Jerman Flores, PT - 03/06/2023 5:47 PM EDT Episode Visit Count: 8 Therapist That Will Accept/Oversee The Plan Of Care: Italo Flores Start of Care Date: 01/30/23 Onset Date: 11/09/22 Plan of Care Certification Date: 01/30/23 Next Certification Due Date: 03/31/23 REHABILITATION AND SPORTS THERAPY PHYSICAL THERAPY TREATMENT NOTE ASSESSMENT: Jered Bush tolerated the session with decreased activity [...] she's having more pain in the front ofthe knee. Pt reports issues with recurrent UTIs. [...] scheduled for additional testing on Friday (bladder scansetc). Pt currently has next f/u with surgeon [...] General Deviations/Observations: Antalgic gait, Mary Ellen decreased, Non- functional gait speed Gait Observation: moderate antalgia d/t [...] UTI, AB & steroid as well as recentincreased knee pain 8: recommended ice massage to [...] Nu-step to review current status, monitor effort throughoutactivity and adjust set up as needed for maximum therapeutic benefit. Gait Trainin: gait activities without AD with VCs 2: gait with SPC on R: no change in knee pain but improved gait noted with less limp/antalgia, advised use of SPC for improved gait (pt seems resistant to using cane) Skilled Intervention: Patient was provided supervision, independence during pre- gait/gait training to prevent falls and insure safety. [...] : 1630 Session Stop Time : 1720 Jerman Flores PT [facility]23 NoteHNO ID: [id number] Author: Jerman Flores PT Service: ? Author Type: Physical Therapist Type: Progress Notes Filed: 02/27/2023 12:47 PM Note Text: Episode Visit Count: 7 Therapist That Will Accept/Oversee The Plan Of Care: Italo Flores Start of Care Date: 01/30/23 Onset Date: 11/09/22 Plan of Care Certification Date: 01/30/23 Next Certification Due Date: 03/31/23 Rehab Precautions: TKR Current Surgical Procedure : L TKA Current Surgical Procedure Date: 01/27/23 Mechanism of Injury: Disease Process REHABILITATION AND SPORTS THERAPY PHYSICAL THERAPY PROGRESS REPORT PLAN OF CARE UPDATE: Assessment: Jered Bush demonstrates improvements in walking, stair negotiation, [...] of Care: created on 01/30/23 through 03/31/23 [place] in home exercise program. Patient will increase [...] Patient to be seen for Therapeutic exercise (23449), Neuromuscular re-education (57829), Manual therapy (85316), Therapeutic activities (26205), Gait Training (71188), Functional training, Body Mechanics Training, Patient/Family/Caregiver Education [...] Sit to Stand Test (more content not included)...[facility]07-20-2023 History of Present illness Narrative* Jerman Flores, PT - 02/27/2023 12:04 PM EDT Episode Visit Count: 7 Therapist That Will Accept/Oversee The Plan Of Care: Italo Flores Start of Care Date: 01/30/23 Onset Date: 11/09/22 Plan of Care Certification Date: 01/30/23 Next Certification Due Date: 03/31/23 Rehab Precautions: TKR Current Surgical Procedure : L TKA Current Surgical Procedure Date: 01/27/23 Mechanism of Injury: Disease Process REHABILITATION AND SPORTS THERAPY PHYSICAL THERAPY PROGRESS REPORT PLAN OF CARE UPDATE: Assessment: Jered Bush demonstrates improvements in walking, stair negotiation, [...] of Care: created on 01/30/23 through 03/31/23 [place] in home exercise program. Patient will increase [...] Patient to be seen for Therapeutic exercise (75395), Neuromuscular re-education (06476), Manual therapy (65032), Therapeutic activities (97299), Gait Training (20376), Functional training, Body Mechanics Training, Patient/Family/Caregiver Education PLAN FOR NEXT VISIT: monitor recent increase in knee pain, progress L knee ROM, strength & gaitas tolerated SUBJECTIVE: Patient Reason for Visit: reports [...] to Stand Test : 16 sec (from 17" chair without UE spt, with increased L [...] Nu-step to review current status, monitor effort throughoutactivity and adjust set up as needed for [...] : 744 Session Stop Time : 839 Jerman Flores PT documented in this encounterSal[facility]07-13-2023 NoteHNO ID: [id number] Author: Jerman Flores PT Service: ? Author Type: Physical Therapist Type: Progress Notes Filed: 02/20/2023 11:54 AM Note Text: Episode Visit Count: 6 Therapist That Will Accept/Oversee The Plan Of Care: Italo Flores Start of Care Date: 01/30/23 Onset Date: 11/09/22 Plan of Care Certification Date: 01/30/23 Next Certification Due Date: 03/31/23 REHABILITATION AND SPORTS THERAPY PHYSICAL THERAPY TREATMENT NOTE ASSESSMENT: Jered Bush tolerated the session with no issues. [...] L4x10' seat 6- 2: shuttle leg press 7qusveJs2', SL 5ftqsgT5m, 3bandsL 10x 3: shuttle heel raises 2hbpdrP17s 4: B calf stretch on slant board x1' 5: standing hip ABd AND ext with orange TB 10-15xeaL/R with light UE spt 6: *s/l hip Abd 2.5# 20xeaR/L (increased difficulty L vs R) 7: *s/l hip ABd with orange TB 10xL 8: standing 6" step-taps 5xR/L 9: 6" step-ups 5xR/L with/without UE spt 10: supine [...] 5 Total Treatment Time Minutes (timed/untimed): 55 Jerman Debora [facility]07-13-2023 History of Present illness Narrative* Jerman Flores, PT - 02/20/2023 11:52 AM EDT Episode Visit Count: 6 Therapist That Will Accept/Oversee The Plan Of Care: Italo Flores Start of Care Date: 01/30/23 Onset Date: 11/09/22 Plan of Care Certification Date: 01/30/23 Next Certification Due Date: 03/31/23 REHABILITATION AND SPORTS THERAPY PHYSICAL THERAPY TREATMENT NOTE ASSESSMENT: Jered Bush tolerated the session with no issues. [...] L4x10' seat 6- 2: shuttle leg press 0ycjrhOw5', SL 9mwefeT9a, 3bandsL 10x 3: shuttle heel raises 7eauwhT11x 4: B calf stretch on slant board x1' 5: standing hip ABd & ext with orange TB 10-15xeaL/R with light UE spt 6: *s/l hip Abd 2.5# 20xeaR/L (increased difficulty L vs R) 7: *s/l hip ABd with orange TB 10xL 8: standing 6" step-taps 5xR/L 9: 6" step-ups 5xR/L with/without UE spt 10: supine [...] Intervention: Patient was provided supervision, independence during pre- gait/gait training to prevent falls and insure safety. Facilitated proper gait cycle with the use of verbal and visual cues for correction of gait deviations identified in the objective section above. Billing Therapeutic Exercise Treatment Minutes: 50 Gait Training Treatment Minutes: 5 Total Treatment Time Minutes (timed/untimed): 55 Jerman Flores PT documented in this encounterSalem [facility]07-11-2023 NoteHNO ID: [id number] Author: Jerman Flores PT Service: ? Author Type: Physical Therapist Type: Progress Notes Filed: 02/20/2023 12:00 PM Note Text: Episode Visit Count: 5 Therapist That Will Accept/Oversee The Plan Of Care: Italo Flores Start of Care Date: 01/30/23 Onset Date: 11/09/22 Plan of Care Certification Date: 01/30/23 Next Certification Due Date: 03/31/23 REHABILITATION AND SPORTS THERAPY PHYSICAL THERAPY TREATMENT NOTE ASSESSMENT: Jered Bush tolerated the session with increased knee [...] knee stiffness today. had f/u with ortho [employer] yesterday, she was pleased with her progress. [...] d/t pt height/comfort) 2: shuttle leg press 8aosebUo8', 5jngzpDz2', SL 6bandsR, 3bandsL/Rx1' 3: seated/supine ankle DF 4: B calf stretch on slant board x1' 5: 6" step-taps 5xL 6: supine heel slides AROM [...] length AND heel strike 2: stepping over 4" balls 4xR, 4x3L 3: advised use of [...] 10 Total Treatment Time Minutes (timed/untimed): 40 [facility] of Present illness Narrative* Jerman Flores, PT - 02/18/2023 11:59 AM EDT Episode Visit Count: 5 Therapist That Will Accept/Oversee The Plan Of Care: Italo Flores Start of Care Date: 01/30/23 Onset Date: 11/09/22 Plan of Care Certification Date: 01/30/23 Next Certification Due Date: 03/31/23 REHABILITATION AND SPORTS THERAPY PHYSICAL THERAPY TREATMENT NOTE ASSESSMENT: Jered Bush tolerated the session with increased knee [...] knee stiffness today. had f/u with ortho [employer] yesterday, she was pleased with her progress. [...] d/t pt height/comfort) 2: shuttle leg press 8gneqjJz3', 2snwynCf6', SL 6bandsR, 3bandsL/Rx1' 3: seated/supine ankle DF 4: B calf stretch on slant board x1' 5: 6" step-taps 5xL 6: supine heel slides AROM [...] Nu-step to review current status, monitor effort throughoutactivity and adjust set up as needed for maximum therapeutic benefit. Manual Therapy: 1: patella mobilization 2: retrograde massage L LE with elevation Skilled Intervention: Manual skills to improve joint mobility, ROM, and decrease pain. Utilized anatomy knowledge of the therapist, and assessment of patient's response to intervention. Gait Trainin: gait activities with VCs for step length & heel strike 2: stepping over 4" balls 4xR, 4x3L 3: advised use of cane prn to imrove gait & reduce knee stiffness - pt doesn't think cane makesa difference Skilled Intervention: Patient was provided supervision [...] 10 Total Treatment Time Minutes (timed/untimed): 40 Jerman Flores PT documented in this encounterSalem [facility]07-06-2023 NoteHNO ID: [id number] Author: Jerman Flores PT Service: ? Author Type: Physical Therapist Type: Progress Notes Filed: 02/20/2023 11:58 AM Note Text: Episode Visit Count: 4 Therapist That Will Accept/Oversee The Plan Of Care: Italo Flores Start of Care Date: 01/30/23 Onset Date: 11/09/22 Plan of Care Certification Date: 01/30/23 Next Certification Due Date: 03/31/23 REHABILITATION AND SPORTS THERAPY PHYSICAL THERAPY TREATMENT NOTE ASSESSMENT: Jered Bush tolerated the session with increased symptoms. [...] L3x12' seat 7-4 2: shuttle leg press 9wfnjpMt1', 7lzblxOm2', SL 6bandsR, 5mwpxvM67y 3: shuttle heel raises 9oceyqV03d 4: B calf stretch on slant board x1' 5: 6" step-taps 5xL 6: lunge stretch on 2nd [...] 5 Total Treatment Time Minutes (timed/untimed): 55 Jerman Flores [facility]07-06-2023 History of Present illness Narrative* Jeramn Flores, PT - 02/13/2023 9:40 AM EDT Episode Visit Count: 4 Therapist That Will Accept/Oversee The Plan Of Care: Italo Flores Start of Care Date: 01/30/23 Onset Date: 11/09/22 Plan of Care Certification Date: 01/30/23 Next Certification Due Date: 03/31/23 REHABILITATION AND SPORTS THERAPY PHYSICAL THERAPY TREATMENT NOTE ASSESSMENT: Jered Bush tolerated the session with increased symptoms. [...] L3x12' seat 7-4 2: shuttle leg press 7krdnmGv1', 1bzckyGw6', SL 6bandsR, 8yfuamZ52i 3: shuttle heel raises 9zxhexY22s 4: B calf stretch on slant board x1' 5: 6" step-taps 5xL 6: lunge stretch on 2nd [...] in regards to increase ease of ADL, increaselymphatic fluid dynamics, and ROM and function . Patient education as noted. PT in constant attendance during use of Nu-step to review current status, monitor effort throughoutactivity and adjust set up as needed for [...] 5 Total Treatment Time Minutes (timed/untimed): 55 Jerman Flores PT documented in this encounterSal[facility]06-29-2023 NoteHNO ID: [id number] Author: Jerman Flores PT Service: ? Author Type: Physical Therapist Type: Progress Notes Filed: 02/20/2023 11:57 AM Note Text: Episode Visit Count: 3 Therapist That Will Accept/Oversee The Plan Of Care: Italo Flores Start of Care Date: 01/30/23 Onset Date: 11/09/22 Plan of Care Certification Date: 01/30/23 Next Certification Due Date: 03/31/23 REHABILITATION AND SPORTS THERAPY PHYSICAL THERAPY TREATMENT NOTE ASSESSMENT: Jered Bush tolerated the session with expected muscle [...] upper medial AND posterior thigh L Incision: NICOLETTE AND healing well LE AROM L Knee [...] standing calf stretch 6: shuttle leg press 8qxyyxO02l, SL 3bandsL 10x 7: supine heel slides AROM 8: supine HS stretch, with APs 10x 9: 6" step-tap 5xL 10: 6" step-up 4xL Skilled Intervention: Patient was educated [...] 5 Total Treatment Time Minutes (timed/untimed): 45 Jerman Flores [facility]06-29-2023 History of Present illness Narrative* Jerman Flores, PT - 02/06/2023 5:39 PM EDT Episode Visit Count: 3 Therapist That Will Accept/Oversee The Plan Of Care: Italo Flores Start of Care Date: 01/30/23 Onset Date: 11/09/22 Plan of Care Certification Date: 01/30/23 Next Certification Due Date: 03/31/23 REHABILITATION AND SPORTS THERAPY PHYSICAL THERAPY TREATMENT NOTE ASSESSMENT: Jered Bush tolerated the session with expected muscle soreness. She demonstrated improvements in ROM, gait and activity tolerance. She is doing very well 10 days s/p L TKA. The patientwill continue to benefit from ongoing skilled physical [...] upper medial & posterior thigh L Incision: COURT [employer] & healing well LE AROM L Hip [...] standing calf stretch 6: shuttle leg press 8qmrcyL39w, SL 3bandsL 10x 7: supine heel slides AROM 8: supine HS stretch, with APs 10x 9: 6" step-tap 5xL 10: 6" step-up 4xL Skilled Intervention: Patient was educated [...] Nu-step to review current status, monitor effort throughoutactivity and adjust set up as needed for maximum therapeutic benefit. Gait Training: Stair Trainin steps with 1 HR non-reciprocal (able to ascend with R or L LE) 1: gait activities with & without SPC. encouraged use of SPC prn if limping to prevent antalgia Skilled Intervention: Patient was provided supervision, independence during pre- gait/gait training to prevent falls and insure safety. [...] 5 Total Treatment Time Minutes (timed/untimed): 45 Jerman Flores PT documented in this encounterSalem [facility]06-26-2023 NoteHNO ID: [id number] Author: Jerman Flores PT Service: ? Author Type: Physical Therapist Type: Progress Notes Filed: 02/20/2023 11:56 AM Note Text: Episode Visit Count: 2 Therapist That Will Accept/Oversee The Plan Of Care: Italo Flores Start of Care Date: 01/30/23 Onset Date: 11/09/22 Plan of Care Certification Date: 01/30/23 Next Certification Due Date: 03/31/23 REHABILITATION AND SPORTS THERAPY PHYSICAL THERAPY TREATMENT NOTE ASSESSMENT: Jered Bush tolerated the session with no issues. [...] L4x10' seat 7-5 2: shuttle leg press 4zaeldYz3', SL 1wscjtH84c, 8vkmleJ39m/9vtcgjM70k 3: supine heel slides AROM 5x, AAROM [...] 5 Total Treatment Time Minutes (timed/untimed): 45 Jerman Flores [facility]06-26-2023 History of Present illness Narrative* Jerman Flores, PT - 02/03/2023 3:33 PM EDT Episode Visit Count: 2 Therapist That Will Accept/Oversee The Plan Of Care: Italo Flores Start of Care Date: 01/30/23 Onset Date: 11/09/22 Plan of Care Certification Date: 01/30/23 Next Certification Due Date: 03/31/23 REHABILITATION AND SPORTS THERAPY PHYSICAL THERAPY TREATMENT NOTE ASSESSMENT: Jered Bush tolerated the session with no issues. [...] L4x10' seat 7-5 2: shuttle leg press 1siohwDs3', SL 1lmxgdG93i, 5qstypY58i/6eaydgH18j 3: supine heel slides AROM 5x, AAROM [...] Nu-step to review current status, monitor effort throughoutactivity and adjust set up as needed for [...] 5 Total Treatment Time Minutes (timed/untimed): 45 Jerman Flores PT documented in this encounterSal[facility]06-22-2023 NoteHNO ID: [id number] Author: Jerman Flores PT Service: ? Author Type: Physical Therapist Type: Progress Notes Filed: 02/20/2023 11:55 AM Note Text: Episode Visit Count: 1 Therapist That Will Accept/Oversee The Plan Of Care: Italo Flores Start of Care Date: 01/30/23 Onset Date: 11/09/22 Plan of Care Certification Date: 01/30/23 Next Certification Due Date: 03/31/23 Patient Identified by Name and Date of : Yes Rehab Precautions: TKR Current Surgical Procedure : L TKA Current Surgical Procedure Date: 01/27/23 Mechanism of Injury: Disease Process REHABILITATION AND SPORTS THERAPY PHYSICAL THERAPY EVALUATION PLAN OF CARE: Assessment: Jered Bush presents with diagnosis of L TKA [...] of Care: created on 01/30/23 through 03/31/23 [place] in home exercise program. Patient will increase [...] Planned: 12 Planned Treatment Interventions: Therapeutic exercise (69774), Neuromuscular re-education (07522), Manual therapy (18547), Therapeutic activities (40530), Gait Training (59629), Functional training, Body Mechanics Training, Patient/Family/Caregiver Education PLAN FOR NEXT VISIT: progress L knee ROM, gait AND stair mobility - try stairs with 2 HRs (remove dsg at pt request per ) Patient demonstrates good understanding of plan of care and treatment. The above goals and plan of care were discussed and agreed upon by patient/family. SUBJECTIVE: Jered Bush is a 67 year old female seen today for PT eval for post-op rehab following TKA. pt reports minimal pain. taking tylenol AND Ibuprofen prn. had previous CSI prior to surgery with no relief. 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 Home Environment Patient Lives With: Spouse Intake [...] rankings indicate better fu (more content not included)...[facility]06-22-2023 History of Present illness Narrative* Jerman Flores, PT - 01/30/2023 12:17 PM EDT Episode Visit Count: 1 Therapist That Will Accept/Oversee The Plan Of Care: Italo Flores Start of Care Date: 01/30/23 Onset Date: 11/09/22 Plan of Care Certification Date: 01/30/23 Next Certification Due Date: 03/31/23 Patient Identified by Name and Date of : Yes Rehab Precautions: TKR Current Surgical Procedure : L TKA Current Surgical Procedure Date: 01/27/23 Mechanism of Injury: Disease Process REHABILITATION AND SPORTS THERAPY PHYSICAL THERAPY EVALUATION PLAN OF CARE: Assessment: Jered Bush presents with diagnosis of L TKA [...] of Care: created on 01/30/23 through 03/31/23 [place] in home exercise program. Patient will increase [...] leisure / recreation skills, prior functional tasks, andwork tasks. Patient will Improve Timed Up and [...] Planned: 12 Planned Treatment Interventions: Therapeutic exercise (46211), Neuromuscular re- education (24294), Manual therapy (99064), Therapeutic activities (49844), Gait Training (55508), Functional training, Body Mechanics Training, Patient/Family/Caregiver Education PLAN FOR NEXT VISIT: progress L knee ROM, gait & stair mobility - try stairs with 2 HRs (removedsg at pt request per ) Patient demonstrates good understanding of plan of care and treatment. The above goals and plan of care were discussed and agreed upon by patient/family. SUBJECTIVE: Jered Bush is a 67 year old female seen today for PT eval for post-op rehab following TKA. pt reports minimal pain. taking tylenol & Ibuprofen prn. had previous CSI prior to surgery with no relief. 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 [...] 15 Total Treatment Time Minutes (timed/untimed): 50 Jerman Flores PT documented in this encounterSal[facility]08-[facility]-2022 History of Present illness Narrative* JOE Gutierrez - 03/13/2022 8:20 AM EDT Radiology Service Progress Note PATIENT NAME: Jered Bush DATE OF SERVICE: March 13, 2022 TIME: 8:50 AM PATIENT IDENTITY VERIFICATION COMPLETED USING TWO (2) IDENTIFIERS: Name and Date of confirmedby patient verbally. FALL SCREENING: Has the patient [...] 13, 2022 8:50 AM documented in this encounterSalem [facility]06-20-2022 NoteHNO ID: [id number] Author: Jerman Flores PT Service: ? Author Type: Physical Therapist Type: Progress Notes Filed: 01/28/2022 12:29 PM Note Text: 01/28/2022 [facility] RE[facility]IL[facility]ATION [facility]ORTS [facility]ERAP[facility] PHYSICAL THERAPY [...] to therapy or scheduled additional follow-up appointments. Jerman Flores [facility]04-14-2022 NoteHNO ID: [id number] Author: Jerman Flores PT Service: ? Author Type: Physical Therapist Type: Progress Notes Filed: 11/22/2021 4:50 PM Note Text: Episode Visit Count: 6 Therapist That Will Oversee The Plan Of Care: Italo Gallagher Start of Care Date: 11/06/21 Onset Date: 06/12/21 REHABILITATION AND SPORTS THERAPY PHYSICAL THERAPY TREATMENT NOTE ASSESSMENT: Jered Bush tolerated the session with no issues. [...] 10 Total Treatment Time Minutes (timed/untimed): 45 Jerman Flores, [facility]04-14-2022 History of Present illness Narrative* Jerman Flores, PT - 11/22/2021 4:47 PM EDT Episode Visit Count: 6 Therapist That Will Oversee The Plan Of Care: Italo Gallagher Start of Care Date: 11/06/21 Onset Date: 06/12/21 REHABILITATION AND SPORTS THERAPY PHYSICAL THERAPY TREATMENT NOTE ASSESSMENT: Jered Bush tolerated the session with no issues. [...] 10 Total Treatment Time Minutes (timed/untimed): 45 Jerman Flores PT documented in this encounterSal[facility]04-12-2022 NoteHNO ID: [id number] Author: Jerman Flores PT Service: ? Author Type: Physical Therapist Type: Progress Notes Filed: 11/20/2021 4:36 PM Note Text: Episode Visit Count: 5 Therapist That Will Oversee The Plan Of Care: Italo Gallagher Start of Care Date: 11/06/21 Onset Date: 06/12/21 REHABILITATION AND SPORTS THERAPY PHYSICAL THERAPY TREATMENT NOTE ASSESSMENT: Jered Bush tolerated the session with no issues. [...] 10 Total Treatment Time Minutes (timed/untimed): 40 Jerman Flores, [facility]04-12-2022 History of Present illness Narrative* Jerman Flores, PT - 11/20/2021 4:32 PM EDT Episode Visit Count: 5 Therapist That Will Oversee The Plan Of Care: Italo Gallagher Start of Care Date: 11/06/21 Onset Date: 06/12/21 REHABILITATION AND SPORTS THERAPY PHYSICAL THERAPY TREATMENT NOTE ASSESSMENT: Jered Bush tolerated the session with no issues. She demonstrated improvements in stair mobility & activity tolerance including ability to RTW this week without significant pain ordifficulty. The patient will continue to benefit from [...] in regards to increase ease of ADL, increaselymphatic fluid dynamics and ROM and function . [...] 10 Total Treatment Time Minutes (timed/untimed): 40 Jerman Flores PT documented in this encounterSal[facility]04-07-2022 NoteHNO ID: [id number] Author: Jerman Flores, NAUN Service: ? Author Type: Physical Therapist Type: Progress Notes Filed: 11/15/2021 4:59 PM Note Text: Episode Visit Count: 4 Therapist That Will Oversee The Plan Of Care: Italo Gallagher Start of Care Date: 11/06/21 Onset Date: 06/12/21 REHABILITATION AND SPORTS THERAPY PHYSICAL THERAPY TREATMENT NOTE ASSESSMENT: Jered Bush tolerated the session with increased pain. [...] AND 2nd step 3xea 7: step-taps on 6" step 5xL/R Skilled Intervention: Patient was educated [...] Minutes (timed and untimed codes) : 40 Jerman Flores [facility]04-07-2022 History of Present illness Narrative* Jerman Flores, PT - 11/15/2021 4:53 PM EDT Episode Visit Count: 4 Therapist That Will Oversee The Plan Of Care: Italo Gallagher Start of Care Date: 11/06/21 Onset Date: 06/12/21 REHABILITATION AND SPORTS THERAPY PHYSICAL THERAPY TREATMENT NOTE ASSESSMENT: Jered Bush tolerated the session with increased pain. She demonstrated difficulty with reciprocal stair descent and increased knee pain & stiffness but otherwise is doing well. Thepatient will continue to benefit from ongoing skilled physical therapy to progress toward set goals. PLAN FOR NEXT VISIT: continue to progress R knee ROM & strength, gait & stair mobility SUBJECTIVE: Patient Reason for Visit: reports increased knee pain & soreness since last sessionwhich concerns her & she's worried something is [...] & 2nd step 3xea 7: step-taps on 6" step 5xL/R Skilled Intervention: Patient was educated in proper exercise technique and purpose for exercises. Skilled judgment was provided in selection of appropriate interventions. Correct performance of therapeutic exercises was facilitated with verbal and visual cuing. Education in use of ice and parameters for each. Educated patient on rationale for performing exercises in regards to increase ease of ADL, increaselymphatic fluid dynamics and ROM and function . [...] Intervention: Patient was provided supervision, independence during pre- gait/gait training to prevent falls and insure safety. [...] Minutes (timed and untimed codes) : 40 Jerman Flores PT [facility] NoteHNO ID: [id number] Author: Jerman Flores PT Service: ? Author Type: Physical Therapist Type: Progress Notes Filed: 11/13/2021 3:41 PM Note Text: Episode Visit Count: 3 Therapist That Will Oversee The Plan Of Care: Italo Gallagher Start of Care Date: 11/06/21 Onset Date: 06/12/21 Patient Identified by Name and Date of : Yes REHABILITATION AND SPORTS THERAPY PHYSICAL THERAPY TREATMENT NOTE ASSESSMENT: Jered K Skala tolerated the session with no issues. She [...] more so than pain. reports knee was "locking" prior to surgery. Pt has also noticed some L knee pain since having her R knee done (reports previous meniscus injuries to B knees). Currently not taking any pain medication. She plans to RTW next week which will be 4 days/wk for 3 hours then will be off the next week for spring (works in [employer] at [employer]). Pain: Pain Pain Level: 0 Pain Location: [...] blue TB 20xR 5: shuttle leg press [id number]', SL 6bandsL/R 10ea (slight difficulty R vs L) 6: standing lunge stretch on 1st step AND 2nd step 3xea 7: step-taps on 6" step 5xL/R Skilled Intervention: Patient was educated [...] Minutes (timed and untimed codes) : 55 Jerman Flores [facility]04-05-2022 History of Present illness Narrative* Jerman Flores, PT - 11/13/2021 12:03 PM EDT Episode Visit Count: 3 Therapist That Will Oversee The Plan Of Care: Italo Gallagher Start of Care Date: 11/06/21 Onset Date: 06/12/21 Patient Identified by Name and Date of : Yes REHABILITATION AND SPORTS THERAPY PHYSICAL THERAPY TREATMENT NOTE ASSESSMENT: Jered Bush tolerated the session with no issues. [...] more so than pain. reports knee was "locking" prior to surgery. Pt has also noticed some L knee pain since having her R knee done (reports previous meniscus injuries to B knees). Currently not taking any pain medication. 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 Pain: Pain Pain Level: 0 Pain Location: [...] blue TB 20xR 5: shuttle leg press 3pcgehVh2', SL 6bandsL/R 10ea (slight difficulty R vs L) 6: standing lunge stretch on 1st step & 2nd step 3xea 7: step-taps on 6" step 5xL/R Skilled Intervention: Patient was educated [...] Intervention: Patient was provided supervision, independence during pre- gait/gait training to prevent falls and insure safety. [...] Minutes (timed and untimed codes) : 55 Jerman Flores PT [facility]22 NoteHNO ID: [id number] Author: Natalie Gallagher PT Service: ? Author Type: Physical Therapist Type: Progress Notes Filed: 11/08/2021 9:25 AM Note Text: Episode Visit Count: 2 Therapist That Will Oversee The Plan Of Care: Italo Gallagher Start of Care Date: 11/06/21 Onset Date: 06/12/21 Patient Identified by Name and Date of : Yes REHABILITATION AND SPORTS THERAPY PHYSICAL THERAPY TREATMENT NOTE ASSESSMENT: Jered Bush tolerated the session with no issues. [...] slant board 1 min 7: step up 4" step 10x 2 8: *step down 4" 10x 2 with rail and GENERAL DENTIST/OWNER Skilled Intervention: Patient was educated in proper [...] 2: fwd bwd walking on ramp with GENERAL DENTIST/OWNER, VC for knee flexion 3: fwd gait, VC for increased knee flex in swing phase Skilled Intervention: Facilitated proper gait cycle with the use of verbal cues for correction of gait deviations identified in the objective section above. Natalie Gallagher, [facility]03-31-2022 History of Present illness Narrative* Natalie Gallagher, PT - 11/08/2021 9:23 AM EDT Episode Visit Count: 2 Therapist That Will Oversee The Plan Of Care: tIalo Gallagher Start of Care Date: 11/06/21 Onset Date: 06/12/21 Patient Identified by Name and Date of : Yes REHABILITATION AND SPORTS THERAPY PHYSICAL THERAPY TREATMENT NOTE ASSESSMENT: Jered Bush tolerated the session with no issues. [...] slant board 1 min 7: step up 4" step 10x 2 8: *step down 4" 10x 2 with rail and GENERAL DENTIST/OWNER Skilled Intervention: Patient was educated in proper [...] 2: fwd bwd walking on ramp with GENERAL DENTIST/OWNER, VC for knee flexion 3: fwd gait, VC for increased knee flex in swing phase Skilled Intervention: Facilitated proper gait cycle with the use of verbal cues for correction of gait deviations identified in the objective section above. Natalie Gallagher PT [facility]03-29-2022 NoteHNO ID: [id number] Author: Natalie Gallagher PT Service: ? Author Type: Physical Therapist Type: Progress Notes Filed: 11/06/2021 11:47 AM Note Text: Summary: PT eval Episode Visit Count: 1 Therapist That Will Oversee The Plan Of Care: Italo Gallagher Start of Care Date: 11/06/21 Onset Date: 06/12/21 Patient Identified by Name and Date of : Yes Rehab Precautions: TKR Current Surgical Procedure : R TKR Current Surgical Procedure Date: 10/08/21 Mechanism of Injury: Insidious Onset REHABILITATION AND SPORTS THERAPY PHYSICAL THERAPY EVALUATION PLAN OF CARE: Assessment: Jered Bush presents with diagnosis of s/p right [...] of Care: created on 11/06/21 through 01/05/22 [place] in home exercise program. Patient will increase [...] Planned: 12 Planned Treatment Interventions: Therapeutic exercise (05494);Neuromuscular re-education (12771);Manual therapy (64169);Therapeutic activities (90063);Self-group home management (16162);Gait Training (30348);Patient/Family/Caregiver Education;Body Mechanics Training PLAN FOR NEXT VISIT: eccentric quad strengthening, address gait deviations Patient demonstrates good understanding of plan of care and treatment. The above goals and plan of care were discussed and agreed upon by patient/family. SUBJECTIVE: Jered Bush is a 66 year old female seen today for post R TKR rehab. Had 6 visits for [facility], last appointment 10/30/21 Patient Goals: Get back to work. 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: [employer] Recreation / Current Exercise: post op ex [...] Knee Flexion: 107 Degree (more content not included)...[facility]03-29-2022 History of Present illness Narrative* Natalie Gallagher, PT - 11/06/2021 11:39 AM EDTSummary: PT eval Episode Visit Count: 1 Therapist That Will Oversee The Plan Of Care: Italo Gallagher Start of Care Date: 11/06/21 Onset Date: 06/12/21 Patient Identified by Name and Date of : Yes Rehab Precautions: TKR Current Surgical Procedure : R TKR Current Surgical Procedure Date: 10/08/21 Mechanism of Injury: Insidious Onset REHABILITATION AND SPORTS THERAPY PHYSICAL THERAPY EVALUATION PLAN OF CARE: Assessment: Jered Bush presents with diagnosis of s/p right [...] of Care: created on 11/06/21 through 01/05/22 [place] in home exercise program. Patient will increase [...] Planned: 12 Planned Treatment Interventions: Therapeutic exercise (31713);Neuromuscular re- education (89106);Manual therapy (78719);Therapeutic activities (18681);Self- group home management (42475);Gait Training (95096);Patient/Family/Caregiver Education;Body Mechanics Training PLAN FOR NEXT VISIT: eccentric quad strengthening, address gait deviations Patient demonstrates good understanding of plan of care and treatment. The above goals and plan of care were discussed and agreed upon by patient/family. SUBJECTIVE: Jered Bush is a 66 year old female seen today for post R TKR rehab. Had 6 visits [facility], last appointment 10/30/21 Patient Goals: Get back to work. 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: [employer] Recreation / Current Exercise: post op ex [...] off during terminal stance decreased;Stance time decreased ("stiff knee") General Deviations/Observations: Lateral sway increased Stairs: Modified [...] provided Education Provided To: Patient Education Mode/Type: Demonstration;Explanation/Discussion;Literature/Printed Materials;Performance Response to Education/Teach Back: Requires Review/Additional [...] (timed and untimed codes) : 50 Natalie Gallagher PT documented in this [facility]03-12-2022 NoteHNO ID: [id number] Author: Gypsy Hairston RDMS, KALPANA Service: ? Author Type: Multimedia Editor Type: Progress Notes Filed: 10/20/2021 5:58 PM Note Text: Radiology Service Progress Note PATIENT NAME: Jered Bush DATE OF SERVICE: October 20, 2021 [...] Hairston RDMS, RVT October 20, 2021 5:58 [facility]05-09-2018 History of Present illness Narrative* 1. POP * a. s/p robotic-assisted abdominal uteropexy with upsylon mesh, anterior repair, lynx sling, perineoplasty, and cystoscopy on 12/17/17. * 2. Bartholin gland cyst * a. cyst has been drained by outside PAD MACHINE OFFBEARER in the past * 3. Hx UTI * 4. HTN- on losartan * Today s Visit: * Last seen by myself 05/01/18. 67 y/o female presents for evaluation of frequent UTIs. * Last UTI was 03/04 (Klebsiella pnemoniae, ampicillin R). Also had UTIs 02/03 (encterobacter cloacae).10/25/21 (citrobacter). 12/2020 (citrobacter). Symptoms include back ache, pressure. Denies dysuria, hematuria. Does not have any incontinence, prolapse, bowel symptoms. [id number] [id number] Work Phone: [phone] History of Present illness Narrative* Testing results: PVR 30, PVR results available and reviewed and UA results available and reviewed. * 1. POP * a. s/p robotic-assisted abdominal uteropexy with upsylon mesh, anterior repair, lynx sling, perineoplasty, and cystoscopy on 12/17/17. * 2. Bartholin gland cyst * a. cyst has been drained by outside PAD MACHINE OFFBEARER in the past * 3. Hx UTI * 4. HTN- on losartan * Today s Visit: * Last seen by myself 05/01/18. 67 y/o female presents for evaluation of frequent UTIs. * Last UTI was 03/04 (Klebsiella pnemoniae, ampicillin R). Also had UTIs 02/03 (encterobacter cloacae).10/25/21 (citrobacter). 12/2020 (citrobacter). Symptoms include back ache, pressure. Denies dysuria, hematuria. Does not have any incontinence, prolapse, bowel symptoms. [facility] [id number] Work Phone: [phone] History of Present illness Narrative* Testing results: UA results available and reviewed, but PVR results not available. * 1. POP * a. s/p robotic-assisted abdominal uteropexy with upsylon mesh, anterior repair, lynx sling, perineoplasty, and cystoscopy on 12/17/17. * b. POP-Q 03/06/23: patient was sitting. Aa: 0. Ba: 0 C: -6 Gh: 3.5. Pb: 3.5 TVL: 7 Ap: -2. Bp: -2. * 2. Bartholin gland cyst * a. cyst has been drained by outside PAD MACHINE OFFBEARER in the past * 3. frequent UTIs * 4. HTN- on losartan * Today s Visit: * Last seen by myself 03/06/23. 67 y/o female presents for cystoscopy for frequent UTIs. She has not started estrogen cream, cost-prohibitive and she is concerned with CA risk. Patient has an allergy oradverse reaction to adhesive tape TAPE and iodine solution SOLN. Patient is a non-smoker. [facility] [address] Work Phone: [phone] History of Present illness Narrative* Testing results: UA results available and reviewed, but PVR results not available. * 1. POP * a. s/p robotic-assisted abdominal uteropexy with upsylon mesh, anterior repair, lynx sling, perineoplasty, and cystoscopy on 12/17/17. * b. POP-Q 03/06/23: patient was sitting. Aa: 0. Ba: 0 C: -6 Gh: 3.5. Pb: 3.5 TVL: 7 Ap: -2. Bp: -2. * 2. Bartholin gland cyst * a. cyst has been drained by outside PAD MACHINE OFFBEARER in the past * 3. frequent UTIs * 3a. declines estrogen cream * 3b. prophylactic D Mannose prescribed 03/13/23 * 4. HTN- on losartan * Today s Visit: * Last seen by myself 03/06/23. 67 y/o female presents for cystoscopy for frequent UTIs. She has not started estrogen cream, cost-prohibitive and she is concerned with CA risk. Patient has an allergy oradverse reaction to adhesive tape TAPE and iodine solution SOLN. Patient is a non-smoker. [facility] [id number] Work Phone: [phone] History of Present illness Narrative* 1. POP * a. s/p robotic-assisted abdominal uteropexy with upsylon mesh, anterior repair, lynx sling, perineoplasty, and cystoscopy on 12/17/17. * b. POP-Q 03/06/23: patient was sitting. Aa: 0. Ba: 0 C: -6 Gh: 3.5. Pb: 3.5 TVL: 7 Ap: -2. Bp: -2. * 2. Bartholin gland cyst * a. cyst has been drained by outside PAD MACHINE OFFBEARER in the past * 3. recurrent UTIs * 3a. declines estrogen cream * 3b. prophylactic D Mannose prescribed 03/13/23 * 4. HTN- on losartan * Today s Visit: * She has burning on urination today. she is planning to see PCP Jose * we discussed that MRI revealed no evidence of tumor in kidney. results consistent with simple cyst. * we discussed that we could put a urine order in for her but she is comfortable doing this with Jose [facility] [address] Work Phone: [phone] History of Present illness Narrative* Testing results: PVR results not available and UA results not available. * 1. POP * a. s/p robotic-assisted abdominal uteropexy with upsylon mesh, anterior repair, lynx sling, perineoplasty, and cystoscopy on 12/17/17. * b. POP-Q 03/06/23: patient was sitting. Aa: 0. Ba: 0 C: -6 Gh: 3.5. Pb: 3.5 TVL: 7 Ap: -2. Bp: -2. * 2. Bartholin gland cyst * a. cyst has been drained by outside PAD MACHINE OFFBEARER in the past * 3. recurrent UTIs * 3a. declines estrogen cream * 3b. prophylactic D Mannose prescribed 03/13/23 * 4. HTN- on losartan * Today s Visit: * Last seen by myself 03/13/23. 67 y/o female presents for review of MRI kidney w/wo contrast 03/13/23 and burning with urination. She plans to see PCP Brooklynn Kline CNP about this issue. Patient has anallergy or adverse reaction to adhesive tape and iodine solution. Patient is a non-smoker. [facility] [address] Work Phone: [phone] History of Present illness Narrative* Testing results: PVR results not available and UA results not available. * 1. POP * a. s/p robotic-assisted abdominal uteropexy with upsylon mesh, anterior repair, lynx sling, perineoplasty, and cystoscopy on 12/17/17. * b. POP-Q 03/06/23: patient was sitting. Aa: 0. Ba: 0 C: -6 Gh: 3.5. Pb: 3.5 TVL: 7 Ap: -2. Bp: -2. * 2. Bartholin gland cyst * a. cyst has been drained by outside PAD MACHINE OFFBEARER in the past * 3. recurrent UTIs * 3a. declines estrogen cream * 3b. prophylactic D Mannose prescribed 03/13/23 * 4. HTN- on losartan * Today s Visit: * Last seen by myself 03/13/23. 67 y/o female presents for review of MRI kidney w/wo contrast 03/13/23 and burning with urination. She plans to see PCP Brooklynn Kline CNP about this issue. Patient has anallergy or adverse reaction to adhesive tape and iodine solution. Patient is a non-smoker. [id number] [id number] Work Phone: Evaluation note* Diagnosis Onset Date Resolution Status Cystitis acute Dysuria acute Hypertriglyceridemia acute Right knee pain acute Diverticulitis large intestine acute GERD (gastroesophageal reflux disease) acute Cystitis acute Dysuria acute [facility] Work Phone: Evaluation note* Diagnosis Difficulty walking- Primary Difficulty in walking Primary osteoarthritis of right knee Primary localized osteoarthrosis, lower leg Aftercare following right knee joint replacement surgery Joint stiffness of knee, right [facility] Diagnosis Primary osteoarthritis of right knee Primary localized osteoarthrosis, lower leg Aftercare following right knee joint replacement surgery Difficulty walking Difficulty in walking Joint stiffness of knee, right [facility] Aftercare following right knee joint replacement surgery- Primary Joint stiffness of knee, right Difficulty walking Difficulty in walking [facility] Diagnosis Aftercare following right knee joint replacement surgery- Primary Joint stiffness of knee, right Difficulty walking Difficulty in walking [facility] Diagnosis Aftercare following right knee joint replacement surgery- Primary Joint stiffness of knee, right [facility] Diagnosis Aftercare following right knee joint replacement surgery- Primary Joint stiffness of knee, right [facility] Diagnosis Onset Date Resolution Status Cystitis acute Dysuria acute Swelling of left lower extremity acute Varicosities of leg acute [facility] Work Phone: Evaluation note* Diagnosis S/P total knee arthroplasty, left- Primary Difficulty walking Difficulty in walking Knee stiffness, left Knee stiffness, right [facility] Diagnosis S/P total knee arthroplasty, left- Primary Knee stiffness, left [facility] Diagnosis S/P total knee arthroplasty, left- Primary Knee stiffness, left Difficulty walking Difficulty in walking Abnormality of gait [facility]* Diagnosis Onset Date Resolution Status Lower back pain acute UTI (urinary tract infection) acute Left knee pain acute Swelling of left knee joint acute Swelling of left lower extremity acute Varicosities of leg acute Lower back pain acute UTI (urinary tract infection) acute Diverticulitis acute Left lower quadrant pain acu te Hypertension [facility] Work Phone: Evaluation note* Diagnosis S/P total knee arthroplasty, left- Primary Knee stiffness, left Abnormality of gait [facility]* Diagnosis S/P total knee arthroplasty, left- Primary Knee stiffness, left Abnormality of gait [facility]* Diagnosis S/P total knee arthroplasty, left- Primary Knee stiffness, left Difficulty walking Difficulty in walking [facility] Diagnosis Onset Date Resolution Status Left knee pain acute Swelling of left knee joint acute Swelling of left lower extremity acute Varicosities of leg acute Lower back pain acute UTI (urinary tract infection) acute Diverticulitis acute Left lower quadrant pain acu te Hypertension chronic Left knee pain acute Swelling of left knee joint acute UTI (urinary tract infection) acute [facility] Work Phone: Evaluation note* Diagnosis Onset Date Resolution Status Lower back pain acute UTI (urinary tract infection) acute Diverticulitis acute Left lower quadrant pain acu te Hypertension chronic Left knee pain acute Swelling of left knee joint acute UTI (urinary tract infection) acute Hyperlipidemia LDL goal <130 acute Hypertension chronic [facility] Work Phone: Evaluation note* Diagnosis Onset Date Resolution Status Left knee pain acute Swelling of left knee joint acute UTI (urinary tract infection) acute Hyperlipidemia LDL goal <130 acute Hypertension chronic Lower back pain acute UTI (urinary tract infection) acute [facility] Work Phone: Evaluation note* Diagnosis Onset Date Resolution Status Lower back pain acute UTI (urinary tract infection) acute Cystitis acute Dysuria acute Dysuria acute UTI (urinary tract infection) acute [facility] Work Phone: Reason for referral (narrative)No reason for referral information availableWWright-[facility] Work Phone: Summary Purpose Family History No Family History [...] FoundDocuments on File Type Date Recorded Patient Home Advisor Expl anation Advance Directive(s) 10/20/2021 5:19 PM [...] has not been provided by the sender. Chief Complaint and Reason for Visit Chief Complaint Knee pain L) side pain Urinary tract infection Reason for Visit Cystitis Dysuria Hypertriglyceridemia Right knee pain Diverticulitis large intestine GERD (gastroesophageal reflux disease) Cystitis Dysuria Chief Complaint Urinary tract infect ion Medication check up & (L) leg pain BILAT LOWER EXT PAIN Reason for Visit Cystitis Dysuria Swelling of left lower extremity Varicosities of leg Chief Complaint Urinary tract infect ion (L) leg swollen Urinary tract infection medication refills & UA dipstick Reason for Visit Lower back pain UTI (urinary tract infection) Left knee pain Swelling of left knee joint Swelling of left lower extremity Varicosities of leg Lower back pain UTI (urinary tract infection) Diverticulitis Left lower quadrant pain Hypertension Chief Complaint (L) leg swollen Urinary tract infection medication refills & UA dipstick Urinary tract infection Reason for Visit Left knee pain Swelling of left knee joint Swelling of left lower extremity Varicosities of leg Lower back pain UTI (urinary tract infection) Diverticulitis Left lower quadrant pain Hypertension Left knee pain Swelling of left knee joint UTI (urinary tract infection) Chief Complaint Urinary tract infect ion medication refills & UA dipstick Urinary tract infection medication refills Reason for Visit Lower back pain UTI (urinary tract infection) Diverticulitis Left lower quadrant pain Hypertension Left knee pain Swelling of left knee joint UTI (urinary tract infection) Hyperlipidemia LDL goal <130 Hypertension Chief Complaint Urinary tract infect ion medication refills Urinary tract infection Reason for Visit Left knee pain Swelling of left knee joint UTI (urinary tract infection) Hyperlipidemia LDL goal <130 Hypertension Lower back pain UTI (urinary tract infection) Chief Complaint Urinary tract infect ion Urinary tract infection Urinary tract infection Reason for Visit Lower back pain UTI (urinary tract infection) Cystitis Dysuria Dysuria UTI (urinary tract infection) Chief Complaint Admit Date medication refills/Labs July 27, 024 6:18pm Urinary tract infection August 27 4:29pm Not feeling well October 20, 2024 4:1 6pm Rocephin injection October 25, 2024 2:2 2pm Reason for Visit Admit Date GERD (gastroesophageal reflux disease) D ecember 2023 6:18pm Hyperlipidemia LDL goal <130 July 272023 6:18pm Hypertension July 27, 2024 6:18pm Dysuria August 27, 2024 4 :29pm Lower back pain August 27, 2024 4 :29pm UTI (urinary tract infection) August 272024 4:29pm Cystitis October 20, 2024 4:1 6pm UTI (urinary tract infection) October 4:16pm UTI (urinary tract infection) October 2:22pm Chief Complaint Admit Date Not feeling well October 20, 2024 4:1 6pm Rocephin injection October 25, 2024 2:2 2pm Urinary tract infection/EKG January 05 3:19pm Urinary tract infection February 07, 2025 6:10pm Reason for Visit Admit Date Cystitis October 20, 2024 4:1 6pm UTI (urinary tract infection) October 4:16pm UTI (urinary tract infection) October 2:22pm Fluttering heart January 05, 2025 3:19p m UTI (urinary tract infection) January 05, 2025 3:19pm Cystitis February 07, 2025 6:10 pm Lower back pain February 07, 2025 6:10 pm Chief Complaint Admit Date Urinary tract infection February 07, 2025 6:10pm Cough/UA dipstick May 06, 2025 6:10pm Reason for Visit Admit Date Cystitis February 07, 2025 6:10 pm Lower back pain February 07, 2025 6:10 pm Bronchitis May 06, 2025 6:10pm Leukocytosis May 06, 2025 6:10pm Maxillary sinusitis, acute April 6:10pm Additional Source Comments INFORMATION SOURCE (unrecogn ized section and content) DATE CREATED AUTHOR 01/29/2018 [facility] DATE CREATED AUTHOR AUTHOR'S ORGANIZ ATION 02/03/2018 [facility] DATE CREATED AUTHOR AUTHOR'S ORGANIZ ATION 03/16/2022 [facility] DATE CREATED AUTHOR AUTHOR'S ORGANIZ ATION 03/16/2023 [facility] DATE CREATED AUTHOR AUTHOR'S ORGANIZ ATION 04/11/2023 [facility] DATE CREATED AUTHOR AUTHOR'S ORGANIZ ATION 04/13/2023 [employer] DATE CREATED AUTHOR AUTHOR'S ORGANIZ ATION 07/16/2023 [facility] DATE CREATED AUTHOR AUTHOR'S ORGANIZ ATION 06/24/2024 [facility] DATE CREATED AUTHOR AUTHOR'S ORGANIZ ATION 03/01/2025 [facility] DATE CREATED AUTHOR AUTHOR'S ORGANIZ ATION 03/08/2025 [facility] DATE CREATED AUTHOR AUTHOR'S ORGANIZ ATION 05/14/2025 [facility] Reason for Visit (unrecogniz ed section and content) Reason Comments PT Progress Note Specialty Diagnoses / Procedures Referred By Contac t Referred To Contact Physical Therapy / PHYSICAL THERAPY Diagnoses Knee replacement Procedures NEW RS PT ORTH Laura Canela MD [address] [place] [address] Jerman Flores, PT [address] [place] [address] Referral ID Status Reason Start Date Expiration Date V isits Requested Visits Authorized [id number] Authorized 01/30/2023 08/10/2023 1 99 Reason Comments Physical Therapy Specialty Diagnoses / Procedures Referred By Contac t Referred To Contact Physical Therapy / PHYSICAL THERAPY Diagnoses rt knee [id number] Procedures NEW RS PT ORTH Laura Canela MD [address] [address] Natalie Gallagher, PT [address] [place] [address] Referral ID Status Reason Start Date Expiration Date V isits Requested Visits Authorized [id number] Authorized 11/06/2021 08/10/2022 39 39 Reason For Visit Description Start Date Postop - 1st visit Preliminary reason f or visit data, not yet signed by the author as of left knee post Arthroscopic partial medial meniscectomy partial lateral meniscectomy chondroplasty of patellofemoral joint left knee. on 01/01/2019 Reason Comments PT Eval Goals (unrecognized section and content) Goals may be documented in a n alternate sectionGoals may be documented in an alternate sectionGoals may be documented in an alternate sectionGoals may be documented in an alternate sectionGoals may be documented in an alternate sectionGoals may be documented in an alternate sectionGoals may be documented in an alternate sectionGoals may be documented in an alternate sectionGoals may be documented in an alternate sectionGoals may be documented in an alternate section Source Comments (unrecognize d section and content) In the event this informatio n is protected by the Federal Confidentiality of Alcohol and Drug Abuse Patient Records regulations: The Federal rules restrict any use of the information to criminally investigate or prosecute any alcohol or drug abuse patient.[facility] the event this information is protected by the Federal Confidentiality of Alcohol and Drug Abuse Patient Records regulations: The Federal rules restrict any use of the information to criminally investigate or prosecute any alcohol or drug abuse patient.[facility] Center[facility] the event this information is protected by the Federal Confidentiality of Alcohol and Drug Abuse Patient Records regulations: The Federal rules restrict any use of the information to criminally investigate or prosecute any alcohol or drug abuse patient.[facility] Center[facility] the event this information is protected by the Federal Confidentiality of Alcohol and Drug Abuse Patient Records regulations: The Federal rules restrict any use of the information to criminally investigate or prosecute any alcohol or drug abuse patient.[facility] the event this information is protected by the Federal Confidentiality of Alcohol and Drug Abuse Patient Records regulations: The Federal rules restrict any use of the information to criminally investigate or prosecute any alcohol or drug abuse patient.[facility] Center[facility] the event this information is protected by the Federal Confidentiality of Alcohol and Drug Abuse Patient Records regulations: The Federal rules restrict any use of the information to criminally investigate or prosecute any alcohol or drug abuse patient.[facility] Center[facility] the event this information is protected by the Federal Confidentiality of Alcohol and Drug Abuse Patient Records regulations: The Federal rules restrict any use of the information to criminally investigate or prosecute any alcohol or drug abuse patient.[facility] the event this information is protected by the Federal Confidentiality of Alcohol and Drug Abuse Patient Records regulations: The Federal rules restrict any use of the information to criminally investigate or prosecute any alcohol or drug abuse patient.[facility] Center[facility] the event this information is protected by the Federal Confidentiality of Alcohol and Drug Abuse Patient Records regulations: The Federal rules restrict any use of the information to criminally investigate or prosecute any alcohol or drug abuse patient.[facility] Center[facility] the event this information is protected by the Federal Confidentiality of Alcohol and Drug Abuse Patient Records regulations: The Federal rules restrict any use of the information to criminally investigate or prosecute any alcohol or drug abuse patient.[facility] Center[facility] the event this information is protected by the Federal Confidentiality of Alcohol and Drug Abuse Patient Records regulations: The Federal rules restrict any use of the information to criminally investigate or prosecute any alcohol or drug abuse patient.[facility] Center[facility] the event this information is protected by the Federal Confidentiality of Alcohol and Drug Abuse Patient Records regulations: The Federal rules restrict any use of the information to criminally investigate or prosecute any alcohol or drug abuse patient.[facility] Center[facility] the event this information is protected by the Federal Confidentiality of Alcohol and Drug Abuse Patient Records regulations: The Federal rules restrict any use of the information to criminally investigate or prosecute any alcohol or drug abuse patient.[facility] CenterIn the event this information is protected by the Federal Confidentiality of Alcohol and Drug Abuse Patient Records regulations: The Federal rules restrict any use of the information to criminally investigate or prosecute any alcohol or drug abuse patient.[facility] CenterIn the event this information is protected by the Federal Confidentiality of Alcohol and Drug Abuse Patient Records regulations: The Federal rules restrict any use of the information to criminally investigate or prosecute any alcohol or drug abuse patient.[facility] CenterIn the event this information is protected by the Federal Confidentiality of Alcohol and Drug Abuse Patient Records regulations: The Federal rules restrict any use of the information to criminally investigate or prosecute any alcohol or drug abuse patient.[facility] Care Teams (unrecognized sec tion and content) Machine Spreader Relationship Specialty Start Date End Date Brooklynn Kline, NETWORK SUPPORT MANAGER.TRUCK SPOTTER [address] [place], [place] [phone] PCP - General Family Practice 09/26/21 Machine Spreader Relationship Specialty Start Date End Date Brooklynn Kline, NETWORK SUPPORT MANAGER.TRUCK SPOTTER [address] [place] [address] PCP - General Family Practice 09/26/21 Machine Spreader Relationship Specialty Start Date End Date Brooklynn Kline, NETWORK SUPPORT MANAGER.TRUCK SPOTTER [address] [place], [place] [phone] PCP - General Family Practice 09/26/21 Machine Spreader Relationship Specialty Start Date End Date Brooklynn Kline, NETWORK SUPPORT MANAGER.TRUCK SPOTTER [address] [place], [place] [phone] PCP - General Family Practice 09/26/21 Machine Spreader Relationship Specialty Start Date End Date Brooklynn Kline, NETWORK SUPPORT MANAGER.TRUCK SPOTTER [address] [place], [place] [phone] PCP - General Family Practice 09/26/21 Machine Spreader Relationship Specialty Start Date End Date Brooklynn Kline, NETWORK SUPPORT MANAGER.TRUCK SPOTTER [address] [place], [place] [phone] PCP - General Family Practice 09/26/21 Machine Spreader Relationship Specialty Start Date End Date Brooklynn Kline, NETWORK SUPPORT MANAGER.TRUCK SPOTTER [address] [place], [place] [phone] PCP - General Family Practice 09/26/21 Machine Spreader Relationship Specialty Start Date End Date Brooklynn Kline, NETWORK SUPPORT MANAGER.TRUCK SPOTTER [address] [place], [place] [phone] PCP - General Family Medicine 09/26/21 Machine Spreader Relationship Specialty Start Date End Date Brooklynn Kline, NETWORK SUPPORT MANAGER.TRUCK SPOTTER [address] [place] [address] PCP - General Family Medicine 09/26/21 Machine Spreader Relationship Specialty Start Date End Date Brooklynn Kline, NETWORK SUPPORT MANAGER.TRUCK SPOTTER [address] [place] [address] PCP - General Family Medicine 09/26/21 Team Status: Active Member Role Status Dates Brooklynn Kline ANALYTICAL RESEARCH CHEMIST, ANALYTICAL RESEARCH CHEMIST-C Primary Care Provider Active Team Status: Inactive Member Role Status Dates Brooklynn Kline ANALYTICAL RESEARCH CHEMIST, ANALYTICAL RESEARCH CHEMIST-C Primary Care Pr ovider, Attending Provider, Referring Provider Active Team Status: Inactive Member Role Status Dates Brooklynn Kline ANALYTICAL RESEARCH CHEMIST, ANALYTICAL RESEARCH CHEMIST-C Primary Care Provider, Attend ing Provider Active Machine Spreader Relationship Specialty Start Date End Date Brooklynn Kline, NETWORK SUPPORT MANAGER.TRUCK SPOTTER [address] [place], [place] [phone] PCP - General Family Medicine 09/26/21 Machine Spreader Relationship Specialty Start Date End Date Brooklynn Kline, NETWORK SUPPORT MANAGER.TRUCK SPOTTER [address] [place] [address] PCP - General Family Medicine 09/26/21 Machine Spreader Relationship Specialty Start Date End Date Brooklynn Kline APRN.CNP [address] [facility] [address] [place] [address] PCP - General Family Medicine 09/26/21 Team Status: Inactive Member Role Status Dates Brooklynn Kline ANALYTICAL RESEARCH CHEMIST, ANALYTICAL RESEARCH CHEMIST-C Primary Care Provider Active Start: July 27, 2024 End: July 27, 2024 Brooklynn Kline ANALYTICAL RESEARCH CHEMIST, ANALYTICAL RESEARCH CHEMIST-C Attending Provider Active Start: July 27, 2024 End: July 27, 2024 Brooklynn Kline ANALYTICAL RESEARCH CHEMIST, ANALYTICAL RESEARCH CHEMIST-C Referring Provider Active Start: July 27, 2024 End: July 27, 2024 Team Status: Inactive Member Role Status Dates Brooklynn Kline ANALYTICAL RESEARCH CHEMIST, ANALYTICAL RESEARCH CHEMIST-C Primary Care Provider Active Start: August 27, 2024 End: August 27, 2024 Brooklynn Kline ANALYTICAL RESEARCH CHEMIST, ANALYTICAL RESEARCH CHEMIST-C Attending Provider Active Start: August 27, 2024 End: August 27, 2024 Brooklynn Kline ANALYTICAL RESEARCH CHEMIST, ANALYTICAL RESEARCH CHEMIST-C Referring Provider Active Start: August 27, 2024 End: August 27, 2024 Team Status: Inactive Member Role Status Dates Brooklynn Kline ANALYTICAL RESEARCH CHEMIST, ANALYTICAL RESEARCH CHEMIST-C Primary Care Provider Active Start: October 20, 2024 End: October 20, 2024 Brooklynn Kline ANALYTICAL RESEARCH CHEMIST, ANALYTICAL RESEARCH CHEMIST-C Attending Provider Active Start: October 20, 2024 End: October 20, 2024 Brooklynn Kline ANALYTICAL RESEARCH CHEMIST, ANALYTICAL RESEARCH CHEMIST-C Referring Provider Active Start: October 20, 2024 End: October 20, 2024 Team Status: Inactive Member Role Status Dates Brooklynn Kline ANALYTICAL RESEARCH CHEMIST, ANALYTICAL RESEARCH CHEMIST-C Primary Care Provider Active Start: October 25, 2024 End: October 25, 2024 Brooklynn Kline ANALYTICAL RESEARCH CHEMIST, ANALYTICAL RESEARCH CHEMIST-C Attending Provider Active Start: October 25, 2024 End: October 25, 2024 Brooklynn Kline ANALYTICAL RESEARCH CHEMIST, ANALYTICAL RESEARCH CHEMIST-C Referring Provider Active Start: October 25, 2024 End: October 25, 2024 Team Status: Active Member Role/Relationship Status Dates Brooklynn Kline ANALYTICAL RESEARCH CHEMIST, ANALYTICAL RESEARCH CHEMIST-C Primary Care Provider Active Team Status: Inactive Member Role/Relationship Status Dates Brooklynn Kline ANALYTICAL RESEARCH CHEMIST, ANALYTICAL RESEARCH CHEMIST-C Primary Care Provider Active Start: October 20, 2024 End: October 20, 2024 Brooklynn Kline ANALYTICAL RESEARCH CHEMIST, ANALYTICAL RESEARCH CHEMIST-C Attending Provider Active Start: October 20, 2024 End: October 20, 2024 Brooklynn Kline ANALYTICAL RESEARCH CHEMIST, ANALYTICAL RESEARCH CHEMIST-C Referring Provider Active Start: October 20, 2024 End: October 20, 2024 Team Status: Inactive Member Role/Relationship Status Dates Brooklynn Kline ANALYTICAL RESEARCH CHEMIST, ANALYTICAL RESEARCH CHEMIST-C Primary Care Provider Active Start: October 20, 2024 End: October 20, 2024 Brooklynn Kline ANALYTICAL RESEARCH CHEMIST, ANALYTICAL RESEARCH CHEMIST-C Attending Provider Active Start: October 20, 2024 End: October 20, 2024 Brooklynn Kline ANALYTICAL RESEARCH CHEMIST, ANALYTICAL RESEARCH CHEMIST-C Referring Provider Active Start: October 20, 2024 End: October 20, 2024 Team Status: Inactive Member Role/Relationship Status Dates Brooklynn Kline ANALYTICAL RESEARCH CHEMIST, ANALYTICAL RESEARCH CHEMIST-C Primary Care Provider Active Start: October 25, 2024 End: October 25, 2024 Brooklynn Kline ANALYTICAL RESEARCH CHEMIST, ANALYTICAL RESEARCH CHEMIST-C Attending Provider Active Start: October 25, 2024 End: October 25, 2024 Brooklynn Kline ANALYTICAL RESEARCH CHEMIST, ANALYTICAL RESEARCH CHEMIST-C Referring Provider Active Start: October 25, 2024 End: October 25, 2024 Team Status: Inactive Member Role/Relationship Status Dates Brooklynn Kline ANALYTICAL RESEARCH CHEMIST, ANALYTICAL RESEARCH CHEMIST-C Primary Care Provider Active Start: January 05, 2025 End: January 05, 2025 Brooklynn Kline ANALYTICAL RESEARCH CHEMIST, ANALYTICAL RESEARCH CHEMIST-C Attending Provider Active Start: January 05, 2025 End: January 05, 2025 Brooklynn Kline ANALYTICAL RESEARCH CHEMIST, ANALYTICAL RESEARCH CHEMIST-C Referring Provider Active Start: January 05, 2025 End: January 05, 2025 Team Status: Inactive Member Role/Relationship Status Dates Brooklynn Kline ANALYTICAL RESEARCH CHEMIST, ANALYTICAL RESEARCH CHEMIST-C Primary Care Provider Active Start: February 07, 2025 End: February 07, 2025 Brooklynn Kline ANALYTICAL RESEARCH CHEMIST, ANALYTICAL RESEARCH CHEMIST-C Attending Provider Active Start: February 07, 2025 End: February 07, 2025 Brooklynn Kline ANALYTICAL RESEARCH CHEMIST, ANALYTICAL RESEARCH CHEMIST-C Referring Provider Active Start: February 07, 2025 End: February 07, 2025 Team Status: Inactive Member Role/Relationship Status Dates Brooklynn Kline ANALYTICAL RESEARCH CHEMIST, ANALYTICAL RESEARCH CHEMIST-C Primary Care Provider Active Start: February 07, 2025 End: February 07, 2025 Brooklynn Kline ANALYTICAL RESEARCH CHEMIST, ANALYTICAL RESEARCH CHEMIST-C Attending Provider Active Start: February 07, 2025 End: February 07, 2025 Brooklynn Kline NP, ANALYTICAL RESEARCH CHEMIST-C Referring Provider Active Start: February 07, 2025 End: February 07, 2025 Team Status: Active Member Role/Relationship Status Dates Brooklynn Kline NP, ANALYTICAL RESEARCH CHEMIST-C Primary care physician Active Team Status: Inactive Member Role/Relationship Status Dates Brooklynn Kline NP, ANALYTICAL RESEARCH CHEMIST-C Primary care physician Active Start: February 07, 2025 End: February 07, 2025 Brooklynn Kline NP, ANALYTICAL RESEARCH CHEMIST-C Attending physician Active Start: February 07, 2025 End: February 07, 2025 Brooklynn Kline NP, ANALYTICAL RESEARCH CHEMIST-C Referring Provider Active Start: February 07, 2025 End: February 07, 2025 Team Status: Inactive Member Role/Relationship Status Dates Brooklynn Kline NP, ANALYTICAL RESEARCH CHEMIST-C Primary care physician Active Start: February 07, 2025 End: February 07, 2025 Brooklynn Kline NP, ANALYTICAL RESEARCH CHEMIST-C Attending physician Active Start: February 07, 2025 End: February 07, 2025 Brooklynn Kline NP, ANALYTICAL RESEARCH CHEMIST-C Referring Provider Active Start: February 07, 2025 End: February 07, 2025 Team Status: Inactive Member Role/Relationship Status Dates Brooklynn Kline NP, ANALYTICAL RESEARCH CHEMIST-C Primary care physician Active Start: May 06, 2025 End: May 06, 2025 Brooklynn Kline NP, ANALYTICAL RESEARCH CHEMIST-C Attending physician Active Start: May 06, 2025 End: May 06, 2025 Brooklynn Kline NP, ANALYTICAL RESEARCH CHEMIST-C Referring Provider Active Start: May 06, 2025 End: May 06, 2025 Team Status: Inactive Member Role/Relationship Status Dates Brooklynn Kline NP, ANALYTICAL RESEARCH CHEMIST-C Primary care physician Active Start: May 06, 2025 End: May 06, 2025 Brooklynn Kline NP, ANALYTICAL RESEARCH CHEMIST-C Attending physician Active Start: May 06, 2025 End: May 06, 2025 Brooklynn Kline ANALYTICAL RESEARCH CHEMIST, ANALYTICAL RESEARCH CHEMIST-C Referring Provider Active Start: May 06, 2025 End: May 06, 2025 FOR RECORDS PERTAINING TO PATIENTS WHO ARE [...] BE BASED ON THE PRIMARY CLINICAL RECORDS. [facility] [employer] [facility]. provides no warranty or guarantee of the accuracy or completeness of information in this document.
[2025-05-26 21:52] LABS: Hematocrit 45.5 % (37-47); Hemoglobin 14.9 g/dL (12.0-15.0); Immature Granulocytes Count 0.010 X10^3/uL (0.0-0.0); Mean Corp Hgb Conc 32.7 g/dL (32-36); Mean Corpuscular Volume 91.4 fL (81-99); Mean Platelet Vol. 10.6 fl (6.2-12.0); NRBC Flagged by Analyzer 0 % (0-5); Platelet Count 233 K/mm3 (150-450); RBC Distribution Width CV 13.0 % (11.6-14.6); RBC Distribution Width SD 43.2 fl (35.1-43.9); Red Blood Count 4.98 M/mm3 (4.2-5.4); White Blood Count 6.4 K/mm3 (4.4-11.0)
[2025-05-26 22:34] LABS: AST(SGOT) 31 U/L (<=31); Alanine Aminotransfer ALT/SGPT 31 U/L (<=34); Albumin, Serum 4.2 g/dL (3.4-4.8); Alkaline Phosphatase 89 U/L (35-104); Anion Gap 12 (5-15); BUN 13 mg/dL (4-19); BUN/Creat Ratio 19.2 RATIO (10-20); Calcium,Total 9.5 mg/dL (7.6-11.0); Carbon Dioxide 25.6 mmol/L (21.0-32.0); Chloride 100 mmol/L (98-108); Cholesterol 185 mg/dL (<=200); Globulin 2.5 g/dL (2.2-4.2); Glucose 215 mg/dL (70-99); Low Density Lipoprotein Calc. 75 mg/dL; Potassium 3.6 mmol/L (3.3-5.1); Triglycerides 366 mg/dL; Very Low Density Lipoprotein 73 mg/dL (5-40); cholesterol:hdl ratio screen 4.99
== END | disposition home or self-care (01) ==
PROVIDERS: PCP Nurse Practitioner; Referring Provider Nurse Practitioner; Visit Provider Nurse Practitioner
DX: N30.90 Cystitis, unspecified without hematuria (principal); K57.92 Diverticulitis of intestine, part unspecified, without perforation or abscess without bleeding; E78.5 Hyperlipidemia, unspecified; I10 Essential (primary) hypertension; E78.1 Pure hyperglyceridemia; R53.83 Other fatigue; R73.9 Hyperglycemia, unspecified; K21.00 Gastro-esophageal reflux disease with esophagitis, without bleeding
CPT/HCPCS: 80053; 80061; 83036; 84443; 85025; 87077; 87086; 87088; 87186